=== PATIENT | female | born 1935 | race Caucasian/White ===

== ENCOUNTER 2016-11-16 14:06 | Inpatient (IN) | payer MEDICARE, OTHER ==
[~2016-11-16] VITALS: Ht 165.1 cm; Wt 113.6 kg
[~2016-11-16 14:06] MED LIST: ASPI-727 PO; CARV6.2579 PO; DIGO250T72 PO; ENAL5TAB89 PO; FURO40TA4 PO; HYDR1CAP18 PO; POTA8CAP PO; SMV40T PO; ZOLP10TA PO
[2016-11-16] MEDS ORDERED: ALBUTEROL 0.5% (NEB) 2.5 MG/0.5 ML AMP NEB STA (14:45)
[2016-11-16] MEDS ORDERED: ASPIRIN 81 MG TAB PO STA (14:45)
[2016-11-16] MEDS ORDERED: SOD CHLORIDE 0.9% 500 ML IV STA (14:45)
[2016-11-16] MEDS ORDERED: IPRATROPIUM (NEB) 0.5 MG/2.5 ML AMP NEB STA (14:45)
[2016-11-16] MEDS ORDERED: LORA10TA3 PO (14:53)
[2016-11-16] MEDS ORDERED: MAGN400T28 PO (14:53)
[2016-11-16] MEDS ORDERED: CARV12.579 PO (14:54)
[2016-11-16] MEDS ORDERED: IBUP-1542 PO (14:54)
[2016-11-16 15:03] LABS: ADD SCAN DIFF NO
[2016-11-16 15:04] LABS: ABNORMAL IP MESSAGE 1; BASOPHILS % 0.4 % (0.0-2.0); EOSINOPHILS # 0.1 10^3/ul (0.0-0.5); EOSINOPHILS % 0.9 % (0.0-7.0); HEMATOCRIT 48.9 % (37.0-47.0); HEMOGLOBIN 14.1 g/dl (12.0-16.0); LYMPHOCYTES # 1.5 10^3/ul (0.8-2.9); LYMPHOCYTES % 20.1 % (15.0-51.0); MEAN CORPUSCULAR HEMOGLOBIN 29.1 pg (29.0-33.0); MEAN CORPUSCULAR HGB CONC 28.8 g/dl (32.0-37.0); MEAN CORPUSCULAR VOLUME 100.8 fl (82.0-101.0); MEAN PLATELET VOLUME 10.6 fl (7.4-10.4); MONOCYTE # 0.5 10^3/ul (0.3-0.9); MONOCYTES % 6.2 % (0.0-11.0); NEUTROPHIL # 5.3 10^3/ul (1.6-7.5); NEUTROPHILS % 72.1 % (39.0-77.0); PLATELET COUNT 186 10^3/UL (140-415); RED BLOOD COUNT 4.85 10^6/ul (4.20-5.40); RED CELL DISTRIBUTION WIDTH 14.6 % (11.5-14.5); WHITE BLOOD COUNT 7.4 10^3/ul (4.8-10.8)
--- NOTE | 2016-11-16 15:16 | RADRPT ---
PROCEDURE: XR Chest. CLINICAL INDICATION: Stroke TECHNIQUE: Chest AP portable. COMPARISON: 11/30/2008 FINDINGS: Left-sided dual lead pacemaker. The mediastinal structures are unremarkable. There is calcification of the thoracic aorta (consiste nt with atherosclerosis). There is moderate cardiac enlargement. There is mild congestive heart fa ilure. There are right perihilar, RLL and LLL patchy consolidations (edema/pneumonia). There is a possible left pleural effusion. There are senescent changes of the axial skeleton. IMPRESSION: Moderate cardiac enlargement. Mild congestive heart failure. Right perihilar, RLL and LLL patchy consolidations (edema/pneumonia). Possible small left pleural effusion. RPTAT: HGDB .Obie Joshi MD, MD Date Time Electronically viewed and signed by .Obie Joshi MD, on 11/16/2016 15:15 .B/
[2016-11-16 15:20] LABS: INR 0.97; PROTIME 12.9 Sec (12.2-14.2)
[2016-11-16 15:21] LABS: PARTIAL THROMBOPLASTIN TIME 24.8 Sec (25.0-35.0)
[2016-11-16 15:46] LABS: ALBUMIN 3.7 g/dl (3.3-4.9)
[2016-11-16 15:47] LABS: POTASSIUM 4.4 mmol/L (3.5-5.1)
[2016-11-16 15:49] LABS: ALBUMIN/GLOBULIN RATIO 1.23; CREATININE 0.63 mg/dl (0.44-1.00); TOTAL PROTEIN 6.7 g/dl (6.1-8.1)
[2016-11-16 15:50] LABS: CALCIUM 8.7 mg/dl (8.4-10.2)
[2016-11-16] MEDS ORDERED: CEFTRIAXONE 1 GM/50 ML (PMX) 50 ML IVPB STA (15:57)
[2016-11-16] MEDS ORDERED: AZITHROMYCIN 500MG/NS (PMX) 250 ML IV STA (15:57)
[2016-11-16] MEDS ORDERED: FUROSEMIDE 40 MG INJ IV ONE (16:00)
[2016-11-16 16:01] LABS: TROPONIN-I 0.016 ng/ml (0.00-0.12)
[2016-11-16] MEDS ORDERED: morphine 4 MG/ML VIAL IV STA (16:26)
[2016-11-16] MEDS ORDERED: ONDANSETRON 4 MG INJ IV STA (16:26)
--- NOTE | 2016-11-16 17:07 | RADRPT ---
PROCEDURE: CT Brain without. CLINICAL INDICATION: Weakness, possible stroke, lethargic. TECHNIQUE: A CT of the brain was performed on multidetector high-resolution CT scanner utilizing a xial sections from the skull base through the vertex without contrast. The scan was reviewed in sof t tissue brain and high frequency resolution bone algorithm windows. Images were reviewed on a high -resolution PACS workstation. One or more the following does reduction techniques were utilized: Aut omated exposure control, adjustment of the mA/ or kV according to patient's size, or use of iterativ e reconstruction technique. The exam CTDI = 45.0 x3 mGy and the DLP = 810.25 mGy-cm. COMPARISON: None available. FINDINGS: Multiple images are degraded by motion. The ventricles and sulci are mildly prominent indicative of volume loss. There is no intracranial he morrhage, mass effect or midline shift. No abnormal intra-axial or extra-axial fluid collections ar e seen. The marquis/white matter differentiation is preserved. There are mild scattered foci of hypoattenuation in the white matter, which are nonspecific in etiol ogy but likely reflect chronic small vessel ischemic changes. Small lacunar infarcts are noted in ri ght caudate head and left coronal radiata and lentiform nucleus, likely chronic. There are mild intr acranial vascular calcifications consistent with atherosclerosis. The visualized paranasal sinuses a re essentially clear. There is thinning of right lens indicative of prior lens replacement. IMPRESSION: 1. Suboptimal motion degraded study. No acute intracranial hemorrhage, transcortical infarction or mass effect. 2. Mild intracranial atherosclerosis and chronic small vessel ischemic changes. 4. Small lacunar infarcts in right caudate head and left coronal radiata and lentiform nucleus, lik thomas chronic. Please note MRI is more sensitive for detection of acute ischemia and can be obtained a s clinically warranted. 5. Mild generalized cerebral volume loss. RPTAT: HH .Benotn Amaral MD, Date Time Electronically viewed and signed by .Benton Amaral MD, MD on 11/16/2016 17:06 .N/
[2016-11-16] MEDS ORDERED: ATROPINE 1 MG INJ IV ONE (17:30)
[2016-11-16 19:12] LABS: AADO2 Arterial 461.9 mmHg (7.0-24.0); Allen Test ACCEPTAB; Arterial Base Excess 8.7 mmol/L (-3.0-3); Arterial COHb 0.8 % (0.0-3.0); Arterial Fraction of Oxyhgb 95.8 % (93.0-99.0); Arterial HCO3 44.4 mmol/L (22.0-26.0); Arterial MetHb 0.6 % (0.0-1.5); Arterial Total Hemglobin 15.3 g/dl (12.0-18.0); MODE MASK - NRB
[2016-11-16] MEDS ORDERED: PROPOFOL 100 ML ONE (19:29)
--- NOTE | 2016-11-16 19:35 | ERA ---
ER Documentation Chief Complaint Date/Time DATE: 11/16/16 TIME: 19:30 Chief Complaint BROUGHT IN VIA EMS FROM HOME DUE TO GENERALIZED WEAKNESS STARTING TODAY HPI This 81-year-old female who is brought in due to generalized weakness and decreased mental status today. The family states that yesterday she was less active than usual and this morning she was very sleepy and is falling asleep easily while sitting in a chair. Said when she walks she is acting like her legs are going to give out she has not had a fall. The patient on arrival is sleepy but easily arousable. She is denying any complaints such as chest pain or shortness of breath however she is having some slight increased work of breathing no minimal. She denies abdominal pain nausea vomiting diarrhea. No fever ROS All systems reviewed and are negative except as per history of present illness. Medications Home Meds Reported Medications Carvedilol* (Carvedilol*) 12.5 Mg Tablet, 12.5 MG PO BID, #60 TAB 11/16/16 Ibuprofen* (Ibuprofen*) 600 Mg Tablet, 600 MG PO Q6H Y for PAIN, TAB 11/16/16 Loratadine* (Loratadine*) 10 Mg Tablet, 10 MG PO DAILY, #30 TAB 11/16/16 Magnesium Oxide* (Magnesium Oxide*) 400 Mg Tablet, 400 MG PO DAILY, TAB 11/16/16 Aspirin (Adult Aspirin) 81 Mg Tab.chew, 81 MG PO DAILY 10/01/11 Furosemide* (Furosemide*) 40 Mg Tablet, 40 MG PO DAILY 10/01/11 Simvastatin (Simvastatin) 40 Mg Tablet, 40 MG PO QHS 10/01/11 Enalapril (Enalapril) 5 Mg Tablet, 5 MG PO BID 10/01/11 Discontinued Reported Medications Hydrocodone Bit/Acetaminophen (Dolacet 5/500 Capsule) 1 Cap Capsule, 1 TAB PO Q8 10/01/11 Potassium Chloride (Micro-K) 8 Meq Capsr, 8 MEQ PO DAILY 10/01/11 Digoxin (Digoxin) 250 Mcg Tablet, 250 MCG PO DAILY 10/01/11 Zolpidem Tartrate (Ambien Saleem) 10 Mg Tablet, 10 MG PO HS 10/01/11 Carvedilol* (Carvedilol*) 6.25 Mg Tablet, 6.25 MG PO BID 10/01/11 Allergies Allergies: Coded Allergies: No Known Allergies (Verified Allergy, Unknown, 11/16/16) PMhx/Soc History of Surgery: Yes (AICD in the past) Anesthesia Reaction: No Hx Neurological Disorder: No Hx Respiratory Disorders: No Hx Cardiac Disorders: Yes (has permanent pacemaker and cardiomyopathy) Hx Psychiatric Problems: No Hx Miscellaneous Medical Probl: No Hx Alcohol Use: No Hx Substance Use: No Hx Tobacco Use: No Smoking Status: Never smoker FmHx Family History: No coronary disease Physical Exam Vitals Vital Signs Date Time Temp Pulse Resp B/P Pulse Ox O2 Delivery O2 Flow Rate FiO2 11/16/16 18:30 98.0 88 18 122/70 99 Non Rebreather 15.0 88 11/16/16 16:30 98.0 94 18 138/85 99 Non Rebreather 15.0 94 11/16/16 15:58 15.0 100 11/16/16 15:58 95 21 99 Non Rebreather Mask 15.0 100 11/16/16 15:38 Nasal Cannula 2 11/16/16 14:30 95 18 173/124 100 Non Rebreather 12.0 11/16/16 14:10 98.0 95 16 130/8 60 Nasal Cannula 11/16/16 14:08 98.5 84 18 122/86 68 Physical Exam Const: Well-developed, well-nourished Head: Atraumatic, normocephalic Eyes: Normal Conjunctiva, PERRLA, EOMI, normal sclera, no nystagmus ENT: Normal External Ears, Nose and Mouth, moist mucus membranes. Neck: Full range of motion. No meningismus, no lymphadenopathy. Resp: Slight coarse rhonchi in the bases with very slight increased work of breathing with accessory muscle use no respiratory strength distress. Cardio: Regular rate and rhythm, no murmurs, S1 S2 present Abd: Soft, non tender x 4, non distended. Normal bowel sounds, no guarding or rebound, no pulsitile abdominal masses or bruits Skin: No petechiae or rashes, no ecchymosis , no maculopapular rash Back: No midline or flank tenderness Ext: No cyanosis, or edema, FROM x 4, normal inspection, neurovascularly intact x 4 Neur: Sleepy but easily arousable and answers questions, STR 5/5 x 4, sensation intact x 4, no focal findings, cerebellum intact Psych: Normal Mood and Affect Result Diagram: 11/16/16 1450 11/16/16 1450 Results 24 hrs Laboratory Tests Test 11/16/16 14:50 11/16/16 18:13 Activated Partial Thromboplast Time 24.8Sec Alanine Aminotransferase (ALT/SGPT) 24IU/L Albumin 3.7g/dl Albumin/Globulin Ratio 1.23 Alkaline Phosphatase 61IU/L Anion Gap 12 Aspartate Amino Transf (AST/SGOT) 20IU/L Basophils # 0.010^3/ul Basophils % 0.4% Blood Urea Nitrogen 15mg/dl Calcium Level 8.7mg/dl Carbon Dioxide Level 41mmol/L Chloride Level 96mmol/L Creatinine 0.63mg/dl Direct Bilirubin 0.00mg/dl Eosinophils # 0.110^3/ul Eosinophils % 0.9% Globulin 3.00g/dl Glucose Level 104mg/dl Hematocrit 48.9% Hemoglobin 14.1g/dl INR International Normalized Ratio 0.97 Indirect Bilirubin 0.0mg/dl Lymphocytes # 1.510^3/ul Lymphocytes % 20.1% Mean Corpuscular Hemoglobin 29.1pg Mean Corpuscular Hemoglobin Concent 28.8g/dl Mean Corpuscular Volume 100.8fl Mean Platelet Volume 10.6fl Monocytes # 0.510^3/ul Monocytes % 6.2% Neutrophils # 5.310^3/ul Neutrophils % 72.1% Nucleated Red Blood Cells # 0.010^3/ul Nucleated Red Blood Cells % 0.0/100WBC Platelet Count 06306^3/UL Potassium Level 4.4mmol/L Prothrombin Time 12.9Sec Prothrombin Time Ratio 1.0 Red Blood Count 4.8510^6/ul Red Cell Distribution Width 14.6% Sodium Level 144mmol/L Total Bilirubin 0.0mg/dl Total Protein 6.7g/dl Troponin I 0.016ng/ml White Blood Count 7.410^3/ul Arterial Blood HCO3 44.4mmol/L Arterial Blood Base Excess 8.7mmol/L Arterial Blood Oxygen Saturation 97.2mmHG Dario Test ACCEPTAB Arterial Blood Gas Puncture Site Right Radial Arterial Blood Carboxyhemoglobin 0.8% Arterial Blood Date Drawn 11/16/2016 7:05:30 PM Arterial Blood Methemoglobin 0.6% Arterial Blood pCO2 (Temp correct) 142.2mmhg Arterial Blood pH (Temp corrected) 7.112 Arterial Blood pO2 (Temp corrected) 108.9mmHG Blood Gas A-a O2 Differential 461.9mmHg Blood Gas Critical Value Read Back Kylie ALVAREZ MD Blood Gas Modality MASK - NRB Blood Gas Notified Time 11/16/2016 7:12:04 PM Blood Gas Notified Whom MG Blood Gas Specimen Source Blood arterial Blood Gas Temperature 37.0C FiO2 100.0% Oxyhemoglobin Percent 95.8% Total Hemoglobin 15.3g/dl Current Medications Medications (Trade) Dose Ordered Sig/Arely Route PRN Reason Start Time Stop Time Status Last Admin Dose Admin Sodium Chloride (NS) 500 ml @ 500 mls/hr Q1H STAT IV 11/16/16 14:45 11/16/16 15:44 DC 11/16/16 14:45 Aspirin (Aspirin) 162 mg ONCE STAT PO 11/16/16 14:45 11/16/16 14:47 DC 11/16/16 14:45 Albuterol (Proventil 0.5% (Neb)) 10 mg ONCE STAT NEB 11/16/16 14:45 11/16/16 14:47 DC 11/16/16 15:57 Ipratropium [place] 0.5 mg 0.5 mg ONCE STAT NEB 11/16/16 14:45 11/16/16 14:47 DC 11/16/16 15:57 Azithromycin 250 ml @ 250 mls/hr ONCE STAT IV 11/16/16 15:57 11/16/16 16:56 DC 11/16/16 15:57 Ceftriaxone Sodium (Rocephin) 50 ml @ 100 mls/hr ONCE STAT IVPB 11/16/16 15:57 11/16/16 16:26 DC 11/16/16 15:57 Furosemide (Lasix) 40 mg ONCE ONCE IV 11/16/16 16:00 11/16/16 16:01 DC 11/16/16 16:00 Morphine Sulfate (morphine) 4 mg ONCE STAT IV 11/16/16 16:26 11/16/16 16:27 Cancel Ondansetron HCl (Zofran Inj) 4 mg ONCE STAT IV 11/16/16 16:26 11/16/16 16:27 Cancel Atropine Sulfate 1 mg 1 mg ONCE ONCE IV 11/16/16 17:30 11/16/16 17:31 Cancel Propofol (Diprivan) 100 ml @ STK-MED ONCE .ROUTE 11/16/16 19:29 11/16/16 19:30 DC Procedures/MDM PROCEDURE: CT Brain without. CLINICAL INDICATION: Weakness, possible stroke, lethargic. TECHNIQUE: A CT of the brain was performed on multidetector high-resolution CT scanner utilizing axial sections from the skull base through the vertex without contrast. The scan was reviewed in soft tissue brain and high frequency resolution bone algorithm windows. Images were reviewed on a high- resolution PACS workstation. One or more the following does reduction techniques were utilized: Automated exposure control, adjustment of the mA/ or kV according to patient's size, or use of iterative reconstruction technique. The exam CTDI = 45.0 x3 mGy and the DLP = 810.25 mGy-cm. COMPARISON: None available. FINDINGS: Multiple images are degraded by motion. The ventricles and sulci are mildly prominent indicative of volume loss. There is no intracranial hemorrhage, mass effect or midline shift. No abnormal intra- axial or extra-axial fluid collections are seen. The marquis/white matter differentiation is preserved. There are mild scattered foci of hypoattenuation in the white matter, which are nonspecific in etiology but likely reflect chronic small vessel ischemic changes. Small lacunar infarcts are noted in right caudate head and left coronal radiata and lentiform nucleus, likely chronic. There are mild intracranial vascular calcifications consistent with atherosclerosis. The visualized paranasal sinuses are essentially clear. There is thinning of right lens indicative of prior lens replacement. IMPRESSION: 1. Suboptimal motion degraded study. No acute intracranial hemorrhage, transcortical infarction or mass effect. 2. Mild intracranial atherosclerosis and chronic small vessel ischemic changes. 4. Small lacunar infarcts in right caudate head and left coronal radiata and lentiform nucleus, likely chronic. Please note MRI is more sensitive for detection of acute ischemia and can be obtained as clinically warranted. 5. Mild generalized cerebral volume loss. RPTAT: HH .Benton Amaral MD, MD Date Time Electronically viewed and signed by .Benton Amaral MD, MD on 11/16/2016 17: 06 .N/ CC: DORA ALVAREZ DO EKG: Rate/Rhythm: Electronic ventricular pacemaker QRS, ST, QT: Y, QRS, QT] Impression: [employer] pacemaker EKG PROCEDURE: XR Chest. CLINICAL INDICATION: Stroke TECHNIQUE: Chest AP portable. COMPARISON: 11/30/2008 FINDINGS: Left-sided dual lead pacemaker. The mediastinal structures are unremarkable. There is calcification of the thoracic aorta (consistent with atherosclerosis). There is moderate cardiac enlargement. There is mild congestive heart failure. There are right perihilar , RLL and LLL patchy consolidations (edema/pneumonia). There is a possible left pleural effusion. There are senescent changes of the axial skeleton. IMPRESSION: Moderate cardiac enlargement. Mild congestive heart failure. Right perihilar, RLL and LLL patchy consolidations (edema/pneumonia). Possible small left pleural effusion. RPTAT: HGDB .Obie Joshi MD, MD Date Time Electronically viewed and signed by .Obie Joshi MD, MD on 11/16/2016 15:15 .B/ CC: DORA ALVAREZ DO Patient received intravenous antibiotics and Lasix. Over the course of a few hours the patient became more somnolent and sleepy with became increasingly difficult to arouse. An ABG was then obtained with a PCO2 of 140s. At that point putting her on BiPAP was abandoned and intubation is necessary. Endotracheal Intubation by me: Pre assessment performed. See preceding note for details. Pre-oxygenation performed with 100% oxygen RSI: Performed w/o complication or hypoxic events. Medications as ordered. Blade: Mac 4 ET Tube: 7.0 cm Depth: 22 cm at the lip Intubation confirmed by colorimetric CO2, equal breath sounds, quiet over the stomach. Patient be admitted for vascular congestion/patchy infiltrate/edema and 4 CO2 narcosis Critical Care Time: 30 minutes Treatments/Evaluations: Close monitoring and treatment of unstable vital signs, cardiorespiratory, and neurologic status, while maintaining tight balance of fluid, respiratory, and cardiac interventions. This time includes discussing the case with the patient and the patient's family. This time does not include all procedures stated elsewhere in this record. This time also includes reviewing old records, labs and radiological studies. This time includes examining and re-examining the patient. Additionally, this time also includes arranging care with admitting and consulting physicians. Departure Diagnosis: Primary Impression: Carbon dioxide narcosis Additional Impressions: Pulmonary vascular congestion Pulmonary infiltrates Condition: DORA Peoples DO Nov 16, 2016 19:35
[2016-11-16] MEDS: SOD CHLORIDE 0.9% 1,000 ML IV SCH (19:50)
--- NOTE | 2016-11-16 19:50 | HP ---
Date/Time of Note Date/Time of Note DATE: 11/16/16 TIME: 19:50 Assessment/Plan VTE Prophylaxis VTE Prophylaxis Intervention: other (Enoxeparin) Assessment/Plan Assessment/Plan 1) Carbon dioxide narcosis - Admit to ICU - CONSULT: Dr. Orozco - AM Labs: ABG 2) Pulmonary vascular congestion, suspect mild CHF - Cardio Consult and Echo tomorrow, if indicated - Diuresis. Already given 40 mg Lasix IV in ER - Add BNP onto labs already done. 3) Pulmonary infiltrates - Cover with Antibiotics for possible CAP - AM Labs: CBC - Blood Cultures were drawn in ER, pending. 4) Morbid Obesity, consider Obesity Hypoventilation Syndrome - Add TSH, Prealbumin, HgbA1c to labs already drawn. - AM Labs: Lipid Panel HPI/ROS Admit Date/Time Admit Date/Time Hx of Present Illness Chief Complaint BROUGHT IN VIA EMS FROM HOME DUE TO GENERALIZED WEAKNESS STARTING TODAY HPI History as per ER physician as patient is intubated and sedated and there are no family members present.: This 81-year-old female who is brought in due to generalized weakness and decreased mental status today. The family states that yesterday she was less active than usual and this morning she was very sleepy and is falling asleep easily while sitting in a chair. Said when she walks she is acting like her legs are going to give out she has not had a fall. The patient on arrival is sleepy but easily arousable. She is denying any complaints such as chest pain or shortness of breath however she is having some slight increased work of breathing no minimal. She denies abdominal pain nausea vomiting diarrhea. No fever. ROS ROS as per HPI. Subjective hx not possible: other (Patient is Intubated and Sedated. No family members at bedside.) PMH/Family/Social Past Medical History Anesthesia Reaction: No Hx Neurological Disorder: No Hx Respiratory Disorders: No Hx Psychiatric Problems: No Hx Miscellaneous Medical Probl: No Medical History: other (Cardiomyopathy) Past Surgical History Past Surgical Hx: other (AICD Placement; Permanent Pacemaker) Family History Significant Family History: other (No cardiac history.) Social History Alcohol Use: none Smoking Status: Never smoker Drug Use: none Exam/Review of Systems Vital Signs Vitals Vital Signs Date Time Temp Pulse Resp B/P Pulse Ox O2 Delivery O2 Flow Rate FiO2 11/16/16 18:30 98.0 88 18 122/70 99 Non Rebreather 15.0 88 11/16/16 15:58 100 Exam Exam Const: Morbidly obese female, intubated and sedated. Head: Normocephalic/Atraumatic Eyes: No scleral icterus ENT: Normal External Ears, Nose (NGT in place.) and Mouth, oral mucus membranes appear to be moist, but exam is difficult due to intubation status. Neck: Supple, no lymphadenopathy. Unable to test ROM due to intubation status Resp: Slight coarse rhonchi in the bases, ventilated via endotrachial intubation Cardio: Normal rate and regular rhythm, but difficult to hear over ventilator. Heart sounds seem distant as well. Radial and DP Pulses bilaterally 1-2/4, regular. Abd: Obese, soft. Exam does not seem to cause discomfort. No guarding or rebound. No pulsitile masses or obvious HSM, but exam is difficult due to body habitus. Skin: Normal moisture and temperature. Good turgor. No petechiae. No rashes appreciated. Back: Not able to examine easily due to intubated status. Ext: No cyanosis, or edema Neur: Intubated and sedated on Propofol, but patient is chewing on the tube and spontaneously moves her legs, and when I moved her left breast to auscultate her left lower lung field, it seemed to bother patient as she moved her arms. I took is as a sign of modesty rather than a sign of pain. Psych: Unable to asses due to current sedation and intubation. Labs Result Diagram: 11/16/16 1450 11/16/16 1450 Medications Medications Home Meds Reported Medications Carvedilol* (Carvedilol*) 12.5 Mg Tablet, 12.5 MG PO BID, #60 TAB 11/16/16 Ibuprofen* (Ibuprofen*) 600 Mg Tablet, 600 MG PO Q6H Y for PAIN, TAB 11/16/16 Loratadine* (Loratadine*) 10 Mg Tablet, 10 MG PO DAILY, #30 TAB 11/16/16 Magnesium Oxide* (Magnesium Oxide*) 400 Mg Tablet, 400 MG PO DAILY, TAB 11/16/16 Aspirin (Adult Aspirin) 81 Mg Tab.chew, 81 MG PO DAILY 10/01/11 Furosemide* (Furosemide*) 40 Mg Tablet, 40 MG PO DAILY 10/01/11 Simvastatin (Simvastatin) 40 Mg Tablet, 40 MG PO QHS 10/01/11 Enalapril (Enalapril) 5 Mg Tablet, 5 MG PO BID 10/01/11 Discontinued Reported Medications Hydrocodone Bit/Acetaminophen (Dolacet 5/500 Capsule) 1 Cap Capsule, 1 TAB PO Q8 10/01/11 Potassium Chloride (Micro-K) 8 Meq Capsr, 8 MEQ PO DAILY 10/01/11 Digoxin (Digoxin) 250 Mcg Tablet, 250 MCG PO DAILY 10/01/11 Zolpidem Tartrate (Ambien Saleem) 10 Mg Tablet, 10 MG PO HS 10/01/11 Carvedilol* (Carvedilol*) 6.25 Mg Tablet, 6.25 MG PO BID 10/01/11 Procedures Procedures Laboratory Tests Test 11/16/16 14:50 11/16/16 18:13 Activated Partial Thromboplast Time 24.8Sec Alanine Aminotransferase (ALT/SGPT) 24IU/L Albumin 3.7g/dl Albumin/Globulin Ratio 1.23 Alkaline Phosphatase 61IU/L Anion Gap 12 Aspartate Amino Transf (AST/SGOT) 20IU/L Basophils # 0.010^3/ul Basophils % 0.4% Blood Urea Nitrogen 15mg/dl Calcium Level 8.7mg/dl Carbon Dioxide Level 41mmol/L Chloride Level 96mmol/L Creatinine 0.63mg/dl Direct Bilirubin 0.00mg/dl Eosinophils # 0.110^3/ul Eosinophils % 0.9% Globulin 3.00g/dl Glucose Level 104mg/dl Hematocrit 48.9% Hemoglobin 14.1g/dl INR International Normalized Ratio 0.97 Indirect Bilirubin 0.0mg/dl Lymphocytes # 1.510^3/ul Lymphocytes % 20.1% Mean Corpuscular Hemoglobin 29.1pg Mean Corpuscular Hemoglobin Concent 28.8g/dl Mean Corpuscular Volume 100.8fl Mean Platelet Volume 10.6fl Monocytes # 0.510^3/ul Monocytes % 6.2% Neutrophils # 5.310^3/ul Neutrophils % 72.1% Nucleated Red Blood Cells # 0.010^3/ul Nucleated Red Blood Cells % 0.0/100WBC Platelet Count 94514^3/UL Potassium Level 4.4mmol/L Prothrombin Time 12.9Sec Prothrombin Time Ratio 1.0 Red Blood Count 4.8510^6/ul Red Cell Distribution Width 14.6% Sodium Level 144mmol/L Total Bilirubin 0.0mg/dl Total Protein 6.7g/dl Troponin I 0.016ng/ml White Blood Count 7.410^3/ul Arterial Blood HCO3 44.4mmol/L Arterial Blood Base Excess 8.7mmol/L Arterial Blood Oxygen Saturation 97.2mmHG Dario Test ACCEPTAB Arterial Blood Gas Puncture Site Right Radial Arterial Blood Carboxyhemoglobin 0.8% Arterial Blood Date Drawn 11/16/2016 7:05:30 PM Arterial Blood Methemoglobin 0.6% Arterial Blood pCO2 (Temp correct) 142.2mmhg Arterial Blood pH (Temp corrected) 7.112 Arterial Blood pO2 (Temp corrected) 108.9mmHG Blood Gas A-a O2 Differential 461.9mmHg Blood Gas Critical Value Read Back Kylie ALVAREZ MD Blood Gas Modality MASK - NRB Blood Gas Notified Time 11/16/2016 7:12:04 PM Blood Gas Notified Whom MG Blood Gas Specimen Source Blood arterial Blood Gas Temperature 37.0C FiO2 100.0% Oxyhemoglobin Percent 95.8% Total Hemoglobin 15.3g/dl RADIOLOGY: PROCEDURE: CT Brain without. IMPRESSION: 1. Suboptimal motion degraded study. No acute intracranial hemorrhage, transcortical infarction or mass effect. 2. Mild intracranial atherosclerosis and chronic small vessel ischemic changes. 4. Small lacunar infarcts in right caudate head and left coronal radiata and lentiform nucleus, likely chronic. Please note MRI is more sensitive for detection of acute ischemia and can be obtained as clinically warranted. 5. Mild generalized cerebral volume loss. PROCEDURE: XR Chest. IMPRESSION: Moderate cardiac enlargement. Mild congestive heart failure. Right perihilar, RLL and LLL patchy consolidations (edema/pneumonia). Possible small left pleural effusion. KRISHNA MELGAR DO Nov 16, 2016 19:50
[2016-11-16] MEDS ORDERED: ACETAMINOPHEN 650 MG SUPP PR PRN (20:00)
[2016-11-16] MEDS ORDERED: PROPOFOL 100 ML IV STA (20:27)
[2016-11-16 20:37] LABS: ADD UMIC YES; URINE BILIRUBIN (Dip) NEGATIVE (NEGATIVE); URINE BLOOD (Dip) TRACE (NEGATIVE); URINE COLOR LT. YELLOW (YELLOW); URINE GLUCOSE (Dip) NEGATIVE (NEGATIVE); URINE KETONES (Dip) NEGATIVE (NEGATIVE); URINE LEUKOCYTE ESTERASE (Dip) TRACE (NEGATIVE); URINE NITRITE (Dip) NEGATIVE (NEGATIVE); URINE TOTAL PROTEIN (Dip) NEGATIVE (NEGATIVE); URINE UROBILINOGEN (Dip) 0.2 E.U./dL (0.1-1.0)
[2016-11-16 20:49] LABS: SQUAMOUS EPITHELIAL CELL,UR RARE; URINE RBCS 0-2 /HPF (0)
[2016-11-16 20:50] LABS: BACTERIA,URINE RARE
[2016-11-16] MEDS: FAMOTIDINE 20 MG TAB PO SCH (21:00)
[2016-11-16] MEDS: ARTIFICIAL TEARS 15 ML OPH BOTH EYES SCH (21:55)
[2016-11-16 21:59] LABS: AADO2 Arterial 529.6 mmHg (7.0-24.0); Allen Test ACCEPTAB; Arterial Base Excess 11.3 mmol/L (-3.0-3); Arterial COHb 0.5 % (0.0-3.0); Arterial Fraction of Oxyhgb 98.3 % (93.0-99.0); Arterial HCO3 34.9 mmol/L (22.0-26.0); Arterial MetHb 0.3 % (0.0-1.5); Arterial Total Hemglobin 13.8 g/dl (12.0-18.0); MODE VENT - AC
[2016-11-16] MEDS ORDERED: MIDAZOLAM 1 MG/ML 2 ML INJ IV ONE (22:30)
--- NOTE | 2016-11-16 23:36 | RADRPT ---
PROCEDURE: Portable chest x-ray. CLINICAL INDICATION: Intubation. TECHNIQUE: Portable AP view of the chest. COMPARISON: 11/16/2016 at 02:59 p.m.. FINDINGS: An endotracheal tube terminates approximately 3.4 cm above the natalie. A nasogastric tube courses in to the stomach, but its tip is not imaged. There is vascular congestion and mild pulmonary edema, no t significantly changed. Decreased opacification of the right mid lung is noted. The cardiac silhoue tte is enlarged. There is a left chest cardiac pacemaker. There may be a small left pleural effusio n.. There is no pneumothorax. IMPRESSION: 1. Endotracheal tube tip approximately 3.4 cm above the natalie. 2. A nasogastric tube courses into the stomach, but its tip is not imaged. 3. Vascular congestion and mild pulmonary edema, not significantly changed. 4. Decreased opacification of the right mid lung. 5. Possible small left pleural effusion. 6. Enlarged cardiac silhouette. 7. Cardiac pacemaker. RPTAT: HTAR .Garcia Keller MD, MD Date Time Electronically viewed and signed by .Garcia Keller MD, on 11/16/2016 23:36 .R/
[2016-11-16] MEDS: MIDAZOLAM (DRIP) 50 mg/50 mL 50 ML IV SCH (23:40)
[2016-11-17] MEDS ORDERED: SUCCINYLCHOLINE CHLORIDE 100 MG/5 ML SYG IV ONE
[2016-11-17 01:12] LABS: THYROID STIMULATING HORMONE 2.52 MIU/L (0.465-4.680)
[2016-11-17] MEDS: SOD CHLORIDE 0.9% 1,000 ML IV SCH ×2 (06:38→12:10)
[2016-11-17] MEDS: FAMOTIDINE 20 MG TAB PO SCH (09:00)
[2016-11-17] MEDS: ENOXAPARIN 30 MG/0.3 ML SYG SC SCH (09:32)
[2016-11-17] MEDS: ARTIFICIAL TEARS 15 ML OPH BOTH EYES SCH ×3 (09:32→21:02)
[2016-11-17] MEDS ORDERED: VALSARTAN 80 MG TAB PO ONE (14:30)
--- NOTE | 2016-11-17 14:30 | CONS ---
Date/Time of Note Date/Time of Note DATE: 11/17/16 TIME: 14:25 Assessment/Plan Assessment/Plan Additional Assessment/Plan Chest x-ray was reviewed from yesterday which is showing endotracheal tube at an adequate level. Mild congestive heart failure pattern is present. Cardio megaly is present. Next ABG was reviewed from admission which is showing severe hypercapnic respiratory failure with severe respiratory acidosis. Follow-up ABG is showing significant improvement. Next Current ventilator settings are AC of 30, tidal volume 500, PEEP of 0, 60% FiO2. Assessment recommendations; 1. Patient admitted for hypercapnic respiratory failure likely from underlying obesity/hypoventilation syndrome possibly underlying sleep apnea. 2. Severe hypertension. 3. Morbid obesity. 4. Difficult to rule out superimposed pneumonia. 5. Patient currently is being hyperventilated. Continue current treatment. Ventilator settings have been adjusted at this time I would recommend dropping assist-control rate to around 20. Normalization of PCO2 is not recommended as the patient likely is a chronic CO2 retainer. Patient to be started on Diovan as well as resumption of Coreg for control of blood pressure. Obtain a follow-up chest x-ray in 24 hours. Continue current antibiotics. Consultation Date/Type/Reason Admit Date/Time Date of Consultation: Nov 17, 2016 Type of Consultation: Pulmonary/critical care Reason for Consultation Pulmonary consultations requested for evaluation of respiratory failure. Next History presenting; patient is a 80-year-old white lady who was brought into the emergency room yesterday after the patient was found to be unresponsive and difficult to arouse at home. Upon evaluation here the patient was found to be respiratory failure with severe CO2 narcosis. Patient was intubated by the ER physician and started on invasive mechanical ventilation. The time I saw the patient the patient is still in ER, orally intubated and sedated. History was obtained from medical records. Past medical history; 1. History of hypertension. 2. Possibly underlying sleep apnea. 3. Morbid obesity. 4. History of laparotomy. 5. History of right cataract surgery. Indication; were reviewed. Allergies; are none. Social history; patient currently is a non-smoker. No show any alcohol or drug abuse. Family history; not available. Next Occupational history; not available. Review of systems; currently not obtainable. General exam; elderly lady, morbidly obese orally intubated , sedated. Past Medical History Medical History: other (Cardiomyopathy) Past Surgical History Past Surgical Hx: other (AICD Placement; Permanent Pacemaker) Social History Alcohol Use: none Smoking Status: Never smoker Drug Use: none Exam/Review of Systems Vital Signs Vitals Vital Signs Date Time Temp Pulse Resp B/P Pulse Ox O2 Delivery O2 Flow Rate FiO2 11/17/16 13:58 98.8 83 30 153/106 99 Mechanical Ventilator 15.0 11/17/16 13:02 70 Exam HEENT exam; supple neck, JVD difficult to see because of short neck. Patient has a right intraocular lens implant. Patient had multiple dental caps. No thyromegaly no neck bruits. Chest examination a micro diminished breath sounds throughout. S1-S2 audible, no murmurs. Regular rhythm. Abdomen examination; grossly protuberant. It is a well-healed infraumbilical laparotomy scar. Bowel sounds audible. Extremity exam is; trace peripheral edema. Pulses 1+ bilaterally. PATHOLOGY SECRETARY/TRANSCRIPTIONIST examination a micro patient is currently sedated. Results Result Diagram: 11/16/16 1450 11/16/16 1450 Results 24 hrs Laboratory Tests Test 11/16/16 14:50 11/16/16 18:13 11/16/16 20:26 11/16/16 21:50 Activated Partial Thromboplast Time 24.8 L Alanine Aminotransferase (ALT/SGPT) 24 Albumin 3.7 Albumin/Globulin Ratio 1.23 Alkaline Phosphatase 61 Anion Gap 12 Aspartate Amino Transf (AST/SGOT) 20 Basophils # 0.0 Basophils % 0.4 Blood Urea Nitrogen 15 Calcium Level 8.7 Carbon Dioxide Level 41 *H Chloride Level 96 L Creatinine 0.63 Direct Bilirubin 0.00 Eosinophils # 0.1 Eosinophils % 0.9 Globulin 3.00 Glucose Level 104 Hematocrit 48.9 H Hemoglobin 14.1 INR International Normalized Ratio 0.97 Indirect Bilirubin 0.0 Lymphocytes # 1.5 Lymphocytes % 20.1 Mean Corpuscular Hemoglobin 29.1 Mean Corpuscular Hemoglobin Concent 28.8 L Mean Corpuscular Volume 100.8 Mean Platelet Volume 10.6 H Monocytes # 0.5 Monocytes % 6.2 Neutrophils # 5.3 Neutrophils % 72.1 Nucleated Red Blood Cells # 0.0 Nucleated Red Blood Cells % 0.0 Platelet Count 186 Potassium Level 4.4 Prothrombin Time 12.9 Prothrombin Time Ratio 1.0 Red Blood Count 4.85 Red Cell Distribution Width 14.6 H Sodium Level 144 Total Bilirubin 0.0 L Total Protein 6.7 Troponin I 0.016 White Blood Count 7.4 Arterial Blood HCO3 44.4 *H 34.9 H Arterial Blood Base Excess 8.7 H 11.3 H Arterial Blood Oxygen Saturation 97.2 99.1 Dario Test ACCEPTAB ACCEPTAB Arterial Blood Gas Puncture Site Right Radial Right Brachial Arterial Blood Carboxyhemoglobin 0.8 0.5 Arterial Blood Date Drawn 11/16/2016 7:05:30 PM 11/16/2016 9:50:48 PM Arterial Blood Methemoglobin 0.6 0.3 Arterial Blood pCO2 (Temp correct) 142.2 *H 41.7 Arterial Blood pH (Temp corrected) 7.112 *L 7.541 H Arterial Blood pO2 (Temp corrected) 108.9 H 141.7 H Blood Gas A-a O2 Differential 461.9 H 529.6 H Blood Gas Critical Value Read Back Kylie ALVAREZ MD Blood Gas Modality MASK - NRB VENT - AC Blood Gas Notified Time 11/16/2016 7:12:04 PM 11/16/2016 9:59:23 PM Blood Gas Notified Whom MG MG Blood Gas Specimen Source Blood arterial Blood arterial Blood Gas Temperature 37.0 37.0 FiO2 100.0 100.0 Oxyhemoglobin Percent 95.8 98.3 Total Hemoglobin 15.3 13.8 Urine Bacteria RARE Urine Bilirubin NEGATIVE Urine Clarity CLEAR Urine Color LT. YELLOW Urine Glucose NEGATIVE Urine Hemoglobin TRACE Urine Ketones NEGATIVE Urine Leukocyte Esterase TRACE H Urine Microscopic RBC 0-2 Urine Microscopic WBC 0-2 Urine Nitrite NEGATIVE Urine Specific [place] 1.015 Urine Squamous Epithelial Cells RARE Urine Total Protein NEGATIVE Urine Urobilinogen 0.2 E.U./dL Urine pH 6.0 Blood Gas Actual Respiration Rate 30 Blood Gas Respiration Rate 30.0 Blood Gas Tidal Volume 500.0 Test 11/16/16 23:45 B-Type Natriuretic Peptide 1170 H Hemoglobin A1c 5.8 Prealbumin 15.5 L Thyroid Stimulating Hormone (TSH) 2.520 Medications Medications Current Medications Sodium Chloride (NS) 1,000 ml @ 125 mls/hr Q8H IV Last administered on t 12:10; Admin Dose 125 MLS/HR; Start 11/16/16 at 19:50 Acetaminophen (Tylenol Supp) 650 mg Q4H PRN [place] PAIN LEVEL 1-3 OR FEVER Last administered on 11/16/16 23:57; Admin Dose 650 MG; Start 11/16/16 at 20:00 Famotidine (Pepcid) 20 mg DAILY PO ; Start 11/16/16 at 21:00 Eye Lubricant (Artificial Tears Oph) 1 drop TID BOTH EYES Last administered on 11/17/16 13:00; Admin Dose 1 DROP; Start 11/16/16 at 21:00 Enoxaparin Sodium 30 mg 30 mg DAILY SC Last administered on 11/17/16 09:32; Admin Dose 30 MG; Start 11/17/16 at 09:00 Midazolam HCl 50 ml @ 1 mls/hr TITRATE IV Last administered on 11/16/16 23:40 ; Admin Dose 1 MLS/HR; Start 11/16/16 at 22:00 Ceftriaxone Sodium (Rocephin) 50 ml @ 100 mls/hr Q24H IVPB ; Start 11/17/16 at 16:00 SEVERINO MCMILLAN Nov 17, 2016 14:29
[2016-11-17] MEDS: CEFTRIAXONE 1 GM/50 ML (PMX) 50 ML IVPB SCH (16:27)
[2016-11-17] MEDS: MIDAZOLAM (DRIP) 50 mg/50 mL 50 ML IV SCH (16:28)
--- NOTE | 2016-11-17 17:22 | PN ---
DATE: 11/17/2016 SUBJECTIVE DATA: The patient remains intubated. FIO2 is 30%. OBJECTIVE DATA: VITAL SIGNS: Temperature 98.8, pulse rate 92, respiratory rate 30, blood pressure 133/72, oxygen saturation 99% on 30% FIO2 via mechanical ventilator. GENERAL: This is an obese female patient lying in bed, orally intubated. HEENT: Head normocephalic and atraumatic. Eyes: Anicteric sclerae. Conjunctivae clear. ENT: Nasal septum is midline. Oral mucosa is moist. ET tube connected to mechanical ventilator. NECK: Short and obese, but unable to visualize any neck veins. RESPIRATORY: ET tube connected to mechanical ventilator. On AC mode ventilation. Bilaterally diminished breath sounds with coarse rales. CARDIAC: Regular rate and rhythm. Unable to appreciate any murmurs. ABDOMEN: Soft, nontender, nondistended. Bowel sounds hypoactive in all 4 quadrants. GENITOURINARY: The patient has a John catheter in place. EXTREMITIES: No cyanosis, no clubbing. Bilateral lower extremity trace pedal edema. Peripheral pulses palpable. NEUROLOGIC: The patient is sedated. LABORATORY AND DIAGNOSTIC DATA: WBC 7.4, hemoglobin 14.1, hematocrit 48.9, platelet count 196. Sodium 144, potassium 4.4, chloride 96, carbon dioxide 41, anion gap 12, BUN 15, creatinine 0.66, glucose 104, calcium 8.7. ASSESSMENT AND PLAN: 1. Acute hypoxic and hypercapnic respiratory failure. The patient is currently intubated. Continue mechanical ventilation. Continue inhaled bronchodilators. 2. Acute encephalopathy. Most probably metabolic in origin secondary to CO2 retention and CO2 narcosis. Brain CT scan negative for any acute intracranial findings. Monitor. 3. Possible underlying congestive heart failure exacerbation. Systolic versus diastolic dysfunction. The patient will be started on Lasix. A 2D echocardiogram will be obtained to evaluate the left ventricular ejection fraction. 4. Possible underlying pneumonia. The patient will be empirically treated for any underlying pneumonia. The patient remains afebrile. 5. Status post pacemaker placement. Details are unclear. We will obtain a cardiology consult on this patient. 6. History of essential hypertension. Blood pressure fairly well controlled at this time. We will monitor. 7. Morbid obesity and possible underlying obesity hypoventilation syndrome. Monitor at this time. 8. Fluid, electrolytes and nutrition. N.p.o. 9. Deep venous thrombosis prophylaxis, subcutaneous Lovenox. 10. Gastrointestinal prophylaxis. Proton pump inhibitors. PLAN: Continue mechanical ventilation. Ventilator weaning as per pulmonary. Obtain 2D echocardiogram. Trend troponins. Case discussed with Dr. Mcgill. Critical care time: 40 minutes. SUMEET MCGILL MD, AM/NTS Conf#: [id number] DID#: [id number] MTDD
[2016-11-17] MEDS: FUROSEMIDE 20 MG INJ IV SCH (17:35)
[2016-11-17 18:31] LABS: ADD SCAN DIFF NO
[2016-11-17 18:35] LABS: BASOPHILS % 0.3 % (0.0-2.0); EOSINOPHILS % 0.1 % (0.0-7.0); HEMATOCRIT 50.3 % (37.0-47.0); LYMPHOCYTES # 1.4 10^3/ul (0.8-2.9); MEAN CORPUSCULAR HEMOGLOBIN 28.7 pg (29.0-33.0); MEAN CORPUSCULAR HGB CONC 29.8 g/dl (32.0-37.0); MEAN CORPUSCULAR VOLUME 96.4 fl (82.0-101.0); MEAN PLATELET VOLUME 10.1 fl (7.4-10.4); MONOCYTE # 0.4 10^3/ul (0.3-0.9); MONOCYTES % 4.7 % (0.0-11.0); NEUTROPHIL # 7.2 10^3/ul (1.6-7.5); NEUTROPHILS % 79.3 % (39.0-77.0); NUCLEATED RED BLOOD CELLS% 0.3 /100WBC (0.0-0.0); PLATELET COUNT 126 10^3/UL (140-415); RED BLOOD COUNT 5.22 10^6/ul (4.20-5.40); RED CELL DISTRIBUTION WIDTH 14.9 % (11.5-14.5); WHITE BLOOD COUNT 9.1 10^3/ul (4.8-10.8)
[2016-11-17 20:00] VITALS: TEMP 98.8
[2016-11-17 20:19] LABS: POTASSIUM 3.7 mmol/L (3.5-5.1)
[2016-11-17 20:20] LABS: CALCIUM 8.8 mg/dl (8.4-10.2); CREATININE 0.8 mg/dl (0.44-1.00)
[2016-11-17] MEDS ORDERED: PROPOFOL 100 ML ONE (20:39)
[2016-11-17 20:57] LABS: CREATINE KINASE 285 IU/L (23-200)
[2016-11-17 21:10] LABS: TROPONIN-I 0.029 ng/ml (0.00-0.12)
[2016-11-17 21:20] VITALS: PULSE 96
[2016-11-17 21:22] LABS: CK-MB < 0.22 ng/ml (0.0-2.4)
[2016-11-17 21:26] VITALS: RESP 20
[2016-11-17 22:00] VITALS: BP 94/59; PULSE 96; RESP 20
[2016-11-17 23:00] VITALS: BP 100/62; PULSE 90; RESP 20
[2016-11-17 23:05] VITALS: RESP 20
[2016-11-18] VITALS (50 sets, daily range): BP systolic 91–150; BP diastolic 52–110; PULSE 79–93; RESP 12–20
[2016-11-18] MEDS: PROPOFOL 100 ML IV SCH ×4 (00:56→23:34)
[2016-11-18 05:11] LABS: ADD SCAN DIFF NO
[2016-11-18 05:17] LABS: BASOPHILS % 0.3 % (0.0-2.0); EOSINOPHILS % 0.3 % (0.0-7.0); HEMATOCRIT 47.3 % (37.0-47.0); HEMOGLOBIN 14.6 g/dl (12.0-16.0); LYMPHOCYTES # 1.4 10^3/ul (0.8-2.9); LYMPHOCYTES % 14.4 % (15.0-51.0); MEAN CORPUSCULAR HEMOGLOBIN 28.7 pg (29.0-33.0); MEAN CORPUSCULAR HGB CONC 30.9 g/dl (32.0-37.0); MEAN CORPUSCULAR VOLUME 93.1 fl (82.0-101.0); MEAN PLATELET VOLUME 10.6 fl (7.4-10.4); MONOCYTE # 0.5 10^3/ul (0.3-0.9); NEUTROPHIL # 7.8 10^3/ul (1.6-7.5); NEUTROPHILS % 79.7 % (39.0-77.0); PLATELET COUNT 143 10^3/UL (140-415); RED BLOOD COUNT 5.08 10^6/ul (4.20-5.40); RED CELL DISTRIBUTION WIDTH 15.6 % (11.5-14.5); WHITE BLOOD COUNT 9.7 10^3/ul (4.8-10.8)
[2016-11-18 05:34] LABS: AADO2 Arterial 192.6 mmHg (7.0-24.0); Allen Test ACCEPTAB; Arterial Base Excess 6.3 mmol/L (-3.0-3); Arterial COHb 0.7 % (0.0-3.0); Arterial Fraction of Oxyhgb 93.9 % (93.0-99.0); Arterial HCO3 27.2 mmol/L (22.0-26.0); Arterial MetHb 0.4 % (0.0-1.5); Arterial Total Hemglobin 15.5 g/dl (12.0-18.0); MODE VENT - AC
[2016-11-18 05:47] LABS: MAGNESIUM 1.5 mg/dl (1.7-2.5); PHOSPHORUS 1.7 mg/dl (2.5-4.9)
[2016-11-18 05:50] LABS: ALBUMIN 3.3 g/dl (3.3-4.9)
[2016-11-18 05:52] LABS: CHOLESTEROL 189 mg/dl (100-200); CREATINE KINASE 188 IU/L (23-200); HDL CHOLESTEROL 91 mg/dl (33-92); TRIGLYCERIDES 117 mg/dl (0-149)
[2016-11-18 05:53] LABS: ALBUMIN/GLOBULIN RATIO 1.22; BILIRUBIN,INDIRECT 0.7 mg/dl (0-1.1); BILIRUBIN,TOTAL 0.7 mg/dl (0.2-1.3); CALCIUM 8.5 mg/dl (8.4-10.2); CREATININE 0.85 mg/dl (0.44-1.00)
[2016-11-18 05:59] LABS: TROPONIN-I 0.027 ng/ml (0.00-0.12)
[2016-11-18] MEDS ORDERED: SOD CHLORIDE 0.9% 500 ML IV ONE (06:00)
[2016-11-18] MEDS: PANTOPRAZOLE 40 MG INJ IV SCH (06:08)
[2016-11-18] MEDS: FUROSEMIDE 20 MG INJ IV SCH ×2 (06:08→17:42)
[2016-11-18 06:16] LABS: CK-MB < 0.22 ng/ml (0.0-2.4)
[2016-11-18] MEDS: SOD CHLORIDE 0.9% 1,000 ML IV SCH (08:29)
[2016-11-18] MEDS: ARTIFICIAL TEARS 15 ML OPH BOTH EYES SCH ×3 (08:29→20:22)
[2016-11-18] MEDS: ENOXAPARIN 30 MG/0.3 ML SYG SC SCH (08:30)
--- NOTE | 2016-11-18 09:18 | PN ---
Date/Time of Note Date/Time of Note DATE: 11/18/16 TIME: 09:12 Assessment/Plan VTE Prophylaxis VTE Prophylaxis Intervention: LMWH Lines/Catheters IV [facility] ([facility] Peripheral IV Urinary Cath still in place: Yes Reason Cath still needed: terminal illness/intractable pain Assessment/Plan Chief Complaint/Hosp Course 1. Acute hypoxic and hypercapnic respiratory failure. The patient is currently intubated. Continue mechanical ventilation. Continue inhaled bronchodilators. 2. Acute encephalopathy. Most probably metabolic in origin secondary to CO2 retention and CO2 narcosis. Brain CT scan negative for any acute intracranial findings. Monitor. 3. Possible underlying congestive heart failure exacerbation. Systolic versus diastolic dysfunction. The patient on Lasix. Pending 2D echocardiogram. 4. Possible underlying pneumonia. The patient will be empirically treated for any underlying pneumonia. The patient remains afebrile. 5. Status post pacemaker placement. Details are unclear. We will obtain a cardiology consult on this patient. 6. History of essential hypertension. Blood pressure fairly well controlled at this time. We will monitor. 7. Morbid obesity and possible underlying obesity hypoventilation syndrome. Monitor at this time. 8. Fluid, electrolytes and nutrition. N.p.o. Continue IVFs. 9. Deep venous thrombosis prophylaxis, subcutaneous Lovenox. 10. Gastrointestinal prophylaxis. Proton pump inhibitors. PLAN: Continue mechanical ventilation. Ventilator weaning as per pulmonary. Replete potassium, phosphorus, and magnesium. Case discussed with Dr. Mcgill. Critical care time: 35 minutes. Problems: Subjective 24 Hr Interval Summary Free Text/Dictation The patient remains intubated and sedated. Exam/Review of Systems Vital Signs Vitals Vital Signs Date Time Temp Pulse Resp B/P Pulse Ox O2 Delivery O2 Flow Rate FiO2 11/18/16 08:00 91 11/18/16 06:06 60 11/18/16 06:00 20 120/78 100 Mechanical Ventilator 11/18/16 05:00 99.2 11/17/16 19:00 15.0 Intake and Output 11/17/16 11/17/16 11/18/16 15:00 23:00 07:00 Intake Total 335.23 ml 111.75 ml Output Total 1860 ml 210 ml Balance -1524.77 ml -98.25 ml Exam GENERAL: This is an obese female patient lying in bed, orally intubated. HEENT: Head normocephalic and atraumatic. Eyes: Anicteric sclerae. Conjunctivae clear. ENT: Nasal septum is midline. Oral mucosa is moist. ET tube connected to mechanical ventilator. NECK: Short and obese, but unable to visualize any neck veins. RESPIRATORY: ET tube connected to mechanical ventilator. On AC mode ventilation. Bilaterally diminished breath sounds with coarse rales. CARDIAC: Regular rate and rhythm. Unable to appreciate any murmurs. ABDOMEN: Soft, nontender, nondistended. Bowel sounds hypoactive in all 4 quadrants. GENITOURINARY: The patient has a John catheter in place. EXTREMITIES: No cyanosis, no clubbing. Bilateral lower extremity trace pedal edema. Peripheral pulses palpable. NEUROLOGIC: The patient is sedated. Results Result Diagram: 11/18/16 0505 11/18/16 0505 Results 24 hrs Laboratory Tests Test 11/17/16 18:30 11/18/16 05:00 11/18/16 05:05 11/18/16 06:00 Anion Gap 17 H 15 Basophils # 0.0 0.0 Basophils % 0.3 0.3 Blood Urea Nitrogen 13 16 Calcium Level 8.8 8.5 Carbon Dioxide Level 27 # 28 Chloride Level 101 102 Creatine Kinase 285 H 188 Creatine Kinase Index 0.1 0.1 Creatinine 0.80 0.85 Creatinine Kinase MB (Mass) < 0.22 < 0.22 Eosinophils # 0.0 0.0 Eosinophils % 0.1 0.3 Glucose Level 120 130 Hematocrit 50.3 H 47.3 H Hemoglobin 15.0 14.6 Lymphocytes # 1.4 1.4 Lymphocytes % 15.0 14.4 L Magnesium Level 1.6 L 1.5 L Mean Corpuscular Hemoglobin 28.7 L 28.7 L Mean Corpuscular Hemoglobin Concent 29.8 L 30.9 L Mean Corpuscular Volume 96.4 93.1 Mean Platelet Volume 10.1 10.6 H Monocytes # 0.4 0.5 Monocytes % 4.7 5.0 Neutrophils # 7.2 7.8 H Neutrophils % 79.3 H 79.7 H Nucleated Red Blood Cells # 0.0 0.0 Nucleated Red Blood Cells % 0.3 H 0.0 Platelet Count 126 #L 143 Potassium Level 3.7 3.0 L Red Blood Count 5.22 5.08 Red Cell Distribution Width 14.9 H 15.6 H Sodium Level 139 142 Troponin I 0.029 0.027 White Blood Count 9.1 # 9.7 Phosphorus Level 1.7 L Alanine Aminotransferase (ALT/SGPT) 15 Albumin 3.3 Albumin/Globulin Ratio 1.22 Alkaline Phosphatase 55 Aspartate Amino Transf (AST/SGOT) 24 Cholesterol Level 189 Cholesterol/HDL Ratio 2.0 Direct Bilirubin 0.00 Free Thyroxine 1.11 Globulin 2.70 HDL Cholesterol 91 Hemoglobin A1c 5.7 Indirect Bilirubin 0.7 LDL Cholesterol, Calculated 75 Thyroid Stimulating Hormone (TSH) 1.960 Total Bilirubin 0.7 Total Protein 6.0 L Triglycerides Level 117 Arterial Blood HCO3 27.2 H Arterial Blood Base Excess 6.3 H Arterial Blood Oxygen Saturation 94.9 L Dario Test ACCEPTAB Arterial Blood Gas Puncture Site Right Radial Arterial Blood Carboxyhemoglobin 0.7 Arterial Blood Date Drawn 11/18/2016 5:29:35 AM Arterial Blood Methemoglobin 0.4 Arterial Blood pCO2 (Temp correct) 29.3 L Arterial Blood pH (Temp corrected) 7.586 *H Arterial Blood pO2 (Temp corrected) 58.9 L Blood Gas A-a O2 Differential 192.6 H Blood Gas Actual Respiration Rate 20 Blood Gas Critical Value Read Back DEV KIMBER SANTOS Blood Gas Low PEEP Setting 5.0 Blood Gas Modality VENT - AC Blood Gas Notified Time 11/18/2016 5:34:18 AM Blood Gas Notified Whom BR Blood Gas Respiration Rate 20.0 Blood Gas Specimen Source Blood arterial Blood Gas Temperature 37.0 Blood Gas Tidal Volume 500.0 FiO2 40.0 Oxyhemoglobin Percent 93.9 Total Hemoglobin 15.5 Medications Medications Current Medications Acetaminophen (Tylenol Supp) 650 mg Q4H PRN [place] PAIN LEVEL 1-3 OR FEVER Last administered on 11/16/16 23:57; Admin Dose 650 MG; Start 11/16/16 at 20:00 Eye Lubricant (Artificial Tears Oph) 1 drop TID BOTH EYES Last administered on 11/18/16 08:29; Admin Dose 1 DROP; Start 11/16/16 at 21:00 Enoxaparin Sodium 30 mg 30 mg DAILY SC Last administered on 11/18/16 08:30; Admin Dose 30 MG; Start 11/17/16 at 09:00 Midazolam HCl 50 ml @ 1 mls/hr TITRATE IV Last administered on 11/17/16 16:28 ; Admin Dose 2 MLS/HR; Start 11/16/16 at 22:00 Ceftriaxone Sodium (Rocephin) 50 ml @ 100 mls/hr Q24H IVPB Last administered on 11/17/16 16:27; Admin Dose 100 MLS/HR; Start 11/17/16 at 16:00 Pantoprazole 40 mg 40 mg DAILY@06 IV Last administered on 11/18/16 06:08; Admin Dose 40 MG; Start 11/18/16 at 06:00 Propofol 100 ml @ 3.409 mls/ hr Q12H IV Last administered on 11/18/16 00:56; Admin Dose 13.637 MLS/HR; Start 11/17/16 at 23:00 Sodium Chloride 1,000 ml @ 50 mls/hr Q20H IV Last administered on 11/18/16 08 :29; Admin Dose 50 MLS/HR; Start 11/18/16 at 07:00 Potassium Chloride 250 ml @ 62.5 mls/hr ONCE ONCE IVPB ; Start 11/18/16 at 09: 30; Stop 11/18/16 at 13:29; Status UNV Potassium Phosphate/Sodium Chloride (K Phos (Mm)/NS) 260 ml @ 65 mls/hr ONCE ONCE IVPB ; Start 11/18/16 at 09:30; Stop 11/18/16 at 13:29; Status UNV SUMEET MONTENEGRO NP Nov 18, 2016 09:18
[2016-11-18] MEDS ORDERED: hydrALAzine 20 MG INJ IV PRN (09:30)
[2016-11-18] MEDS ORDERED: MAGNESIUM SULFATE 2 GM/50 ML 50 ML IVPB ONE (09:30)
[2016-11-18] MEDS ORDERED: LIDOCAINE 1% (MDV) 20 ML INJ SC ONE (09:30)
[2016-11-18] MEDS ORDERED: POTASSIUM PHOSPHATE 30 MM in SOD CHLORIDE 0.9% 250 ML IVPB ONE (10:30)
--- NOTE | 2016-11-18 10:51 | CONS ---
Date/Time of Note Date/Time of Note DATE: 11/18/16 TIME: 10:47 Assessment/Plan Assessment/Plan Additional Assessment/Plan Ventilator settings AC of 12, tidal volume 500, PEEP of 5, 60% FiO2. Assessment recommendations; 1. Patient admitted with respiratory failure due to severe hypercapnia likely from underlying untreated sleep apnea, morbid obesity and likely obesity/ hypoventilation syndrome. 2. History of severe hypertension. Continue current treatment. Obtain a chest x-ray. Ventilator settings have been adjusted after review of ABG from this morning. Aim is to maintain a PCO2 level in the mid 50s. Repeat an ABG. Patient blood pressure is markedly improved now. Was remains guarded. Consultation Date/Type/Reason Admit Date/Time Nov 17, 2016 at 20:32 Initial Consult Date 11/17/16 Type of Consultation: Pulmonary/critical care 24 HR Interval Summary Free Text/Dictation Patient condition remains critical. Still requiring full ventilator support. General exam; elderly lady, morbidly obese. Orally intubated, sedated. Exam/Review of Systems Vital Signs Vitals Vital Signs Date Time Temp Pulse Resp B/P Pulse Ox O2 Delivery O2 Flow Rate FiO2 11/18/16 10:30 92 12 125/77 100 11/18/16 10:00 Mechanical Ventilator 11/18/16 08:00 98.1 11/18/16 06:06 60 11/17/16 19:00 15.0 Intake and Output 11/17/16 11/17/16 11/18/16 15:00 23:00 07:00 Intake Total 335.23 ml 111.75 ml Output Total 1860 ml 210 ml Balance -1524.77 ml -98.25 ml Exam HEENT exam; supple neck, JVD difficult to see because of short neck. Patient had multiple dental caps. Right intraocular lens implant. Left eye has a cataract. No neck masses. Orally intubated. No thyromegaly. Chest examination AR: Diminished breath sounds throughout. S1-S2 audible, no murmurs. Regular rhythm. Abdomen examination; protuberant. Bowel sounds audible. No organomegaly. Extremity exam is; no peripheral edema. Pulses 1+ bilaterally. ROUTE SALES PERSON examination a micro patient is sedated. Results Result Diagram: 11/18/16 0505 11/18/16 0505 Results 24 hrs Laboratory Tests Test 11/17/16 18:30 11/18/16 05:00 11/18/16 05:05 11/18/16 06:00 Anion Gap 17 H 15 Basophils # 0.0 0.0 Basophils % 0.3 0.3 Blood Urea Nitrogen 13 16 Calcium Level 8.8 8.5 Carbon Dioxide Level 27 # 28 Chloride Level 101 102 Creatine Kinase 285 H 188 Creatine Kinase Index 0.1 0.1 Creatinine 0.80 0.85 Creatinine Kinase MB (Mass) < 0.22 < 0.22 Eosinophils # 0.0 0.0 Eosinophils % 0.1 0.3 Glucose Level 120 130 Hematocrit 50.3 H 47.3 H Hemoglobin 15.0 14.6 Lymphocytes # 1.4 1.4 Lymphocytes % 15.0 14.4 L Magnesium Level 1.6 L 1.5 L Mean Corpuscular Hemoglobin 28.7 L 28.7 L Mean Corpuscular Hemoglobin Concent 29.8 L 30.9 L Mean Corpuscular Volume 96.4 93.1 Mean Platelet Volume 10.1 10.6 H Monocytes # 0.4 0.5 Monocytes % 4.7 5.0 Neutrophils # 7.2 7.8 H Neutrophils % 79.3 H 79.7 H Nucleated Red Blood Cells # 0.0 0.0 Nucleated Red Blood Cells % 0.3 H 0.0 Platelet Count 126 #L 143 Potassium Level 3.7 3.0 L Red Blood Count 5.22 5.08 Red Cell Distribution Width 14.9 H 15.6 H Sodium Level 139 142 Troponin I 0.029 0.027 White Blood Count 9.1 # 9.7 Phosphorus Level 1.7 L Alanine Aminotransferase (ALT/SGPT) 15 Albumin 3.3 Albumin/Globulin Ratio 1.22 Alkaline Phosphatase 55 Aspartate Amino Transf (AST/SGOT) 24 Cholesterol Level 189 Cholesterol/HDL Ratio 2.0 Direct Bilirubin 0.00 Free Thyroxine 1.11 Globulin 2.70 HDL Cholesterol 91 Hemoglobin A1c 5.7 Indirect Bilirubin 0.7 LDL Cholesterol, Calculated 75 Thyroid Stimulating Hormone (TSH) 1.960 Total Bilirubin 0.7 Total Protein 6.0 L Triglycerides Level 117 Arterial Blood HCO3 27.2 H Arterial Blood Base Excess 6.3 H Arterial Blood Oxygen Saturation 94.9 L Dario Test ACCEPTAB Arterial Blood Gas Puncture Site Right Radial Arterial Blood Carboxyhemoglobin 0.7 Arterial Blood Date Drawn 11/18/2016 5:29:35 AM Arterial Blood Methemoglobin 0.4 Arterial Blood pCO2 (Temp correct) 29.3 L Arterial Blood pH (Temp corrected) 7.586 *H Arterial Blood pO2 (Temp corrected) 58.9 L Blood Gas A-a O2 Differential 192.6 H Blood Gas Actual Respiration Rate 20 Blood Gas Critical Value Read Back DEV KIMBER SANTOS Blood Gas Low PEEP Setting 5.0 Blood Gas Modality VENT - AC Blood Gas Notified Time 11/18/2016 5:34:18 AM Blood Gas Notified Whom BR Blood Gas Respiration Rate 20.0 Blood Gas Specimen Source Blood arterial Blood Gas Temperature 37.0 Blood Gas Tidal Volume 500.0 FiO2 40.0 Oxyhemoglobin Percent 93.9 Total Hemoglobin 15.5 Medications Medications Current Medications Acetaminophen (Tylenol Supp) 650 mg Q4H PRN [place] PAIN LEVEL 1-3 OR FEVER Last administered on 11/16/16 23:57; Admin Dose 650 MG; Start 11/16/16 at 20:00 Eye Lubricant (Artificial Tears Oph) 1 drop TID BOTH EYES Last administered on 11/18/16 08:29; Admin Dose 1 DROP; Start 11/16/16 at 21:00 Enoxaparin Sodium 30 mg 30 mg DAILY SC Last administered on 11/18/16 08:30; Admin Dose 30 MG; Start 11/17/16 at 09:00 Midazolam HCl 50 ml @ 1 mls/hr TITRATE IV Last administered on 11/17/16 16:28 ; Admin Dose 2 MLS/HR; Start 11/16/16 at 22:00 Ceftriaxone Sodium (Rocephin) 50 ml @ 100 mls/hr Q24H IVPB Last administered on 11/17/16 16:27; Admin Dose 100 MLS/HR; Start 11/17/16 at 16:00 Pantoprazole 40 mg 40 mg DAILY@06 IV Last administered on 11/18/16 06:08; Admin Dose 40 MG; Start 11/18/16 at 06:00 Propofol 100 ml @ 3.409 mls/ hr Q12H IV Last administered on 11/18/16 00:56; Admin Dose 13.637 MLS/HR; Start 11/17/16 at 23:00 Sodium Chloride 1,000 ml @ 50 mls/hr Q20H IV Last administered on 11/18/16 08 :29; Admin Dose 50 MLS/HR; Start 11/18/16 at 07:00 Potassium Phosphate 30 mm/ Sodium Chloride 260 ml @ 65 mls/hr ONCE ONCE IVPB ; Start 11/18/16 at 10:30; Stop 11/18/16 at 14:29 Magnesium Sulfate 50 ml @ 25 mls/hr ONCE ONCE IVPB Last administered on t 09:48; Admin Dose 25 MLS/HR; Start 11/18/16 at 09:30; Stop 11/18/16 at 11: 29 Potassium Chloride/Sodium Chloride (KCl/NS) 110 ml @ 55 mls/hr ONCE ONCE IV ; Start 11/18/16 at 15:00; Stop 11/18/16 at 16:59 Hydralazine HCl (Apresoline) 10 mg Q6H PRN IV SBP>160; Start 11/18/16 at 09:30 SEVERINO MCMILLAN Nov 18, 2016 10:51
--- NOTE | 2016-11-18 11:07 | CONS ---
Date/Time of Note Date/Time of Note DATE: 11/18/16 TIME: 10:56 Assessment/Plan Assessment/Plan Chief Complaint/Hosp Course Acute hypercapnic respiratory failure: Likely from underlying COPD, obesity hypoventilation. PCO2 and acidosis now corrected Acute ?systolic heart failure: Unknown EF but likely LV dysfunction with ICD ( unless for VT with normal EF). Currently does not appear to be in much failure but CXR on admission was suggestive and she was diuresed. She was also hypotensive overnight and responded to fluids. Her JVP is flat even on the vent suggesting she is not overloaded H/o ICD: unclear if for primary or secondary prevention. 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 No e/o to think her admission was arrhythmia related but if at some point the backpackers manager is determines, may be appropriate to interrogate Severe acidosis: from hypercapnia, now resolved -hold lasix for now -restart coreg at 3.125mg BID, uptitrate -if BP tolerates, restart ARB -probably no need for ASA/statin unless LV dysfunction or suggestion of CAD by wall motion abnormalities -echo Problems: Consultation Date/Type/Reason Admit Date/Time Nov 17, 2016 at 20:32 Date of Consultation: Nov 18, 2016 Type of Consultation: Cardiology Reason for Consultation Respiratory failure Referring Provider: SUMEET MONTENEGRO NP Hx of Present Illness 81 yo F with a h/o ICD (unknown details), ?cardiomyopathy (presumed based on presence of ICD), MARIA DEL ROSARIO, COPD, who presented from home with altered mental status and was found to have severe acidosis with PCo2 of 115 and was intubated. She was also treated for heart failure with lasix. Cardiology is being consulted for evaluation of possible CHF. The pt is intubated and sedated. There is no family at bedside. unable to obtain Past Medical History Medical History: other (Cardiomyopathy) Past Surgical History Past Surgical Hx: other (AICD Placement; Permanent Pacemaker) Social History Alcohol Use: none Smoking Status: Never smoker Drug Use: none Exam/Review of Systems Vital Signs Vitals Vital Signs Date Time Temp Pulse Resp B/P Pulse Ox O2 Delivery O2 Flow Rate FiO2 11/18/16 10:30 92 12 125/77 100 11/18/16 10:00 Mechanical Ventilator 11/18/16 08:00 98.1 11/18/16 06:06 60 11/17/16 19:00 15.0 Intake and Output 11/17/16 11/17/16 11/18/16 15:00 23:00 07:00 Intake Total 335.23 ml 111.75 ml Output Total 1860 ml 210 ml Balance -1524.77 ml -98.25 ml Exam Constitutional: No alert (sedated) Head: atraumatic, normocephalic ENMT: intubated Neck: No jvd Respiratory: clear to auscultation, diminished breath sounds, No crackles/rales Cardiovascular: edema, regular rate and rhythm, systolic murmur (2/6 ANGELIQUE) Gastrointestinal: soft, No distended Musculoskeletal: nl extremities to inspection Neurological: No nl mental status, No nl speech Skin: No rash or lesions Results EKG: sinus, V paced Result Diagram: 11/18/16 0505 11/18/16 0505 Results 24 hrs Laboratory Tests Test 11/17/16 18:30 11/18/16 05:00 11/18/16 05:05 11/18/16 06:00 Anion Gap 17 H 15 Basophils # 0.0 0.0 Basophils % 0.3 0.3 Blood Urea Nitrogen 13 16 Calcium Level 8.8 8.5 Carbon Dioxide Level 27 # 28 Chloride Level 101 102 Creatine Kinase 285 H 188 Creatine Kinase Index 0.1 0.1 Creatinine 0.80 0.85 Creatinine Kinase MB (Mass) < 0.22 < 0.22 Eosinophils # 0.0 0.0 Eosinophils % 0.1 0.3 Glucose Level 120 130 Hematocrit 50.3 H 47.3 H Hemoglobin 15.0 14.6 Lymphocytes # 1.4 1.4 Lymphocytes % 15.0 14.4 L Magnesium Level 1.6 L 1.5 L Mean Corpuscular Hemoglobin 28.7 L 28.7 L Mean Corpuscular Hemoglobin Concent 29.8 L 30.9 L Mean Corpuscular Volume 96.4 93.1 Mean Platelet Volume 10.1 10.6 H Monocytes # 0.4 0.5 Monocytes % 4.7 5.0 Neutrophils # 7.2 7.8 H Neutrophils % 79.3 H 79.7 H Nucleated Red Blood Cells # 0.0 0.0 Nucleated Red Blood Cells % 0.3 H 0.0 Platelet Count 126 #L 143 Potassium Level 3.7 3.0 L Red Blood Count 5.22 5.08 Red Cell Distribution Width 14.9 H 15.6 H Sodium Level 139 142 Troponin I 0.029 0.027 White Blood Count 9.1 # 9.7 Phosphorus Level 1.7 L Alanine Aminotransferase (ALT/SGPT) 15 Albumin 3.3 Albumin/Globulin Ratio 1.22 Alkaline Phosphatase 55 Aspartate Amino Transf (AST/SGOT) 24 Cholesterol Level 189 Cholesterol/HDL Ratio 2.0 Direct Bilirubin 0.00 Free Thyroxine 1.11 Globulin 2.70 HDL Cholesterol 91 Hemoglobin A1c 5.7 Indirect Bilirubin 0.7 LDL Cholesterol, Calculated 75 Thyroid Stimulating Hormone (TSH) 1.960 Total Bilirubin 0.7 Total Protein 6.0 L Triglycerides Level 117 Arterial Blood HCO3 27.2 H Arterial Blood Base Excess 6.3 H Arterial Blood Oxygen Saturation 94.9 L Dario Test ACCEPTAB Arterial Blood Gas Puncture Site Right Radial Arterial Blood Carboxyhemoglobin 0.7 Arterial Blood Date Drawn 11/18/2016 5:29:35 AM Arterial Blood Methemoglobin 0.4 Arterial Blood pCO2 (Temp correct) 29.3 L Arterial Blood pH (Temp corrected) 7.586 *H Arterial Blood pO2 (Temp corrected) 58.9 L Blood Gas A-a O2 Differential 192.6 H Blood Gas Actual Respiration Rate 20 Blood Gas Critical Value Read Back DEV KIMBER SANTOS Blood Gas Low PEEP Setting 5.0 Blood Gas Modality VENT - AC Blood Gas Notified Time 11/18/2016 5:34:18 AM Blood Gas Notified Whom BR Blood Gas Respiration Rate 20.0 Blood Gas Specimen Source Blood arterial Blood Gas Temperature 37.0 Blood Gas Tidal Volume 500.0 FiO2 40.0 Oxyhemoglobin Percent 93.9 Total Hemoglobin 15.5 Medications Medications Current Medications Acetaminophen (Tylenol Supp) 650 mg Q4H PRN [place] PAIN LEVEL 1-3 OR FEVER Last administered on 11/16/16 23:57; Admin Dose 650 MG; Start 11/16/16 at 20:00 Eye Lubricant (Artificial Tears Oph) 1 drop TID BOTH EYES Last administered on 11/18/16 08:29; Admin Dose 1 DROP; Start 11/16/16 at 21:00 Enoxaparin Sodium 30 mg 30 mg DAILY SC Last administered on 11/18/16 08:30; Admin Dose 30 MG; Start 11/17/16 at 09:00 Midazolam HCl 50 ml @ 1 mls/hr TITRATE IV Last administered on 11/17/16 16:28 ; Admin Dose 2 MLS/HR; Start 11/16/16 at 22:00 Ceftriaxone Sodium (Rocephin) 50 ml @ 100 mls/hr Q24H IVPB Last administered on 11/17/16 16:27; Admin Dose 100 MLS/HR; Start 11/17/16 at 16:00 Pantoprazole 40 mg 40 mg DAILY@06 IV Last administered on 11/18/16 06:08; Admin Dose 40 MG; Start 11/18/16 at 06:00 Propofol 100 ml @ 3.409 mls/ hr Q12H IV Last administered on 11/18/16 00:56; Admin Dose 13.637 MLS/HR; Start 11/17/16 at 23:00 Sodium Chloride 1,000 ml @ 50 mls/hr Q20H IV Last administered on 11/18/16 08 :29; Admin Dose 50 MLS/HR; Start 11/18/16 at 07:00 Potassium Phosphate 30 mm/ Sodium Chloride 260 ml @ 65 mls/hr ONCE ONCE IVPB ; Start 11/18/16 at 10:30; Stop 11/18/16 at 14:29 Magnesium Sulfate 50 ml @ 25 mls/hr ONCE ONCE IVPB Last administered on 09:48; Admin Dose 25 MLS/HR; Start 11/18/16 at 09:30; Stop 11/18/16 at 11: 29 Potassium Chloride/Sodium Chloride (KCl/NS) 110 ml @ 55 mls/hr ONCE ONCE IV ; Start 11/18/16 at 15:00; Stop 11/18/16 at 16:59 Hydralazine HCl (Apresoline) 10 mg Q6H PRN IV SBP>160; Start 11/18/16 at 09:30 AMIRA GAMBINO Nov 18, 2016 11:06
[2016-11-18] MEDS ORDERED: POTASSIUM CHLORIDE 50 ML IVPB SCH (15:00)
[2016-11-18] MEDS ORDERED: KCL 20 MEQ in NS 100 ML IV ONE (15:00)
[2016-11-18] MEDS: CEFTRIAXONE 1 GM/50 ML (PMX) 50 ML IVPB SCH (16:57)
--- NOTE | 2016-11-18 17:04 | RADRPT ---
PROCEDURE: XR Chest. CLINICAL INDICATION: Check PICC line position. TECHNIQUE: Single frontal view. COMPARISON: February 09, 2017. FINDINGS: There is a new right arm PICC line with the tip in the right axillary vein. The endotracheal tube, nasogastric tube, permanent pacemaker/internal cardiac defibrillator, cardiomegaly, pulmonary edema, and bibasilar atelectasis are all noted. The heart is enlarged. There are small bilateral pleural effusions, left larger than right. There is no pneumothorax. IMPRESSION: 1. Right arm PICC line tip in the right axillary vein. 2. No other change from 11/16/2016. RPTAT: QQ .Dylan Monson MD, MD Date Time Electronically viewed and signed by .Dylan Monson MD, MD on 11/18/2016 17:03 .R/
[2016-11-19] VITALS (47 sets, daily range): BP systolic 93–148; BP diastolic 52–91; PULSE 78–103; RESP 12–28
[2016-11-19] MEDS: SOD CHLORIDE 0.9% 1,000 ML IV SCH ×2 (03:03→21:01)
[2016-11-19] MEDS: PROPOFOL 100 ML IV SCH ×2 (03:05→13:00)
[2016-11-19 04:41] LABS: ADD SCAN DIFF NO
[2016-11-19 04:53] LABS: BASOPHILS % 0.3 % (0.0-2.0); EOSINOPHILS # 0.2 10^3/ul (0.0-0.5); EOSINOPHILS % 2.2 % (0.0-7.0); HEMATOCRIT 42.5 % (37.0-47.0); LYMPHOCYTES # 1.1 10^3/ul (0.8-2.9); LYMPHOCYTES % 16.3 % (15.0-51.0); MEAN CORPUSCULAR HEMOGLOBIN 28.6 pg (29.0-33.0); MEAN CORPUSCULAR HGB CONC 30.6 g/dl (32.0-37.0); MEAN CORPUSCULAR VOLUME 93.6 fl (82.0-101.0); MEAN PLATELET VOLUME 11.4 fl (7.4-10.4); MONOCYTE # 0.3 10^3/ul (0.3-0.9); MONOCYTES % 4.3 % (0.0-11.0); NEUTROPHIL # 5.2 10^3/ul (1.6-7.5); NEUTROPHILS % 76.6 % (39.0-77.0); PLATELET COUNT 141 10^3/UL (140-415); RED BLOOD COUNT 4.54 10^6/ul (4.20-5.40); RED CELL DISTRIBUTION WIDTH 15.7 % (11.5-14.5); WHITE BLOOD COUNT 6.8 10^3/ul (4.8-10.8)
[2016-11-19 04:56] LABS: POTASSIUM 3.2 mmol/L (3.5-5.1)
[2016-11-19 04:58] LABS: CREATININE 0.79 mg/dl (0.44-1.00)
[2016-11-19 04:59] LABS: CALCIUM 7.5 mg/dl (8.4-10.2)
[2016-11-19 05:11] LABS: PHOSPHORUS 3.8 mg/dl (2.5-4.9)
[2016-11-19] MEDS: FUROSEMIDE 20 MG INJ IV SCH (06:13)
[2016-11-19] MEDS: PANTOPRAZOLE 40 MG INJ IV SCH (06:13)
[2016-11-19] MEDS ORDERED: POTASSIUM CHLORIDE 250 ML IVPB ONE (07:30)
--- NOTE | 2016-11-19 07:56 | RADRPT ---
PROCEDURE: XR Chest. CLINICAL INDICATION: 81-year oldfemale being evaluated for extubation. TECHNIQUE: AP Portable chest. COMPARISON: Chest x-ray 11/18/2016. FINDINGS: The endotracheal tube is positioned at T4 3 cm superior to the natalie. NG tube is positioned distal to the GE junction. There is a cardiac pacemaker over the left chest wall with electrode leads pro jecting at the level of the right atrium and right ventricle. There are bilateral pleural effusions . The patient is rotated. The bones are rarefied. The heart is enlarged the pulmonary vasculature is increased. IMPRESSION: 1. The endotracheal tube is positioned about 3 cm superior to the natalie. 2. Suspect position of an NG tube. 3. Cardiomegaly with mild CHF. This finding is unchanged compared to 11/18/2016. 4. Cardiac pacemaker implanted over the upper left chest wall. RPTAT: PP Physician Han Date Time Electronically viewed and signed by José Luis Baeza Physician on 11/19/2016 07:55 KATLIN/
[2016-11-19] MEDS: ENOXAPARIN 30 MG/0.3 ML SYG SC SCH (08:22)
--- NOTE | 2016-11-19 08:48 | RADRPT ---
PROCEDURE: Ultrasound proximal upper extremity for PICC placement CLINICAL INDICATION: PICC placement TECHNIQUE: Sonographic evaluation of the proximal right upper extremity vessels was performed utiliz ing a high-frequency linear transducer. COMPARISON: None available FINDINGS: Limited evaluation of the proximal upper extremity for vascular access for PICC placement. Grossly, no abnormality is seen. IMPRESSION: 1. Unremarkable limited proximal right upper extremity ultrasound for PICC placement. RPTAT: EE .Armand Marquez MD, MD Date Time Electronically viewed and signed by .Armand Marquez MD, on 11/19/2016 08:48 .R/
[2016-11-19 08:50] LABS: AADO2 Arterial 234.3 mmHg (7.0-24.0); Allen Test ACCEPTAB; Arterial Base Excess 2.8 mmol/L (-3.0-3); Arterial COHb 0.2 % (0.0-3.0); Arterial Fraction of Oxyhgb 98.1 % (93.0-99.0); Arterial HCO3 28.4 mmol/L (22.0-26.0); Arterial MetHb 0.4 % (0.0-1.5); Arterial Total Hemglobin 14.9 g/dl (12.0-18.0); MODE VENT - AC
[2016-11-19] MEDS: ARTIFICIAL TEARS 15 ML OPH BOTH EYES SCH ×3 (09:00→20:49)
--- NOTE | 2016-11-19 10:17 | CONS ---
Date/Time of Note Date/Time of Note DATE: 11/19/16 TIME: 10:13 Assessment/Plan Assessment/Plan Additional Assessment/Plan Ventilator settings; C of 12, tidal volume 500, PEEP of 5, currently on 50% FiO2. Chest x-ray was reviewed from today which is showing changes of severe congestive heart failure. Next Assessment recommendations; 1. Patient admitted for respiratory failure due to acute on chronic CO2 narcosis. 2. Patient also was extremely hypertensive. With marked improvement in blood pressure readings now. 3. Likely underlying sleep apnea, obesity hypoventilation syndrome. Continue current treatment. Patient currently is not in a position to be weaned from ventilator at this point. Lasix dosing to be increased to 40 mg IV every 12 hours. Prognosis is guarded. Obtain follow-up chest x-ray in 24 hours. Consultation Date/Type/Reason Admit Date/Time Nov 17, 2016 at 20:32 Initial Consult Date 11/17/16 Type of Consultation: Pulmonary/critical care Referring Provider: SUMEET MONTENEGRO NP 24 HR Interval Summary Free Text/Dictation Patient condition remains tenuous at best. Still requiring full ventilator support. Patient is awake and alert and does not appear to be in any distress. Has remained hemodynamically stable. Exam/Review of Systems Vital Signs Vitals Vital Signs Date Time Temp Pulse Resp B/P Pulse Ox O2 Delivery O2 Flow Rate FiO2 11/19/16 09:49 98 28 94 50 11/19/16 06:00 106/54 Mechanical Ventilator 11/19/16 04:00 98.8 11/17/16 19:00 15.0 Intake and Output 11/18/16 11/18/16 11/19/16 15:00 23:00 07:00 Intake Total 374.911 ml 1086.589 ml Output Total 855 ml 800 ml 260 ml Balance -855 ml -425.089 ml 826.589 ml Exam HEENT exam; supple neck, positive JVD. No lymphadenopathy. No thyromegaly. Pupils are small bilaterally. Orally intubated. Patient has few remaining teeth. Chest exam; diminished breath sound bilaterally. No added sounds. S1-S2 audible, no murmurs. Regular rhythm. Abdomen exam; soft, protuberant. Nontender. Bowel sounds audible. Extremity exam is; no peripheral edema. Patient does have multiple ecchymosis involving upper extremities. RECYCLING ATTENDANT exam is; patient is awake and follows simple commands. Results Result Diagram: 11/19/16 0400 11/19/16 0400 Results 24 hrs Laboratory Tests Test 11/19/16 04:00 11/19/16 07:17 Anion Gap 13 Basophils # 0.0 Basophils % 0.3 Blood Urea Nitrogen 16 Calcium Level 7.5 L Carbon Dioxide Level 30 Chloride Level 102 Creatinine 0.79 Eosinophils # 0.2 Eosinophils % 2.2 Glucose Level 106 Hematocrit 42.5 Hemoglobin 13.0 Lymphocytes # 1.1 Lymphocytes % 16.3 Magnesium Level 2.0 Mean Corpuscular Hemoglobin 28.6 L Mean Corpuscular Hemoglobin Concent 30.6 L Mean Corpuscular Volume 93.6 Mean Platelet Volume 11.4 H Monocytes # 0.3 Monocytes % 4.3 Neutrophils # 5.2 Neutrophils % 76.6 Nucleated Red Blood Cells # 0.0 Nucleated Red Blood Cells % 0.0 Phosphorus Level 3.8 # Platelet Count 141 Potassium Level 3.2 L Red Blood Count 4.54 Red Cell Distribution Width 15.7 H Sodium Level 142 White Blood Count 6.8 # Arterial Blood HCO3 28.4 H Arterial Blood Base Excess 2.8 Arterial Blood Oxygen Saturation 98.7 Dario Test ACCEPTAB Arterial Blood Gas Puncture Site Right Radial Arterial Blood Carboxyhemoglobin 0.2 Arterial Blood Date Drawn 11/19/2016 7:43:59 AM Arterial Blood Methemoglobin 0.4 Arterial Blood pCO2 (Temp correct) 47.2 H Arterial Blood pH (Temp corrected) 7.397 Arterial Blood pO2 (Temp corrected) 141.6 H Blood Gas A-a O2 Differential 234.3 H Blood Gas Actual Respiration Rate 12 Blood Gas Low PEEP Setting 5.0 Blood Gas Modality VENT - AC Blood Gas Notified Time 11/19/2016 8:08:43 AM Blood Gas Notified Whom JLD Blood Gas Respiration Rate 12.0 Blood Gas Specimen Source Blood arterial Blood Gas Temperature 37.0 Blood Gas Tidal Volume 500.0 FiO2 60.0 Oxyhemoglobin Percent 98.1 Total Hemoglobin 14.9 Medications Medications Current Medications Acetaminophen (Tylenol Supp) 650 mg Q4H PRN [place] PAIN LEVEL 1-3 OR FEVER Last administered on 11/16/16 23:57; Admin Dose 650 MG; Start 11/16/16 at 20:00 Eye Lubricant (Artificial Tears Oph) 1 drop TID BOTH EYES Last administered on 11/18/16 20:22; Admin Dose 1 DROP; Start 11/16/16 at 21:00 Enoxaparin Sodium 30 mg 30 mg DAILY SC Last administered on 11/19/16 08:22; Admin Dose 30 MG; Start 11/17/16 at 09:00 Midazolam HCl 50 ml @ 1 mls/hr TITRATE IV Last administered on 11/17/16 16:28 ; Admin Dose 2 MLS/HR; Start 11/16/16 at 22:00 Ceftriaxone Sodium (Rocephin) 50 ml @ 100 mls/hr Q24H IVPB Last administered on 11/18/16 16:57; Admin Dose 100 MLS/HR; Start 11/17/16 at 16:00 Pantoprazole 40 mg 40 mg DAILY@06 IV Last administered on 11/19/16 06:13; Admin Dose 40 MG; Start 11/18/16 at 06:00 Propofol 100 ml @ 3.409 mls/ hr Q12H IV Last administered on 11/19/16 03:05; Admin Dose 20.455 MLS/HR; Start 11/17/16 at 23:00 Sodium Chloride (NS) 1,000 ml @ 50 mls/hr Q20H IV Last administered on 03:03; Admin Dose 50 MLS/HR; Start 11/18/16 at 07:00 Hydralazine HCl (Apresoline) 10 mg Q6H PRN IV SBP>160; Start 11/18/16 at 09:30 Carvedilol 3.125 mg 3.125 mg BID PO Last administered on 11/19/16 08:20; Admin Dose 3.125 MG; Start 11/18/16 at 11:00 Potassium Chloride (KCl 40 MEQ/250 ML NS) 250 ml @ 62.5 mls/hr ONCE ONCE IVPB Last administered on 11/19/16 06:59; Admin Dose 62.5 MLS/HR; Start 11/19/16 at 07:30; Stop 11/19/16 at 11:29 SEVERINO MCMILLAN 13, 2017 10:17
[2016-11-19] MEDS: FUROSEMIDE 40 MG INJ IV SCH ×2 (11:27→17:05)
--- NOTE | 2016-11-19 14:27 | PN ---
Date/Time of Note Date/Time of Note DATE: 11/19/16 TIME: 14:23 Assessment/Plan VTE Prophylaxis VTE Prophylaxis Intervention: LMWH Lines/Catheters IV Catheter Type (from Nrs): Mid Line Urinary Cath still in place: Yes Reason Cath still needed: other (indicate) (monitor I&O) Assessment/Plan Chief Complaint/Hosp Course Assessment and plan 1. Acute hypoxic hypercapnic respiratory failure. Patient intubated at present. On mechanical ventilation. Continue pulmonary hygiene. With improvement. 2. Acute encephalopathy likely secondary to CO2 retention. CT scan of the head was negative for any intracranial pathology. Continue with sedation wake up. Monitor neuro status. 3. Underlying CHF. Echocardiogram pending still. Continue on Lasix. Follow up on chest x-ray. 4. History of recent pacemaker placement. Continue telemetry monitoring. Pot Reliner following. We'll follow-up with recommendations 5. Essential hypertension. Continue antihypertensives as needed 6. Morbid obesity. Patient advised about weight reduction once extubated DVT prophylaxis: Lovenox GERD prophylaxis: PPI Disposition and plan: Still with noted shortness of breath did not pass extubation trial. Continue with pulmonary recommendations. Monitor for ability for vent liberation. Follow-up chest radiograph Discussed plan of care with Dr. Flores Critical care time: 30 minutes Problems: Subjective 24 Hr Interval Summary Free Text/Dictation Remains intubated. No apparent distress. RN at bedside Exam/Review of Systems Vital Signs Vitals Vital Signs Date Time Temp Pulse Resp B/P Pulse Ox O2 Delivery O2 Flow Rate FiO2 11/19/16 13:18 88 14 97 50 11/19/16 06:00 106/54 Mechanical Ventilator 11/19/16 04:00 98.8 11/17/16 19:00 15.0 Intake and Output 11/18/16 11/18/16 11/19/16 14:59 22:59 06:59 Intake Total 307.911 ml 1153.589 ml Output Total 825 ml 780 ml 310 ml Balance -825 ml -472.089 ml 843.589 ml Exam General: Intubated and sedated. No apparent distress Eyes: [pupils equal round, Anicteric sclera] Neck: Supple nontender, no JVD Cardiac: Noted with regular rate. S1-S2 auscultated Pulmonary: Minimally coarse at lung bases and also diminished. Intubated GI: Obese. Soft nontender Extremities:Edema bilateral lower extremities +1 Skin: [Clean dry and intact] Neurologic: Intubated and sedated Results Result Diagram: 11/19/16 0400 11/19/16 1148 Results 24 hrs Laboratory Tests Test 11/19/16 04:00 11/19/16 07:17 11/19/16 11:48 Anion Gap 13 Basophils # 0.0 Basophils % 0.3 Blood Urea Nitrogen 16 Calcium Level 7.5 L Carbon Dioxide Level 30 Chloride Level 102 Creatinine 0.79 Eosinophils # 0.2 Eosinophils % 2.2 Glucose Level 106 Hematocrit 42.5 Hemoglobin 13.0 Lymphocytes # 1.1 Lymphocytes % 16.3 Magnesium Level 2.0 Mean Corpuscular Hemoglobin 28.6 L Mean Corpuscular Hemoglobin Concent 30.6 L Mean Corpuscular Volume 93.6 Mean Platelet Volume 11.4 H Monocytes # 0.3 Monocytes % 4.3 Neutrophils # 5.2 Neutrophils % 76.6 Nucleated Red Blood Cells # 0.0 Nucleated Red Blood Cells % 0.0 Phosphorus Level 3.8 # Platelet Count 141 Potassium Level 3.2 L 3.8 Red Blood Count 4.54 Red Cell Distribution Width 15.7 H Sodium Level 142 White Blood Count 6.8 # Arterial Blood HCO3 28.4 H Arterial Blood Base Excess 2.8 Arterial Blood Oxygen Saturation 98.7 Dario Test ACCEPTAB Arterial Blood Gas Puncture Site Right Radial Arterial Blood Carboxyhemoglobin 0.2 Arterial Blood Date Drawn 11/19/2016 7:43:59 AM Arterial Blood Methemoglobin 0.4 Arterial Blood pCO2 (Temp correct) 47.2 H Arterial Blood pH (Temp corrected) 7.397 Arterial Blood pO2 (Temp corrected) 141.6 H Blood Gas A-a O2 Differential 234.3 H Blood Gas Actual Respiration Rate 12 Blood Gas Low PEEP Setting 5.0 Blood Gas Modality VENT - AC Blood Gas Notified Time 11/19/2016 8:08:43 AM Blood Gas Notified Whom JLD Blood Gas Respiration Rate 12.0 Blood Gas Specimen Source Blood arterial Blood Gas Temperature 37.0 Blood Gas Tidal Volume 500.0 FiO2 60.0 Oxyhemoglobin Percent 98.1 Total Hemoglobin 14.9 Medications Medications Current Medications Acetaminophen (Tylenol Supp) 650 mg Q4H PRN [place] PAIN LEVEL 1-3 OR FEVER Last administered on 11/16/16t 23:57; Admin Dose 650 MG; Start 11/16/16 at 20:00 Eye Lubricant (Artificial Tears Oph) 1 drop TID BOTH EYES Last administered on 11/19/16 13:05; Admin Dose 1 DROP; Start 11/16/16 at 21:00 Enoxaparin Sodium 30 mg 30 mg DAILY SC Last administered on 11/19/16 08:22; Admin Dose 30 MG; Start 11/17/16 at 09:00 Midazolam HCl 50 ml @ 1 mls/hr TITRATE IV Last administered on 11/17/16 16:28 ; Admin Dose 2 MLS/HR; Start 11/16/16 at 22:00 Ceftriaxone Sodium (Rocephin) 50 ml @ 100 mls/hr Q24H IVPB Last administered on 11/18/16 16:57; Admin Dose 100 MLS/HR; Start 11/17/16 at 16:00 Pantoprazole 40 mg 40 mg DAILY@06 IV Last administered on 11/19/16 06:13; Admin Dose 40 MG; Start 11/18/16 at 06:00 Propofol 100 ml @ 3.409 mls/ hr Q12H IV Last administered on 11/19/16 13:00; Admin Dose 4.773 MLS/HR; Start 11/17/16 at 23:00 Sodium Chloride (NS) 1,000 ml @ 50 mls/hr Q20H IV Last administered on 03:03; Admin Dose 50 MLS/HR; Start 11/18/16 at 07:00 Hydralazine HCl (Apresoline) 10 mg Q6H PRN IV SBP>160; Start 11/18/16 at 09:30 Carvedilol (Coreg) 3.125 mg BID PO Last administered on 11/19/16 08:20; Admin Dose 3.125 MG; Start 11/18/16 at 11:00 MINOO BRADY Nov 19, 2016 14:27
[2016-11-19] MEDS: CEFTRIAXONE 1 GM/50 ML (PMX) 50 ML IVPB SCH (16:03)
--- NOTE | 2016-11-19 19:59 | CONS ---
Date/Time of Note Date/Time of Note DATE: 11/19/16 TIME: 19:54 Assessment/Plan Assessment/Plan Chief Complaint/Hosp Course Acute hypercapnic respiratory failure: Likely from underlying COPD, obesity hypoventilation. Intubated and on mechanical ventilation. Acute on chronic heart failure: Suspect systolic dysfunction given presence of ICD. ICD implantation: details unknown -continue diuresis - decrease Lasix to 40mg IV daily -continue carvedilol 3.125mg BID, up titrate as tolerated -will eventually restart ACEI as blood pressure tolerates -restart aspirin and statin -follow up echocardiogram Problems: Consultation Date/Type/Reason Admit Date/Time Nov 17, 2016 at 20:32 Initial Consult Date 11/18/16 Type of Consultation: Cardiology 24 HR Interval Summary Free Text/Dictation Remains intubated in ICU. Hemodynamically stable. No acute events on telemetry. Detailed Summary Additional Comments Unable to obtain review of systems, patient is intubated. Exam/Review of Systems Vital Signs Vitals Vital Signs Date Time Temp Pulse Resp B/P Pulse Ox O2 Delivery O2 Flow Rate FiO2 11/19/16 19:00 94 16 115/75 98 Mechanical Ventilator 11/19/16 17:32 50 11/19/16 16:00 98.4 11/17/16 19:00 15.0 Intake and Output 11/18/16 11/18/16 11/19/16 15:00 23:00 07:00 Intake Total 374.911 ml 1086.589 ml Output Total 855 ml 800 ml 260 ml Balance -855 ml -425.089 ml 826.589 ml Exam Constitutional: No distress Head: atraumatic, normocephalic ENMT: intubated Neck: No jvd Respiratory: clear to auscultation, diminished breath sounds, No crackles/rales Cardiovascular: edema, regular rate and rhythm, systolic murmur (2/6 ANGELIQUE) Gastrointestinal: soft, No distended Musculoskeletal: nl extremities to inspection Neurological: No nl mental status, No nl speech Skin: No rash or lesions Results Result Diagram: 11/19/16 0400 11/19/16 1148 Results 24 hrs Laboratory Tests Test 11/19/16 04:00 11/19/16 07:17 11/19/16 11:48 Anion Gap 13 Basophils # 0.0 Basophils % 0.3 Blood Urea Nitrogen 16 Calcium Level 7.5 L Carbon Dioxide Level 30 Chloride Level 102 Creatinine 0.79 Eosinophils # 0.2 Eosinophils % 2.2 Glucose Level 106 Hematocrit 42.5 Hemoglobin 13.0 Lymphocytes # 1.1 Lymphocytes % 16.3 Magnesium Level 2.0 Mean Corpuscular Hemoglobin 28.6 L Mean Corpuscular Hemoglobin Concent 30.6 L Mean Corpuscular Volume 93.6 Mean Platelet Volume 11.4 H Monocytes # 0.3 Monocytes % 4.3 Neutrophils # 5.2 Neutrophils % 76.6 Nucleated Red Blood Cells # 0.0 Nucleated Red Blood Cells % 0.0 Phosphorus Level 3.8 # Platelet Count 141 Potassium Level 3.2 L 3.8 Red Blood Count 4.54 Red Cell Distribution Width 15.7 H Sodium Level 142 White Blood Count 6.8 # Arterial Blood HCO3 28.4 H Arterial Blood Base Excess 2.8 Arterial Blood Oxygen Saturation 98.7 Dario Test ACCEPTAB Arterial Blood Gas Puncture Site Right Radial Arterial Blood Carboxyhemoglobin 0.2 Arterial Blood Date Drawn 11/19/2016 7:43:59 AM Arterial Blood Methemoglobin 0.4 Arterial Blood pCO2 (Temp correct) 47.2 H Arterial Blood pH (Temp corrected) 7.397 Arterial Blood pO2 (Temp corrected) 141.6 H Blood Gas A-a O2 Differential 234.3 H Blood Gas Actual Respiration Rate 12 Blood Gas Low PEEP Setting 5.0 Blood Gas Modality VENT - AC Blood Gas Notified Time 11/19/2016 8:08:43 AM Blood Gas Notified Whom JLD Blood Gas Respiration Rate 12.0 Blood Gas Specimen Source Blood arterial Blood Gas Temperature 37.0 Blood Gas Tidal Volume 500.0 FiO2 60.0 Oxyhemoglobin Percent 98.1 Total Hemoglobin 14.9 Medications Medications Current Medications Acetaminophen (Tylenol Supp) 650 mg Q4H PRN [place] PAIN LEVEL 1-3 OR FEVER Last administered on 11/16/16 23:57; Admin Dose 650 MG; Start 11/16/16 at 20:00 Eye Lubricant (Artificial Tears Oph) 1 drop TID BOTH EYES Last administered on 11/19/16 13:05; Admin Dose 1 DROP; Start 11/16/16 at 21:00 Enoxaparin Sodium 30 mg 30 mg DAILY SC Last administered on 11/19/16 08:22; Admin Dose 30 MG; Start 11/17/16 at 09:00 Midazolam HCl 50 ml @ 1 mls/hr TITRATE IV Last administered on 11/17/16 16:28 ; Admin Dose 2 MLS/HR; Start 11/16/16 at 22:00 Ceftriaxone Sodium (Rocephin) 50 ml @ 100 mls/hr Q24H IVPB Last administered on 11/19/16 16:03; Admin Dose 100 MLS/HR; Start 11/17/16 at 16:00 Pantoprazole 40 mg 40 mg DAILY@06 IV Last administered on 11/19/16 06:13; Admin Dose 40 MG; Start 11/18/16 at 06:00 Propofol 100 ml @ 3.409 mls/ hr Q12H IV Last administered on 11/19/16 13:00; Admin Dose 4.773 MLS/HR; Start 11/17/16 at 23:00 Sodium Chloride (NS) 1,000 ml @ 50 mls/hr Q20H IV Last administered on 03:03; Admin Dose 50 MLS/HR; Start 11/18/16 at 07:00 Hydralazine HCl (Apresoline) 10 mg Q6H PRN IV SBP>160; Start 11/18/16 at 09:30 Carvedilol (Coreg) 3.125 mg BID PO Last administered on 11/19/16 08:20; Admin Dose 3.125 MG; Start 11/18/16 at 11:00 ALYSSA TOLENTINO MD Nov 19, 2016 19:59
[2016-11-19] MEDS: ATORVASTATIN 20 MG TAB PO SCH (20:49)
[2016-11-19] MEDS: POTASSIUM CHLORIDE 50 ML IVPB PRN ×3 (21:15→23:14)
[2016-11-20] VITALS (43 sets, daily range): BP systolic 88–134; BP diastolic 57–107; PULSE 70–150; RESP 10–24
[2016-11-20] MEDS ORDERED: FUROSEMIDE 20 MG INJ IV ONE (03:30)
[2016-11-20] MEDS: PROPOFOL 100 ML IV SCH ×2 (04:36→20:07)
[2016-11-20] MEDS: PANTOPRAZOLE 40 MG INJ IV SCH (05:20)
[2016-11-20 05:50] LABS: ADD SCAN DIFF NO
[2016-11-20 06:04] LABS: POTASSIUM 3.5 mmol/L (3.5-5.1)
[2016-11-20 06:07] LABS: CREATININE 0.84 mg/dl (0.44-1.00)
[2016-11-20 06:08] LABS: CALCIUM 8.4 mg/dl (8.4-10.2)
[2016-11-20 06:11] LABS: BASOPHILS % 0.3 % (0.0-2.0); EOSINOPHILS # 0.1 10^3/ul (0.0-0.5); EOSINOPHILS % 1.9 % (0.0-7.0); HEMATOCRIT 43.7 % (37.0-47.0); HEMOGLOBIN 13.2 g/dl (12.0-16.0); LYMPHOCYTES # 1.5 10^3/ul (0.8-2.9); LYMPHOCYTES % 20.3 % (15.0-51.0); MEAN CORPUSCULAR HEMOGLOBIN 28.6 pg (29.0-33.0); MEAN CORPUSCULAR HGB CONC 30.2 g/dl (32.0-37.0); MEAN CORPUSCULAR VOLUME 94.6 fl (82.0-101.0); MEAN PLATELET VOLUME 11.8 fl (7.4-10.4); MONOCYTE # 0.5 10^3/ul (0.3-0.9); MONOCYTES % 6.9 % (0.0-11.0); NEUTROPHIL # 5.2 10^3/ul (1.6-7.5); NEUTROPHILS % 70.3 % (39.0-77.0); PLATELET COUNT 129 10^3/UL (140-415); RED BLOOD COUNT 4.62 10^6/ul (4.20-5.40); RED CELL DISTRIBUTION WIDTH 15.9 % (11.5-14.5); WHITE BLOOD COUNT 7.4 10^3/ul (4.8-10.8)
[2016-11-20] MEDS: POTASSIUM CHLORIDE 50 ML IVPB PRN ×4 (06:41→18:45)
--- NOTE | 2016-11-20 08:06 | CONS ---
Date/Time of Note Date/Time of Note DATE: 11/20/16 TIME: 08:03 Assessment/Plan Assessment/Plan Additional Assessment/Plan Ventilator settings; AC of 14, tidal volume 500, PEEP of 5, 50% FiO2. Assessment recommendations; 1. Patient admitted for severe hypoxemic and hypercapnic respiratory failure surgery for underlying undiagnosed sleep apnea/obesity hypoventilation syndrome. 2. Severe CHF. 3. Morbid obesity. Continue current treatment. A chest x-ray from today is pending. Further weaning from ventilator with depend upon chest x-ray findings. Consultation Date/Type/Reason Admit Date/Time Nov 17, 2016 at 20:32 Initial Consult Date 11/17/16 Type of Consultation: Pulmonary/critical care 24 HR Interval Summary Free Text/Dictation Patient condition remains critical. Still requiring full ventilator support. Patient has been off sedation and is completely awake and alert. Has remained hemodynamically stable. General exam; elderly woman, orally intubated, awake and alert. Currently in no distress. Exam/Review of Systems Vital Signs Vitals Vital Signs Date Time Temp Pulse Resp B/P Pulse Ox O2 Delivery O2 Flow Rate FiO2 11/20/16 07:00 70 14 123/57 99 Mechanical Ventilator 11/20/16 05:51 50 11/20/16 04:00 98.9 11/17/16 19:00 15.0 Intake and Output 11/19/16 11/19/16 11/20/16 15:00 23:00 07:00 Intake Total 5 ml 1107.864 ml 514.092 ml Output Total 470 ml 529 ml Balance 5 ml 637.864 ml -14.908 ml Exam H EENT exam; supple neck, positive JVD. No lymphadenopathy. Midline trachea. Patient has a right surgical pupil. No thyromegaly. No neck bruits. Chest examination; diminished breath sound bilaterally. No added sounds. S1- S2 audible. No murmurs. There is a pacemaker in the left chest wall. Abdomen examination; protuberant, bowel sounds audible. Nontender. No organomegaly felt. Extremity exam is; trace peripheral edema. Pulses 1+ bilaterally. SUSTAINABLE DESIGN CONSULTANT exam is; patient is awake alert and follows simple commands. Results Result Diagram: 11/20/16 0540 11/20/16 0533 Results 24 hrs Laboratory Tests Test 11/19/16 11:48 11/19/16 20:00 11/20/16 05:33 11/20/16 05:40 Potassium Level 3.8 3.3 L 3.5 Anion Gap 15 Blood Urea Nitrogen 20 Calcium Level 8.4 Carbon Dioxide Level 32 H Chloride Level 100 Creatinine 0.84 Glucose Level 95 Sodium Level 143 Basophils # 0.0 Basophils % 0.3 Eosinophils # 0.1 Eosinophils % 1.9 Hematocrit 43.7 Hemoglobin 13.2 Lymphocytes # 1.5 Lymphocytes % 20.3 Mean Corpuscular Hemoglobin 28.6 L Mean Corpuscular Hemoglobin Concent 30.2 L Mean Corpuscular Volume 94.6 Mean Platelet Volume 11.8 H Monocytes # 0.5 Monocytes % 6.9 Neutrophils # 5.2 Neutrophils % 70.3 Nucleated Red Blood Cells # 0.0 Nucleated Red Blood Cells % 0.0 Platelet Count 129 L Red Blood Count 4.62 Red Cell Distribution Width 15.9 H White Blood Count 7.4 Medications Medications Current Medications Acetaminophen (Tylenol Supp) 650 mg Q4H PRN [place] PAIN LEVEL 1-3 OR FEVER Last administered on 11/16/16 23:57; Admin Dose 650 MG; Start 11/16/16 at 20:00 Eye Lubricant (Artificial Tears Oph) 1 drop TID BOTH EYES Last administered on 11/19/16 20:49; Admin Dose 1 DROP; Start 11/16/16 at 21:00 Enoxaparin Sodium 30 mg 30 mg DAILY SC Last administered on 11/19/16 08:22; Admin Dose 30 MG; Start 11/17/16 at 09:00 Midazolam HCl 50 ml @ 1 mls/hr TITRATE IV Last administered on 11/17/16 16:28 ; Admin Dose 2 MLS/HR; Start 11/16/16 at 22:00 Ceftriaxone Sodium (Rocephin) 50 ml @ 100 mls/hr Q24H IVPB Last administered on 11/19/16 16:03; Admin Dose 100 MLS/HR; Start 11/17/16 at 16:00 Pantoprazole 40 mg 40 mg DAILY@06 IV Last administered on 11/20/16 05:20; Admin Dose 40 MG; Start 11/18/16 at 06:00 Propofol 100 ml @ 3.409 mls/ hr Q12H IV Last administered on 11/20/16 04:36; Admin Dose 6.818 MLS/HR; Start 11/17/16 at 23:00 Sodium Chloride (NS) 1,000 ml @ 50 mls/hr Q20H IV Last administered on 21:01; Admin Dose 50 MLS/HR; Start 11/18/16 at 07:00 Hydralazine HCl (Apresoline) 10 mg Q6H PRN IV SBP>160; Start 11/18/16 at 09:30 Carvedilol (Coreg) 3.125 mg BID PO Last administered on 11/19/16 20:50; Admin Dose 3.125 MG; Start 11/18/16 at 11:00 Furosemide (Lasix) 40 mg DAILY IV ; Start 11/20/16 at 09:00 Aspirin (Aspirin) 81 mg DAILY PO ; Start 11/20/16 at 09:00 Atorvastatin Calcium (Lipitor) 20 mg HS PO Last administered on 11/19/16 20:49 ; Admin Dose 20 MG; Start 11/19/16 at 21:00 SEVERINO MCMILLAN 14, 2017 08:06
--- NOTE | 2016-11-20 08:51 | RADRPT ---
PROCEDURE: XR Chest. CLINICAL INDICATION: CHF. TECHNIQUE: Single frontal view of the chest was obtained COMPARISON: Chest x-ray 11/19/2016. FINDINGS: The soft tissues are normal. There are degenerative osteophytes in the thoracic spine. The the hea rt is enlarged. The cardiomediastinal silhouette, pulmonary vasculature and hilar structures are no rmal. There is a left-sided aorta. there are faint interstitial infiltrates in the perihilar areas and consolidative infiltrates in the bases of the lungs. There are bilateral pleural effusions. Th theo findings are slightly improved compared to the prior study. A dual chamber cardiac pacemaker is projects across the upper left chest wall. IMPRESSION: 1. Cardiomegaly with mild congestive heart failure. The interstitial bone edema shows slight improv ement compared to the earlier study. 2. Consolidative infiltrate/compressive atelectasis in the bases of the lungs. 3. Satisfactory positioning of the endotracheal tube about 3 cm superior to the natalie and nasogast eusebio tube with its tip distal to the GE junction of the field of view. 4. Dual chamber cardiac pacemaker implanted over the upper left chest wall. RPTAT:AAJJ Physician Han Date Time Electronically viewed and signed by Physician Han on 11/20/2016 08:51 KATLIN/
[2016-11-20] MEDS: ARTIFICIAL TEARS 15 ML OPH BOTH EYES SCH ×3 (09:37→21:25)
[2016-11-20] MEDS: FUROSEMIDE 40 MG INJ IV SCH (09:38)
[2016-11-20] MEDS: ASPIRIN 81 MG TAB PO SCH (09:38)
[2016-11-20] MEDS: ENOXAPARIN 30 MG/0.3 ML SYG SC SCH (09:39)
[2016-11-20 10:36] LABS: AADO2 Arterial 173.3 mmHg (7.0-24.0); Allen Test ACCEPTAB; Arterial Base Excess -0.2 mmol/L (-3.0-3); Arterial COHb 0.4 % (0.0-3.0); Arterial Fraction of Oxyhgb 97.6 % (93.0-99.0); Arterial HCO3 25.3 mmol/L (22.0-26.0); Arterial MetHb 0.5 % (0.0-1.5); Blood Gas PS 10; MODE VENT - SIMV
--- NOTE | 2016-11-20 12:27 | PN ---
Date/Time of Note Date/Time of Note DATE: 11/20/16 TIME: 12:23 Assessment/Plan VTE Prophylaxis VTE Prophylaxis Intervention: LMWH Lines/Catheters IV Catheter Type (from Nrs): Mid Line Urinary Cath still in place: Yes Reason Cath still needed: other (indicate) (monitor I&O) Assessment/Plan Chief Complaint/Hosp Course Assessment and plan 1. Acute hypoxic hypercapnic respiratory failure. Continues on mechanical ventilation. Continue vent liberation trial per pulmonology.Chest x-ray still with card him medically and mild CHF. Still noted with consolidative infiltrate/ compressive atelectasis at lung bases. Continue with pulmonary recommendations 2. Acute encephalopathy likely secondary to CO2 retention. CT scan of the head was negative for any intracranial pathology. More alert on sedation wake up. 3. Underlying CHF. Continue on Lasix. Monitor for clinical improvement 4. History of recent pacemaker placement. Continue telemetry monitoring. 5. Essential hypertension. Continue antihypertensives as needed 6. Morbid obesity. Patient advised about weight reduction once extubated DVT prophylaxis: Lovenox GERD prophylaxis: PPI Disposition and plan: Still remains intubated. Elevation Gomer cleat layer. Await for clinical improvement of respiratory status. Discussed plan of care with Dr. Flores Critical care time: 30 minutes Problems: Subjective 24 Hr Interval Summary Free Text/Dictation On light sedation. Awakens to verbal response. Family at bedside Exam/Review of Systems Vital Signs Vitals Vital Signs Date Time Temp Pulse Resp B/P Pulse Ox O2 Delivery O2 Flow Rate FiO2 11/20/16 11:26 80 12 99 40 11/20/16 11:00 116/65 Mechanical Ventilator 11/20/16 08:00 98.5 11/17/16 19:00 15.0 Intake and Output 11/19/16 11/19/16 11/20/16 15:00 23:00 07:00 Intake Total 5 ml 1107.864 ml 514.092 ml Output Total 470 ml 529 ml Balance 5 ml 637.864 ml -14.908 ml Exam General: Remains intubated. On light sedation.awakens to verbal response Eyes: Remains equal round. Neck: No obvious JVD. Cardiac: Continues to be on regular rate. S1-S2 auscultated again Pulmonary: Still with diminished lung bases and minimally coarse more on left side of the lung GI: Obese. Soft nontender Extremities:Edema bilateral lower extremities +1 Skin: Clean dry and intact Neurologic: Awakens a verbal response. On light sedation Results Result Diagram: 11/20/16 0540 11/20/16 1141 Results 24 hrs Laboratory Tests Test 11/19/16 20:00 11/20/16 05:33 11/20/16 05:40 11/20/16 10:30 Potassium Level 3.3 L 3.5 Anion Gap 15 Blood Urea Nitrogen 20 Calcium Level 8.4 Carbon Dioxide Level 32 H Chloride Level 100 Creatinine 0.84 Glucose Level 95 Sodium Level 143 Basophils # 0.0 Basophils % 0.3 Eosinophils # 0.1 Eosinophils % 1.9 Hematocrit 43.7 Hemoglobin 13.2 Lymphocytes # 1.5 Lymphocytes % 20.3 Mean Corpuscular Hemoglobin 28.6 L Mean Corpuscular Hemoglobin Concent 30.2 L Mean Corpuscular Volume 94.6 Mean Platelet Volume 11.8 H Monocytes # 0.5 Monocytes % 6.9 Neutrophils # 5.2 Neutrophils % 70.3 Nucleated Red Blood Cells # 0.0 Nucleated Red Blood Cells % 0.0 Platelet Count 129 L Red Blood Count 4.62 Red Cell Distribution Width 15.9 H White Blood Count 7.4 Arterial Blood HCO3 25.3 Arterial Blood Base Excess -0.2 Arterial Blood Oxygen Saturation 98.5 Dario Test ACCEPTAB Arterial Blood Gas Puncture Site Right Radial Arterial Blood Carboxyhemoglobin 0.4 Arterial Blood Date Drawn 11/20/2016 10:26:52 AM Arterial Blood Methemoglobin 0.5 Arterial Blood pCO2 (Temp correct) 44.4 Arterial Blood pH (Temp corrected) 7.373 Arterial Blood pO2 (Temp corrected) 133.3 H Blood Gas A-a O2 Differential 173.3 H Blood Gas Actual Respiration Rate 14 Blood Gas Low PEEP Setting 5.0 Blood Gas Modality VENT - SIMV Blood Gas Notified Time 11/20/2016 10:36:32 AM Blood Gas Notified Whom JLD Blood Gas Pressure Support 10 Blood Gas Respiration Rate 10.0 Blood Gas Specimen Source Blood arterial Blood Gas Temperature 37.0 Blood Gas Tidal Volume 500.0 FiO2 50.0 Oxyhemoglobin Percent 97.6 Total Hemoglobin 14.0 Test 11/20/16 11:41 Potassium Level 3.7 Medications Medications Current Medications Acetaminophen (Tylenol Supp) 650 mg Q4H PRN [place] PAIN LEVEL 1-3 OR FEVER Last administered on 11/16/16 23:57; Admin Dose 650 MG; Start 11/16/16 at 20:00 Eye Lubricant (Artificial Tears Oph) 1 drop TID BOTH EYES Last administered on 11/20/16 12:03; Admin Dose 1 DROP; Start 11/16/16 at 21:00 Enoxaparin Sodium 30 mg 30 mg DAILY SC Last administered on 11/20/16 09:39; Admin Dose 30 MG; Start 11/17/16 at 09:00 Midazolam HCl 50 ml @ 1 mls/hr TITRATE IV Last administered on 11/17/16 16:28 ; Admin Dose 2 MLS/HR; Start 11/16/16 at 22:00 Ceftriaxone Sodium (Rocephin) 50 ml @ 100 mls/hr Q24H IVPB Last administered on 11/19/16 16:03; Admin Dose 100 MLS/HR; Start 11/17/16 at 16:00 Pantoprazole 40 mg 40 mg DAILY@06 IV Last administered on 11/20/16 05:20; Admin Dose 40 MG; Start 11/18/16 at 06:00 Propofol 100 ml @ 3.409 mls/ hr Q12H IV Last administered on 11/20/16 04:36; Admin Dose 6.818 MLS/HR; Start 11/17/16 at 23:00 Sodium Chloride (NS) 1,000 ml @ 50 mls/hr Q20H IV Last administered on 21:01; Admin Dose 50 MLS/HR; Start 11/18/16 at 07:00 Hydralazine HCl (Apresoline) 10 mg Q6H PRN IV SBP>160; Start 11/18/16 at 09:30 Carvedilol (Coreg) 3.125 mg BID PO Last administered on 11/20/16 09:38; Admin Dose 3.125 MG; Start 11/18/16 at 11:00 Furosemide (Lasix) 40 mg DAILY IV Last administered on 11/20/16 09:38; Admin Dose 40 MG; Start 11/20/16 at 09:00 Aspirin (Aspirin) 81 mg DAILY PO Last administered on 11/20/16 09:38; Admin Dose 81 MG; Start 11/20/16 at 09:00 Atorvastatin Calcium (Lipitor) 20 mg HS PO Last administered on 3/13/17at 20:49 ; Admin Dose 20 MG; Start 11/19/16 at 21:00 MINOO BRADY Nov 20, 2016 12:27
--- NOTE | 2016-11-20 13:55 | RADRPT ---
Echocardiogram Report Patient Name: RANDAL TRIANA Gender: Female Date: 1935 Study Date: 18-Nov-2016 Airline Radio Operator: [facility] Location: 108 Ref. Physician: SUMEET MONTENEGRO Quality: Technically Difficult Study Procedures: Transthoracic echocardiogram with complete 2D, M-Mode, and doppler examination. Indications: Evaluate Left Ventricular function. 2D/M Mode Doppler Measurement Value Normal Ranges Measurement Value Normal Ranges LVIDd 2D 2.8 3.5 - 5.6 cm AV Peak Eric 1.4 m/sec LVIDs 2D 2.0 2.1 - 4.1 cm AV Peak PG 8.0 mmHg FS 2D 27.0 % LVOT Peak Eric 1.0 m/sec LVPWd 2D 1.0 0.6 - 1.1 cm LVOT Peak PG 4.0 mmHg IVSd 2D 1.0 0.6 - 1.1 cm MV E Peak Eric 0.6 m/sec IVS/LVPW 2D 1.0 EDV 2D 22.2 cm3 ESV 2D 8.6 cm3 LA Dimen 2D 2.9 2.3 - 4.0 cm Findings Left Ventricle: Normal left ventricular systolic function. Mild left ventricular systolic dysfunction. Ejection fraction is visually estimated at 4550 %. Right Ventricle: Normal right ventricular size. Pacemaker right heart. Left Atrium: The left atrium is normal in size. Right Atrium: The right atrium is normal in size. Mitral Valve: Trace mitral regurgitation. Aortic Valve: Aortic valve not well visualized. Trace aortic valve regurgitation. Tricuspid Valve: Tricuspid valve not well visualized. There is trace tricuspid regurgitation. Pulmonic Valve: Pulmonic valve not well visualized. Pericardium: There is an anterior echo free space consistent with epicardial fat pad. Aorta: Normal aortic root. IVC: Inferior vena cava with poor respiratory collapse, however, patient on ventilator. Conclusions 1.Technically challenging study. 2.The left ventricle is normal in size with mildly reduced systolic function. Electronically Signed By: Milo Kearney 20-Nov-2016 13:54:15 -0700 Patient Name: RANDAL TRIANA Study Date: 18-Nov-[id number]
[2016-11-20] MEDS: SOD CHLORIDE 0.9% 1,000 ML IV SCH (14:00)
[2016-11-20] MEDS: CEFTRIAXONE 1 GM/50 ML (PMX) 50 ML IVPB SCH (15:57)
--- NOTE | 2016-11-20 17:56 | CONS ---
Date/Time of Note Date/Time of Note DATE: 11/20/16 TIME: 17:51 Assessment/Plan Assessment/Plan Chief Complaint/Hosp Course Assessment: Acute hypercapnic respiratory failure - likely from underlying COPD and obesity hypoventilation, intubated and on mechanical ventilation Acute on chronic combined systolic and diastolic heart failure - mild ICD implantation - details unknown Recommendations: -echocardiogram showed LVEF 45-50% -continue Lasix 40mg IV daily -continue carvedilol 3.125mg BID, up titrate as tolerated -restart enalapril as blood pressure can tolerate -continue aspirin and statin Problems: Consultation Date/Type/Reason Admit Date/Time Nov 17, 2016 at 20:32 Initial Consult Date 11/18/16 Type of Consultation: Cardiology 24 HR Interval Summary Free Text/Dictation Remains intubated in ICU. Hemodynamically stable. Chest x-ray shows mild pulmonary edema. Detailed Summary Additional Comments Unable to obtain review of systems, patient is intubated. Exam/Review of Systems Vital Signs Vitals Vital Signs Date Time Temp Pulse Resp B/P Pulse Ox O2 Delivery O2 Flow Rate FiO2 11/20/16 17:17 76 12 98 40 11/20/16 17:00 115/76 Mechanical Ventilator 11/20/16 16:00 98.9 11/17/16 19:00 15.0 Intake and Output 11/19/16 11/19/16 11/20/16 15:00 23:00 07:00 Intake Total 5 ml 1107.864 ml 571.592 ml Output Total 470 ml 579 ml Balance 5 ml 637.864 ml -7.408 ml Exam Constitutional: No distress Head: atraumatic, normocephalic ENMT: intubated Neck: No jvd Respiratory: clear to auscultation, diminished breath sounds, No crackles/rales Cardiovascular: edema, regular rate and rhythm, systolic murmur (2/6 ANGELIQUE) Gastrointestinal: soft, No distended Musculoskeletal: nl extremities to inspection Neurological: No nl mental status, No nl speech Skin: No rash or lesions Results Result Diagram: 11/20/16 0540 11/20/16 1700 Results 24 hrs Laboratory Tests Test 11/19/16 20:00 11/20/16 05:33 11/20/16 05:40 11/20/16 10:30 Potassium Level 3.3 L 3.5 Anion Gap 15 Blood Urea Nitrogen 20 Calcium Level 8.4 Carbon Dioxide Level 32 H Chloride Level 100 Creatinine 0.84 Glucose Level 95 Sodium Level 143 Basophils # 0.0 Basophils % 0.3 Eosinophils # 0.1 Eosinophils % 1.9 Hematocrit 43.7 Hemoglobin 13.2 Lymphocytes # 1.5 Lymphocytes % 20.3 Mean Corpuscular Hemoglobin 28.6 L Mean Corpuscular Hemoglobin Concent 30.2 L Mean Corpuscular Volume 94.6 Mean Platelet Volume 11.8 H Monocytes # 0.5 Monocytes % 6.9 Neutrophils # 5.2 Neutrophils % 70.3 Nucleated Red Blood Cells # 0.0 Nucleated Red Blood Cells % 0.0 Platelet Count 129 L Red Blood Count 4.62 Red Cell Distribution Width 15.9 H White Blood Count 7.4 Arterial Blood HCO3 25.3 Arterial Blood Base Excess -0.2 Arterial Blood Oxygen Saturation 98.5 Dario Test ACCEPTAB Arterial Blood Gas Puncture Site Right Radial Arterial Blood Carboxyhemoglobin 0.4 Arterial Blood Date Drawn 11/20/2016 10:26:52 AM Arterial Blood Methemoglobin 0.5 Arterial Blood pCO2 (Temp correct) 44.4 Arterial Blood pH (Temp corrected) 7.373 Arterial Blood pO2 (Temp corrected) 133.3 H Blood Gas A-a O2 Differential 173.3 H Blood Gas Actual Respiration Rate 14 Blood Gas Low PEEP Setting 5.0 Blood Gas Modality VENT - SIMV Blood Gas Notified Time 11/20/2016 10:36:32 AM Blood Gas Notified Whom JLD Blood Gas Pressure Support 10 Blood Gas Respiration Rate 10.0 Blood Gas Specimen Source Blood arterial Blood Gas Temperature 37.0 Blood Gas Tidal Volume 500.0 FiO2 50.0 Oxyhemoglobin Percent 97.6 Total Hemoglobin 14.0 Test 11/20/16 11:41 11/20/16 17:00 Potassium Level 3.7 3.9 Medications Medications Current Medications Acetaminophen (Tylenol Supp) 650 mg Q4H PRN [place] PAIN LEVEL 1-3 OR FEVER Last administered on 11/16/16 23:57; Admin Dose 650 MG; Start 11/16/16 at 20:00 Eye Lubricant (Artificial Tears Oph) 1 drop TID BOTH EYES Last administered on 11/20/16 12:03; Admin Dose 1 DROP; Start 11/16/16 at 21:00 Enoxaparin Sodium 30 mg 30 mg DAILY SC Last administered on 11/20/16 09:39; Admin Dose 30 MG; Start 11/17/16 at 09:00 Midazolam HCl 50 ml @ 1 mls/hr TITRATE IV Last administered on 11/17/16 16:28 ; Admin Dose 2 MLS/HR; Start 11/16/16 at 22:00 Ceftriaxone Sodium (Rocephin) 50 ml @ 100 mls/hr Q24H IVPB Last administered on 11/20/16 15:57; Admin Dose 100 MLS/HR; Start 11/17/16 at 16:00 Pantoprazole 40 mg 40 mg DAILY@06 IV Last administered on 11/20/16 05:20; Admin Dose 40 MG; Start 11/18/16 at 06:00 Propofol 100 ml @ 3.409 mls/ hr Q12H IV Last administered on 11/20/16 04:36; Admin Dose 6.818 MLS/HR; Start 11/17/16 at 23:00 Sodium Chloride (NS) 1,000 ml @ 50 mls/hr Q20H IV Last administered on 14:00; Admin Dose 50 MLS/HR; Start 11/18/16 at 07:00 Hydralazine HCl (Apresoline) 10 mg Q6H PRN IV SBP>160; Start 11/18/16 at 09:30 Carvedilol (Coreg) 3.125 mg BID PO Last administered on 11/20/16 09:38; Admin Dose 3.125 MG; Start 11/18/16 at 11:00 Furosemide (Lasix) 40 mg DAILY IV Last administered on 11/20/16 09:38; Admin Dose 40 MG; Start 11/20/16 at 09:00 Aspirin (Aspirin) 81 mg DAILY PO Last administered on 11/20/16 09:38; Admin Dose 81 MG; Start 11/20/16 at 09:00 Atorvastatin Calcium (Lipitor) 20 mg HS PO Last administered on 11/19/16 20:49 ; Admin Dose 20 MG; Start 11/19/16 at 21:00 ALYSSA TOLENTINO MD Nov 20, 2016 17:56
[2016-11-20] MEDS: ATORVASTATIN 20 MG TAB PO SCH (21:24)
[2016-11-21] VITALS (35 sets, daily range): BP systolic 100–148; BP diastolic 54–100; PULSE 77–111; RESP 11–23
[2016-11-21] MEDS: PROPOFOL 100 ML IV SCH (05:03)
[2016-11-21] MEDS: PANTOPRAZOLE 40 MG INJ IV SCH (05:10)
[2016-11-21 05:50] LABS: ADD SCAN DIFF NO
[2016-11-21 05:56] LABS: BASOPHILS % 0.3 % (0.0-2.0); EOSINOPHILS # 0.2 10^3/ul (0.0-0.5); EOSINOPHILS % 2.4 % (0.0-7.0); HEMATOCRIT 43.8 % (37.0-47.0); HEMOGLOBIN 13.4 g/dl (12.0-16.0); LYMPHOCYTES # 1.1 10^3/ul (0.8-2.9); LYMPHOCYTES % 18.5 % (15.0-51.0); MEAN CORPUSCULAR HEMOGLOBIN 29.2 pg (29.0-33.0); MEAN CORPUSCULAR HGB CONC 30.6 g/dl (32.0-37.0); MEAN CORPUSCULAR VOLUME 95.4 fl (82.0-101.0); MEAN PLATELET VOLUME 11.6 fl (7.4-10.4); MONOCYTE # 0.5 10^3/ul (0.3-0.9); MONOCYTES % 7.6 % (0.0-11.0); NEUTROPHIL # 4.4 10^3/ul (1.6-7.5); NEUTROPHILS % 70.9 % (39.0-77.0); PLATELET COUNT 131 10^3/UL (140-415); RED BLOOD COUNT 4.59 10^6/ul (4.20-5.40); RED CELL DISTRIBUTION WIDTH 15.1 % (11.5-14.5); WHITE BLOOD COUNT 6.2 10^3/ul (4.8-10.8)
[2016-11-21 06:11] LABS: POTASSIUM 3.4 mmol/L (3.5-5.1)
[2016-11-21 06:14] LABS: CREATININE 0.71 mg/dl (0.44-1.00)
[2016-11-21] MEDS: POTASSIUM CHLORIDE 50 ML IVPB PRN ×5 (08:13→19:09)
[2016-11-21] MEDS: ARTIFICIAL TEARS 15 ML OPH BOTH EYES SCH ×3 (09:33→21:01)
[2016-11-21] MEDS: ASPIRIN 81 MG TAB PO SCH (09:33)
[2016-11-21] MEDS: FUROSEMIDE 40 MG INJ IV SCH (09:34)
[2016-11-21] MEDS: ENOXAPARIN 30 MG/0.3 ML SYG SC SCH (09:43)
[2016-11-21] MEDS: SOD CHLORIDE 0.9% 1,000 ML IV SCH (11:00)
[2016-11-21 12:48] LABS: AADO2 Arterial 76.5 mmHg (7.0-24.0); Arterial Base Excess -1.2 mmol/L (-3.0-3); Arterial COHb 1.3 % (0.0-3.0); Arterial Fraction of Oxyhgb 92.5 % (93.0-99.0); Arterial HCO3 25.7 mmol/L (22.0-26.0); Arterial MetHb 0.6 % (0.0-1.5); Arterial Total Hemglobin 14.8 g/dl (12.0-18.0); Blood Gas PS 10; MODE VENT - CPAP
--- NOTE | 2016-11-21 14:53 | CONS ---
Date/Time of Note Date/Time of Note DATE: 11/21/16 TIME: 14:50 Assessment/Plan Assessment/Plan Additional Assessment/Plan Ventilator setting; patient currently on CPAP mode. ABG was reviewed. Next Assessment recommendations; 1. Patient admitted for respiratory failure due to acute hypercapnia likely from underlying obesity severe underlying sleep apnea and obesity/ hypoventilation syndrome. 2. CHF. Next 3. Currently no evidence of any infective process. Extubate the patient. Discontinue Rocephin. Patient may require BiPAP overnight. She will definitely need to have a sleep study done as an outpatient. Consultation Date/Type/Reason Admit Date/Time Nov 17, 2016 at 20:32 Initial Consult Date 11/17/16 Type of Consultation: Pulmonary/critical care Reason for Consultation Patient condition is markedly improved. She is completely awake alert. Has been taken off sedation short while ago. Was on higher dose of propofol earlier this morning which was weaned down to 5 mics per kilogram per minute for the last several hours. Patient also will switch over to CPAP mode since 10 :30 AM this morning next General exam; elderly lady, appears morbidly obese, currently in no distress. Orally intubated. Awake and alert. Exam/Review of Systems Vital Signs Vitals Vital Signs Date Time Temp Pulse Resp B/P Pulse Ox O2 Delivery O2 Flow Rate FiO2 11/21/16 11:40 93 17 99 30 11/21/16 11:00 129/65 CPAP 11/21/16 08:00 98.9 11/17/16 19:00 15.0 Intake and Output 11/20/16 11/20/16 11/21/16 15:00 23:00 07:00 Intake Total 637.272 ml 529.544 ml 458.636 ml Output Total 800 ml 385 ml 223 ml Balance -162.728 ml 144.544 ml 235.636 ml Exam H EENT examination; supple neck, patient is edentulous. Orally intubated. There is a right intraocular lens implant. Left cataract . No neck masses, no thyromegaly. JVD difficult to see because of short neck. Chest examination; diminished but clear breath sounds bilaterally. S1-S2 audible, no murmurs. Regular rhythm. Abdomen examination; soft, benign. Nontender. Bowel sounds audible. No organomegaly. Next Extremity examination; trace peripheral edema. Pulses 1+ bilaterally. FIRE OBSERVER examination; no focal deficit. Results Result Diagram: 11/21/16 0525 11/21/16 1134 Results 24 hrs Laboratory Tests Test 11/20/16 17:00 11/20/16 20:50 11/21/16 05:25 11/21/16 11:34 Potassium Level 3.9 4.2 3.4 L 3.5 Anion Gap 14 Basophils # 0.0 Basophils % 0.3 Blood Urea Nitrogen 23 H Calcium Level 9.0 Carbon Dioxide Level 28 Chloride Level 104 Creatinine 0.71 Eosinophils # 0.2 Eosinophils % 2.4 Glucose Level 90 Hematocrit 43.8 Hemoglobin 13.4 Lymphocytes # 1.1 Lymphocytes % 18.5 Mean Corpuscular Hemoglobin 29.2 Mean Corpuscular Hemoglobin Concent 30.6 L Mean Corpuscular Volume 95.4 Mean Platelet Volume 11.6 H Monocytes # 0.5 Monocytes % 7.6 Neutrophils # 4.4 Neutrophils % 70.9 Nucleated Red Blood Cells # 0.0 Nucleated Red Blood Cells % 0.0 Platelet Count 131 L Red Blood Count 4.59 Red Cell Distribution Width 15.1 H Sodium Level 143 White Blood Count 6.2 Test 11/21/16 12:38 Arterial Blood HCO3 25.7 Arterial Blood Base Excess -1.2 Arterial Blood Oxygen Saturation 94.3 L Dario Test N/A Arterial Blood Gas Puncture Site LB Arterial Blood Carboxyhemoglobin 1.3 Arterial Blood Date Drawn 11/21/2016 12:30:18 PM Arterial Blood Methemoglobin 0.6 Arterial Blood pCO2 (Temp correct) 51.6 H Arterial Blood pH (Temp corrected) 7.315 L Arterial Blood pO2 (Temp corrected) 76.8 L Blood Gas A-a O2 Differential 76.5 H Blood Gas Actual Respiration Rate 21 Blood Gas Low PEEP Setting 5.0 Blood Gas Modality VENT - CPAP Blood Gas Notified Time 11/21/2016 12:48:39 PM Blood Gas Notified Whom JLD Blood Gas Pressure Support 10 Blood Gas Specimen Source Blood arterial Blood Gas Temperature 37.0 FiO2 30.0 Oxyhemoglobin Percent 92.5 L Total Hemoglobin 14.8 Medications Medications Current Medications Acetaminophen (Tylenol Supp) 650 mg Q4H PRN [place] PAIN LEVEL 1-3 OR FEVER Last administered on 11/16/16t 23:57; Admin Dose 650 MG; Start 11/16/16 at 20:00 Eye Lubricant (Artificial Tears Oph) 1 drop TID BOTH EYES Last administered on 11/21/16 13:34; Admin Dose 1 DROP; Start 11/16/16 at 21:00 Enoxaparin Sodium 30 mg 30 mg DAILY SC Last administered on 11/21/16 09:43; Admin Dose 30 MG; Start 11/17/16 at 09:00 Midazolam HCl 50 ml @ 1 mls/hr TITRATE IV Last administered on 11/17/16 16:28 ; Admin Dose 2 MLS/HR; Start 11/16/16 at 22:00 Ceftriaxone Sodium (Rocephin) 50 ml @ 100 mls/hr Q24H IVPB Last administered on 11/20/16 15:57; Admin Dose 100 MLS/HR; Start 11/17/16 at 16:00 Pantoprazole 40 mg 40 mg DAILY@06 IV Last administered on 11/21/16 05:10; Admin Dose 40 MG; Start 11/18/16 at 06:00 Propofol 100 ml @ 3.409 mls/ hr Q12H IV Last administered on 11/21/16 05:03; Admin Dose 6.818 MLS/HR; Start 11/17/16 at 23:00 Sodium Chloride (NS) 1,000 ml @ 50 mls/hr Q20H IV Last administered on 11:00; Admin Dose 50 MLS/HR; Start 11/18/16 at 07:00 Hydralazine HCl (Apresoline) 10 mg Q6H PRN IV SBP>160; Start 11/18/16 at 09:30 Carvedilol (Coreg) 3.125 mg BID PO Last administered on 11/21/16 09:34; Admin Dose 3.125 MG; Start 11/18/16 at 11:00 Furosemide (Lasix) 40 mg DAILY IV Last administered on 11/21/16 09:34; Admin Dose 40 MG; Start 11/20/16 at 09:00 Aspirin (Aspirin) 81 mg DAILY PO Last administered on 11/21/16 09:33; Admin Dose 81 MG; Start 11/20/16 at 09:00 Atorvastatin Calcium (Lipitor) 20 mg HS PO Last administered on 11/20/16 21:24 ; Admin Dose 20 MG; Start 11/19/16 at 21:00 SEVERINO MCMILLAN 15, 2017 14:53
--- NOTE | 2016-11-21 15:02 | PN ---
Date/Time of Note Date/Time of Note DATE: 11/21/16 TIME: 14:53 Assessment/Plan VTE Prophylaxis VTE Prophylaxis Intervention: LMWH Lines/Catheters IV [facility]from [facility] Mid Line Urinary Cath still in place: Yes Assessment/Plan Chief Complaint/Hosp Course Assessment and plan 1. Acute hypoxic hypercapnic respiratory failure. Patient intubated at present. On mechanical ventilation. Continue pulmonary hygiene. With improvement. Continue vent liberation trial 2. Acute encephalopathy likely secondary to CO2 retention. CT scan of the head was negative for any intracranial pathology. Monitor neuro status 3. Underlying CHF. Noted with EF of 45-50% per echocardiogram. Continue on Lasix. 4. History of recent pacemaker placement. Continue telemetry monitoring. Soda Drier Feeder following. 5. Essential hypertension. Continue antihypertensives as needed 6. Morbid obesity. Patient advised about weight reduction once extubated DVT prophylaxis: Lovenox GERD prophylaxis: PPI Disposition and plan: Continue vent liberation trial. 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 Continue ICU monitoring for now Discussed plan of care with Dr. Flores Problems: Subjective 24 Hr Interval Summary Free Text/Dictation Still remains mechanically ventilated on light sedation. RN at bedside Exam/Review of Systems Vital Signs Vitals Vital Signs Date Time Temp Pulse Resp B/P Pulse Ox O2 Delivery O2 Flow Rate FiO2 11/21/16 11:40 93 17 99 30 11/21/16 11:00 129/65 CPAP 11/21/16 08:00 98.9 11/17/16 19:00 15.0 Intake and Output 11/20/16 11/20/16 11/21/16 14:59 22:59 06:59 Intake Total 587.954 ml 579.544 ml 457.272 ml Output Total 800 ml 405 ml 228 ml Balance -212.046 ml 174.544 ml 229.272 ml Exam General: Still intubated. No apparent distress. Eyes: Remains equal round. Does track Neck: No JVD seen today Cardiac: S1-S2 auscultated Pulmonary: Diminished at lung bases GI: Obese. Soft nontender Extremities:Edema bilateral lower extremities +1 today Skin: Clean dry and intact Neurologic: Awakens to verbal response. On light sedation Results Result Diagram: 11/21/16 0525 11/21/16 1134 Results 24 hrs Laboratory Tests Test 11/20/16 17:00 11/20/16 20:50 11/21/16 05:25 11/21/16 11:34 Potassium Level 3.9 4.2 3.4 L 3.5 Anion Gap 14 Basophils # 0.0 Basophils % 0.3 Blood Urea Nitrogen 23 H Calcium Level 9.0 Carbon Dioxide Level 28 Chloride Level 104 Creatinine 0.71 Eosinophils # 0.2 Eosinophils % 2.4 Glucose Level 90 Hematocrit 43.8 Hemoglobin 13.4 Lymphocytes # 1.1 Lymphocytes % 18.5 Mean Corpuscular Hemoglobin 29.2 Mean Corpuscular Hemoglobin Concent 30.6 L Mean Corpuscular Volume 95.4 Mean Platelet Volume 11.6 H Monocytes # 0.5 Monocytes % 7.6 Neutrophils # 4.4 Neutrophils % 70.9 Nucleated Red Blood Cells # 0.0 Nucleated Red Blood Cells % 0.0 Platelet Count 131 L Red Blood Count 4.59 Red Cell Distribution Width 15.1 H Sodium Level 143 White Blood Count 6.2 Test 11/21/16 12:38 Arterial Blood HCO3 25.7 Arterial Blood Base Excess -1.2 Arterial Blood Oxygen Saturation 94.3 L Dario Test N/A Arterial Blood Gas Puncture Site LB Arterial Blood Carboxyhemoglobin 1.3 Arterial Blood Date Drawn 11/21/2016 12:30:18 PM Arterial Blood Methemoglobin 0.6 Arterial Blood pCO2 (Temp correct) 51.6 H Arterial Blood pH (Temp corrected) 7.315 L Arterial Blood pO2 (Temp corrected) 76.8 L Blood Gas A-a O2 Differential 76.5 H Blood Gas Actual Respiration Rate 21 Blood Gas Low PEEP Setting 5.0 Blood Gas Modality VENT - CPAP Blood Gas Notified Time 11/21/2016 12:48:39 PM Blood Gas Notified Whom JLD Blood Gas Pressure Support 10 Blood Gas Specimen Source Blood arterial Blood Gas Temperature 37.0 FiO2 30.0 Oxyhemoglobin Percent 92.5 L Total Hemoglobin 14.8 Medications Medications Current Medications Acetaminophen (Tylenol Supp) 650 mg Q4H PRN [place] PAIN LEVEL 1-3 OR FEVER Last administered on 11/16/16 23:57; Admin Dose 650 MG; Start 11/16/16 at 20:00 Eye Lubricant (Artificial Tears Oph) 1 drop TID BOTH EYES Last administered on 11/21/16 13:34; Admin Dose 1 DROP; Start 11/16/16 at 21:00 Enoxaparin Sodium 30 mg 30 mg DAILY SC Last administered on 11/21/16 09:43; Admin Dose 30 MG; Start 11/17/16 at 09:00 Midazolam HCl (Versed) 50 ml @ 1 mls/hr TITRATE IV Last administered on 16:28; Admin Dose 2 MLS/HR; Start 11/16/16 at 22:00 Pantoprazole 40 mg 40 mg DAILY@06 IV Last administered on 11/21/16 05:10; Admin Dose 40 MG; Start 11/18/16 at 06:00 Propofol 100 ml @ 3.409 mls/ hr Q12H IV Last administered on 11/21/16 05:03; Admin Dose 6.818 MLS/HR; Start 11/17/16 at 23:00 Sodium Chloride (NS) 1,000 ml @ 50 mls/hr Q20H IV Last administered on 11:00; Admin Dose 50 MLS/HR; Start 11/18/16 at 07:00 Hydralazine HCl (Apresoline) 10 mg Q6H PRN IV SBP>160; Start 11/18/16 at 09:30 Carvedilol (Coreg) 3.125 mg BID PO Last administered on 11/21/16 09:34; Admin Dose 3.125 MG; Start 11/18/16 at 11:00 Furosemide (Lasix) 40 mg DAILY IV Last administered on 11/21/16 09:34; Admin Dose 40 MG; Start 11/20/16 at 09:00 Aspirin (Aspirin) 81 mg DAILY PO Last administered on 11/21/16 09:33; Admin Dose 81 MG; Start 11/20/16 at 09:00 Atorvastatin Calcium (Lipitor) 20 mg HS PO Last administered on 11/20/16 21:24 ; Admin Dose 20 MG; Start 11/19/16 at 21:00 MINOO BRADY 15, 2017 15:02
--- NOTE | 2016-11-21 19:33 | CONS ---
Date/Time of Note Date/Time of Note DATE: 11/21/16 TIME: 19:31 Assessment/Plan Assessment/Plan Chief Complaint/Hosp Course Assessment: Acute hypercapnic respiratory failure - likely from underlying COPD and obesity hypoventilation, now improved and extubated Acute on chronic combined systolic and diastolic heart failure - improving with diuresis ICD implantation - details unknown Recommendations: -echocardiogram showed LVEF 45-50% -continue Lasix 40mg IV daily -continue carvedilol 3.125mg BID, up titrate as tolerated -restart enalapril 2.5mg BID, up titrate as tolerated -continue aspirin and statin Problems: Consultation Date/Type/Reason Admit Date/Time Nov 17, 2016 at 20:32 Initial Consult Date 11/18/16 Type of Consultation: Cardiology 24 HR Interval Summary Free Text/Dictation Extubated today. On nasal canula. Exam/Review of Systems Vital Signs Vitals Vital Signs Date Time Temp Pulse Resp B/P Pulse Ox O2 Delivery O2 Flow Rate FiO2 11/21/16 18:00 99 20 145/70 98 Nasal Cannula 3.0 11/21/16 13:15 30 11/21/16 12:00 98.7 Intake and Output 11/20/16 11/20/16 11/21/16 15:00 23:00 07:00 Intake Total 637.272 ml 529.544 ml 458.636 ml Output Total 800 ml 385 ml 223 ml Balance -162.728 ml 144.544 ml 235.636 ml Exam Constitutional: No distress Head: atraumatic, normocephalic Neck: No jvd Respiratory: clear to auscultation, diminished breath sounds, No crackles/rales Cardiovascular: edema, regular rate and rhythm, systolic murmur (2/6 ANGELIQUE) Gastrointestinal: soft, No distended Musculoskeletal: nl extremities to inspection Neurological: No nl mental status, No nl speech Skin: No rash or lesions Results Result Diagram: 11/21/16 0525 11/21/16 1725 Results 24 hrs Laboratory Tests Test 11/20/16 20:50 11/21/16 05:25 11/21/16 11:34 11/21/16 12:38 Potassium Level 4.2 3.4 L 3.5 Anion Gap 14 Basophils # 0.0 Basophils % 0.3 Blood Urea Nitrogen 23 H Calcium Level 9.0 Carbon Dioxide Level 28 Chloride Level 104 Creatinine 0.71 Eosinophils # 0.2 Eosinophils % 2.4 Glucose Level 90 Hematocrit 43.8 Hemoglobin 13.4 Lymphocytes # 1.1 Lymphocytes % 18.5 Mean Corpuscular Hemoglobin 29.2 Mean Corpuscular Hemoglobin Concent 30.6 L Mean Corpuscular Volume 95.4 Mean Platelet Volume 11.6 H Monocytes # 0.5 Monocytes % 7.6 Neutrophils # 4.4 Neutrophils % 70.9 Nucleated Red Blood Cells # 0.0 Nucleated Red Blood Cells % 0.0 Platelet Count 131 L Red Blood Count 4.59 Red Cell Distribution Width 15.1 H Sodium Level 143 White Blood Count 6.2 Arterial Blood HCO3 25.7 Arterial Blood Base Excess -1.2 Arterial Blood Oxygen Saturation 94.3 L Dario Test N/A Arterial Blood Gas Puncture Site LB Arterial Blood Carboxyhemoglobin 1.3 Arterial Blood Date Drawn 11/21/2016 12:30:18 PM Arterial Blood Methemoglobin 0.6 Arterial Blood pCO2 (Temp correct) 51.6 H Arterial Blood pH (Temp corrected) 7.315 L Arterial Blood pO2 (Temp corrected) 76.8 L Blood Gas A-a O2 Differential 76.5 H Blood Gas Actual Respiration Rate 21 Blood Gas Low PEEP Setting 5.0 Blood Gas Modality VENT - CPAP Blood Gas Notified Time 11/21/2016 12:48:39 PM Blood Gas Notified Whom JLD Blood Gas Pressure Support 10 Blood Gas Specimen Source Blood arterial Blood Gas Temperature 37.0 FiO2 30.0 Oxyhemoglobin Percent 92.5 L Total Hemoglobin 14.8 Test 11/21/16 17:25 Potassium Level 3.8 Medications Medications Current Medications Acetaminophen (Tylenol Supp) 650 mg Q4H PRN [place] PAIN LEVEL 1-3 OR FEVER Last administered on 11/16/16 23:57; Admin Dose 650 MG; Start 11/16/16 at 20:00 Eye Lubricant (Artificial Tears Oph) 1 drop TID BOTH EYES Last administered on 11/21/16 13:34; Admin Dose 1 DROP; Start 11/16/16 at 21:00 Enoxaparin Sodium 30 mg 30 mg DAILY SC Last administered on 11/21/16 09:43; Admin Dose 30 MG; Start 11/17/16 at 09:00 Midazolam HCl (Versed) 50 ml @ 1 mls/hr TITRATE IV Last administered on 16:28; Admin Dose 2 MLS/HR; Start 11/16/16 at 22:00 Pantoprazole 40 mg 40 mg DAILY@06 IV Last administered on 11/21/16 05:10; Admin Dose 40 MG; Start 11/18/16 at 06:00 Propofol 100 ml @ 3.409 mls/ hr Q12H IV Last administered on 11/21/16 05:03; Admin Dose 6.818 MLS/HR; Start 11/17/16 at 23:00 Sodium Chloride (NS) 1,000 ml @ 50 mls/hr Q20H IV Last administered on 11:00; Admin Dose 50 MLS/HR; Start 11/18/16 at 07:00 Hydralazine HCl (Apresoline) 10 mg Q6H PRN IV SBP>160; Start 11/18/16 at 09:30 Carvedilol (Coreg) 3.125 mg BID PO Last administered on 11/21/16 09:34; Admin Dose 3.125 MG; Start 11/18/16 at 11:00 Furosemide (Lasix) 40 mg DAILY IV Last administered on 11/21/16 09:34; Admin Dose 40 MG; Start 11/20/16 at 09:00 Aspirin (Aspirin) 81 mg DAILY PO Last administered on 11/21/16 09:33; Admin Dose 81 MG; Start 11/20/16 at 09:00 Atorvastatin Calcium (Lipitor) 20 mg HS PO Last administered on 11/20/16 21:24 ; Admin Dose 20 MG; Start 11/19/16 at 21:00 ALYSSA TOLENTINO MD Nov 21, 2016 19:33
[2016-11-21] MEDS: ENALAPRIL 2.5 MG TAB PO SCH (21:00)
[2016-11-21] MEDS: ATORVASTATIN 20 MG TAB PO SCH (21:00)
[2016-11-22] VITALS (63 sets, daily range): BP systolic 81–160; BP diastolic 40–122; PULSE 82–141; RESP 14–27
[2016-11-22] MEDS: POTASSIUM CHLORIDE 50 ML IVPB PRN ×3 (00:59→09:05)
[2016-11-22 05:43] LABS: ADD SCAN DIFF NO
[2016-11-22] MEDS: PANTOPRAZOLE 40 MG INJ IV SCH (05:50)
[2016-11-22 05:51] LABS: BASOPHILS % 0.3 % (0.0-2.0); EOSINOPHILS # 0.1 10^3/ul (0.0-0.5); EOSINOPHILS % 1.6 % (0.0-7.0); HEMOGLOBIN 13.1 g/dl (12.0-16.0); LYMPHOCYTES % 15.7 % (15.0-51.0); MEAN CORPUSCULAR HEMOGLOBIN 29.2 pg (29.0-33.0); MEAN CORPUSCULAR HGB CONC 30.5 g/dl (32.0-37.0); MEAN PLATELET VOLUME 11.6 fl (7.4-10.4); MONOCYTE # 0.5 10^3/ul (0.3-0.9); MONOCYTES % 7.8 % (0.0-11.0); NEUTROPHIL # 4.6 10^3/ul (1.6-7.5); NEUTROPHILS % 74.3 % (39.0-77.0); PLATELET COUNT 151 10^3/UL (140-415); RED BLOOD COUNT 4.48 10^6/ul (4.20-5.40); RED CELL DISTRIBUTION WIDTH 14.6 % (11.5-14.5); WHITE BLOOD COUNT 6.2 10^3/ul (4.8-10.8)
[2016-11-22 05:57] LABS: POTASSIUM 3.8 mmol/L (3.5-5.1)
[2016-11-22 06:00] LABS: CREATININE 0.61 mg/dl (0.44-1.00)
[2016-11-22 06:01] LABS: CALCIUM 9.2 mg/dl (8.4-10.2)
[2016-11-22 07:47] LABS: AADO2 Arterial 69.6 mmHg (7.0-24.0); Allen Test ACCEPTAB; Arterial Base Excess -1.1 mmol/L (-3.0-3); Arterial COHb 0.8 % (0.0-3.0); Arterial Fraction of Oxyhgb 94.8 % (93.0-99.0); Arterial HCO3 25.7 mmol/L (22.0-26.0); Arterial MetHb 0.5 % (0.0-1.5); Arterial Total Hemglobin 14.1 g/dl (12.0-18.0); MODE NASAL CANNULA
--- NOTE | 2016-11-22 08:55 | CONS ---
Date/Time of Note Date/Time of Note DATE: 11/22/16 TIME: 08:51 Assessment/Plan Assessment/Plan Additional Assessment/Plan Assessment recommendations; 1. Patient admitted for respiratory failure due to acute hypercapnia. Contributed by congestive heart failure exacerbation as well. Patient overall has markedly improved. Successfully extubated yesterday afternoon. 2. ABG reviewed from today on 30% FiO2 showing significant improvement in hypercapnia. Patient however still has very mildly decompensated respiratory acidosis. 3. Underlying hypoventilation/sleep apnea. 4. No evidence of any infective process. 5. Episodes of agitation, likely some element of ICU psychosis. Continue current treatment. Patient to be transferred to telemetry unit. Continue BiPAP overnight at least. Administer minimal anxiolytics, I would recommend giving her Ativan 0.5 mg IV every 4 hours on a as needed basis. Consultation Date/Type/Reason Admit Date/Time Nov 17, 2016 at 20:32 Initial Consult Date 11/17/16 Type of Consultation: Pulmonary/critical care 24 HR Interval Summary Free Text/Dictation Patient condition is stable. She was successfully extubated yesterday afternoon. Patient remains awake and alert however has episodes of agitation requiring restraints as well as a sitter in the room. By the time I saw the patient, she is much more coherent, she is awake, sitting up in the bed at the edge. And able to communicate well. General exam; elderly lady, currently in no distress. Awake and alert. Exam/Review of Systems Vital Signs Vitals Vital Signs Date Time Temp Pulse Resp B/P Pulse Ox O2 Delivery O2 Flow Rate FiO2 11/22/16 08:15 99 17 131/91 97 11/22/16 08:00 98.9 Nasal Cannula 11/22/16 05:36 30 11/21/16 22:00 3.0 Intake and Output 11/21/16 11/21/16 11/22/16 15:00 23:00 07:00 Intake Total 652.068 ml 450 ml 400 ml Output Total 960 ml 295 ml 200 ml Balance -307.932 ml 155 ml 200 ml Exam H EENT exam is; supple neck, positive JVD. No lymphadenopathy. Midline trachea. No thyromegaly. Pharynx is clear. Pupils are small bilaterally. Patient is edentulous. Chest examination; diminished breath sound bilaterally without any added sounds. S1-S2 audible, no murmurs. Regular rhythm. Abdomen examination; protuberant, nontender. Bowel sounds audible. Extremity examination; trace peripheral edema. Pulses 1+ bilaterally. 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 Results Result Diagram: 11/22/16 0520 11/22/16 0520 Results 24 hrs Laboratory Tests Test 11/21/16 11:34 11/21/16 12:38 11/21/16 17:25 11/21/16 22:19 Potassium Level 3.5 3.8 3.6 Arterial Blood HCO3 25.7 Arterial Blood Base Excess -1.2 Arterial Blood Oxygen Saturation 94.3 L Dario Test N/A Arterial Blood Gas Puncture Site LB Arterial Blood Carboxyhemoglobin 1.3 Arterial Blood Date Drawn 11/21/2016 12:30:18 PM Arterial Blood Methemoglobin 0.6 Arterial Blood pCO2 (Temp correct) 51.6 H Arterial Blood pH (Temp corrected) 7.315 L Arterial Blood pO2 (Temp corrected) 76.8 L Blood Gas A-a O2 Differential 76.5 H Blood Gas Actual Respiration Rate 21 Blood Gas Low PEEP Setting 5.0 Blood Gas Modality VENT - CPAP Blood Gas Notified Time 11/21/2016 12:48:39 PM Blood Gas Notified Whom JLD Blood Gas Pressure Support 10 Blood Gas Specimen Source Blood arterial Blood Gas Temperature 37.0 FiO2 30.0 Oxyhemoglobin Percent 92.5 L Total Hemoglobin 14.8 Test 11/22/16 05:20 11/22/16 07:00 Anion Gap 17 H Basophils # 0.0 Basophils % 0.3 Blood Urea Nitrogen 22 H Calcium Level 9.2 Carbon Dioxide Level 26 Chloride Level 107 Creatinine 0.61 Eosinophils # 0.1 Eosinophils % 1.6 Glucose Level 87 Hematocrit 43.0 Hemoglobin 13.1 Lymphocytes # 1.0 Lymphocytes % 15.7 Mean Corpuscular Hemoglobin 29.2 Mean Corpuscular Hemoglobin Concent 30.5 L Mean Corpuscular Volume 96.0 Mean Platelet Volume 11.6 H Monocytes # 0.5 Monocytes % 7.8 Neutrophils # 4.6 Neutrophils % 74.3 Nucleated Red Blood Cells # 0.0 Nucleated Red Blood Cells % 0.0 Platelet Count 151 Potassium Level 3.8 Red Blood Count 4.48 Red Cell Distribution Width 14.6 H Sodium Level 146 H White Blood Count 6.2 Arterial Blood HCO3 25.7 Arterial Blood Base Excess -1.1 Arterial Blood Oxygen Saturation 96.0 Dario Test ACCEPTAB Arterial Blood Gas Puncture Site Left Radial Arterial Blood Carboxyhemoglobin 0.8 Arterial Blood Date Drawn 11/22/2016 7:30:15 AM Arterial Blood Methemoglobin 0.5 Arterial Blood pCO2 (Temp correct) 51.0 H Arterial Blood pH (Temp corrected) 7.320 L Arterial Blood pO2 (Temp corrected) 84.4 Blood Gas A-a O2 Differential 69.6 H Blood Gas Modality NASAL CANNULA Blood Gas Notified Time 11/22/2016 7:46:49 AM Blood Gas Notified Whom JLD Blood Gas Specimen Source Blood arterial Blood Gas Temperature 37.0 FiO2 30.0 Oxyhemoglobin Percent 94.8 Total Hemoglobin 14.1 Medications Medications Current Medications Acetaminophen (Tylenol Supp) 650 mg Q4H PRN [place] PAIN LEVEL 1-3 OR FEVER Last administered on 11/16/16 23:57; Admin Dose 650 MG; Start 11/16/16 at 20:00 Eye Lubricant (Artificial Tears Oph) 1 drop TID BOTH EYES Last administered on 11/21/16 21:01; Admin Dose 1 DROP; Start 11/16/16 at 21:00 Enoxaparin Sodium 30 mg 30 mg DAILY SC Last administered on 11/21/16 09:43; Admin Dose 30 MG; Start 11/17/16 at 09:00 Midazolam HCl (Versed) 50 ml @ 1 mls/hr TITRATE IV Last administered on 16:28; Admin Dose 2 MLS/HR; Start 11/16/16 at 22:00 Pantoprazole 40 mg 40 mg DAILY@06 IV Last administered on 11/22/16 05:50; Admin Dose 40 MG; Start 11/18/16 at 06:00 Propofol 100 ml @ 3.409 mls/ hr Q12H IV Last administered on 11/21/16 05:03; Admin Dose 6.818 MLS/HR; Start 11/17/16 at 23:00 Sodium Chloride (NS) 1,000 ml @ 50 mls/hr Q20H IV Last administered on 11:00; Admin Dose 50 MLS/HR; Start 11/18/16 at 07:00 Hydralazine HCl (Apresoline) 10 mg Q6H PRN IV SBP>160; Start 11/18/16 at 09:30 Carvedilol (Coreg) 3.125 mg BID PO Last administered on 11/21/16 21:01; Admin Dose 3.125 MG; Start 11/18/16 at 11:00 Furosemide (Lasix) 40 mg DAILY IV Last administered on 11/21/16 09:34; Admin Dose 40 MG; Start 11/20/16 at 09:00 Aspirin (Aspirin) 81 mg DAILY PO Last administered on 11/21/16 09:33; Admin Dose 81 MG; Start 11/20/16 at 09:00 Atorvastatin Calcium (Lipitor) 20 mg HS PO Last administered on 11/21/16 21:00 ; Admin Dose 20 MG; Start 11/19/16 at 21:00 Enalapril Maleate (Vasotec) 2.5 mg BID PO Last administered on 11/21/16 21:00 ; Admin Dose 2.5 MG; Start 11/21/16 at 21:00 Lorazepam (Ativan) 0.5 mg Q4H PRN IV AGITATION/ANXIETY; Start 11/22/16 at 09:00 SEVERINO MCMILLAN 16, 2017 08:54
[2016-11-22] MEDS: FUROSEMIDE 40 MG INJ IV SCH (08:59)
[2016-11-22] MEDS: ENOXAPARIN 30 MG/0.3 ML SYG SC SCH (08:59)
[2016-11-22] MEDS: ASPIRIN 81 MG TAB PO SCH (09:00)
[2016-11-22] MEDS: ENALAPRIL 2.5 MG TAB PO SCH ×2 (09:00→21:30)
[2016-11-22] MEDS: ARTIFICIAL TEARS 15 ML OPH BOTH EYES SCH ×3 (09:00→21:25)
--- NOTE | 2016-11-22 09:33 | RADRPT ---
PROCEDURE: XR Chest. CLINICAL INDICATION: Shortness of breath. TECHNIQUE: Single frontal view. COMPARISON: 11/20/2016. FINDINGS: The endotracheal tube and nasogastric tube have been removed. The left-sided dual lead permanent pa cemaker/internal cardiac defibrillator remains in position. The heart is enlarged. There is pulmonary edema and bibasilar atelectasis, unchanged. There is no pleural effusion. There is no pneumothorax. IMPRESSION: 1. Endotracheal tube and nasogastric tube removed. 2. No other change from 11/20/2016. RPTAT: QQ .Dylan Monson MD, MD Date Time Electronically viewed and signed by .Dylan Monson MD, MD on 11/22/2016 09:33 .R/
[2016-11-22] MEDS: SOD CHLORIDE 0.9% 1,000 ML IV SCH (10:03)
[2016-11-22] MEDS: LORAZEPAM 2 MG INJ IV PRN (12:18)
--- NOTE | 2016-11-22 14:30 | PN ---
Date/Time of Note Date/Time of Note DATE: 11/22/16 TIME: 14:23 Assessment/Plan VTE Prophylaxis VTE Prophylaxis Intervention: LMWH Lines/Catheters IV Catheter Type (from Nrs): Mid Line Urinary Cath still in place: Yes Assessment/Plan Chief Complaint/Hosp Course Assessment and plan 1. Acute hypoxic hypercapnic respiratory failure. Extubated at this time. Continue pulmonary hygiene. Continue pulmonology recommended 2. Acute encephalopathy likely secondary to CO2 retention. CT scan of the head was negative for any intracranial pathology. Monitor neuro status. Appears improved 3. Underlying CHF. Noted with EF of 45-50% per echocardiogram. Continue on Lasix. Continue optimization of cardiovascular medication 4. History of recent pacemaker placement. Continue telemetry monitoring. Medical Billing Representative following. 5. Essential hypertension. Continue antihypertensives as needed. Citalopram 6. Morbid obesity. Weight reduction advised DVT prophylaxis: Lovenox GERD prophylaxis: PPI Disposition and plan: Extubated at this time. Transfer to telemetry. Will follow up Discussed plan of care with Dr. Flores Problems: Subjective 24 Hr Interval Summary Free Text/Dictation Extubated at this time. Appears comfortable. No apparent respiratory distress Exam/Review of Systems Vital Signs Vitals Vital Signs Date Time Temp Pulse Resp B/P Pulse Ox O2 Delivery O2 Flow Rate FiO2 11/22/16 13:30 98 23 89/48 94 11/22/16 13:00 2.0 11/22/16 12:00 98.8 11/22/16 10:00 Nasal Cannula 11/22/16 05:36 30 Intake and Output 11/21/16 11/21/16 11/22/16 15:00 23:00 07:00 Intake Total 652.068 ml 450 ml 450 ml Output Total 960 ml 295 ml 200 ml Balance -307.932 ml 155 ml 250 ml Exam General: Extubated. No apparent distress. Seen on nasal cannula and tolerating Eyes: Equal round reactive light Neck: Supple nontender no JVD Cardiac: Regular rate. S1-S2 auscultated Pulmonary: Still diminished at lung bases GI: Obese. Bowel sounds active Extremities: Still noted with bilateral lower extremity edema Skin: Clean dry and intact Neurologic: Awakens to verbal response. Alert to person place Results Result Diagram: 11/22/16 0520 11/22/16 0520 Results 24 hrs Laboratory Tests Test 11/21/16 17:25 11/21/16 22:19 11/22/16 05:20 11/22/16 07:00 Potassium Level 3.8 3.6 3.8 Anion Gap 17 H Basophils # 0.0 Basophils % 0.3 Blood Urea Nitrogen 22 H Calcium Level 9.2 Carbon Dioxide Level 26 Chloride Level 107 Creatinine 0.61 Eosinophils # 0.1 Eosinophils % 1.6 Glucose Level 87 Hematocrit 43.0 Hemoglobin 13.1 Lymphocytes # 1.0 Lymphocytes % 15.7 Mean Corpuscular Hemoglobin 29.2 Mean Corpuscular Hemoglobin Concent 30.5 L Mean Corpuscular Volume 96.0 Mean Platelet Volume 11.6 H Monocytes # 0.5 Monocytes % 7.8 Neutrophils # 4.6 Neutrophils % 74.3 Nucleated Red Blood Cells # 0.0 Nucleated Red Blood Cells % 0.0 Platelet Count 151 Red Blood Count 4.48 Red Cell Distribution Width 14.6 H Sodium Level 146 H White Blood Count 6.2 Arterial Blood HCO3 25.7 Arterial Blood Base Excess -1.1 Arterial Blood Oxygen Saturation 96.0 Dario Test ACCEPTAB Arterial Blood Gas Puncture Site Left Radial Arterial Blood Carboxyhemoglobin 0.8 Arterial Blood Date Drawn 11/22/2016 7:30:15 AM Arterial Blood Methemoglobin 0.5 Arterial Blood pCO2 (Temp correct) 51.0 H Arterial Blood pH (Temp corrected) 7.320 L Arterial Blood pO2 (Temp corrected) 84.4 Blood Gas A-a O2 Differential 69.6 H Blood Gas Modality NASAL CANNULA Blood Gas Notified Time 11/22/2016 7:46:49 AM Blood Gas Notified Whom JLD Blood Gas Specimen Source Blood arterial Blood Gas Temperature 37.0 FiO2 30.0 Oxyhemoglobin Percent 94.8 Total Hemoglobin 14.1 Medications Medications Current Medications Acetaminophen (Tylenol Supp) 650 mg Q4H PRN [place] PAIN LEVEL 1-3 OR FEVER Last administered on 11/16/16 23:57; Admin Dose 650 MG; Start 11/16/16 at 20:00 Eye Lubricant (Artificial Tears Oph) 1 drop TID BOTH EYES Last administered on 11/22/16 12:05; Admin Dose 1 DROP; Start 11/16/16 at 21:00 Enoxaparin Sodium (Lovenox) 30 mg DAILY SC Last administered on 11/22/16 08:59 ; Admin Dose 30 MG; Start 11/17/16 at 09:00 Pantoprazole 40 mg 40 mg DAILY@06 IV Last administered on 11/22/16 05:50; Admin Dose 40 MG; Start 11/18/16 at 06:00 Sodium Chloride (NS) 1,000 ml @ 50 mls/hr Q20H IV Last administered on 10:03; Admin Dose 50 MLS/HR; Start 11/18/16 at 07:00 Hydralazine HCl (Apresoline) 10 mg Q6H PRN IV SBP>160; Start 11/18/16 at 09:30 Carvedilol (Coreg) 3.125 mg BID PO Last administered on 11/22/16 09:10; Admin Dose 3.125 MG; Start 11/18/16 at 11:00 Furosemide (Lasix) 40 mg DAILY IV Last administered on 11/22/16 08:59; Admin Dose 40 MG; Start 11/20/16 at 09:00 Aspirin (Aspirin) 81 mg DAILY PO Last administered on 11/22/16 09:00; Admin Dose 81 MG; Start 11/20/16 at 09:00 Atorvastatin Calcium (Lipitor) 20 mg HS PO Last administered on 11/21/16 21:00 ; Admin Dose 20 MG; Start 11/19/16 at 21:00 Enalapril Maleate (Vasotec) 2.5 mg BID PO Last administered on 11/22/16 09:00 ; Admin Dose 2.5 MG; Start 11/21/16 at 21:00 Lorazepam (Ativan) 0.5 mg Q4H PRN IV AGITATION/ANXIETY Last administered on 12:18; Admin Dose 0.5 MG; Start 11/22/16 at 09:00 MINOO BRADY Nov 22, 2016 14:29
[2016-11-22] MEDS: ATORVASTATIN 20 MG TAB PO SCH (21:25)
[2016-11-23] VITALS (18 sets, daily range): BP systolic 96–136; BP diastolic 52–77; PULSE 74–152; RESP 18–19; Ht 165.1 cm; Wt 113.6 kg
[2016-11-23] MEDS: LORAZEPAM 2 MG INJ IV PRN ×2 (01:22→20:05)
[2016-11-23] MEDS: SOD CHLORIDE 0.9% 1,000 ML IV SCH ×2 (05:18→23:27)
[2016-11-23] MEDS: PANTOPRAZOLE 40 MG INJ IV SCH (05:18)
[2016-11-23 07:17] LABS: ADD SCAN DIFF NO
[2016-11-23 07:21] LABS: BASOPHILS % 0.4 % (0.0-2.0); EOSINOPHILS # 0.1 10^3/ul (0.0-0.5); EOSINOPHILS % 1.7 % (0.0-7.0); HEMATOCRIT 39.7 % (37.0-47.0); LYMPHOCYTES % 21.5 % (15.0-51.0); MEAN CORPUSCULAR HEMOGLOBIN 29.6 pg (29.0-33.0); MEAN CORPUSCULAR HGB CONC 30.2 g/dl (32.0-37.0); MEAN PLATELET VOLUME 11.9 fl (7.4-10.4); MONOCYTE # 0.3 10^3/ul (0.3-0.9); MONOCYTES % 6.9 % (0.0-11.0); NEUTROPHIL # 3.3 10^3/ul (1.6-7.5); NEUTROPHILS % 69.1 % (39.0-77.0); PLATELET COUNT 157 10^3/UL (140-415); RED BLOOD COUNT 4.05 10^6/ul (4.20-5.40); RED CELL DISTRIBUTION WIDTH 14.8 % (11.5-14.5); WHITE BLOOD COUNT 4.8 10^3/ul (4.8-10.8)
[2016-11-23 07:59] LABS: POTASSIUM 4.2 mmol/L (3.5-5.1)
[2016-11-23 08:02] LABS: CREATININE 0.81 mg/dl (0.44-1.00)
[2016-11-23 08:03] LABS: CALCIUM 8.9 mg/dl (8.4-10.2)
[2016-11-23] MEDS: ASPIRIN 81 MG TAB PO SCH (08:55)
--- NOTE | 2016-11-23 08:55 | CONS ---
Date/Time of Note Date/Time of Note DATE: 11/23/16 TIME: 08:53 Assessment/Plan Assessment/Plan Additional Assessment/Plan Assessment recommendations; 1. Patient admitted for acute hypercapnic respiratory failure likely acute on chronic due to underlying severe obesity, likely underlying sleep apnea and obesity hypoventilation syndrome. 2. CHF. 3. Morbid obesity. Continue current treatment. Patient responding well to current treatment regimen. She will need to have BiPAP to be prescribed for home use. Consultation Date/Type/Reason Admit Date/Time Nov 17, 2016 at 20:32 Initial Consult Date 11/17/16 Type of Consultation: Pulmonary/critical care 24 HR Interval Summary Free Text/Dictation Patient condition is markedly improved. Patient has been transferred out of ICU to telemetry unit. She is completely awake alert. Denies any shortness of breath. Abdomen exam; elderly lady, appears quite overweight. Currently in no distress , awake and alert. Exam/Review of Systems Vital Signs Vitals Vital Signs Date Time Temp Pulse Resp B/P Pulse Ox O2 Delivery O2 Flow Rate FiO2 11/23/16 08:42 98.8 71 19 96/55 98 11/23/16 05:50 6.0 11/23/16 03:25 30 11/22/16 23:55 Nasal Cannula Intake and Output 11/22/16 11/22/16 11/23/16 14:59 22:59 06:59 Intake Total 430 ml 250 ml 1050 ml Output Total 1210 ml 390 ml 50 ml Balance -780 ml -140 ml 1000 ml Exam HEENT exam is; supple neck, JVD difficult to see because of short neck. Pharynx is clear. Patient is mostly edentulous. Pupils are small bilaterally. No neck masses. No thyromegaly. No lymphadenopathy. Chest examination; diminished but clear breath sounds bilaterally. S1-S2 audible, no murmurs. Regular rhythm. Abdomen examination of Alexis soft, protuberant. Nontender. Bowel sounds audible. No organomegaly. Extremity examination; trace peripheral edema. Pulses 1+ bilaterally. OPERATIONS AGENT examination; no focal deficit. Results Result Diagram: 11/23/16 0650 11/23/16 0650 Results 24 hrs Laboratory Tests Test 11/23/16 06:50 Anion Gap 11 Basophils # 0.0 Basophils % 0.4 Blood Urea Nitrogen 32 H Calcium Level 8.9 Carbon Dioxide Level 30 Chloride Level 109 Creatinine 0.81 Eosinophils # 0.1 Eosinophils % 1.7 Glucose Level 93 Hematocrit 39.7 Hemoglobin 12.0 Lymphocytes # 1.0 Lymphocytes % 21.5 Mean Corpuscular Hemoglobin 29.6 Mean Corpuscular Hemoglobin Concent 30.2 L Mean Corpuscular Volume 98.0 Mean Platelet Volume 11.9 H Monocytes # 0.3 Monocytes % 6.9 Neutrophils # 3.3 Neutrophils % 69.1 Nucleated Red Blood Cells # 0.0 Nucleated Red Blood Cells % 0.0 Platelet Count 157 Potassium Level 4.2 Red Blood Count 4.05 L Red Cell Distribution Width 14.8 H Sodium Level 146 H White Blood Count 4.8 # Medications Medications Current Medications Acetaminophen (Tylenol Supp) 650 mg Q4H PRN [place] PAIN LEVEL 1-3 OR FEVER Last administered on 11/16/16 23:57; Admin Dose 650 MG; Start 11/16/16 at 20:00 Eye Lubricant (Artificial Tears Oph) 1 drop TID BOTH EYES Last administered on 11/22/16 21:25; Admin Dose 1 DROP; Start 11/16/16 at 21:00 Enoxaparin Sodium (Lovenox) 30 mg DAILY SC Last administered on 11/22/16 08:59 ; Admin Dose 30 MG; Start 11/17/16 at 09:00 Pantoprazole 40 mg 40 mg DAILY@06 IV Last administered on 11/23/16 05:18; Admin Dose 40 MG; Start 11/18/16 at 06:00 Sodium Chloride (NS) 1,000 ml @ 50 mls/hr Q20H IV Last administered on 05:18; Admin Dose 50 MLS/HR; Start 11/18/16 at 07:00 Hydralazine HCl (Apresoline) 10 mg Q6H PRN IV SBP>160; Start 11/18/16 at 09:30 Carvedilol (Coreg) 3.125 mg BID PO Last administered on 11/22/16 21:27; Admin Dose 3.125 MG; Start 11/18/16 at 11:00 Furosemide (Lasix) 40 mg DAILY IV Last administered on 11/22/16 08:59; Admin Dose 40 MG; Start 11/20/16 at 09:00 Aspirin (Aspirin) 81 mg DAILY PO Last administered on 11/22/16 09:00; Admin Dose 81 MG; Start 11/20/16 at 09:00 Atorvastatin Calcium (Lipitor) 20 mg HS PO Last administered on 11/22/16 21:25 ; Admin Dose 20 MG; Start 11/19/16 at 21:00 Enalapril Maleate (Vasotec) 2.5 mg BID PO Last administered on 11/22/16 21:30 ; Admin Dose 2.5 MG; Start 11/21/16 at 21:00 Lorazepam (Ativan) 0.5 mg Q4H PRN IV AGITATION/ANXIETY Last administered on 01:22; Admin Dose 0.5 MG; Start 11/22/16 at 09:00 SEVERINO MCMILLAN 17, 2017 08:55
[2016-11-23] MEDS: ENALAPRIL 2.5 MG TAB PO SCH ×2 (08:57→20:05)
[2016-11-23] MEDS: FUROSEMIDE 40 MG INJ IV SCH (08:57)
[2016-11-23] MEDS: ENOXAPARIN 30 MG/0.3 ML SYG SC SCH (08:59)
[2016-11-23] MEDS: ARTIFICIAL TEARS 15 ML OPH BOTH EYES SCH ×3 (10:34→20:04)
--- NOTE | 2016-11-23 16:17 | PN ---
Date/Time of Note Date/Time of Note DATE: 11/23/16 TIME: 16:15 Assessment/Plan VTE Prophylaxis VTE Prophylaxis Intervention: SCD's Lines/Catheters IV Catheter Type (from Nrs): PICC Line Urinary Cath still in place: Yes Assessment/Plan Chief Complaint/Hosp Course Assessment and plan 1. Acute hypoxic hypercapnic respiratory failure. Extubated at this time. Continue pulmonary hygiene. Continue pulmonology recommendations 2. Acute encephalopathy likely secondary to CO2 retention. CT scan of the head was negative for any intracranial pathology. Monitor neuro status. Appears improved 3. Underlying CHF. Noted with EF of 45-50% per echocardiogram. Continue on Lasix. Continue optimization of cardiovascular medication 4. History of recent pacemaker placement. Continue telemetry monitoring. Assistant Baseball Coach following. 5. Essential hypertension. Continue antihypertensives as needed. 6. Morbid obesity. Weight reduction advised DVT prophylaxis: Lovenox GERD prophylaxis: PPI Disposition and plan: still noted to be confused at times, requiring sitter. Will try for [facility] transfer Discussed plan of care with Dr. Flores Problems: Subjective 24 Hr Interval Summary Free Text/Dictation no s/s of distress. Sitter at bedside Exam/Review of Systems Vital Signs Vitals Vital Signs Date Time Temp Pulse Resp B/P Pulse Ox O2 Delivery O2 Flow Rate FiO2 11/23/16 16:05 98.6 80 19 107/61 97 11/23/16 15:03 5.0 11/23/16 03:25 30 11/22/16 23:55 Nasal Cannula Intake and Output 11/22/16 11/22/16 11/23/16 15:00 23:00 07:00 Intake Total 380 ml 300 ml 1000 ml Output Total 1180 ml 440 ml Balance -800 ml -140 ml 1000 ml Exam General: seen on simple mask. no s/s of distress Eyes: Equal round, able to track Neck: Supple nontender no JVD Cardiac:still regular rate Pulmonary: some wheezing auscultated right lung field GI: Obese. Bowel sounds active still Extremities: less edema BLE Skin: Clean dry and intact Neurologic: Awakens to verbal response. Alert to person place Results Result Diagram: 11/23/16 0650 11/23/16 0650 Results 24 hrs Laboratory Tests Test 11/23/16 06:50 Anion Gap 11 Basophils # 0.0 Basophils % 0.4 Blood Urea Nitrogen 32 H Calcium Level 8.9 Carbon Dioxide Level 30 Chloride Level 109 Creatinine 0.81 Eosinophils # 0.1 Eosinophils % 1.7 Glucose Level 93 Hematocrit 39.7 Hemoglobin 12.0 Lymphocytes # 1.0 Lymphocytes % 21.5 Mean Corpuscular Hemoglobin 29.6 Mean Corpuscular Hemoglobin Concent 30.2 L Mean Corpuscular Volume 98.0 Mean Platelet Volume 11.9 H Monocytes # 0.3 Monocytes % 6.9 Neutrophils # 3.3 Neutrophils % 69.1 Nucleated Red Blood Cells # 0.0 Nucleated Red Blood Cells % 0.0 Platelet Count 157 Potassium Level 4.2 Red Blood Count 4.05 L Red Cell Distribution Width 14.8 H Sodium Level 146 H White Blood Count 4.8 # Medications Medications Current Medications Acetaminophen (Tylenol Supp) 650 mg Q4H PRN [place] PAIN LEVEL 1-3 OR FEVER Last administered on 11/16/16 23:57; Admin Dose 650 MG; Start 11/16/16 at 20:00 Eye Lubricant (Artificial Tears Oph) 1 drop TID BOTH EYES Last administered on 11/23/16 14:38; Admin Dose 1 DROP; Start 11/16/16 at 21:00 Enoxaparin Sodium (Lovenox) 30 mg DAILY SC Last administered on 11/23/16 08:59 ; Admin Dose 30 MG; Start 11/17/16 at 09:00 Pantoprazole 40 mg 40 mg DAILY@06 IV Last administered on 11/23/16 05:18; Admin Dose 40 MG; Start 11/18/16 at 06:00 Sodium Chloride (NS) 1,000 ml @ 50 mls/hr Q20H IV Last administered on 05:18; Admin Dose 50 MLS/HR; Start 11/18/16 at 07:00 Hydralazine HCl (Apresoline) 10 mg Q6H PRN IV SBP>160; Start 11/18/16 at 09:30 Carvedilol (Coreg) 3.125 mg BID PO Last administered on 11/23/16 08:56; Admin Dose 3.125 MG; Start 11/18/16 at 11:00 Furosemide (Lasix) 40 mg DAILY IV Last administered on 11/23/16 08:57; Admin Dose 40 MG; Start 11/20/16 at 09:00 Aspirin (Aspirin) 81 mg DAILY PO Last administered on 11/23/16 08:55; Admin Dose 81 MG; Start 11/20/16 at 09:00 Atorvastatin Calcium (Lipitor) 20 mg HS PO Last administered on 11/22/16 21:25 ; Admin Dose 20 MG; Start 11/19/16 at 21:00 Enalapril Maleate (Vasotec) 2.5 mg BID PO Last administered on 11/23/16 08:57 ; Admin Dose 2.5 MG; Start 11/21/16 at 21:00 Lorazepam (Ativan) 0.5 mg Q4H PRN IV AGITATION/ANXIETY Last administered on 01:22; Admin Dose 0.5 MG; Start 11/22/16 at 09:00 MINOO BRADY Nov 23, 2016 16:17
--- NOTE | 2016-11-23 17:52 | CONS ---
Date/Time of Note Date/Time of Note DATE: 11/23/16 TIME: 17:50 Assessment/Plan Assessment/Plan Chief Complaint/Hosp Course Assessment: Acute hypercapnic respiratory failure - likely from underlying COPD and obesity hypoventilation, now improved and extubated Acute on chronic combined systolic and diastolic heart failure - improving with diuresis ICD implantation - details unknown Recommendations: -echocardiogram showed LVEF 45-50% -change Lasix to 40mg PO daily -continue carvedilol 3.125mg BID and enalapril 2.5mg BID, up titrate as tolerated -continue aspirin and statin Problems: Consultation Date/Type/Reason Admit Date/Time Nov 17, 2016 at 20:32 Initial Consult Date 11/18/16 Type of Consultation: Cardiology 24 HR Interval Summary Free Text/Dictation Transferred out of ICU. Detailed Summary Additional Comments Unable to obtain review of systems, patient is lethargic and not cooperative. Exam/Review of Systems Vital Signs Vitals Vital Signs Date Time Temp Pulse Resp B/P Pulse Ox O2 Delivery O2 Flow Rate FiO2 11/23/16 16:59 79 11/23/16 16:05 98.6 19 107/61 97 11/23/16 15:03 5.0 11/23/16 03:25 30 11/22/16 23:55 Nasal Cannula Intake and Output 11/22/16 11/22/16 11/23/16 15:00 23:00 07:00 Intake Total 380 ml 300 ml 1000 ml Output Total 1180 ml 440 ml Balance -800 ml -140 ml 1000 ml Exam Constitutional: No distress Head: atraumatic, normocephalic Neck: No jvd Respiratory: clear to auscultation, diminished breath sounds, No crackles/rales Cardiovascular: edema, regular rate and rhythm, systolic murmur (2/6 ANGELIQUE) Gastrointestinal: soft, No distended Musculoskeletal: nl extremities to inspection Neurological: No nl mental status, No nl speech Skin: No rash or lesions Results Result Diagram: 11/23/16 0650 11/23/16 0650 Results 24 hrs Laboratory Tests Test 11/23/16 06:50 Anion Gap 11 Basophils # 0.0 Basophils % 0.4 Blood Urea Nitrogen 32 H Calcium Level 8.9 Carbon Dioxide Level 30 Chloride Level 109 Creatinine 0.81 Eosinophils # 0.1 Eosinophils % 1.7 Glucose Level 93 Hematocrit 39.7 Hemoglobin 12.0 Lymphocytes # 1.0 Lymphocytes % 21.5 Mean Corpuscular Hemoglobin 29.6 Mean Corpuscular Hemoglobin Concent 30.2 L Mean Corpuscular Volume 98.0 Mean Platelet Volume 11.9 H Monocytes # 0.3 Monocytes % 6.9 Neutrophils # 3.3 Neutrophils % 69.1 Nucleated Red Blood Cells # 0.0 Nucleated Red Blood Cells % 0.0 Platelet Count 157 Potassium Level 4.2 Red Blood Count 4.05 L Red Cell Distribution Width 14.8 H Sodium Level 146 H White Blood Count 4.8 # Medications Medications Current Medications Acetaminophen (Tylenol Supp) 650 mg Q4H PRN [place] PAIN LEVEL 1-3 OR FEVER Last administered on 11/16/16 23:57; Admin Dose 650 MG; Start 11/16/16 at 20:00 Eye Lubricant (Artificial Tears Oph) 1 drop TID BOTH EYES Last administered on 11/23/16 14:38; Admin Dose 1 DROP; Start 11/16/16 at 21:00 Enoxaparin Sodium (Lovenox) 30 mg DAILY SC Last administered on 11/23/16 08:59 ; Admin Dose 30 MG; Start 11/17/16 at 09:00 Pantoprazole 40 mg 40 mg DAILY@06 IV Last administered on 11/23/16 05:18; Admin Dose 40 MG; Start 11/18/16 at 06:00 Sodium Chloride (NS) 1,000 ml @ 50 mls/hr Q20H IV Last administered on 05:18; Admin Dose 50 MLS/HR; Start 11/18/16 at 07:00 Hydralazine HCl (Apresoline) 10 mg Q6H PRN IV SBP>160; Start 11/18/16 at 09:30 Carvedilol (Coreg) 3.125 mg BID PO Last administered on 11/23/16 08:56; Admin Dose 3.125 MG; Start 11/18/16 at 11:00 Furosemide (Lasix) 40 mg DAILY IV Last administered on 11/23/16 08:57; Admin Dose 40 MG; Start 11/20/16 at 09:00 Aspirin (Aspirin) 81 mg DAILY PO Last administered on 11/23/16 08:55; Admin Dose 81 MG; Start 11/20/16 at 09:00 Atorvastatin Calcium (Lipitor) 20 mg HS PO Last administered on 11/22/16 21:25 ; Admin Dose 20 MG; Start 11/19/16 at 21:00 Enalapril Maleate (Vasotec) 2.5 mg BID PO Last administered on 11/23/16 08:57 ; Admin Dose 2.5 MG; Start 11/21/16 at 21:00 Lorazepam (Ativan) 0.5 mg Q4H PRN IV AGITATION/ANXIETY Last administered on 01:22; Admin Dose 0.5 MG; Start 11/22/16 at 09:00 ALYSSA TOLENTINO MD Nov 23, 2016 17:51
[2016-11-23] MEDS: ATORVASTATIN 20 MG TAB PO SCH (20:05)
[2016-11-24] VITALS (13 sets, daily range): BP systolic 126–140; BP diastolic 60–95; PULSE 73–122; RESP 16–18
[2016-11-24] MEDS: PANTOPRAZOLE 40 MG INJ IV SCH (05:17)
[2016-11-24 06:27] LABS: ADD SCAN DIFF NO
[2016-11-24 06:46] LABS: BASOPHILS % 0.4 % (0.0-2.0); EOSINOPHILS # 0.1 10^3/ul (0.0-0.5); EOSINOPHILS % 2.4 % (0.0-7.0); HEMOGLOBIN 12.1 g/dl (12.0-16.0); LYMPHOCYTES # 1.1 10^3/ul (0.8-2.9); LYMPHOCYTES % 24.6 % (15.0-51.0); MEAN CORPUSCULAR HEMOGLOBIN 28.9 pg (29.0-33.0); MEAN CORPUSCULAR HGB CONC 29.5 g/dl (32.0-37.0); MEAN CORPUSCULAR VOLUME 97.9 fl (82.0-101.0); MEAN PLATELET VOLUME 11.2 fl (7.4-10.4); MONOCYTE # 0.4 10^3/ul (0.3-0.9); MONOCYTES % 7.6 % (0.0-11.0); NEUTROPHILS % 64.8 % (39.0-77.0); PLATELET COUNT 162 10^3/UL (140-415); RED BLOOD COUNT 4.19 10^6/ul (4.20-5.40); RED CELL DISTRIBUTION WIDTH 14.6 % (11.5-14.5); WHITE BLOOD COUNT 4.6 10^3/ul (4.8-10.8)
[2016-11-24 07:06] LABS: CREATININE 0.66 mg/dl (0.44-1.00)
[2016-11-24 07:07] LABS: CALCIUM 8.6 mg/dl (8.4-10.2)
[2016-11-24] MEDS: ARTIFICIAL TEARS 15 ML OPH BOTH EYES SCH ×3 (08:59→22:10)
[2016-11-24] MEDS: ENOXAPARIN 30 MG/0.3 ML SYG SC SCH (09:04)
[2016-11-24] MEDS: ENALAPRIL 2.5 MG TAB PO SCH ×2 (11:08→22:08)
[2016-11-24] MEDS: ASPIRIN 81 MG TAB PO SCH (11:08)
[2016-11-24] MEDS: FUROSEMIDE 40 MG TAB PO SCH (11:09)
--- NOTE | 2016-11-24 11:09 | PDOCDIS ---
Discharge Instructions DIAGNOSIS Discharge Diagnosis: 1. respiratory failure 2. chf exacerbation 3. essential hypertension CONDITION Patient Condition: Stable HOME CARE INSTRUCTIONS: Diet Instructions: Low Fat /Cholesterol OTHER ORDERS: Other Orders: 1. Further management and care per [facility] MINOO BRADY Nov 24, 2016 11:08
--- NOTE | 2016-11-24 13:39 | PN ---
DATE: 11/24/2016 SUBJECTIVE: Patient Aguilar is stable this morning. She was given Ativan overnight, so she has b een largely somnolent; however, is now more arousable. PHYSICAL EXAMINATION: VITAL SIGNS: Temperature 98, pulse 85, blood pressure 126/60, O2 saturation 96%, FIO2 of 2 liters. NECK: Supple. No JVD or lymphadenopathy. CARDIAC: S1, S2, no added sounds or murmurs. CHEST: Diminished air entry bilaterally. ABDOMEN: Soft, nontender. No guarding or rebound. EXTREMITIES: No cyanosis, clubbing, edema. NEUROLOGIC: Generalized weakness. LABORATORY DATA: White count 4.6, hemoglobin 12.1, platelets 162. BUN 29, creatinine 0.66. ABG pH of 7.32, pCO2 of 51, pO2 of 84. IMPRESSION AND PLAN: 1. Hypoxemic respiratory failure. 2. Likely aspiration component. 3. Congestive cardiac failure. 4. Probable underlying obstructive sleep apnea. 5. Delirium, likely toxic metabolic. The patient will require: 1. Bronchodilators. 2. Supplemental O2. 3. Aspiration precautions. 4. Speech therapy recommendations. 5. DVT and GI prophylaxis. Dictated By: DINA BOWMAN/LICHA Conf#: [id number] DID#: [id number]
[2016-11-24] MEDS: ATORVASTATIN 20 MG TAB PO SCH (22:07)
[2016-11-24] MEDS: SOD CHLORIDE 0.9% 1,000 ML IV SCH (22:07)
[2016-11-25] VITALS (13 sets, daily range): BP systolic 90–193; BP diastolic 53–91; PULSE 84–160; RESP 16–22
[2016-11-25] MEDS: LORAZEPAM 2 MG INJ IV PRN ×2 (01:07→11:19)
[2016-11-25] MEDS: PANTOPRAZOLE 40 MG INJ IV SCH (05:34)
[2016-11-25] MEDS: ARTIFICIAL TEARS 15 ML OPH BOTH EYES SCH ×3 (09:00→23:12)
--- NOTE | 2016-11-25 09:50 | PN ---
Date/Time of Note Date/Time of Note LATE ENTRY DATE: 11/24/16 Assessment/Plan VTE Prophylaxis VTE Prophylaxis Intervention: LMWH Lines/Catheters IV [facility]ter Type (from [facility]): PICC Line Urinary Cath still in place: Yes Assessment/Plan Chief Complaint/Hosp Course Assessment and plan 1. Acute hypoxic hypercapnic respiratory failure. Continue pulmonary hygiene. Continue pulmonology recommendations Improving 2. Acute encephalopathy likely secondary to CO2 retention. CT scan of the head was negative for any intracranial pathology. Monitor neuro status. Appears improved 3. Underlying CHF. Noted with EF of 45-50% per echocardiogram. Continue on Lasix. Continue optimization of cardiovascular medication 4. History of recent pacemaker placement. Continue telemetry monitoring. Die Technician following. 5. Essential hypertension. Continue antihypertensives as needed. 6. Morbid obesity. Weight reduction was advised DVT prophylaxis: Lovenox GERD prophylaxis: PPI Disposition and plan: No sitter at this time. Plan for [facility] transfer. Will follow up with case management Discussed plan of care with Dr. Flores Problems: Subjective 24 Hr Interval Summary Free Text/Dictation no s/s of distress. comfortable at this time Exam/Review of Systems Vital Signs Vitals Vital Signs Date Time Temp Pulse Resp B/P Pulse Ox O2 Delivery O2 Flow Rate FiO2 11/25/16 08:15 97.9 82 20 132/72 88 11/25/16 07:38 4.0 11/24/16 03:16 30 11/22/16 23:55 Nasal Cannula Intake and Output 11/24/16 11/24/16 11/25/16 15:00 23:00 07:00 Intake Total 610 ml Output Total 800 ml Balance -190 ml Exam General: no resp distress seen. comfortable at present Eyes: Equal round, anicteric sclerae Neck: Supple nontender no JVD today Cardiac:still regular rate still Pulmonary: little course bilaterally GI: Obese. Bowel sounds active still Extremities: minimal edema BLE Skin: Clean dry and intact Neurologic: Awakens to verbal response. Alert to person place today Results Result Diagram: 11/24/16 0600 11/24/16 0600 Medications Medications Current Medications Acetaminophen (Tylenol Supp) 650 mg Q4H PRN [place] PAIN LEVEL 1-3 OR FEVER Last administered on 11/16/16t 23:57; Admin Dose 650 MG; Start 11/16/16 at 20:00 Eye Lubricant (Artificial Tears Oph) 1 drop TID BOTH EYES Last administered on 11/24/16 22:10; Admin Dose 1 DROP; Start 11/16/16 at 21:00 Enoxaparin Sodium (Lovenox) 30 mg DAILY SC Last administered on 11/24/16 09:04 ; Admin Dose 30 MG; Start 11/17/16 at 09:00 Pantoprazole 40 mg 40 mg DAILY@06 IV Last administered on 11/25/16 05:34; Admin Dose 40 MG; Start 11/18/16 at 06:00 Sodium Chloride (NS) 1,000 ml @ 50 mls/hr Q20H IV Last administered on 22:07; Admin Dose 50 MLS/HR; Start 11/18/16 at 07:00 Hydralazine HCl (Apresoline) 10 mg Q6H PRN IV SBP>160; Start 11/18/16 at 09:30 Carvedilol (Coreg) 3.125 mg BID PO Last administered on 11/24/16 22:09; Admin Dose 3.125 MG; Start 11/18/16 at 11:00 Aspirin (Aspirin) 81 mg DAILY PO Last administered on 11/24/16 11:08; Admin Dose 81 MG; Start 11/20/16 at 09:00 Atorvastatin Calcium (Lipitor) 20 mg HS PO Last administered on 11/24/16 22:07 ; Admin Dose 20 MG; Start 11/19/16 at 21:00 Enalapril Maleate (Vasotec) 2.5 mg BID PO Last administered on 11/24/16 22:08 ; Admin Dose 2.5 MG; Start 11/21/16 at 21:00 Lorazepam (Ativan) 0.5 mg Q4H PRN IV AGITATION/ANXIETY Last administered on 01:07; Admin Dose 0.5 MG; Start 11/22/16 at 09:00 Furosemide (Lasix) 40 mg DAILY PO Last administered on 11/24/16 11:09; Admin Dose 40 MG; Start 11/24/16 at 09:00 MINOO BRADY Nov 25, 2016 09:50
[2016-11-25] MEDS: ENOXAPARIN 30 MG/0.3 ML SYG SC SCH (10:11)
[2016-11-25] MEDS: ASPIRIN 81 MG TAB PO SCH (11:23)
[2016-11-25] MEDS: ENALAPRIL 2.5 MG TAB PO SCH ×2 (11:24→23:14)
[2016-11-25] MEDS: FUROSEMIDE 40 MG TAB PO SCH (11:24)
--- NOTE | 2016-11-25 15:39 | PN ---
Date/Time of Note Date/Time of Note DATE: 11/25/16 TIME: 15:26 Assessment/Plan VTE Prophylaxis VTE Prophylaxis Intervention: LMWH Lines/Catheters IV [facility] PICC Line Urinary Cath still in place: Yes Assessment/Plan Chief Complaint/Hosp Course Assessment and plan 1. Acute hypoxic hypercapnic respiratory failure. Continue pulmonary hygiene. Continue pulmonology recommendations Improving 2. Acute encephalopathy likely secondary to CO2 retention. CT scan of the head was negative for any intracranial pathology. Monitor neuro status. Appears improved 3. Underlying CHF. Noted with EF of 45-50% per echocardiogram. Continue on Lasix. Continue optimization of cardiovascular medication 4. History of recent pacemaker placement. Continue telemetry monitoring. [employer] following. 5. Essential hypertension. Continue antihypertensives as needed. 6. Morbid obesity. Weight reduction was advised DVT prophylaxis: Lovenox GERD prophylaxis: PPI Disposition and plan: Awaiting possible [facility] transfer. Cont supportive care Discussed plan of care with Dr. Flores Problems: Subjective 24 Hr Interval Summary Free Text/Dictation seen on o2 nasal canula and tolerating well. no s/s of distress Exam/Review of Systems Vital Signs Vitals Vital Signs Date Time Temp Pulse Resp B/P Pulse Ox O2 Delivery O2 Flow Rate FiO2 11/25/16 12:16 85 11/25/16 08:15 97.9 20 132/72 88 11/25/16 07:38 4.0 11/24/16 03:16 30 11/22/16 23:55 Nasal Cannula Intake and Output 11/24/16 11/24/16 11/25/16 15:00 23:00 07:00 Intake Total 610 ml Output Total 800 ml Balance -190 ml Exam General: no resp distress seen. comfortable at present on o2 nasal canula Eyes: Equal round, anicteric sclerae Neck: Supple nontender no JVD today Cardiac:still regular rate still seen on telemetry Pulmonary: little course bilaterally GI: Obese. nontender Extremities: minimal edema BLE Skin: cdi Neurologic: Awakens to verbal response. Alert to person place today Results Result Diagram: 11/24/16 0600 11/24/16 0600 Medications Medications Current Medications Acetaminophen (Tylenol Supp) 650 mg Q4H PRN [place] PAIN LEVEL 1-3 OR FEVER Last administered on 11/16/16t 23:57; Admin Dose 650 MG; Start 11/16/16 at 20:00 Eye Lubricant (Artificial Tears Oph) 1 drop TID BOTH EYES Last administered on 11/25/16 13:00; Admin Dose 1 DROP; Start 11/16/16 at 21:00 Enoxaparin Sodium (Lovenox) 30 mg DAILY SC Last administered on 11/25/16 10:11 ; Admin Dose 30 MG; Start 11/17/16 at 09:00 Pantoprazole 40 mg 40 mg DAILY@06 IV Last administered on 11/25/16 05:34; Admin Dose 40 MG; Start 11/18/16 at 06:00 Sodium Chloride (NS) 1,000 ml @ 50 mls/hr Q20H IV Last administered on 22:07; Admin Dose 50 MLS/HR; Start 11/18/16 at 07:00 Hydralazine HCl (Apresoline) 10 mg Q6H PRN IV SBP>160; Start 11/18/16 at 09:30 Carvedilol (Coreg) 3.125 mg BID PO Last administered on 11/25/16 11:26; Admin Dose 3.125 MG; Start 11/18/16 at 11:00 Aspirin (Aspirin) 81 mg DAILY PO Last administered on 11/25/16 11:23; Admin Dose 81 MG; Start 11/20/16 at 09:00 Atorvastatin Calcium (Lipitor) 20 mg HS PO Last administered on 11/24/16 22:07 ; Admin Dose 20 MG; Start 11/19/16 at 21:00 Enalapril Maleate (Vasotec) 2.5 mg BID PO Last administered on 11/25/16 11:24 ; Admin Dose 2.5 MG; Start 11/21/16 at 21:00 Lorazepam (Ativan) 0.5 mg Q4H PRN IV AGITATION/ANXIETY Last administered on 11:19; Admin Dose 0.5 MG; Start 11/22/16 at 09:00 Furosemide (Lasix) 40 mg DAILY PO Last administered on 11/25/16 11:24; Admin Dose 40 MG; Start 11/24/16 at 09:00 MINOO BRADY Nov 25, 2016 15:36
--- NOTE | 2016-11-25 17:24 | PN ---
DATE: 11/25/2016 SUBJECTIVE: Less agitated this morning; however, she did receive Ativan overnight, no new events. PHYSICAL EXAMINATION: VITAL SIGNS: Temperature 97, pulse 85, blood pressure 132/72, O2 saturation 99% on 4 L nasal cannul a. NECK: Supple. No JVD or lymphadenopathy. CARDIAC: S1, S2, no added sounds or murmurs. CHEST: Diminished air entry both lung bases. ABDOMEN: Obese, soft, nontender, no guarding, no rebound. EXTREMITIES: No cyanosis, clubbing, 2+ edema. NEUROLOGIC: Generalized weakness, but no focal deficits, no new labs today. IMPRESSION AND PLAN: 1. Acute on chronic hypoxemic respiratory failure. 2. Hypocapnia with hypoventilation. 3. Delirium toxic metabolic. 4. History of morbid obesity. PLAN: 1. Continued supplemental O2. 2. Noninvasive positive pressure ventilation as needed. 3. Will require psych eval unit in unit. 4. Continue noninvasive positive pressure ventilation. 5. Pending transfer this afternoon. Dictated By: DINA GIRALDO MD SV/LICHA Conf#: [id number] DID#: [id number] CC: KRISHNA MELGAR MD;*EndCC*
[2016-11-25] MEDS: SOD CHLORIDE 0.9% 1,000 ML IV SCH (18:51)
--- NOTE | 2016-11-25 19:05 | CONS ---
Date/Time of Note Date/Time of Note DATE: 11/25/16 TIME: 19:04 Assessment/Plan Assessment/Plan Chief Complaint/Hosp Course Assessment: Acute hypercapnic respiratory failure - likely from underlying COPD and obesity hypoventilation, now improved and extubated Acute on chronic combined systolic and diastolic heart failure - improving with diuresis ICD implantation - details unknown Recommendations: -echocardiogram showed LVEF 45-50% -continue Lasix 40mg PO daily -continue carvedilol 3.125mg BID and enalapril 2.5mg BID, up titrate as tolerated -continue aspirin and statin Problems: Consultation Date/Type/Reason Admit Date/Time Nov 17, 2016 at 20:32 Initial Consult Date 11/18/16 Type of Consultation: Cardiology 24 HR Interval Summary Free Text/Dictation No acute events. Exam/Review of Systems Vital Signs Vitals Vital Signs Date Time Temp Pulse Resp B/P Pulse Ox O2 Delivery O2 Flow Rate FiO2 11/25/16 16:49 84 11/25/16 08:15 97.9 20 132/72 88 11/25/16 07:38 4.0 11/24/16 03:16 30 11/22/16 23:55 Nasal Cannula Intake and Output 11/24/16 11/24/16 11/25/16 15:00 23:00 07:00 Intake Total 610 ml Output Total 800 ml Balance -190 ml Exam Constitutional: No distress Head: atraumatic, normocephalic Neck: No jvd Respiratory: clear to auscultation, diminished breath sounds, No crackles/rales Cardiovascular: edema, regular rate and rhythm, systolic murmur (2/6 ANGELIQUE) Gastrointestinal: soft, No distended Musculoskeletal: nl extremities to inspection Neurological: No nl mental status, No nl speech Skin: No rash or lesions Results Result Diagram: 11/24/16 0600 11/24/16 0600 Medications Medications Current Medications Acetaminophen (Tylenol Supp) 650 mg Q4H PRN [place] PAIN LEVEL 1-3 OR FEVER Last administered on 11/16/16 23:57; Admin Dose 650 MG; Start 11/16/16 at 20:00 Eye Lubricant (Artificial Tears Oph) 1 drop TID BOTH EYES Last administered on 11/25/16 13:00; Admin Dose 1 DROP; Start 11/16/16 at 21:00 Enoxaparin Sodium (Lovenox) 30 mg DAILY SC Last administered on 11/25/16 10:11 ; Admin Dose 30 MG; Start 11/17/16 at 09:00 Pantoprazole 40 mg 40 mg DAILY@06 IV Last administered on 11/25/16 05:34; Admin Dose 40 MG; Start 11/18/16 at 06:00 Sodium Chloride (NS) 1,000 ml @ 50 mls/hr Q20H IV Last administered on 18:51; Admin Dose 50 MLS/HR; Start 11/18/16 at 07:00 Hydralazine HCl (Apresoline) 10 mg Q6H PRN IV SBP>160; Start 11/18/16 at 09:30 Carvedilol (Coreg) 3.125 mg BID PO Last administered on 11/25/16 11:26; Admin Dose 3.125 MG; Start 11/18/16 at 11:00 Aspirin (Aspirin) 81 mg DAILY PO Last administered on 11/25/16 11:23; Admin Dose 81 MG; Start 11/20/16 at 09:00 Atorvastatin Calcium (Lipitor) 20 mg HS PO Last administered on 11/24/16 22:07 ; Admin Dose 20 MG; Start 11/19/16 at 21:00 Enalapril Maleate (Vasotec) 2.5 mg BID PO Last administered on 11/25/16 11:24 ; Admin Dose 2.5 MG; Start 11/21/16 at 21:00 Furosemide (Lasix) 40 mg DAILY PO Last administered on 11/25/16 11:24; Admin Dose 40 MG; Start 11/24/16 at 09:00 ALYSSA TOLENTINO MD Nov 25, 2016 19:05
[2016-11-25] MEDS: ATORVASTATIN 20 MG TAB PO SCH (23:13)
[2016-11-26] VITALS (10 sets, daily range): BP systolic 96–142; BP diastolic 56–76; PULSE 80–99; RESP 18–23
[2016-11-26] MEDS: PANTOPRAZOLE 40 MG INJ IV SCH (05:53)
[2016-11-26] MEDS: ARTIFICIAL TEARS 15 ML OPH BOTH EYES SCH ×3 (08:54→21:43)
[2016-11-26] MEDS: ASPIRIN 81 MG TAB PO SCH (08:55)
[2016-11-26] MEDS: FUROSEMIDE 40 MG TAB PO SCH (08:58)
--- NOTE | 2016-11-26 08:58 | CONS ---
Date/Time of Note Date/Time of Note DATE: 11/26/16 TIME: 08:55 Assessment/Plan Assessment/Plan Chief Complaint/Hosp Course Acute hypercapnic respiratory failure: Likely from underlying COPD, obesity hypoventilation. Now extubated and stable respiratory status. Acute systolic/diastolic heart failure: EF 45-50% by echo. Appears euvolemic by exam H/o ICD: unknown details Severe acidosis: from hypercapnia, now resolved -coreg 3.125mg BID -enalapril -ASA, statin -lasix 40mg PO daily -check labs Problems: Consultation Date/Type/Reason Admit Date/Time Nov 17, 2016 at 20:32 Initial Consult Date 11/18/16 Type of Consultation: Cardiology 24 HR Interval Summary Free Text/Dictation No o/n events. Awaiting placement. Pt is confused and only oriented to name. Exam/Review of Systems Vital Signs Vitals Vital Signs Date Time Temp Pulse Resp B/P Pulse Ox O2 Delivery O2 Flow Rate FiO2 11/26/16 08:03 98.6 64 23 96/56 98 11/26/16 02:28 4.0 11/24/16 03:16 30 11/22/16 23:55 Nasal Cannula Intake and Output 11/25/16 11/25/16 11/26/16 15:00 23:00 07:00 Intake Total 660 ml Output Total 400 ml Balance 260 ml Exam Constitutional: alert, No oriented Head: atraumatic, normocephalic Neck: No jvd Respiratory: clear to auscultation, diminished breath sounds Cardiovascular: regular rate and rhythm, No edema, No systolic murmur Gastrointestinal: non-tender, soft Results Result Diagram: 11/24/16 0611/24/16 0600 Medications Medications Current Medications Acetaminophen (Tylenol Supp) 650 mg Q4H PRN [place] PAIN LEVEL 1-3 OR FEVER Last administered on 11/16/16 23:57; Admin Dose 650 MG; Start 11/16/16 at 20:00 Eye Lubricant (Artificial Tears Oph) 1 drop TID BOTH EYES Last administered on 11/25/16 23:12; Admin Dose 1 DROP; Start 11/16/16 at 21:00 Enoxaparin Sodium (Lovenox) 30 mg DAILY SC Last administered on 11/25/16 10:11 ; Admin Dose 30 MG; Start 11/17/16 at 09:00 Pantoprazole 40 mg 40 mg DAILY@06 IV Last administered on 11/26/16 05:53; Admin Dose 40 MG; Start 11/18/16 at 06:00 Sodium Chloride (NS) 1,000 ml @ 50 mls/hr Q20H IV Last administered on 18:51; Admin Dose 50 MLS/HR; Start 11/18/16 at 07:00 Hydralazine HCl (Apresoline) 10 mg Q6H PRN IV SBP>160; Start 11/18/16 at 09:30 Carvedilol (Coreg) 3.125 mg BID PO Last administered on 11/25/16 23:14; Admin Dose 3.125 MG; Start 11/18/16 at 11:00 Aspirin (Aspirin) 81 mg DAILY PO Last administered on 11/25/16 11:23; Admin Dose 81 MG; Start 11/20/16 at 09:00 Atorvastatin Calcium (Lipitor) 20 mg HS PO Last administered on 11/25/16 23:13 ; Admin Dose 20 MG; Start 11/19/16 at 21:00 Enalapril Maleate (Vasotec) 2.5 mg BID PO Last administered on 11/25/16 23:14 ; Admin Dose 2.5 MG; Start 11/21/16 at 21:00 Furosemide (Lasix) 40 mg DAILY PO Last administered on 11/25/16 11:24; Admin Dose 40 MG; Start 11/24/16 at 09:00 AMIRA GAMBINO Nov 26, 2016 08:58
[2016-11-26] MEDS: ENALAPRIL 2.5 MG TAB PO SCH ×2 (08:59→21:43)
[2016-11-26] MEDS: ENOXAPARIN 30 MG/0.3 ML SYG SC SCH (09:06)
--- NOTE | 2016-11-26 11:14 | PN ---
Date/Time of Note Date/Time of Note DATE: 11/26/16 TIME: 11:11 Assessment/Plan VTE Prophylaxis VTE Prophylaxis Intervention: LMWH Lines/Catheters [facility] PICC Line Central line still needed: Yes Urinary Cath still in place: Yes Reason Cath still needed: other (indicate) Assessment/Plan Chief Complaint/Hosp Course 1. Acute hypoxic and hypercapnic respiratory failure. Status post intubation and extubation. Continue inhaled bronchodilators. The patient being followed by pulmonology 2. Acute encephalopathy. Most probably metabolic in origin secondary to CO2 retention and CO2 narcosis. Brain CT scan negative for any acute intracranial findings. Monitor. 3. Congestive heart failure exacerbation. Acute on chronic systolic dysfunction. The patient on Lasix. 4. Status post pacemaker placement. Cardiology following. 5. Essential hypertension. Continue antihypertensives. 6. Cardiomyopathy with ejection fraction of 45-50%. Continue GORVER inhibitors and beta-blockers. 7. Fluid, electrolytes and nutrition. Pured diet with nectar thick liquids. 8. Deep venous thrombosis prophylaxis, subcutaneous Lovenox. 9. Gastrointestinal prophylaxis. Proton pump inhibitors. 10. Plan. Continue current management. Await placement. Case discussed with Dr. Erazo. Problems: Subjective 24 Hr Interval Summary Free Text/Dictation Vital signs stable. Exam/Review of Systems Vital Signs Vitals Vital Signs Date Time Temp Pulse Resp B/P Pulse Ox O2 Delivery O2 Flow Rate FiO2 11/26/16 08:03 98.6 64 23 96/56 98 11/26/16 02:28 4.0 11/24/16 03:16 30 11/22/16 23:55 Nasal Cannula Intake and Output 11/25/16 11/25/16 11/26/16 15:00 23:00 07:00 Intake Total 660 ml Output Total 400 ml Balance 260 ml Exam GENERAL: This is an obese female patient lying in bed in no apparent distress. HEENT: Head normocephalic and atraumatic. Eyes: Anicteric sclerae. Conjunctivae clear. ENT: Nasal septum is midline. Oral mucosa is moist. ET tube connected to mechanical ventilator. NECK: Short and obese, but unable to visualize any neck veins. RESPIRATORY: Bilaterally diminished breath sounds with coarse rales. CARDIAC: Regular rate and rhythm. Unable to appreciate any murmurs. ABDOMEN: Soft, nontender, nondistended. Bowel sounds hypoactive in all 4 quadrants. GENITOURINARY: The patient has a John catheter in place. EXTREMITIES: No cyanosis, no clubbing. Bilateral lower extremity trace pedal edema. Peripheral pulses palpable. NEUROLOGIC: The patient is somnolent. Results Result Diagram: 11/24/16 0600 11/24/16 0600 Medications Medications Current Medications Acetaminophen (Tylenol Supp) 650 mg Q4H PRN [place] PAIN LEVEL 1-3 OR FEVER Last administered on 11/16/16 23:57; Admin Dose 650 MG; Start 11/16/16 at 20:00 Eye Lubricant (Artificial Tears Oph) 1 drop TID BOTH EYES Last administered on 11/26/16 08:54; Admin Dose 1 DROP; Start 11/16/16 at 21:00 Enoxaparin Sodium (Lovenox) 30 mg DAILY SC Last administered on 11/26/16 09:06 ; Admin Dose 30 MG; Start 11/17/16 at 09:00 Pantoprazole 40 mg 40 mg DAILY@06 IV Last administered on 11/26/16 05:53; Admin Dose 40 MG; Start 11/18/16 at 06:00 Sodium Chloride (NS) 1,000 ml @ 50 mls/hr Q20H IV Last administered on 18:51; Admin Dose 50 MLS/HR; Start 11/18/16 at 07:00 Hydralazine HCl (Apresoline) 10 mg Q6H PRN IV SBP>160; Start 11/18/16 at 09:30 Carvedilol (Coreg) 3.125 mg BID PO Last administered on 11/26/16 08:57; Admin Dose 3.125 MG; Start 11/18/16 at 11:00 Aspirin (Aspirin) 81 mg DAILY PO Last administered on 11/26/16 08:55; Admin Dose 81 MG; Start 11/20/16 at 09:00 Atorvastatin Calcium (Lipitor) 20 mg HS PO Last administered on 11/25/16 23:13 ; Admin Dose 20 MG; Start 11/19/16 at 21:00 Enalapril Maleate (Vasotec) 2.5 mg BID PO Last administered on 11/26/16 08:59 ; Admin Dose 2.5 MG; Start 11/21/16 at 21:00 Furosemide (Lasix) 40 mg DAILY PO Last administered on 11/26/16t 08:58; Admin Dose 40 MG; Start 11/24/16 at 09:00 SUMEET MONTENEGRO NP Nov 26, 2016 11:14
--- NOTE | 2016-11-26 11:58 | CONS ---
Date/Time of Note Date/Time of Note DATE: 11/26/16 TIME: 11:56 Assessment/Plan Assessment/Plan Additional Assessment/Plan Medications reviewed. Assessment recommendations; 1. Patient admitted for hypoxemic and hypercapnic respiratory failure status post extubation with marked overall clinical improvement. 2. CHF. Clinically improved. 3. Likely underlying sleep apnea. Continue current treatment. Patient will need to have BiPAP to be prescribed to be used at home especially nocturnally. She also would need to have a polysomnogram done as an outpatient. Consultation Date/Type/Reason Admit Date/Time Nov 17, 2016 at 20:32 Initial Consult Date 11/17/16 Type of Consultation: Pulmonary 24 HR Interval Summary Free Text/Dictation Patient condition stable. Remains completely awake alert. Denies any shortness of breath, wheezing, chest pain. General exam; elderly lady, currently in no distress. Appears quite obese. Exam/Review of Systems Vital Signs Vitals Vital Signs Date Time Temp Pulse Resp B/P Pulse Ox O2 Delivery O2 Flow Rate FiO2 11/26/16 08:03 98.6 64 23 96/56 98 11/26/16 02:28 4.0 11/24/16 03:16 30 11/22/16 23:55 Nasal Cannula Intake and Output 11/25/16 11/25/16 11/26/16 15:00 23:00 07:00 Intake Total 660 ml Output Total 400 ml Balance 260 ml Exam H EENT exam is; supple neck, positive JVD. No lymphadenopathy. Midline trachea. No thyromegaly. Patient a few remaining teeth. The right intraocular lens implant in place. Pupils are midsize reactive to light. No neck masses. Chest examination; diminished but clear breath sounds bilaterally. S1-S2 audible, no murmurs. Regular rhythm. Abdomen examination; soft, protuberant. Nontender. Bowel sounds audible. No organomegaly. Extremity exam is; no peripheral edema. Pulses 1+ bilaterally. 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 Results Result Diagram: 11/24/16 0600 11/24/16 0600 Medications Medications Current Medications Acetaminophen (Tylenol Supp) 650 mg Q4H PRN [place] PAIN LEVEL 1-3 OR FEVER Last administered on 11/16/16t 23:57; Admin Dose 650 MG; Start 11/16/16 at 20:00 Eye Lubricant (Artificial Tears Oph) 1 drop TID BOTH EYES Last administered on 11/26/16 08:54; Admin Dose 1 DROP; Start 11/16/16 at 21:00 Enoxaparin Sodium (Lovenox) 30 mg DAILY SC Last administered on 11/26/16 09:06 ; Admin Dose 30 MG; Start 11/17/16 at 09:00 Pantoprazole 40 mg 40 mg DAILY@06 IV Last administered on 11/26/16 05:53; Admin Dose 40 MG; Start 11/18/16 at 06:00 Sodium Chloride (NS) 1,000 ml @ 50 mls/hr Q20H IV Last administered on 18:51; Admin Dose 50 MLS/HR; Start 11/18/16 at 07:00 Hydralazine HCl (Apresoline) 10 mg Q6H PRN IV SBP>160; Start 11/18/16 at 09:30 Carvedilol (Coreg) 3.125 mg BID PO Last administered on 11/26/16 08:57; Admin Dose 3.125 MG; Start 11/18/16 at 11:00 Aspirin (Aspirin) 81 mg DAILY PO Last administered on 11/26/16 08:55; Admin Dose 81 MG; Start 11/20/16 at 09:00 Atorvastatin Calcium (Lipitor) 20 mg HS PO Last administered on 11/25/16 23:13 ; Admin Dose 20 MG; Start 11/19/16 at 21:00 Enalapril Maleate (Vasotec) 2.5 mg BID PO Last administered on 11/26/16 08:59 ; Admin Dose 2.5 MG; Start 11/21/16 at 21:00 Furosemide (Lasix) 40 mg DAILY PO Last administered on 11/26/16 08:58; Admin Dose 40 MG; Start 11/24/16 at 09:00 SEVERINO MCMILLAN Nov 26, 2016 11:58
[2016-11-26] MEDS: SOD CHLORIDE 0.9% 1,000 ML IV SCH (16:37)
[2016-11-26] MEDS: ATORVASTATIN 20 MG TAB PO SCH (21:43)
--- NOTE | 2016-11-27 20:16 | DS ---
DATE OF ADMISSION: 11/17/2016 DATE OF DISCHARGE: 11/26/2016 DISPOSITION: Transfer to [facility]. FINAL DIAGNOSES: 1. Acute hypoxic and hypercapnic respiratory failure. 2. Acute encephalopathy. 3. Dementia. 4. Congestive heart failure exacerbation. Acute on chronic. Systolic dysfunction. 5. Status post pacemaker placement. 6. Essential hypertension. 7. Cardiomyopathy with ejection fraction of 45% to 50%. 8. CO2 narcosis. CONSULTATIONS: 1. Dr. Steffen Roberto, cardiology. 2. Dr. Ariel Akers, cardiology. 3. Dr. Milo Kearney, cardiology. 4. Dr. Adam Orozco, [facility] COURSE: This is an 81-year-old female who was brought in to the emergency room because of generalized weakness and decreased mental status. The patient was noticed to be very sleepy by the family members and, hence, the patient was brought to the emergency room. An ABG done in the emergency room that showed significant CO2 retention and, the patient was intubated in the emergency room for mechanical ventilation and airway protection. The patient was moved to intensive care unit. The patient was being followed by pulmonology. The patient was gradually weaned off the ventilator and the patient was extubated. The patient was noticed to have acute encephalopathy. The patient underwent a brain CT scan that was negative for any acute intracranial findings. 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 The patient most probably also has underlying dementia. The patient was maintained on antibiotics for any underlying aspiration. The patient had no evidence of any sepsis. The patient was noticed to have acute on chronic congestive heart failure. The patient's 2D echocardiogram revealed ejection fraction of 45% to 50%. The patient was maintained on diuretics, as per cardiology recommendations. The patient's serial troponins remained negative. The patient was maintained on GROVER inhibitors and beta blockers for her underlying cardiomyopathy. The patient has history of pacemaker placement with the details unknown. The patient was maintained on cardiac medications as per cardiology recommendations. The patient has underlying essential hypertension. The patient was maintained on antihypertensives for the same. The patient was seen and evaluated by speech therapy recommended puree diet with thin liquids. The patient continued to have respiratory distress, although the patient was extubated. The patient was advised to use a noninvasive positive pressure ventilation for CO2 narcosis. However, the patient continued to refuse BiPAP use. The patient was maintained on inhaled bronchodilators. The patient was not a safe candidate to be discharged home. Hence, pulmonary recommended [facility] admission for further pulmonary rehabilitation before the patient can be discharged home versus extended care facility. Hence, a [facility] evaluation was ordered and the patient was accepted by [facility] on 11/26/2016. DISCHARGE DISPOSITION AND PLAN: The patient will be discharged to [facility] for further pulmonary rehabilitation. The contact person will follow the patient at [facility]. The patient will take a pureed nectar thick liquid diet. Activities will be with assistance. Medications will be as per medication list. CONDITION AT DISCHARGE: Stable. DISCHARGE MEDICATIONS: 1. Atorvastatin 20 mg p.o. at bedtime. 2. Coreg 3.125 mg p.o. b.i.d. 3. Enalapril 2.5 mg p.o. b.i.d. 4. Protonix 40 mg IV daily. 5. Aspirin 81 mg p.o. daily. 6. Lasix 40 mg p.o. daily. PERTINENT LABORATORY AND DIAGNOSTIC DATA: 1. 2D echocardiogram. Ejection fraction of 40% to 45%. 2. Blood cultures x2 negative. 3. Latest ABG on low flow O2: pH 7.320, pCO2 of 51.0, pO2 of 84.4, bicarbonate 23.7. Oxygen saturation 96.0, base excess -1.1. 4. Latest BMP: Sodium 147, potassium 4.0, chloride 107, carbon dioxide 30, anion gap 11, BUN 29, creatinine 0.66, glucose 90, calcium 8.6, phosphorus 1.7. 5. Hemoglobin A1c 5.7. 6. Fasting lipid panel: Triglycerides 117, total cholesterol 189, LDL 75, HDL 91. 7. Brain CT scan. Suboptimal, motion degraded study. No acute intracranial hemorrhage, transcortical infarction, or mass effect. Mild intracranial atherosclerosis and small vessel ischemic changes. Small lacunar infarcts in the right caudate head and left zamora radiata and left lentiform nucleus, likely chronic. At this time, I would like to thank all the consultants for seeing the patient and providing clinical recommendations. The case and management of this patient was fully discussed with Dr. Washburn. Approximately 35 minutes was spent on coordinating the discharge on this patient. SUMEET WASHBURN MD, AM/LICHA Conf#: [id number] DID#: [id number] CC: KRISHNA MELGAR MD;*End* MTDD
== END 2016-11-26 23:00 | DRG 207 ==
LOC: E/R 14:06 → ICU 11-17 20:32 → TEL 11-23 00:55
PROVIDERS: ADMIT Family Medicine; ATTEND Family Medicine
PROC: 0BH17EZ Insertion of Endotracheal Airway into Trachea, Via Natural or Artificial Opening (ICD-10-PCS; principal; 2016-11-16)
PROC: 5A1955Z Respiratory Ventilation, Greater than 96 Consecutive Hours (ICD-10-PCS; 2016-11-16)
PROC: 05H533Z Insertion of Infusion Device into Right Subclavian Vein, Percutaneous Approach (ICD-10-PCS; 2016-11-18)
DX: J96.02 Acute respiratory failure with hypercapnia (principal); G93.41 Metabolic encephalopathy; I50.23 Acute on chronic systolic (congestive) heart failure; J18.9 Pneumonia, unspecified organism; I11.0 Hypertensive heart disease with heart failure; F03.90 Unspecified dementia, unspecified severity, without behavioral disturbance, psychotic disturbance, mood disturbance, and anxiety; E66.2 Morbid (severe) obesity with alveolar hypoventilation; Z68.41 Body mass index [BMI] 40.0-44.9, adult; Z95.0 Presence of cardiac pacemaker; I25.2 Old myocardial infarction
CPT/HCPCS: 31500; 36415; 36569; 36600; 70450; 71010; 76937; 80048; 80053; 80061; 81001; 81003; 82550; 82553; 82803; 83036; 83735; 83880; 84100; 84132; 84134; 84439; 84443; 84484; 85025; 85610; 85730; 87040; 87081; 92610; 93005; 93306; 94002; 94003; 94660; 94664; 94770; 96365; 96372; 96375; 96376; J1940; C9113; J0330; J0456; J0461; J0696; J1650; J2060; J2250; J3475; J3480; J7030; J7040; J7050

== ENCOUNTER 2017-05-18 14:07 | Inpatient (IN) | payer MEDICARE, OTHER ==
[~2017-05-18] VITALS: Ht 170.2 cm; Wt 99.3 kg
[~2017-05-18 14:07] MED LIST changes: +CARV12.579 PO; -CARV6.2579 PO; -DIGO250T72 PO; -HYDR1CAP18 PO; +IBUP-1542 PO; +LORA10TA3 PO; +MAGN400T28 PO; -POTA8CAP PO; +SIMV40TA3 PO; -SMV40T PO; -ZOLP10TA PO
[2017-05-18 14:48] LABS: BASOPHIL # 0.1 10^3/ul (0.0-0.1); BASOPHILS % 0.8 % (0.0-2.0); EOSINOPHILS # 0.1 10^3/ul (0.0-0.5); EOSINOPHILS % 1.1 % (0.0-7.0); HEMATOCRIT 49.5 % (37.0-47.0); HEMOGLOBIN 14.5 g/dl (12.0-16.0); LYMPHOCYTES # 1.7 10^3/ul (0.8-2.9); LYMPHOCYTES % 21.3 % (15.0-51.0); MEAN CORPUSCULAR HEMOGLOBIN 29.1 pg (29.0-33.0); MEAN CORPUSCULAR HGB CONC 29.3 g/dl (32.0-37.0); MEAN CORPUSCULAR VOLUME 99.2 fl (82.0-101.0); MEAN PLATELET VOLUME 10.1 fl (7.4-10.4); MONOCYTE # 0.5 10^3/ul (0.3-0.9); MONOCYTES % 5.7 % (0.0-11.0); NEUTROPHILS % 70.5 % (39.0-77.0); NUCLEATED RED BLOOD CELLS% 0.3 /100WBC (0.0-0.0); PLATELET COUNT 153 10^3/UL (140-415); RED BLOOD COUNT 4.99 10^6/ul (4.20-5.40); RED CELL DISTRIBUTION WIDTH 14.5 % (11.5-14.5); WHITE BLOOD COUNT 7.9 10^3/ul (4.8-10.8)
[2017-05-18] MEDS ORDERED: ASPI81TA50 PO (15:06)
[2017-05-18 15:07] LABS: ANION GAP 9 (8-16); BLOOD UREA NITROGEN 12 mg/dl (7-20); CALCIUM 8.9 mg/dl (8.4-10.2); CARBON DIOXIDE 39 mmol/L (21-31); CHLORIDE 100 mmol/L (97-110); CREATININE 0.69 mg/dl (0.44-1.00); GLUCOSE 119 mg/dl (70-220); POTASSIUM 4.8 mmol/L (3.5-5.1); SODIUM 143 mmol/L (135-144)
[2017-05-18] MEDS ORDERED: LEVO5TAB28 PO (15:07)
[2017-05-18] MEDS ORDERED: ERGO500037 PO (15:08)
[2017-05-18] MEDS ORDERED: POTA8CAP PO (15:08)
[2017-05-18 15:18] LABS: B-TYPE NATRIURETIC PEPTIDE 589 PG/ML (0-450); TROPONIN-I < 0.012 ng/ml (0.00-0.12)
--- NOTE | 2017-05-18 15:18 | RADRPT ---
PROCEDURE: XR Chest. CLINICAL INDICATION: Chest pain and 81-year-old female. TECHNIQUE: Single frontal view of the chest was obtained. COMPARISON: Chest x-ray 11/27/2016 09:34 a.m. FINDINGS: The soft tissues are generous. A dual chamber cardiac pacemaker is noted over the left chest wall wi th electrode leads at the level of the right atrium and right ventricle. There are degenerative ost eophytes in the thoracic and lumbar spine. Bone detail is limited by underpenetration of the film. The heart is obscured by surrounding infiltrates in the right lung and left lower lobe. The cardiome diastinal silhouette and hilar structures are normal. The pulmonary vasculature is difficult to asse ss. Vascular calcifications are suspected in the aortic arch. There are bibasilar infiltrates. Ther e are infiltrates throughout the right lung. The costophrenic angles are obscured. IMPRESSION: 1. Dual chamber cardiac pacemaker over the left chest wall. 2. Cardiomegaly. 3. There are extensive infiltrates in the right lung and in the bases of the lungs. These findings may be the result of asymmetric pulmonary edema from CHF with associated pleural effusions. A pneumo cass must be excluded in this setting. 4. Obesity. 5. 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 RPTAT:AAJJ Physician Han Date Time Electronically viewed and signed by Physician Han on 05/18/2017 15:17 KATLIN/
[2017-05-18 17:47] LABS: ADD UMIC NO; UR ASCORBIC ACID 40 mg/dL (NEGATIVE); UR BILIRUBIN (Dip) NEGATIVE (NEGATIVE); UR BLOOD (Dip) NEGATIVE (NEGATIVE); UR CLARITY CLEAR (CLEAR); UR COLOR YELLOW (YELLOW); UR GLUCOSE (Dip) NEGATIVE (NEGATIVE); UR KETONES (Dip) NEGATIVE (NEGATIVE); UR LEUKOCYTE ESTERASE (Dip) NEGATIVE Leu/ul (NEGATIVE); UR NITRITE (Dip) NEGATIVE (NEGATIVE); UR SPECIFIC GRAVITY (Dip) 1.026 (1.003-1.030); UR TOTAL PROTEIN (Dip) NEGATIVE (NEGATIVE); UR UROBILINOGEN (Dip) NEGATIVE (NEGATIVE)
[2017-05-18] MEDS ORDERED: SOD CHLORIDE 0.9% 100 ML ONE (19:07)
[2017-05-18] MEDS ORDERED: IODIXANOL LOCM 100 ML BTL ONE (19:07)
[2017-05-18 19:17] LABS: AADO2 Arterial 74.6 mmHg (7.0-24.0); Allen Test ACCEPTAB; Arterial Base Excess 1.6 mmol/L (-3.0-3); Arterial Fraction of Oxyhgb 91.7 % (93.0-99.0); Arterial HCO3 31.7 mmol/L (22.0-26.0); Arterial MetHb 0.4 % (0.0-1.5); Arterial Total Hemglobin 15.7 g/dl (12.0-18.0); MODE NASAL CANNULA
[2017-05-18] MEDS ORDERED: ALBUTEROL 0.083% (NEB) 2.5 MG/3 ML AMP HHN STA (19:17)
--- NOTE | 2017-05-18 19:21 | ERA ---
ER Documentation Chief Complaint Date/Time DATE: 05/18/17 TIME: 19:07 Chief Complaint BROUGHT IN VIA EMS DUE TO SHORTNESS OF BREATH HPI This 81-year-old female comes emergency room complaining of shortness of breath. 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 Denies any chest pain. According to his son is also been more tired and less active than usual. Does not have a history of any asthma. Does have a history of cardiac dysfunction with a pacemaker. ROS All systems reviewed and are negative except as per history of present illness. Medications Home Meds Reported Medications Ergocalciferol (Vitamin D2) (VITAMIN D2) 50,000 Unit Capsule, 11247 UNIT PO Q7D , CAP 05/18/17 Potassium Chloride* (Potassium Chloride*) 8 Meq Capsule.er, 16 MEQ PO DAILY, CAP 05/18/17 Levocetirizine Dihydrochloride (Xyzal) 5 Mg Tablet, 5 MG PO BID, TAB 05/18/17 Aspirin (Aspir-Low) 81 Mg Tablet.dr, 81 MG PO DAILY 05/18/17 Carvedilol* (Carvedilol*) 12.5 Mg Tablet, 12.5 MG PO BID, #60 TAB 11/16/16 Furosemide* (Furosemide*) 40 Mg Tablet, 40 MG PO DAILY 10/01/11 Simvastatin (Simvastatin) 40 Mg Tablet, 40 MG PO QHS 10/01/11 Enalapril (Enalapril) 5 Mg Tablet, 5 MG PO BID 10/01/11 Discontinued Reported Medications Ibuprofen* (Ibuprofen*) 600 Mg Tablet, 600 MG PO Q6H Y for PAIN, TAB 11/16/16 Loratadine* (Loratadine*) 10 Mg Tablet, 10 MG PO DAILY, #30 TAB 11/16/16 Magnesium Oxide* (Magnesium Oxide*) 400 Mg Tablet, 400 MG PO DAILY, TAB 11/16/16 Aspirin (Adult Aspirin) 81 Mg Tab.chew, 81 MG PO DAILY 10/01/11 Allergies Allergies: Coded Allergies: No Known Allergies (Verified Allergy, Unknown, 05/18/17) PMhx/Soc History of Surgery: Yes (AICD, pacer) Anesthesia Reaction: No Hx Neurological Disorder: No Hx Respiratory Disorders: No Hx Cardiac Disorders: Yes (SD, CHF) Hx Psychiatric Problems: No Hx Miscellaneous Medical Probl: Yes (PACEMAKER) Hx Alcohol Use: No Hx Substance Use: No Hx Tobacco Use: No Smoking Status: Never smoker Physical Exam Vitals Vital Signs Date Time Temp Pulse Resp B/P Pulse Ox O2 Delivery O2 Flow Rate FiO2 05/18/17 18:09 90 20 132/96 98 Nasal Cannula 05/18/17 16:02 87 18 122/88 98 Nasal Cannula 05/18/17 14:56 Non Rebreather 15 05/18/17 14:15 Non Rebreather 15.0 05/18/17 14:15 98.5 93 30 108/70 95 Physical Exam Const: [] Mild distress, appears uncomfortable, Morbidly obese Head: Atraumatic Eyes: Normal Conjunctiva ENT: Normal External Ears, Nose and Mouth. Neck: Full range of motion..~ No meningismus. Resp: Decreased bibasilar breath sounds Cardio: Regular rate and rhythm, no murmurs Abd: Soft, Obese,non tender, non distended. Normal bowel sounds Skin: No petechiae or rashes Back: No midline or flank tenderness Ext: No cyanosis, or edema Neur: Awake and alertAnd oriented 3, no focal deficits Psych: Normal Mood and Affect Result Diagram: 05/18/17 1445 05/18/17 1445 Results 24 hrs Laboratory Tests Test 05/18/17 14:45 05/18/17 17:00 White Blood Count 7.910^3/ul Red Blood Count 4.9910^6/ul Hemoglobin 14.5g/dl Hematocrit 49.5% Mean Corpuscular Volume 99.2fl Mean Corpuscular Hemoglobin 29.1pg Mean Corpuscular Hemoglobin Concent 29.3g/dl Red Cell Distribution Width 14.5% Platelet Count 67408^3/UL Mean Platelet Volume 10.1fl Neutrophils % 70.5% Lymphocytes % 21.3% Monocytes % 5.7% Eosinophils % 1.1% Basophils % 0.8% Nucleated Red Blood Cells % 0.3/100WBC Neutrophils # (Manual) 5.610^3/ul Lymphocytes # 1.710^3/ul Monocytes # 0.510^3/ul Eosinophils # 0.110^3/ul Basophils # 0.110^3/ul Nucleated Red Blood Cells # 0.010^3/ul Sodium Level 143mmol/L Potassium Level 4.8mmol/L Chloride Level 100mmol/L Carbon Dioxide Level 39mmol/L Anion Gap 9 Blood Urea Nitrogen 12mg/dl Creatinine 0.69mg/dl Glucose Level 119mg/dl Calcium Level 8.9mg/dl Troponin I < 0.012ng/ml B-Type Natriuretic Peptide 589PG/ML Urine Color YELLOW Urine Clarity CLEAR Urine pH 5.0 Urine Specific [place] 1.026 Urine Ketones NEGATIVEmg/dL Urine Nitrite NEGATIVEmg/dL Urine Bilirubin NEGATIVEmg/dL Urine Urobilinogen NEGATIVEmg/dL Urine Leukocyte Esterase NEGATIVELeu/ul Urine Hemoglobin NEGATIVEmg/dL Urine Glucose NEGATIVEmg/dL Urine Total Protein NEGATIVEmg/dl Procedures/MDM Shortness of breath with hypoxia, Reactive airway disease or COPD with significant CO2 retention. no signs of acute infection this patient has no cough or elevated white blood cell count, virtual right lung white out on x- ray. Patient desats without oxygen did go down to 78% while sleeping. No signs of congestive heart failure acute cardiac dysfunction. Patient does need to be admitted however for further lung workup. CTA chest was ordered and is pending. Patient is placed on BiPAP in order to help blow off some of the CO2 EKG interpretation: Paced rhythm rate of 94, no other abnormalities are relevant analysis and is paced rhythm, prolonged QT of 530 secured entrance monitor interpretation: Paced rhythm rate of 90s. Chest x-ray interpretation: See also the right lung is laura out either possible large pleural effusion or Critical care time greater than 35 minutes: This includes treatment of hypoxic respiratory failure with noninvasive positive pressure ventilation, ventilator management, consideration of invasive intubation, careful fluid administration, chart review, discussion with patient, admitting doctor, son. Departure Diagnosis: Primary Impression: Acute respiratory failure with hypoxia Additional Impression: CO2 retention Condition: Serious STEFFANYSOLEDAD DO May 18, 2017 19:20
[2017-05-18] MEDS ORDERED: ONDANSETRON 4 MG INJ IV PRN ×3 (19:30→23:30)
[2017-05-18] MEDS ORDERED: METHYLPREDNISOLONE 125 MG INJ IV ONE (19:30)
[2017-05-18] MEDS ORDERED: IPRATROPIUM (NEB) 0.5 MG/2.5 ML AMP HHN ONE (19:30)
[2017-05-18] MEDS ORDERED: ACETAMINOPHEN 325 MG TAB PO PRN ×2 (19:30→20:30)
[2017-05-18] MEDS ORDERED: LORAZEPAM 2 MG INJ IV ONE (19:30)
[2017-05-18] MEDS ORDERED: BISACODYL (EC) 5 MG TAB PO PRN (20:30)
[2017-05-18] MEDS ORDERED: morphine 2 MG INJ IV PRN (20:30)
[2017-05-18] MEDS ORDERED: NACL 0.9% 3 ML SYG IV SCH (20:30)
[2017-05-18] MEDS ORDERED: DOCUSATE SODIUM 100 MG CAP PO PRN (20:30)
[2017-05-18] MEDS: ENALAPRIL 5 MG TAB PO SCH (21:00)
[2017-05-18] MEDS: ATORVASTATIN 20 MG TAB PO SCH (21:30)
--- NOTE | 2017-05-18 22:08 | RADRPT ---
PROCEDURE: CT angiogram of the chest with contrast. CLINICAL INDICATION: Chest pain. TECHNIQUE: CT angiogram of the chest was obtained using a multi-detector high-resolution CT. Con tiguous axial images were obtained during the dynamic injection of 100 cc of Visipaque 320 intraveno us contrast. Coronal and sagittal reformatted images were obtained. 3-D reformatted images were al so obtained. Images were reviewed on a PACS workstation. One or more of the following dose reduction techniques were used: - Automated exposure control. - Adjustment of the mA and/or kV according to patient size. - Use of iterative reconstruction technique. Exam CTD/vol = 19.98 mGy. Total exam DLP = 755.65 mGy-cm. COMPARISON: 11/28/2008. FINDINGS: The main pulmonary artery followed to the segmental divisions are well opacified. There is no filli ng defect or evidence of pulmonary embolism. The heart is moderately enlarged. There is no pericar dial thickening or effusion. The aorta is of normal course and caliber with scattered atherosclerot ic calcifications. There is no evidence of aortic aneurysm or dissection. There is a left-sided pacemaker. The visualized thyroid is unremarkable. There are no enlarged axi llary lymph nodes. There are no enlarged mediastinal or hilar lymph nodes by CT criteria. There ar e bibasilar atelectasis and lower lobe consolidations. There is a small left-sided pleural effusion . The central tracheobronchial tree is within normal limits. Limited evaluation of the upper abdomen demonstrates a large isodense splenic mass measuring 7.1 x 6 .5 cm. IMPRESSION: No evidence of pulmonary embolism or aortic dissection. Moderate cardiomegaly. Bibasilar atelectasis and lower lobe consolidations. Small left-sided pleural effusion. Vascular calcifications reflective of atherosclerosis. Large isodense splenic mass could represent a hemangioma, unchanged from 11/28/2008. .Mayank Chapman MD, Date Time Electronically viewed and signed by .Mayank Chapman MD, MD on 05/18/2017 22:07 .T/
[2017-05-18] MEDS: FAMOTIDINE 20 MG INJ IV SCH (22:16)
[2017-05-18 22:17] LABS: CREATINE KINASE 32 IU/L (23-200)
[2017-05-18 22:27] LABS: CK-MB 0.62 ng/ml (0.0-2.4)
[2017-05-18 22:31] LABS: TROPONIN-I < 0.012 ng/ml (0.00-0.12)
[2017-05-18 23:10] LABS: Allen Test ACCEPTAB; Arterial Base Excess 8.4 mmol/L (-3.0-3); Arterial COHb 1.1 % (0.0-3.0); Arterial Fraction of Oxyhgb 90.1 % (93.0-99.0); Arterial HCO3 41.4 mmol/L (22.0-26.0); Arterial MetHb 0.4 % (0.0-1.5); Blood Gas IEPAP 20/5; MODE MASK - BIPAP
[2017-05-18] MEDS ORDERED: ACETAMINOPHEN 650 MG SUPP PR PRN (23:30)
[2017-05-19] VITALS (25 sets, daily range): BP systolic 133–146; BP diastolic 62–79; PULSE 71–92; RESP 18–23; Ht 170.2 cm; Wt 99.3 kg
--- NOTE | 2017-05-19 00:26 | HP ---
Date/Time of Note Date/Time of Note DATE: 05/19/17 TIME: 00:24 Assessment/Plan VTE Prophylaxis VTE Prophylaxis Intervention: SCD's Lines/Catheters IV Catheter Type (from Nrs): Saline Lock Assessment/Plan Chief Complaint/Hosp Course This is a 81-year-old female being admitted to the telemetry floor: #1 acute hypercapnic respiratory failure: Likely secondary to patient's underlying heart disease as well as suspected obesity hypoventilation syndrome. Patient's clinical status deteriorated while in the emergency department on BiPAP. Original ABG showed a pH of 7.2 with a CO2 of 75 O2 of 72 and after being placed on BiPAP her subsequent ABG showed pH of of 7.21 with a CO2 of 100 and O2 of 66. As a respiratory and clinical status is not improving her family made the decision to make her DNI and ultimately a DNR. We will continue her on her BiPAP settings. Will recheck ABG. CAT scan of the chest revealed:No evidence of pulmonary embolism or aortic dissection. Moderate cardiomegaly.Bibasilar atelectasis and lower lobe consolidations.Small left-sided pleural effusion. She did receive a loading dose of Solu-Medrol in the ED will continue this. Though patient does not have elevated white blood cell count or any fevers, because there are signs of consolidation on the CT scan I will treat her for a suspected pneumonia with cefepime. Will avoid fluoroquinolones and macrolides as patient has a prolonged QT. Will consult pulmonary. #2 Acute encephalopathy: Secondary to underlying acute hypercapnic respiratory failure and/or underlying infection. Continue current BiPAP treatmen, IV steroids and antibiotics #3. Congestive heart failure exacerbation. Acute on chronic. Systolic dysfunction. Chest x-ray did show signs of small pleural effusion. Last echocardiogram was done approximately 6 months ago. Will repeat an echocardiogram. #4 essential hypertension: We will hold beta-alyse this time secondary to #1. Will hold Lasix at this time as well as her does not appear to be overt vascular congestion. We will continue patient's GROVER inhibitor. #5 DVT GI prophylaxis: SCDs, acid alyse Further treatment strategy will be implemented as per the clinical course Problems: HPI/ROS Admit Date/Time Admit Date/Time Hx of Present Illness Chief complaint: Shortness of breath This 81-year-old female comes emergency room complaining of shortness of breath. History was obtained from the ED physician and nursing staff as patient was on BiPAP and not able to provide history. Denies any chest pain. As per the notes, according to her son is also been more tired and less active than usual. Does not have a history of any asthma. Does have a history of cardiac dysfunction with a pacemaker. Patient did not have any recent fevers. Patient was found to be in hypercapnic respiratory failure she was put on BiPAP. Her original pH was 7.2 with a CO2 of 72. Through her course in the hospital emergency department she began to deteriorate further. A repeat ABG she was found to be further retaining CO2 with her second ABG worsening with a CO2 of 100. This was discussed with the family as per the ED physician documentation. The family made the decision of making the patient DO NOT INTUBATE. And then later upon further discussion with the ED physician and as per the POLST form the patient was ultimately made a DNR. She is currently on the BiPAP and continues to be minimally responsive upon my examination. Originally the decision was made to take the patient to telemetry however as a respiratory status and mental status worsened she was upgraded to the ICU. Once a decision was made by the family to make her DNR she was deemed acceptable to be taken to the telemetry floor. Allergies: NKDA Medications: See BRAXTON BOURGEOIS Subjective hx not possible: pt critical (On BiPAP and minimally responsive) PMH/Family/Social Past Medical History Systolic heart failure, AICD Placement; Permanent Pacemaker, hypertension, dementia, suspected sleep apnea, suspected obesity hypoventilation syndrome, Past Surgical History AICD and pacemaker placement Past Surgical Hx: other Family History Significant Family History: heart disease Social History Alcohol Use: none Smoking Status: Never smoker Drug Use: none Exam/Review of Systems Vital Signs Vitals Vital Signs Date Time Temp Pulse Resp B/P Pulse Ox O2 Delivery O2 Flow Rate FiO2 05/19/17 00:03 87 20 85/49 91 BIPAP Nasal Cannula 05/18/17 23:20 50 05/18/17 22:00 2.0 05/18/17 14:15 98.5 Exam Exam General: Patient is a obese female in respiratory distress currently on BiPAP and minimally responsive HEENT: Atraumatic, normocephalic. The pupils are equal, round and reactive. Extraocular motor are intact Neck: Supple with full range of motion. No rigidity or meningismus Chest: Nontender Lungs: Poor inspiratory effort, decreased breath sounds over the right lung Heart: Normal S1-S2, Regular rhythm and rate. No overt murmurs appreciated Abdomen: Soft , nontender, nondistended , bowel sounds are present. No guarding no rebound tenderness , No masses or organomegaly. No costovertebral temporal angle mass Extremities: Normal to inspection, no edema no cyanosis Neurologic: Minimally responsive, unable to fully assess neurological exam secondary to respiratory failure Additional Comments PROCEDURE: CT angiogram of the chest with contrast. CLINICAL INDICATION: Chest pain. TECHNIQUE: CT angiogram of the chest was obtained using a multi-detector high -resolution CT. Contiguous axial images were obtained during the dynamic injection of 100 cc of Visipaque 320 intravenous contrast. Coronal and sagittal reformatted images were obtained. 3-D reformatted images were also obtained. Images were reviewed on a PACS workstation. One or more of the following dose reduction techniques were used: - Automated exposure control. - Adjustment of the mA and/or kV according to patient size. - Use of iterative reconstruction technique. Exam CTD/vol = 19.98 mGy. Total exam DLP = 755.65 mGy-cm. COMPARISON: 11/28/2008. FINDINGS: The main pulmonary artery followed to the segmental divisions are well opacified. There is no filling defect or evidence of pulmonary embolism. The heart is moderately enlarged. There is no pericardial thickening or effusion. The aorta is of normal course and caliber with scattered atherosclerotic calcifications. There is no evidence of aortic aneurysm or dissection. There is a left-sided pacemaker. The visualized thyroid is unremarkable. There are no enlarged axillary lymph nodes. There are no enlarged mediastinal or hilar lymph nodes by CT criteria. There are bibasilar atelectasis and lower lobe consolidations. There is a small left-sided pleural effusion. The central tracheobronchial tree is within normal limits. Limited evaluation of the upper abdomen demonstrates a large isodense splenic mass measuring 7.1 x 6.5 cm. IMPRESSION: No evidence of pulmonary embolism or aortic dissection. Moderate cardiomegaly. Bibasilar atelectasis and lower lobe consolidations. Small left-sided pleural effusion. Vascular calcifications reflective of atherosclerosis. Large isodense splenic mass could represent a hemangioma, unchanged from 2008. .Mayank Chapman MD, MD Date Time Electronically viewed and signed by .Mayank Chapman MD, MD on 05/18/2017 22:07 .T/ CC: SOLEDAD JETER DO PROCEDURE: XR Chest. CLINICAL INDICATION: Chest pain and 81-year-old female. TECHNIQUE: Single frontal view of the chest was obtained. COMPARISON: Chest x-ray 11/27/2016 09:34 a.m. FINDINGS: The soft tissues are generous. A dual chamber cardiac pacemaker is noted over the left chest wall with electrode leads at the level of the right atrium and right ventricle. There are degenerative osteophytes in the thoracic and lumbar spine. Bone detail is limited by underpenetration of the film. The heart is obscured by surrounding infiltrates in the right lung and left lower lobe. The cardiomediastinal silhouette and hilar structures are normal. The pulmonary vasculature is difficult to assess. Vascular calcifications are suspected in the aortic arch. There are bibasilar infiltrates. There are infiltrates throughout the right lung. The costophrenic angles are obscured. IMPRESSION: 1. Dual chamber cardiac pacemaker over the left chest wall. 2. Cardiomegaly. 3. There are extensive infiltrates in the right lung and in the bases of the lungs. These findings may be the result of asymmetric pulmonary edema from CHF with associated pleural effusions. A pneumonia must be excluded in this setting. 4. Obesity. 5. 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 RPTAT:AAJJ Physician Han Date Time Electronically viewed and signed by José Luis Baeza Physician on 05/18/2017 15:17 JM/ CC: SOLEDAD JETER DO Labs Result Diagram: 05/18/17 1445 05/18/17 1445 Medications Medications Current Medications Ondansetron HCl (Zofran Inj) 4 mg Q6H PRN IV NAUSEA AND/OR VOMITING; Start 05/18 at 20:30 Acetaminophen (Tylenol Tab) 650 mg Q6H PRN PO PAIN LEVEL 1-3 OR FEVER; Start at 20:30 Morphine Sulfate (morphine) 2 mg Q4H PRN IV PAIN LEVEL 7-10; Start 05/18/17 at 20:30 Docusate Sodium (Colace) 100 mg Q12H PRN PO CONSTIPATION; Start 05/18/17 at 20: 30 Bisacodyl (Dulcolax) 5 mg DAILY PRN PO CONSTIPATION; Start 05/18/17 at 20:30 Famotidine (Pepcid Iv) 20 mg Q12 IV Last administered on 05/18/17t 22:16; Admin Dose 20 MG; Start 05/18/17 at 21:00 Aspirin (Halfprin) 81 mg DAILY PO ; Start 05/19/17 at 09:00; Status UNV Enalapril Maleate (Vasotec) 5 mg BID PO ; Start 05/18/17 at 21:00 Potassium Chloride (Micro-K) 16 meq DAILY PO ; Start 05/19/17 at 09:00; Status UNV Atorvastatin Calcium (Lipitor) 20 mg QHS PO ; Start 05/18/17 at 21:30 Ondansetron HCl (Zofran Inj) 4 mg Q6H PRN IV NAUSEA AND/OR VOMITING; Start 05/18 at 23:30 Acetaminophen (Tylenol Supp) 650 mg Q4H PRN ME PAIN LEVEL 1-3 OR FEVER; Start 05/18/17 at 23:30 Pantoprazole 40 mg 40 mg DAILY@06 IV ; Start 05/19/17 at 06:00 Cefepime HCl (Maxipime 2gm/50 ml (Pmx)) 50 ml @ 100 mls/hr Q8 IVPB ; Start 06/25 at 00:30 DELMY HEREDIA May 19, 2017 00:26
[2017-05-19] MEDS: CEFEPIME 2GM/50 ML (PMX) 50 ML IVPB SCH ×4 (00:30→21:14)
[2017-05-19 04:23] LABS: CREATINE KINASE 37 IU/L (23-200)
[2017-05-19 04:25] LABS: ALBUMIN 3.7 g/dl (3.3-4.9); ALBUMIN/GLOBULIN RATIO 1.32; BILIRUBIN,INDIRECT 0.2 mg/dl (0-1.1); BILIRUBIN,TOTAL 0.2 mg/dl (0.2-1.3); CALCIUM 9.2 mg/dl (8.4-10.2); CHOL/HDL RATIO 1.6 RATIO; CREATININE 0.63 mg/dl (0.44-1.00); POTASSIUM 5.1 mmol/L (3.5-5.1); TOTAL PROTEIN 6.5 g/dl (6.1-8.1)
[2017-05-19 04:32] LABS: BASOPHILS % 0.2 % (0.0-2.0); HEMOGLOBIN 14.6 g/dl (12.0-16.0); LYMPHOCYTES # 1.1 10^3/ul (0.8-2.9); LYMPHOCYTES % 13.7 % (15.0-51.0); MEAN CORPUSCULAR HEMOGLOBIN 29.2 pg (29.0-33.0); MEAN CORPUSCULAR HGB CONC 29.2 g/dl (32.0-37.0); MEAN PLATELET VOLUME 10.6 fl (7.4-10.4); MONOCYTE # 0.1 10^3/ul (0.3-0.9); MONOCYTES % 0.6 % (0.0-11.0); NEUTROPHILS % 84.4 % (39.0-77.0); NUCLEATED RED BLOOD CELLS% 0.4 /100WBC (0.0-0.0); PLATELET COUNT 140 10^3/UL (140-415); RED CELL DISTRIBUTION WIDTH 14.1 % (11.5-14.5); WHITE BLOOD COUNT 8.3 10^3/ul (4.8-10.8)
[2017-05-19 04:36] LABS: CK-MB 0.65 ng/ml (0.0-2.4)
[2017-05-19 04:39] LABS: TROPONIN-I < 0.012 ng/ml (0.00-0.12)
[2017-05-19 04:55] LABS: THYROID STIMULATING HORMONE 0.862 MIU/L (0.465-4.680)
[2017-05-19] MEDS: METHYLPREDNISOLONE 40 MG INJ IV SCH ×3 (05:50→21:09)
[2017-05-19] MEDS ORDERED: PANTOPRAZOLE 40 MG INJ IV SCH (06:00)
[2017-05-19] MEDS: POTASSIUM CHLORIDE (SR) 8 MEQ CAP PO SCH (08:34)
[2017-05-19] MEDS: ASPIRIN (EC) 81 MG TAB PO SCH (08:34)
[2017-05-19] MEDS: ENALAPRIL 5 MG TAB PO SCH (08:34)
[2017-05-19] MEDS: FAMOTIDINE 20 MG INJ IV SCH (08:38)
[2017-05-19 08:58] LABS: AADO2 Arterial 229.9 mmHg (7.0-24.0); Allen Test ACCEPTAB; Arterial Base Excess 8.3 mmol/L (-3.0-3); Arterial COHb 0.8 % (0.0-3.0); Arterial Fraction of Oxyhgb 91.7 % (93.0-99.0); Arterial HCO3 42.1 mmol/L (22.0-26.0); Arterial MetHb 0.4 % (0.0-1.5); Arterial Total Hemglobin 15.9 g/dl (12.0-18.0); Blood Gas IEPAP 20/5; MODE MASK - BIPAP
--- NOTE | 2017-05-19 16:37 | CONS ---
DATE OF ADMISSION: 05/18/2017 DATE OF CONSULTATION: 05/19/2017 REASON FOR CONSULTATION: Hypercapnic respiratory failure. HISTORY OF PRESENT ILLNESS: This is an unfortunate 81-year-old lady with advanced dementia, recently discharged from acute care, who comes in again with worsening hypercapnia and respiratory acidosis requiring initiation of noninvasive positive pressure ventilation. The patient was previously DNR/DNI and had been placed on hospice in the past. Currently she continues noninvasive positive pressure ventilation but appears hemodynamically stable. She remains DNR/DNI. PAST MEDICAL HISTORY: Dementia, pacemaker placement, systolic heart failure, probable obstructive sleep apnea, recurrent hypoxemic and hypercapnic respiratory failure. MEDICATION: Per chart. ALLERGIES: NONE. SOCIAL HISTORY: Nonsmoker. No alcohol. No history of drug use. FAMILY HISTORY: Noncontributory. REVIEW OF SYSTEMS: A 12-point review of systems negative other than that mentioned above. PHYSICAL EXAMINATION: GENERAL: Elderly lady, grimaces to sternal rub, but not following commands. VITAL SIGNS: Currently afebrile. Pulse is 80, blood pressure 140/63, O2 sat 96 percent on FiO2 of 100 percent. NECK: Supple. No JVD. CARDIAC: S1, S2. No added sounds or murmurs. CHEST: Diminished air entry bilaterally. ABDOMEN: Soft, nontender. No guarding or rebound. EXTREMITIES: No cyanosis, clubbing, edema. NEUROLOGIC: Unable to assess. LABORATORY: ABG; pH 7.18, pCO2 of 114, PO2 of 76. IMPRESSION: 1. Hypercapnic respiratory failure. 2. No evidence of acute pulmonary embolus. 3. Significant encephalopathy. 4. Code status do not resuscitate/do not intubate. PLAN: 1. Continue noninvasive positive pressure ventilation. I will make changes to current BiPAP settings. 2. I did contact the patient's next of kin and they wish to discuss palliative care and comfort measures, which I will discuss with them tomorrow. 3. Overall prognosis remains guarded. Dictated By: Adam Orozco MD /sanjana/mattie /Document#: [id number]
--- NOTE | 2017-05-19 16:38 | PN ---
Date/Time of Note Date/Time of Note DATE: 05/19/17 TIME: 16:31 Assessment/Plan VTE Prophylaxis VTE Prophylaxis Intervention: SCD's Lines/Catheters IV Catheter Type (from Nrsg): Saline Lock Assessment/Plan Assessment/Plan 81 yo F admitted for severe acute hypercapnic respiratory failure. ABG with severe respiratory acidosis most likely combo of OHS, COPD. No PE on imaging. Chart reviewed. Appears pt hospitalized in November for same scenario. Was intubated at that time, eventually discharged to [place] after extubation though respiratory acidosis much worse this time than at November admit -continue BiPap. Admitting physician and pulm risk and insurance consultant affirmed DNR/DNI status with family. -cont empiric COPD treatment with steroids and abx -trial of lasix given mildly elevated BNP and small amt of pulm edema seen on XR in setting of CHF hx -all bp meds on hold given lowish BPs on arrival and initiation of lasix -NPO given AMS -plan for family meeting tomorrow with possible transition to hospice Subjective 24 Hr Interval Summary Free Text/Dictation Still on very high BiPap settings Exam/Review of Systems Vital Signs Vitals Vital Signs Date Time Temp Pulse Resp B/P Pulse Ox O2 Delivery O2 Flow Rate FiO2 05/19/17 16: 98.0 88 18 135/62 98 05/19/17 13:20 100 05/19/17 01:45 BIPAP 05/18/17 22:00 2.0 Exam wearing bipap does not respond to verbral stimuli poor air movement trace edema no rashes 5am ABG noted Results Result Diagram: 05/19/17 0323 05/19/17 0322 Results 24 hrs Laboratory Tests Test 05/18/17 17:00 05/18/17 18:47 05/18/17 21:32 05/18/17 22:45 Urine Color YELLOW Urine Clarity CLEAR Urine pH 5.0 Urine Specific [place] 1.026 Urine Ketones NEGATIVE Urine Nitrite NEGATIVE Urine Bilirubin NEGATIVE Urine Urobilinogen NEGATIVE Urine Leukocyte Esterase NEGATIVE Urine Hemoglobin NEGATIVE Urine Glucose NEGATIVE Urine Total Protein NEGATIVE Blood Gas Specimen Source Blood arterial Blood arterial Arterial Blood Date Drawn 05/18/2017 7:07:24 PM 05/18/2017 10:53:55 PM Arterial Blood pH (Temp corrected) 7.240 *L 7.210 *L Arterial Blood pCO2 (Temp correct) 75.6 H 105.9 *H Arterial Blood pO2 (Temp corrected) 72.4 L 66.4 L Arterial Blood HCO3 31.7 H 41.4 *H Arterial Blood Base Excess 1.6 8.4 H Arterial Blood Oxygen Saturation 93.0 L 91.5 L Dario Test ACCEPTAB ACCEPTAB Arterial Blood Gas Puncture Site Right Radial Right Radial Arterial Blood Carboxyhemoglobin 1.0 1.1 Arterial Blood Methemoglobin 0.4 0.4 Blood Gas A-a O2 Differential 74.6 H 134.0 H Oxyhemoglobin Percent 91.7 L 90.1 L Total Hemoglobin 15.7 16.0 Blood Gas Temperature 37.0 37.0 Blood Gas Modality NASAL CANNULA MASK - BIPAP FiO2 33.0 45.0 Blood Gas Critical Value Read Back Alexandra CANADA MD Blood Gas Notified Whom Giuseppe DILL Blood Gas Notified Time 05/18/2017 7:17:29 PM 05/18/2017 11:07:36 PM Creatine Kinase 32 Creatine Kinase Index 1.9 Creatinine Kinase MB (Mass) 0.62 Troponin I < 0.012 Blood Gas Respiration Rate 14.0 Blood Gas Actual Respiration Rate 16 Blood Gas Inspiratory Time 0.8 Blood Gas IPAP/EPAP Ratio 20/5 Test 05/19/17 03:22 05/19/17 03:23 05/19/17 05:00 05/19/17 07:19 Sodium Level 142 Potassium Level 5.1 Chloride Level 99 Carbon Dioxide Level 40 H Anion Gap 8 Blood Urea Nitrogen 14 Creatinine 0.63 Glucose Level 153 Calcium Level 9.2 Total Bilirubin 0.2 Direct Bilirubin 0.00 Indirect Bilirubin 0.2 Aspartate Amino Transf (AST/SGOT) 17 Alanine Aminotransferase (ALT/SGPT) 27 Alkaline Phosphatase 56 Creatine Kinase 37 Creatine Kinase Index 1.8 Creatinine Kinase MB (Mass) 0.65 Troponin I < 0.012 Total Protein 6.5 Albumin 3.7 Globulin 2.80 Albumin/Globulin Ratio 1.32 Triglycerides Level 47 Cholesterol Level 147 LDL Cholesterol, Calculated 51 HDL Cholesterol 87 Cholesterol/HDL Ratio 1.6 Thyroid Stimulating Hormone (TSH) 0.862 White Blood Count 8.3 Red Blood Count 5.00 Hemoglobin 14.6 Hematocrit 50.0 H Mean Corpuscular Volume 100.0 Mean Corpuscular Hemoglobin 29.2 Mean Corpuscular Hemoglobin Concent 29.2 L Red Cell Distribution Width 14.1 Platelet Count 140 Mean Platelet Volume 10.6 H Neutrophils % 84.4 H Lymphocytes % 13.7 L Monocytes % 0.6 Eosinophils % 0.0 Basophils % 0.2 Nucleated Red Blood Cells % 0.4 H Neutrophils # (Manual) 7.0 Lymphocytes # 1.1 Monocytes # 0.1 L Eosinophils # 0.0 Basophils # 0.0 Nucleated Red Blood Cells # 0.0 Hemoglobin A1c 5.9 Blood Gas Specimen Source Blood arterial Arterial Blood Date Drawn 05/19/2017 5:00:56 AM Arterial Blood pH (Temp corrected) 7.182 *L Arterial Blood pCO2 (Temp correct) 114.8 *H Arterial Blood pO2 (Temp corrected) 71.6 L Arterial Blood HCO3 42.1 *H Arterial Blood Base Excess 8.3 H Arterial Blood Oxygen Saturation 92.8 L Dario Test ACCEPTAB Arterial Blood Gas Puncture Site Right Radial Arterial Blood Carboxyhemoglobin 0.8 Arterial Blood Methemoglobin 0.4 Blood Gas A-a O2 Differential 229.9 H Oxyhemoglobin Percent 91.7 L Total Hemoglobin 15.9 Blood Gas Temperature 37.0 Blood Gas Respiration Rate 24.0 Blood Gas Actual Respiration Rate 25 Blood Gas Modality MASK - BIPAP FiO2 60.0 Blood Gas IPAP/EPAP Ratio 20/5 Blood Gas Critical Value Read Back More DAVIS R.N Blood Gas Notified Whom MM Blood Gas Notified Time 05/19/2017 5:14:40 AM Lactic Acid Level 0.8 Medications Medications Current Medications Acetaminophen (Tylenol Tab) 650 mg Q6H PRN PO PAIN LEVEL 1-3 OR FEVER; Start at 20:30 Morphine Sulfate (morphine) 2 mg Q4H PRN IV PAIN LEVEL 7-10; Start 05/18/17 at 20:30 Docusate Sodium (Colace) 100 mg Q12H PRN PO CONSTIPATION; Start 05/18/17 at 20: 30 Bisacodyl (Dulcolax) 5 mg DAILY PRN PO CONSTIPATION; Start 05/18/17 at 20:30 Aspirin (Halfprin) 81 mg DAILY PO ; Start 05/19/17 at 09:00 Potassium Chloride (Micro-K) 16 meq DAILY PO ; Start 05/19/17 at 09:00 Atorvastatin Calcium (Lipitor) 20 mg QHS PO ; Start 05/18/17 at 21:30 Ondansetron HCl (Zofran Inj) 4 mg Q6H PRN IV NAUSEA AND/OR VOMITING; Start 05/18 at 23:30 Acetaminophen 650 mg 650 mg Q4H PRN [place] PAIN LEVEL 1-3 OR FEVER; Start 05/18/17 at 23:30 Cefepime HCl (Maxipime 2gm/50 ml (Pmx)) 50 ml @ 100 mls/hr Q8 IVPB Last administered on 05/19/17 14:44; Admin Dose 100 MLS/HR; Start 05/19/17 at 00:30 Methylprednisolone Sodium Succinate (Solu-Medrol) 40 mg Q8 IV Last administered on 05/19/17 13:44; Admin Dose 40 MG; Start 05/19/17 at 06:00 DAWNA DE LA GARZA MD May 19, 2017 16:37
[2017-05-19] MEDS: FUROSEMIDE 40 MG INJ IV SCH (17:29)
[2017-05-19 17:36] LABS: AADO2 Arterial 224.7 mmHg (7.0-24.0); Arterial Base Excess 7.6 mmol/L (-3.0-3); Arterial COHb 0.7 % (0.0-3.0); Arterial Fraction of Oxyhgb 93.7 % (93.0-99.0); Arterial HCO3 41.5 mmol/L (22.0-26.0); Arterial MetHb 0.3 % (0.0-1.5); Arterial Total Hemglobin 15.8 g/dl (12.0-18.0); MODE MASK - BIPAP
[2017-05-19] MEDS: ATORVASTATIN 20 MG TAB PO SCH (20:53)
[2017-05-20] VITALS (19 sets, daily range): BP systolic 128–146; BP diastolic 64–73; PULSE 65–92; RESP 18–19
[2017-05-20] MEDS: CEFEPIME 2GM/50 ML (PMX) 50 ML IVPB SCH ×2 (05:24→14:00)
[2017-05-20] MEDS: METHYLPREDNISOLONE 40 MG INJ IV SCH ×2 (05:24→14:25)
[2017-05-20] MEDS: FUROSEMIDE 40 MG INJ IV SCH ×2 (05:25→18:00)
[2017-05-20] MEDS: ASPIRIN (EC) 81 MG TAB PO SCH (09:00)
[2017-05-20] MEDS: POTASSIUM CHLORIDE (SR) 8 MEQ CAP PO SCH (09:00)
[2017-05-20 09:41] LABS: AADO2 Arterial 142.4 mmHg (7.0-24.0); Allen Test ACCEPTAB; Arterial COHb 0.7 % (0.0-3.0); Arterial Fraction of Oxyhgb 96.4 % (93.0-99.0); Arterial HCO3 41.5 mmol/L (22.0-26.0); Arterial MetHb 0.4 % (0.0-1.5); Blood Gas IEPAP 20/8; MODE MASK - BIPAP
--- NOTE | 2017-05-20 10:18 | CONS ---
Date/Time of Note Date/Time of Note DATE: 05/20/17 TIME: 10:16 Assessment/Plan Assessment/Plan Additional Assessment/Plan Assessment and recommendations; 1. Patient admitted with severe hypercapnic respiratory failure with bilateral pneumonia. 2. Some element of pulmonary edema. 3. Advanced dementia. Continue current supportive care. Prognosis is very poor. Family is considering hospice. Consultation Date/Type/Reason Admit Date/Time May 18, 2017 at 19:26 Initial Consult Date Type of Consultation: Pulmonary 24 HR Interval Summary Free Text/Dictation Patient condition remains poor. Remains unresponsive and on BiPAP at high pressure. General exam; elderly woman, on full face BiPAP. Unresponsive. Currently in no distress. Exam/Review of Systems Vital Signs Vitals Vital Signs Date Time Temp Pulse Resp B/P Pulse Ox O2 Delivery O2 Flow Rate FiO2 05/20/17 08:17 90 05/20/17 07:56 98.0 18 146/69 98 05/20/17 07:50 50 05/19/17 01:45 BIPAP 05/18/17 22:00 2.0 Intake and Output 05/19/17 05/19/17 05/20/17 15:00 23:00 07:00 Intake Total 50 ml Output Total 450 ml Balance -400 ml Exam HEENT exam supple neck JVD difficult to see. Has edentulous upper jaw. Pupils are small bilaterally. Chest exam; diminished breath sounds throughout. S1-S2 audible, no murmurs. Abdomen exam; soft, no organomegaly. Bowel sounds are sluggish. Extremity exam; trace edema. SLOT MANAGER exam; patient remains unresponsive. Results Result Diagram: 05/19/17 0323 05/19/17 0322 Results 24 hrs Laboratory Tests Test 05/19/17 17:00 05/20/17 07:00 Blood Gas Specimen Source Blood arterial Blood arterial Arterial Blood Date Drawn 05/19/2017 5:28:11 PM 05/20/2017 9:20:47 AM Arterial Blood pH (Temp corrected) 7.171 *L 7.236 *L Arterial Blood pCO2 (Temp correct) 116.2 *H 99.9 *H Arterial Blood pO2 (Temp corrected) 75.3 L 101.7 H Arterial Blood HCO3 41.5 *H 41.5 *H Arterial Blood Base Excess 7.6 H 9.0 H Arterial Blood Oxygen Saturation 94.6 L 97.5 Dario Test N/A ACCEPTAB Arterial Blood Gas Puncture Site Right Radial Left Radial Arterial Blood Carboxyhemoglobin 0.7 0.7 Arterial Blood Methemoglobin 0.3 0.4 Blood Gas A-a O2 Differential 224.7 H 142.4 H Oxyhemoglobin Percent 93.7 96.4 Total Hemoglobin 15.8 16.0 Blood Gas Temperature 37.0 37.0 Blood Gas Respiration Rate 20.0 20.0 Blood Gas Actual Respiration Rate 20 20 Blood Gas Modality MASK - BIPAP MASK - BIPAP FiO2 60.0 50.0 Blood Gas Low PEEP Setting 8.0 Blood Gas Inspiratory Pressure 20.0 Blood Gas Critical Value Read Back [place] PLASENCIA RN DR GIRALDO Blood Gas Notified Whom FREYA LEED Blood Gas Notified Time 05/19/2017 5:35:32 PM 05/20/2017 9:33:10 AM Blood Gas IPAP/EPAP Ratio 20/8 Medications Medications Current Medications Acetaminophen (Tylenol Tab) 650 mg Q6H PRN PO PAIN LEVEL 1-3 OR FEVER; Start at 20:30 Morphine Sulfate (morphine) 2 mg Q4H PRN IV PAIN LEVEL 7-10; Start 05/18/17 at 20:30 Docusate Sodium (Colace) 100 mg Q12H PRN PO CONSTIPATION; Start 05/18/17 at 20: 30 Bisacodyl (Dulcolax) 5 mg DAILY PRN PO CONSTIPATION; Start 05/18/17 at 20:30 Aspirin (Halfprin) 81 mg DAILY PO ; Start 05/19/17 at 09:00 Potassium Chloride (Micro-K) 16 meq DAILY PO ; Start 05/19/17 at 09:00 Atorvastatin Calcium (Lipitor) 20 mg QHS PO ; Start 05/18/17 at 21:30 Ondansetron HCl (Zofran Inj) 4 mg Q6H PRN IV NAUSEA AND/OR VOMITING; Start 05/18 at 23:30 Acetaminophen 650 mg [address] PAIN LEVEL 1-3 OR FEVER; Start 05/18/17 at 23:30 Cefepime HCl (Maxipime 2gm/50 ml (Pmx)) 50 ml @ 100 mls/hr Q8 IVPB Last administered on 05/20/17t 05:24; Admin Dose 100 MLS/HR; Start 05/19/17 at 00:30 Methylprednisolone Sodium Succinate (Solu-Medrol) 40 mg Q8 IV Last administered on 05/20/17t 05:24; Admin Dose 40 MG; Start 05/19/17 at 06:00 SEVERINO MCMILLAN May 20, 2017 10:18
--- NOTE | 2017-05-20 10:44 | RADRPT ---
PROCEDURE: XR Chest 1 view. CLINICAL INDICATION: Shortness of breath. TECHNIQUE: AP views of the chest were obtained. COMPARISON: CR CHEST 05/18/[address] May 18, 2017 FINDINGS: The heart is large. Calcified atherosclerosis is noted in the aorta. Left-sided dual chamber pacema ker/defibrillator has its leads over the heart and appears stable. Central pulmonary vascular conges tion and interstitial prominence is seen in both lungs. Retrocardiac opacity is stable. Patchy right lower lung infiltrates, possibly combined small pleural effusion are similar to prior exam, given d ifferences in technique. The osseous structures appear grossly intact. IMPRESSION: Cardiomegaly with calcified atherosclerosis in the aorta. Central pulmonary vascular congestion and interstitial prominence in both lungs. Stable retrocardiac opacity that may reflect left lower lobe atelectasis or infiltrate combined with small pleural effusion. Stable right lower lung infiltrates, possibly combined with small pleural effusion. RPTAT: AA .Freeman Mckeon MD, Date Time Electronically viewed and signed by .Freeman Mckeon MD, on 05/20/2017 10:44 .P/
[2017-05-20] MEDS ORDERED: ACETAMINOPHEN 1000MG/100ML IV 100 ML IVPB PRN (15:00)
[2017-05-20] MEDS ORDERED: ATROPINE 1% 5 ML OPH SL PRN (15:00)
[2017-05-20] MEDS ORDERED: ONDANSETRON 4 MG INJ IV PRN (15:00)
[2017-05-20] MEDS ORDERED: LORAZEPAM 2 MG INJ IV PRN (15:00)
[2017-05-20] MEDS ORDERED: DIMETHICONE STICK TOP PRN (15:00)
[2017-05-20] MEDS ORDERED: GLYCOPYRROLATE 0.2 MG/ML PO SYG PO PRN (15:00)
[2017-05-20] MEDS ORDERED: ARTIFICIAL TEARS 15 ML OPH BOTH EYES PRN (16:30)
--- NOTE | 2017-05-20 17:15 | PN ---
Date/Time of Note Date/Time of Note DATE: 05/20/17 TIME: 17:12 Assessment/Plan VTE Prophylaxis VTE Prophylaxis Intervention: SCD's Lines/Catheters IV Catheter Type (from Nrs): Saline Lock Assessment/Plan Chief Complaint/Hosp Course Assessment/Plan: 81 yo F admitted for severe acute hypercapnic respiratory failure. ABG with severe respiratory acidosis most likely combo of OHS, COPD. No PE on imaging. PLAN: Chart reviewed. Appears pt hospitalized in November for same scenario. Was intubated at that time, eventually discharged to [place] after extubation though respiratory acidosis much worse this time than at November admit -continue BiPap. Admitting physician and pulm data consultant affirmed DNR/DNI status with family. -For now cont empiric COPD treatment with steroids and abx -Per nursing staff, family has agreed for inpatient hospice, later this evening patient will be transferred under their services. -all bp meds on hold given lowish BPs on arrival and initiation of lasix -NPO given AMS Problems: Subjective 24 Hr Interval Summary Free Text/Dictation Family meeting held earlier today, family agrees for inpatient hospice now, patient DNR. Exam/Review of Systems Vital Signs Vitals Vital Signs Date Time Temp Pulse Resp B/P Pulse Ox O2 Delivery O2 Flow Rate FiO2 05/20/17 16:17 65 05/20/17 16:04 98.0 18 135/68 98 05/20/17 07:50 50 05/19/17 01:45 BIPAP 05/18/17 22:00 2.0 Intake and Output 05/19/17 05/19/17 05/20/17 15:00 23:00 07:00 Intake Total 50 ml Output Total 450 ml Balance -400 ml Exam wearing bipap does not respond to verbal stimuli poor air movement trace edema no rashes Results Result Diagram: 05/19/17 0323 05/19/17 0322 Results 24 hrs Laboratory Tests Test 05/20/17 07:00 Blood Gas Specimen Source Blood arterial Arterial Blood Date Drawn 05/20/2017 9:20:47 AM Arterial Blood pH (Temp corrected) 7.236 *L Arterial Blood pCO2 (Temp correct) 99.9 *H Arterial Blood pO2 (Temp corrected) 101.7 H Arterial Blood HCO3 41.5 *H Arterial Blood Base Excess 9.0 H Arterial Blood Oxygen Saturation 97.5 Dario Test ACCEPTAB Arterial Blood Gas Puncture Site Left Radial Arterial Blood Carboxyhemoglobin 0.7 Arterial Blood Methemoglobin 0.4 Blood Gas A-a O2 Differential 142.4 H Oxyhemoglobin Percent 96.4 Total Hemoglobin 16.0 Blood Gas Temperature 37.0 Blood Gas Respiration Rate 20.0 Blood Gas Actual Respiration Rate 20 Blood Gas Modality MASK - BIPAP FiO2 50.0 Blood Gas IPAP/EPAP Ratio 20/8 Blood Gas Critical Value Read Back DR GIRALDO Blood Gas Notified Whom JESUSD Blood Gas Notified Time 05/20/2017 9:33:10 AM Medications Medications Current Medications Acetaminophen (Tylenol Tab) 650 mg Q6H PRN PO PAIN LEVEL 1-3 OR FEVER; Start at 20:30 Morphine Sulfate (morphine) 2 mg Q4H PRN IV PAIN LEVEL 7-10 Last administered on 05/20/17 13:16; Admin Dose 2 MG; Start 05/18/17 at 20:30 Docusate Sodium (Colace) 100 mg Q12H PRN PO CONSTIPATION; Start 05/18/17 at 20: 30 Bisacodyl (Dulcolax) 5 mg DAILY PRN PO CONSTIPATION; Start 05/18/17 at 20:30 Aspirin (Halfprin) 81 mg DAILY PO ; Start 05/19/17 at 09:00 Potassium Chloride (Micro-K) 16 meq DAILY PO ; Start 05/19/17 at 09:00 Atorvastatin Calcium (Lipitor) 20 mg QHS PO ; Start 05/18/17 at 21:30 Ondansetron HCl (Zofran Inj) 4 mg Q6H PRN IV NAUSEA AND/OR VOMITING; Start 05/18 at 23:30 Acetaminophen 650 mg 650 mg Q4H PRN [place] PAIN LEVEL 1-3 OR FEVER; Start 05/18/17 at 23:30 Cefepime HCl (Maxipime 2gm/50 ml (Pmx)) 50 ml @ 100 mls/hr Q8 IVPB Last administered on 05/20/17 05:24; Admin Dose 100 MLS/HR; Start 05/19/17 at 00:30 Methylprednisolone Sodium Succinate (Solu-Medrol) 40 mg Q8 IV Last administered on 05/20/17 14:25; Admin Dose 40 MG; Start 05/19/17 at 06:00 Morphine Sulfate 2 mg 2 mg Q2H PRN IV PAIN/DYSPNEA; Start 05/20/17 at 15:00 Acetaminophen (Ofirmev 1000mg/ 100ml Iv) 100 ml @ 400 mls/hr Q6H PRN IVPB PAIN AND OR ELEVATED TEMP; Start 05/20/17 at 15:00 Lorazepam (Ativan) 1 mg Q4H PRN IV ANXIETY/SEIZURES; Start 05/20/17 at 15:00 Atropine Sulfate (Atropine 1% Oph) 2 drop Q4H PRN SL TERMINAL CONGESTION; Start 05/20/17 at 15:00 Glycopyrrolate (Robinul Liquid (Ped)) 0.4 mg Q4H PRN PO TERMINAL CONGESTION; Start 05/20/17 at 15:00 YAMILETH WAITE May 20, 2017 17:15
--- NOTE | 2017-05-20 20:51 | HP ---
DATE OF ADMISSION: 05/18/2017 CHIEF COMPLAINT: As been obtained from medical records. Patient is lethargic and could not provide any useful history. Patient also is on BiPAP. HISTORY OF PRESENT ILLNESS: Patient is an 81-year-old female with a history of recurrent hypercapnic respiratory failure secondary to COPD, congestive heart failure and obesity- hypoventilation syndrome. Patient was at one time admitted onto [facility] in November 2016. Patient was recently admitted due to recurrence of acute hypercapnic respiratory failure. Patient was started on BiPAP. Initial ABG revealed pH of 7.2, with pCO2 of 75, pO2 of 70. As patient continued to deteriorate, family made her DNI and DNR. This morning, patient's family met with the attending physician and requested hospice eval. Patient therefore has been subsequently admitted under hospice care on the [facility] level of care. Patient's review of systems was rather limited because of patient's mental status. Patient was recently seen by a franchise field consultant, . Patient does have ASCD. Details not available. EF was noted to be 45-50 percent. No reported fever or chills today. No reported vomiting. No reported any seizures. No reported bleeding from any site. PAST SURGICAL HISTORY: Status post AICD. FAMILY HISTORY: Noncontributory to the patient's condition. SOCIAL HISTORY: No smoking. No alcohol. PHYSICAL EXAMINATION: GENERAL APPEARANCE: Patient to be lethargic. VITAL SIGNS: Temperature 98, pulse 81, respirations 18, blood pressure 112/68, O2 sat 98 percent on FiO2 of 50 percent. HEENT: No eye discharge or redness. Nose and ears normal externally. Oropharynx could not be done because of BiPAP. NECK: No mass. CHEST: Diminished air entry at bases. CARDIAC: S1, S2 normal. No murmur. ABDOMEN: Soft, nondistended, nontender. EXTREMITIES: Trace edema. NEUROLOGIC: Patient is lethargic and does not respond to verbal stimuli. SKIN: Without acute rash. RECENT LABORATORY: WBC 8.3, hemoglobin 14.6, platelets 140. Sodium 142, potassium 5.1, BUN 14, creatinine 0.6, glucose 153. ABG done this morning, despite BiPAP, revealed patient to have a pH of 7.2, pCO2 was 99.9, pO2 was 101.1. IMPRESSION: 1. Acute hypercarbic respiratory failure, with encephalopathy. 2. Underlying obesity-hypoventilation syndrome and obstructive sleep apnea syndrome. 3. Systolic heart failure. PLAN: Patient will be admitted under hospice care and will be given 2 mg of morphine prior to removing the BiPAP and will be switched to 2 mg morphine sulfate every 2 hours as needed. Patient will be given Zofran for nausea and vomiting, atropine drops for secretions. Patient will be given breathing treatment for chest congestion, Tylenol for fever. Plan of care discussed with nurse. Patient also recently received steroid and antibiotic, but will hold off on it since patient continues to have declined. Patient will remain n.p.o. due to encephalopathy. Will discuss with the family when available. Will continue to optimize comfort care. Dictated By: Vish Cavazos MD /sanjana/romeo /Document#: [id number]
[2017-05-21] MEDS: morphine 2 MG INJ IV PRN ×5 (03:13→22:10)
[2017-05-21 08:05] VITALS: BP 171/79; RESP 20
--- NOTE | 2017-05-21 11:16 | CONS ---
Date/Time of Note Date/Time of Note DATE: 05/21/17 TIME: 11:14 Assessment/Plan Assessment/Plan Additional Assessment/Plan Assessment and recommendations; 1. Patient admitted with severe hypercapnic respiratory failure with possibly superimposed bilateral pneumonia. 2. History of cardiac arrhythmia. 3. Advanced dementia. 4. Possibly some element of superimposed pulmonary fibrosis. Continue current supportive care. Prognosis is very poor. Consultation Date/Type/Reason Admit Date/Time May 18, 2017 at 19:26 Type of Consultation: Pulmonary 24 HR Interval Summary Free Text/Dictation Patient's condition remains poor. Remains completely unresponsive. General exam; elderly woman, on BiPAP. Unresponsive. Currently in no distress. Exam/Review of Systems Vital Signs Vitals Vital Signs Date Time Temp Pulse Resp B/P Pulse Ox O2 Delivery O2 Flow Rate FiO2 05/21/17 08:05 98.1 77 20 171/79 94 05/21/17 00:06 3.0 05/20/17 20:30 Nasal Cannula 05/20/17 17:00 50 Exam HEENT exam; supple neck, JVD difficult to see because of short neck. Patient is on BiPAP. Patient is edentulous. Has bilateral intraocular lens implants. Chest exam; diminished breath sounds throughout. S1-S2 audible, no murmurs. Regular rhythm. There is a pacemaker in the left chest wall. Abdomen exam; soft, nondistended. No organomegaly. Bowel sounds audible. Extremity exam; trace edema. CHILD WELFARE SOCIAL WORKER exam; patient remains unresponsive. Results Result Diagram: 05/19/17 0323 05/19/17 0322 Medications Medications Current Medications Morphine Sulfate (morphine) 2 mg Q4H PRN IV PAIN LEVEL 7-10 Last administered on 05/20/17 13:16; Admin Dose 2 MG; Start 05/18/17 at 20:30 Ondansetron HCl (Zofran Inj) 4 mg Q6H PRN IV NAUSEA AND/OR VOMITING; Start 05/18 at 23:30 Acetaminophen (Tylenol Supp) 650 mg Q4H PRN [place] PAIN LEVEL 1-3 OR FEVER; Start 05/18/17 at 23:30 Morphine Sulfate 2 mg 2 mg Q2H PRN IV PAIN/DYSPNEA Last administered on 03:13; Admin Dose 2 MG; Start 05/20/17 at 15:00 Acetaminophen (Ofirmev 1000mg/ 100ml Iv) 100 ml @ 400 mls/hr Q6H PRN IVPB PAIN AND OR ELEVATED TEMP; Start 05/20/17 at 15:00 Lorazepam (Ativan) 1 mg Q4H PRN IV ANXIETY/SEIZURES; Start 05/20/17 at 15:00 Atropine Sulfate (Atropine 1% Oph) 2 drop Q4H PRN SL TERMINAL CONGESTION; Start 05/20/17 at 15:00 Glycopyrrolate (Robinul Liquid (Ped)) 0.4 mg Q4H PRN PO TERMINAL CONGESTION; Start 05/20/17 at 15:00 SEVERINO MCMILLAN May 21, 2017 11:16
[2017-05-21] MEDS ORDERED: HYOSCYAMINE 0.125 MG SUBL TAB SL PRN (14:30)
[2017-05-21] MEDS ORDERED: DIMETHICONE STICK TOP PRN (15:00)
--- NOTE | 2017-05-21 22:57 | PN ---
DATE: 05/21/2017 LEVEL OF CARE: [facility] DIAGNOSIS: Acute respiratory failure. SUBJECTIVE: Patient was taken off BiPAP yesterday as per family request. Patient remains lethargic, opens eyes on stimuli, however, appears confused. No reported fever or chills. No reported bleeding from any site. No active wheezing. Patient did receive morphine at 4 o'clock this morning, as well as 12 noon. Patient's shortness of breath seems controlled. No seizures. OBJECTIVE DATA: GENERAL: Patient noted to be lethargic but arousable, however does not follow any commands. VITAL SIGNS: Blood pressure 170/79, pulse 77, respirations 20, temperature 98.1, O2 sat 94% on 3 L. HEENT: No eye discharge or redness. NECK: No mass. CHEST: Diminished air entry bilaterally. CVS: S1, S2 normal. No murmur. ABDOMEN: Soft, nondistended. EXTREMITIES: No leg edema. NEURO: Patient is lethargic but arousable; however, does not follow any commands. IMPRESSION: 1. Acute respiratory failure. 2. Obesity hypoventilation syndrome. 3. Hypertension. 4. Systolic heart failure with ejection fraction back in November 2016 at 45-50 percent. Continue morphine sulfate to every 2 hours p.r.n., atropine drops for secretions, Ativan for anxiety, and routine comfort medications. Will discuss with the family when available. PLAN: Plan of care discussed with nursing staff at [facility], as well as MONICA Morillo. Will continue to optimize comfort care. Meanwhile, Dr. Ariel Akers's office is being contacted for deactivating ICD. Dictated By: Vish Cavazos MD /sanjana/stephani /Document#: [id number] MARY GRACE
[2017-05-22] MEDS: morphine 2 MG INJ IV PRN ×6 (00:18→20:40)
[2017-05-22 02:51] VITALS: BP 145/67; RESP 20
[2017-05-22 08:31] VITALS: BP 129/60; RESP 20
--- NOTE | 2017-05-22 11:10 | CONS ---
Date/Time of Note Date/Time of Note DATE: 05/22/17 TIME: 11:04 Assessment/Plan Assessment/Plan Additional Assessment/Plan Assessment and recommendations; 1. Patient admitted with hypercapnic respiratory failure with bilateral pneumonia and CHF. 2. Very little clinical improvement since admission. 3. Patient has appropriately been made a DNR. Continue current treatment. Prognosis appears poor. Consultation Date/Type/Reason Admit Date/Time May 18, 2017 at 19:26 Type of Consultation: Pulmonary 24 HR Interval Summary Free Text/Dictation Patient's condition remains unchanged. Remains unresponsive. Patient however has been weaned off BiPAP. General exam; elderly woman, unresponsive, currently in no distress. Exam/Review of Systems Vital Signs Vitals Vital Signs Date Time Temp Pulse Resp B/P Pulse Ox O2 Delivery O2 Flow Rate FiO2 05/22/17 08:31 98.3 74 20 129/60 90 05/22/17 01:33 3.0 05/21/17 08:00 Nasal Cannula 05/20/17 17:00 50 Intake and Output 05/21/17 05/21/17 05/22/17 15:00 23:00 07:00 Intake Total 0 ml Output Total 600 ml Balance -600 ml Exam HEENT exam; supple neck, no JVD. No lymphadenopathy. Midline trachea. No thyromegaly. Pupils are small bilaterally. Chest exam; bilateral crackles. S1-S2 audible, no murmurs. Regular rhythm. Abdomen exam; soft, no organomegaly. Bowel sounds audible. Nondistended. Extremity exam; no peripheral edema. 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 Results Result Diagram: 05/19/17 0323 05/19/17 0322 Medications Medications Current Medications Morphine Sulfate (morphine) 2 mg Q2H PRN IV PAIN/DYSPNEA Last administered on t 10:31; Admin Dose 2 MG; Start 05/20/17 at 15:00 Lorazepam (Ativan) 1 mg Q4H PRN IV ANXIETY/SEIZURES; Start 05/20/17 at 15:00 Atropine Sulfate (Atropine 1% Oph) 2 drop Q4H PRN SL TERMINAL CONGESTION; Start 05/20/17 at 15:00 SEVERINO MCMILLAN May 22, 2017 11:10
[2017-05-22 20:45] VITALS: BP 158/74; RESP 18
[2017-05-23] MEDS: morphine 2 MG INJ IV PRN ×2 (03:40→07:59)
--- NOTE | 2017-05-23 04:47 | PN ---
DATE: 05/22/2017 SUBJECTIVE DATA: Follow up on respiratory failure, congestive heart failure, obesity hypopnea syndrome, hypertension. The patient continues to remain lethargic. The patient received multiple doses of morphine since yesterday, especially at night. Patient received 2 doses of morphine since this morning and seems comfortable. Patient is breathing without any distress. The patient did not have any fever or chills. No reported seizure. OBJECTIVE DATA: GENERAL: Patient appears to be lethargic. VITAL SIGNS: Temperature 98.3, pulse 74, respirations 20, blood pressure 129/60, O2 sat 90 percent on nasal cannula. HEENT: No eye discharge. No redness noted and normal. NECK: No mass. CHEST: Diminished air entry at bases. HEART: S1, S2 normal. No murmur. ABDOMEN: Soft, nontender, obese. EXTREMITIES: No edema, clubbing, or cyanosis. NEUROLOGIC: Patient is lethargic. IMPRESSION: 1. Acute respiratory failure. 2. Obesity hypopnea syndrome. 3. Hypertension. 4. Systolic heart failure. PLAN: The patient remains on IV morphine at 2 mg every 2 hours as needed and Ativan 1 mg q.4 h as needed. The patient's terminal symptoms are controlled. The patient remains appropriate for GIP level of care and remains terminally ill. The patient's defibrillator has been deactivated. The patient's pacemaker settings have been changed to provide comfort care. Plan of care discussed with Nurse Ilia. Dictated By: Vish Cavazos MD /sanjana/linda /Document#: [id number]
[2017-05-23 08:17] VITALS: BP 174/83; RESP 20
--- NOTE | 2017-05-23 10:54 | CONS ---
Date/Time of Note Date/Time of Note DATE: 05/23/17 TIME: 10:47 Assessment/Plan Assessment/Plan Additional Assessment/Plan Assessment recommendations; 1. Patient admitted with pneumonia and hypercapnic respiratory failure with significant improvement in mental status over the last 24 hours. 2. History of underlying dementia. Continue current supportive care. Consider discharge. Consultation Date/Type/Reason Admit Date/Time May 18, 2017 at 19:26 Type of Consultation: Pulmonary 24 HR Interval Summary Free Text/Dictation Patient condition is significantly improved in the last 24 hours. Patient is now completely awake and follows simple commands like mouth opening and hand squeezing. Patient though unable to answer any questions. General exam; elderly woman, awake, currently in no distress. Exam/Review of Systems Vital Signs Vitals Vital Signs Date Time Temp Pulse Resp B/P Pulse Ox O2 Delivery O2 Flow Rate FiO2 05/23/17 09:26 Nasal Cannula 4.0 05/23/17 08:17 98.0 79 20 174/83 92 05/20/17 17:00 50 Intake and Output 05/22/17 05/22/17 05/23/17 15:00 23:00 07:00 Intake Total 0 ml Balance 0 ml Exam HEENT exam; supple neck no JVD. No lymphadenopathy. Midline trachea. No thyromegaly. Patient is edentulous. Has bilateral intraocular lens implants. Chest exam; diminished but clear breath sounds. S1-S2 audible, no murmurs. Regular rhythm. Abdomen exam; soft, nondistended. Nontender. No organomegaly. Bowel sounds audible. Extremity exam; no peripheral edema. 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 Results Result Diagram: 05/19/17 0323 05/19/17 0322 Medications Medications Current Medications Morphine Sulfate (morphine) 2 mg Q2H PRN IV PAIN/DYSPNEA Last administered on t 07:59; Admin Dose 2 MG; Start 05/20/17 at 15:00 Lorazepam (Ativan) 1 mg Q4H PRN IV ANXIETY/SEIZURES; Start 05/20/17 at 15:00 Atropine Sulfate (Atropine 1% Oph) 2 drop Q4H PRN SL TERMINAL CONGESTION; Start 05/20/17 at 15:00 SEVERINO MCMILLAN May 23, 2017 10:53
[2017-05-23] MEDS ORDERED: ALBUTEROL/IPRATROPIUM (NEB) 3 ML AMP HHN PRN (13:00)
[2017-05-23 14:45] VITALS: BP 163/93; PULSE 88; RESP 20
[2017-05-23] MEDS ORDERED: hydrALAzine 20 MG INJ IV PRN (15:00)
[2017-05-23] MEDS: AMLODIPINE 10 MG TAB PO SCH (15:16)
[2017-05-23] MEDS: ENOXAPARIN 40 MG/0.4 ML SYG SC SCH (15:24)
[2017-05-23] MEDS: ALBUTEROL/IPRATROPIUM (NEB) 3 ML AMP HHN SCH ×2 (15:38→23:37)
--- NOTE | 2017-05-23 16:39 | PN ---
Date/Time of Note Date/Time of Note DATE: 05/23/17 TIME: 16:33 Assessment/Plan VTE Prophylaxis VTE Prophylaxis Intervention: other Lines/Catheters IV Catheter Type (from Nrs): Saline Lock Urinary Cath still in place: No Assessment/Plan Assessment/Plan 1. Acute respiratory failure. 2. Obesity hypopnea syndrome. 3. Hypertension. 4. Systolic heart failure Defibrillator was never deactivated as patent family requested for . Juan Luis Cavazos/staff 1. Acute respiratory failure. 2. Obesity hypopnea syndrome. 3. Hypertension.- IV Hydralazine PRN 4. Systolic heart failure. large isodense splenic mass measuring 7.1 x 6.5 cm. large isodense splenic mass measuring 7.1 x 6.5 cm. The patient remains on IV morphine at 2 mg every 2 hour as needed and Ativan 1 mg q.4 h as needed. Juan Luis Cavazos Exam/Review of Systems Vital Signs Vitals Vital Signs Date Time Temp Pulse Resp B/P Pulse Ox O2 Delivery O2 Flow Rate FiO2 05/23/17 15:45 69 20 97 Nasal Cannula 4.0 05/23/17 14:45 98.4 163/93 05/20/17 17:00 50 Intake and Output 05/22/17 05/22/17 05/23/17 15:00 23:00 07:00 Intake Total 0 ml Balance 0 ml Results Result Diagram: 05/19/17 0323 05/19/17 0322 Medications Medications Current Medications Morphine Sulfate (morphine) 2 mg Q2H PRN IV PAIN/DYSPNEA Last administered on 07:59; Admin Dose 2 MG; Start 05/20/17 at 15:00 Lorazepam (Ativan) 1 mg Q4H PRN IV ANXIETY/SEIZURES; Start 05/20/17 at 15:00 Atropine Sulfate (Atropine 1% Oph) 2 drop Q4H PRN SL TERMINAL CONGESTION; Start 05/20/17 at 15:00 Enoxaparin Sodium (Lovenox) 40 mg DAILY SC Last administered on 05/23/17 15:24 ; Admin Dose 40 MG; Start 05/23/17 at 15:00 Amlodipine Besylate (Norvasc) 10 mg DAILY PO Last administered on 05/23/17 15: 16; Admin Dose 10 MG; Start 05/23/17 at 15:00 Hydralazine HCl (Apresoline) 10 mg Q6H PRN IV ELEVATED BLOOD PRESSURE Last administered on 05/23/17t 15:16; Admin Dose 10 MG; Start 05/23/17 at 15:00 JOSH FRY May 23, 2017 16:39
[2017-05-23 17:14] VITALS: BP 132/59; PULSE 96; RESP 18
[2017-05-23 20:53] VITALS: BP 116/80; RESP 18
--- NOTE | 2017-05-23 23:59 | PN ---
DATE: 05/23/2017 Level of care: [facility]. SUBJECTIVE DATA: Follow up on respiratory failure, obesity- hyperventilation syndrome, congestive heart failure. Patient is currently breathing comfortably on supplemental oxygen. Patient is more awake, alert, and responsive. No reported fever or chills. No reported abdominal distention. No reported acute skin rash or leg edema. Patient did not have any fever or chills or bleeding of any site. OBJECTIVE DATA: GENERAL: Found patient to be alert, follows simple commands. VITAL SIGNS: Afebrile. Blood pressure in 160s. NECK: No mass. No JVD. CHEST: Revealed a few scattered rhonchi. No use of accessory muscles. CARDIAC: S1, S2 normal. No murmur. ABDOMEN: Soft, nondistended, nontender. EXTREMITIES: Trace edema. No clubbing, cyanosis. NEUROLOGIC: Patient is awake, alert, and follows simple commands. IMPRESSION: 1. [id number] hypercarbic respiratory failure. Continue supplemental oxygen. Patient's family took her off BiPAP. 2. Congestive heart failure and hypertension. Patient has not had any p.o. intake for the last 4 days. We will hold off on diuretics. Meanwhile, we will start her on Norvasc for hypertension. I was called by [facility] nurse that family is requesting labs and also requesting actual treatment and not comfort care only. I called her [id number], who is the main spokesperson for the patient, and she did request that patient be managed more aggressively. She did concur with NO CHEST COMPRESSION OR DEFIBRILLATION. She also told me that she will be discussing with us regarding disenrolling her. For now, patient will be continued on comfort care. Will add breathing treatment every 8 hours [id number] and q.6 p.r.n. Further recommendation will depend on patient's hospital course. Dictated By: Vish Cavazos MD /sanjana/romeo /Document#: [id number]
[2017-05-24 02:21] VITALS: BP 127/75; RESP 18
[2017-05-24 05:57] LABS: BASOPHILS % 0.1 % (0.0-2.0); EOSINOPHILS % 0.4 % (0.0-7.0); HEMATOCRIT 50.2 % (37.0-47.0); HEMOGLOBIN 14.8 g/dl (12.0-16.0); LYMPHOCYTES # 1.4 10^3/ul (0.8-2.9); LYMPHOCYTES % 17.3 % (15.0-51.0); MEAN CORPUSCULAR HEMOGLOBIN 28.4 pg (29.0-33.0); MEAN CORPUSCULAR HGB CONC 29.5 g/dl (32.0-37.0); MEAN CORPUSCULAR VOLUME 96.4 fl (82.0-101.0); MEAN PLATELET VOLUME 10.9 fl (7.4-10.4); MONOCYTE # 0.6 10^3/ul (0.3-0.9); MONOCYTES % 7.5 % (0.0-11.0); NEUTROPHIL # 5.9 10^3/ul (1.6-7.5); NEUTROPHILS % 74.4 % (39.0-77.0); PLATELET COUNT 112 10^3/UL (140-415); RED BLOOD COUNT 5.21 10^6/ul (4.20-5.40); RED CELL DISTRIBUTION WIDTH 14.6 % (11.5-14.5)
[2017-05-24 06:24] LABS: ALBUMIN 3.3 g/dl (3.3-4.9); ALBUMIN/GLOBULIN RATIO 1.26; BILIRUBIN,INDIRECT 0.7 mg/dl (0-1.1); BILIRUBIN,TOTAL 0.7 mg/dl (0.2-1.3); CALCIUM 9.3 mg/dl (8.4-10.2); CREATININE 0.62 mg/dl (0.44-1.00); POTASSIUM 4.2 mmol/L (3.5-5.1); TOTAL PROTEIN 5.9 g/dl (6.1-8.1)
[2017-05-24] MEDS ORDERED: ACETAZOLAMIDE 500 MG INJ IV SCH ×2 (07:00→09:00)
[2017-05-24] MEDS: ALBUTEROL/IPRATROPIUM (NEB) 3 ML AMP HHN SCH ×3 (07:02→16:11)
--- NOTE | 2017-05-24 07:07 | CONS ---
DATE OF ADMISSION: 05/18/2017 DATE OF CONSULTATION: 05/23/2017 REASON FOR CONSULTATION: Congestive heart failure exacerbation, ICD. REFERRING PHYSICIAN: Vish Cavazos MD HISTORY OF PRESENT ILLNESS: Ms. Sheikh is an 81-year-old female with a history of cardiomyopathy, congestive heart failure, hypertension, ICD placement, dementia, who presented to the hospital with worsening shortness of breath. Initially, upon arrival on May 19, patient underwent ABG, revealing a pH of 7.2, with a pCO2 of 75 and a pO2 of 72. Additionally, patient's labs notable for a white blood cell count of 7.9, hemoglobin 14.5, platelet count of 153, a sodium of 143, potassium 4.8, creatinine 0.6, BUN 12. Troponin negative. BNP of 589. TSH 0.862. UA negative. Patient underwent a CTA that revealed no evidence of pulmonary embolism or aortic dissection, moderate cardiomegaly, bibasilar atelectasis and lower lobe consolidation, small left-sided pleural effusion, vascular calcifications, large isodense splenic mass. A chest x-ray revealed dual-chamber cardiac pacemaker on the left chest wall, cardiomegaly, and extensive infiltrates in the right lung and the base of the lungs which may be a result of asymmetric pulmonary edema from CHF or pneumonia cannot be excluded. Patient's electrocardiogram revealed ventricular paced rhythm at a rate of 94, A sensed. Patient in the emergency department received BiPAP, with some improvement, but was made DNI/DNR by family. Patient has now been admitted to the floor, where she remains at this time. PAST MEDICAL HISTORY: As above in HPI. MEDICATION: Currently in the hospital: 1. DuoNeb. 2. Lovenox. 3. Norvasc. 4. Hydralazine. 5. Morphine. 6. Ativan. 7. Atropine. ALLERGIES: NO KNOWN DRUG ALLERGIES. SOCIAL HISTORY: No tobacco, EtOH or illicit drug use. FAMILY HISTORY: Negative for sudden cardiac or early CAD. REVIEW OF SYSTEMS: As above in HPI. CONSTITUTIONAL: No fevers, chills. RESPIRATORY: Shortness of breath. HEART: Congestive heart failure. GASTROINTESTINAL: No vomiting. GENITOURINARY: No hematuria. MUSCULOSKELETAL: Degenerative joint disease. PSYCHIATRIC: Patient denies depression. NEUROLOGIC: No documented CVA. PHYSICAL EXAMINATION: VITAL SIGNS: Temperature of 98.4, blood pressure most recently 132/59, pulse 96, respiratory rate 18, satting 94 percent on 4 L. GENERAL: The patient is alert, awake. NECK: JVP approximately 9 cm water. CHEST: Mildly decreased breath sounds at the bases bilaterally. HEART: Regular rate and rhythm. Normal S1, S2. A 1/6 systolic murmur. Nondisplaced PMI. ABDOMEN: Positive bowel sounds. Soft. EXTREMITIES: No pitting edema, 1 plus pulses, bilateral posterior tibial and dorsalis pedis. LABORATORY: Above in HPI. No further labs reviewed. IMAGING STUDIES: As above in HPI. No further imaging studies are reviewed. ECG as above in HPI. No further electrocardiograms reviewed at this time. IMPRESSION: 1. Congestive heart failure exacerbation, systolic and diastolic by most recent echo, November 2016, revealing ejection fraction of 45-50 percent. 2. Cardiomyopathy, with decreased left ejection fraction, last approximately 45 percent by echo, November 2010. 3. Permanent pacemaker, sinus automatic internal cardioverter defibrillator, biventricular, status post interrogation, with proper function, battery life of greater than 2 years, detection criteria enabled. . 4. Hypertension. 5. Respiratory failure, now improved. 6. Splenic mass. RECOMMENDATIONS: 1. At this time, would consider initiation of GROVER inhibitor to patient's regimen to improve afterload reduction in the setting of systolic and diastolic heart failure. 2. Patient is status post troponins negative x3, ruling out for acute myocardial infarction. 3. Would continue the patient's additional Norvasc at this time for blood pressure control and will initiate patient on gentle Lasix diuresis. 4. Continue patient's current bronchodilators. Following respiratory status closely. 5. Follow up all culture data. 6. Pain control. Thank you for allowing me to participate in the care of this patient. I will continue to follow very closely with you, with recommendations to be made as patient goes through her inpatient hospital course. Dictated By: Kingsley Davis MD /sanjana/romeo /Document#: [id number] CC: Vish Cavazos MD;*EndCC* [facility]
[2017-05-24 08:13] VITALS: BP 126/64; RESP 19
[2017-05-24] MEDS: AMLODIPINE 10 MG TAB PO SCH (08:13)
[2017-05-24] MEDS: ENOXAPARIN 40 MG/0.4 ML SYG SC SCH (08:20)
--- NOTE | 2017-05-24 08:45 | RADRPT ---
PROCEDURE: XR Chest. CLINICAL INDICATION: Cough TECHNIQUE: AP Portable chest. COMPARISON: 05/20/2017 FINDINGS: The patient is rotated to the right. Left subclavian dual lead pacemaker is in place. The cardiomediastinal silhouette is enlarged. The heart and trachea deviated to the right. The aorti c arch is calcified. The lung volumes are low. No pneumothorax is seen. Right middle lobe, right ret rocardiac, left basilar opacities and pleural effusion are again demonstrated. The osseous structur es are intact. IMPRESSION: Right-sided volume loss. Right middle lobe, bibasilar opacities and small pleural effusion are uncha nged. Cardiomegaly and atherosclerotic aorta. Physician Debi Date Time Electronically viewed and signed by Physician Debi on 05/24/2017 08:44 CS/
[2017-05-24] MEDS ORDERED: FUROSEMIDE 20 MG INJ IV SCH (09:00)
[2017-05-24] MEDS ORDERED: BENAZEPRIL 10 MG TAB PO SCH (09:00)
--- NOTE | 2017-05-24 09:19 | CONS ---
Date/Time of Note Date/Time of Note DATE: 05/24/17 TIME: :17 Assessment/Plan Assessment/Plan Additional Assessment/Plan Assessment and recommendations; 1. Patient admitted with pneumonia and hypercapnic respiratory failure with marked interval improvement. 2. History of cardiac arrhythmia. 3. Possibly some element of dementia. Continue current supportive care. Consultation Date/Type/Reason Admit Date/Time May 18, 2017 at 19:26 Type of Consultation: Pulmonary 24 HR Interval Summary Free Text/Dictation Patient's condition is continually improving. She is much more awake and alert. Trying to talk some more. Also follows simple commands. General exam; elderly woman, awake, currently in no distress. Exam/Review of Systems Vital Signs Vitals Vital Signs Date Time Temp Pulse Resp B/P Pulse Ox O2 Delivery O2 Flow Rate FiO2 05/24/17 08:13 98.6 80 19 126/64 86 05/24/17 07:06 4.0 05/23/17 23:37 Nasal Cannula 05/20/17 17:00 50 Intake and Output 05/23/17 05/23/17 05/24/17 15:00 23:00 07:00 Intake Total 220 ml 300 ml Balance 220 ml 300 ml Exam HEENT exam; supple neck, no lymphadenopathy. No thyromegaly. Is edentulous. Has bilateral intraocular lens implants. Chest exam; diminished breath sounds bilaterally. S1-S2 audible, no murmurs. Regular rhythm. Abdomen exam; soft, nontender. No organomegaly. Bowel sounds audible. Extremity exam; no peripheral edema. 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 Follows simple commands and moves all 4 extremities. Results Result Diagram: 05/24/17 0501 05/24/17 0501 Results 24 hrs Laboratory Tests Test 05/24/17 05:01 White Blood Count 8.0 Red Blood Count 5.21 Hemoglobin 14.8 Hematocrit 50.2 H Mean Corpuscular Volume 96.4 Mean Corpuscular Hemoglobin 28.4 L Mean Corpuscular Hemoglobin Concent 29.5 L Red Cell Distribution Width 14.6 H Platelet Count 112 L Mean Platelet Volume 10.9 H Neutrophils % 74.4 Lymphocytes % 17.3 Monocytes % 7.5 Eosinophils % 0.4 Basophils % 0.1 Nucleated Red Blood Cells % 0.0 Neutrophils # 5.9 Lymphocytes # 1.4 Monocytes # 0.6 Eosinophils # 0.0 Basophils # 0.0 Nucleated Red Blood Cells # 0.0 Sodium Level 140 Potassium Level 4.2 Chloride Level 96 L Carbon Dioxide Level 43 *H Anion Gap 5 L Blood Urea Nitrogen 32 H Creatinine 0.62 Glucose Level 124 Calcium Level 9.3 Total Bilirubin 0.7 Direct Bilirubin 0.00 Indirect Bilirubin 0.7 Aspartate Amino Transf (AST/SGOT) 19 Alanine Aminotransferase (ALT/SGPT) 19 Alkaline Phosphatase 40 L Total Protein 5.9 L Albumin 3.3 Globulin 2.60 Albumin/Globulin Ratio 1.26 Medications Medications Current Medications Morphine Sulfate (morphine) 2 mg Q2H PRN IV PAIN/DYSPNEA Last administered on 07:59; Admin Dose 2 MG; Start 05/20/17 at 15:00 Lorazepam (Ativan) 1 mg Q4H PRN IV ANXIETY/SEIZURES; Start 05/20/17 at 15:00 Atropine Sulfate (Atropine 1% Oph) 2 drop Q4H PRN SL TERMINAL CONGESTION; Start 05/20/17 at 15:00 Enoxaparin Sodium (Lovenox) 40 mg DAILY SC Last administered on 05/24/17 08:20 ; Admin Dose 40 MG; Start 05/23/17 at 15:00 Amlodipine Besylate (Norvasc) 10 mg DAILY PO Last administered on 05/24/17 08: 13; Admin Dose 10 MG; Start 05/23/17 at 15:00 Hydralazine HCl (Apresoline) 10 mg Q6H PRN IV ELEVATED BLOOD PRESSURE Last administered on 05/23/17 15:16; Admin Dose 10 MG; Start 05/23/17 at 15:00 Benazepril HCl (Lotensin) 10 mg DAILY PO Last administered on 05/24/17 08:12; Admin Dose 10 MG; Start 05/24/17 at 09:00 Furosemide (Lasix) 20 mg DAILY IV Last administered on 05/24/17 08:12; Admin Dose 20 MG; Start 05/24/17 at 09:00 Acetazolamide (Diamox) 500 mg DAILY IV ; Start 05/24/17 at 09:00 SEVERINO MCMILLAN May 24, 2017 09:19
[2017-05-24 14:00] VITALS: BP 113/70; RESP 19
--- NOTE | 2017-05-24 15:17 | PN ---
Date/Time of Note Date/Time of Note DATE: 05/24/17 TIME: 15:16 Assessment/Plan Lines/Catheters IV Catheter Type (from [facility]): Saline Lock Urinary Cath still in place: No Assessment/Plan Assessment/Plan 1. Acute respiratory failure. 2. Obesity hypopnea syndrome. 3. Hypertension. 4. Systolic heart failure Defibrillator was never deactivated as patent family requested for . Juan Luis Cavazos/staff 1. Acute respiratory failure. 2. Obesity hypopnea syndrome. 3. Hypertension.- IV Hydralazine PRN 4. Systolic heart failure. large isodense splenic mass measuring 7.1 x 6.5 cm. large isodense splenic mass measuring 7.1 x 6.5 cm. The patient remains on IV morphine at 2 mg every 2 hour as needed and Ativan 1 mg q.4 h as needed. Juan Luis Cavazos Subjective 24 Hr Interval Summary Free Text/Dictation Elevated CO2- on Diamox, pulmonary follows. For Russell evaluation-[email or web address].dw staff Exam/Review of Systems Vital Signs Vitals Vital Signs Date Time Temp Pulse Resp B/P Pulse Ox O2 Delivery O2 Flow Rate FiO2 05/24/17 09:00 Nasal Cannula 4.0 05/24/17 08:13 98.6 80 19 126/64 86 05/20/17 17:00 50 Intake and Output 05/23/17 05/23/17 05/24/17 14:59 22:59 06:59 Intake Total 220 ml 300 ml Balance 220 ml 300 ml Exam Respiratory: diminished breath sounds Cardiovascular: regular rate and rhythm Gastrointestinal: non-tender, soft Genitourinary - Female: nl adnexae Musculoskeletal: nl extremities to inspection Extremities: normal pulses Neurological: confused, nl speech Results Result Diagram: 05/24/17 0501 05/24/17 0501 Results 24 hrs Laboratory Tests Test 05/24/17 05:01 White Blood Count 8.0 Red Blood Count 5.21 Hemoglobin 14.8 Hematocrit 50.2 H Mean Corpuscular Volume 96.4 Mean Corpuscular Hemoglobin 28.4 L Mean Corpuscular Hemoglobin Concent 29.5 L Red Cell Distribution Width 14.6 H Platelet Count 112 L Mean Platelet Volume 10.9 H Neutrophils % 74.4 Lymphocytes % 17.3 Monocytes % 7.5 Eosinophils % 0.4 Basophils % 0.1 Nucleated Red Blood Cells % 0.0 Neutrophils # 5.9 Lymphocytes # 1.4 Monocytes # 0.6 Eosinophils # 0.0 Basophils # 0.0 Nucleated Red Blood Cells # 0.0 Sodium Level 140 Potassium Level 4.2 Chloride Level 96 L Carbon Dioxide Level 43 *H Anion Gap 5 L Blood Urea Nitrogen 32 H Creatinine 0.62 Glucose Level 124 Calcium Level 9.3 Total Bilirubin 0.7 Direct Bilirubin 0.00 Indirect Bilirubin 0.7 Aspartate Amino Transf (AST/SGOT) 19 Alanine Aminotransferase (ALT/SGPT) 19 Alkaline Phosphatase 40 L Total Protein 5.9 L Albumin 3.3 Globulin 2.60 Albumin/Globulin Ratio 1.26 Medications Medications Current Medications Morphine Sulfate (morphine) 2 mg Q2H PRN IV PAIN/DYSPNEA Last administered on 07:59; Admin Dose 2 MG; Start 05/20/17 at 15:00 Lorazepam (Ativan) 1 mg Q4H PRN IV ANXIETY/SEIZURES; Start 05/20/17 at 15:00 Atropine Sulfate (Atropine 1% Oph) 2 drop Q4H PRN SL TERMINAL CONGESTION; Start 05/20/17 at 15:00 Enoxaparin Sodium (Lovenox) 40 mg DAILY SC Last administered on 05/24/17 08:20 ; Admin Dose 40 MG; Start 05/23/17 at 15:00 Amlodipine Besylate (Norvasc) 10 mg DAILY PO Last administered on 05/24/17 08: 13; Admin Dose 10 MG; Start 05/23/17 at 15:00 Hydralazine HCl (Apresoline) 10 mg Q6H PRN IV ELEVATED BLOOD PRESSURE Last administered on 05/23/17 15:16; Admin Dose 10 MG; Start 05/23/17 at 15:00 Benazepril HCl (Lotensin) 10 mg DAILY PO Last administered on 05/24/17 08:12; Admin Dose 10 MG; Start 05/24/17 at 09:00 Furosemide (Lasix) 20 mg DAILY IV Last administered on 05/24/17 08:12; Admin Dose 20 MG; Start 05/24/17 at 09:00 Acetazolamide (Diamox) 500 mg DAILY IV Last administered on 05/24/17 09:54; Admin Dose 500 MG; Start 05/24/17 at 09:00 JOSH FRY May 24, 2017 15:17
--- NOTE | 2017-05-24 16:10 | CONS ---
Date/Time of Note Date/Time of Note DATE: 05/24/17 TIME: 16:08 Assessment/Plan Assessment/Plan Additional Assessment/Plan 1. Congestive heart failure exacerbation, systolic and diastolic by most recent echo, November 2016, revealing ejection fraction of 45-50 percent. Con't to keep euvolemic - spot diuresuis as needed=. 2. Cardiomyopathy, with decreased left ejection fraction, last approximately 45 percent by echo, November 2010. 3. Permanent pacemaker, sinus automatic internal cardioverter defibrillator, biventricular, status post interrogation, with proper function, battery life of greater than 2 years - stable. Patient a DNR/DNI. 4. Hypertension - modest rx, con't to follow. 5. Respiratory failure, now improved. Con't gentle diuresis. 6. Splenic mass. Consultation Date/Type/Reason Admit Date/Time May 18, 2017 at 19:26 Initial Consult Date Type of Consultation: Pulmonary 24 HR Interval Summary Free Text/Dictation NO acute change - off tele now. ROS: No fever, no chills, no nausea, no vomiting, no diarrhea/constipation No recent weight changes No chest pain, no PND, no orthopnea No dizziness, blurred vision No thirst, no heat or cold intolerance (per nurse) Exam/Review of Systems Vital Signs Vitals Vital Signs Date Time Temp Pulse Resp B/P Pulse Ox O2 Delivery O2 Flow Rate FiO2 05/24/17 09:00 Nasal Cannula 4.0 05/24/17 08:13 98.6 80 19 126/64 86 05/20/17 17:00 50 Intake and Output 05/23/17 05/23/17 05/24/17 15:00 23:00 07:00 Intake Total 220 ml 300 ml Balance 220 ml 300 ml Exam General: WN/WD/NAD, AOx comfortable HEENT: Unicetric/atraumatic/EOMI (does not follow commands) NECK: JVD elevated, no thyromegaly, NC on Lymph: no lymphadenopathy HEART: regular with no S3, II/ systolic murmur at apex LUNGS: Coarse sounds ABD: soft, NT, ND, +BS : Intact Neuro: non focal SKIN: chronic changes EXT: trace edema Results Result Diagram: 05/24/17 0501 05/24/17 0501 Results 24 hrs Laboratory Tests Test 05/24/17 05:01 White Blood Count 8.0 Red Blood Count 5.21 Hemoglobin 14.8 Hematocrit 50.2 H Mean Corpuscular Volume 96.4 Mean Corpuscular Hemoglobin 28.4 L Mean Corpuscular Hemoglobin Concent 29.5 L Red Cell Distribution Width 14.6 H Platelet Count 112 L Mean Platelet Volume 10.9 H Neutrophils % 74.4 Lymphocytes % 17.3 Monocytes % 7.5 Eosinophils % 0.4 Basophils % 0.1 Nucleated Red Blood Cells % 0.0 Neutrophils # 5.9 Lymphocytes # 1.4 Monocytes # 0.6 Eosinophils # 0.0 Basophils # 0.0 Nucleated Red Blood Cells # 0.0 Sodium Level 140 Potassium Level 4.2 Chloride Level 96 L Carbon Dioxide Level 43 *H Anion Gap 5 L Blood Urea Nitrogen 32 H Creatinine 0.62 Glucose Level 124 Calcium Level 9.3 Total Bilirubin 0.7 Direct Bilirubin 0.00 Indirect Bilirubin 0.7 Aspartate Amino Transf (AST/SGOT) 19 Alanine Aminotransferase (ALT/SGPT) 19 Alkaline Phosphatase 40 L Total Protein 5.9 L Albumin 3.3 Globulin 2.60 Albumin/Globulin Ratio 1.26 Medications Medications Current Medications Morphine Sulfate (morphine) 2 mg Q2H PRN IV PAIN/DYSPNEA Last administered on 07:59; Admin Dose 2 MG; Start 05/20/17 at 15:00 Lorazepam (Ativan) 1 mg Q4H PRN IV ANXIETY/SEIZURES; Start 05/20/17 at 15:00 Atropine Sulfate (Atropine 1% Oph) 2 drop Q4H PRN SL TERMINAL CONGESTION; Start 05/20/17 at 15:00 Enoxaparin Sodium (Lovenox) 40 mg DAILY SC Last administered on 05/24/17 08:20 ; Admin Dose 40 MG; Start 05/23/17 at 15:00 Amlodipine Besylate (Norvasc) 10 mg DAILY PO Last administered on 05/24/17 08: 13; Admin Dose 10 MG; Start 05/23/17 at 15:00 Hydralazine HCl (Apresoline) 10 mg Q6H PRN IV ELEVATED BLOOD PRESSURE Last administered on 05/23/17 15:16; Admin Dose 10 MG; Start 05/23/17 at 15:00 Benazepril HCl (Lotensin) 10 mg DAILY PO Last administered on 05/24/17 08:12; Admin Dose 10 MG; Start 05/24/17 at 09:00 Furosemide (Lasix) 20 mg DAILY IV Last administered on 05/24/17 08:12; Admin Dose 20 MG; Start 05/24/17 at 09:00 Acetazolamide (Diamox) 500 mg DAILY IV Last administered on 05/24/17 09:54; Admin Dose 500 MG; Start 05/24/17 at 09:00 MARGA MACKEY MD May 24, 2017 16:10
[2017-05-24] MEDS ORDERED: ACETAMINOPHEN 325 MG TAB PO PRN (17:00)
[2017-05-25 06:24] LABS: BASOPHILS % 0.4 % (0.0-2.0); EOSINOPHILS # 0.2 10^3/ul (0.0-0.5); HEMATOCRIT 50.1 % (37.0-47.0); HEMOGLOBIN 14.7 g/dl (12.0-16.0); LYMPHOCYTES # 1.7 10^3/ul (0.8-2.9); LYMPHOCYTES % 22.2 % (15.0-51.0); MEAN CORPUSCULAR HEMOGLOBIN 28.3 pg (29.0-33.0); MEAN CORPUSCULAR HGB CONC 29.3 g/dl (32.0-37.0); MEAN CORPUSCULAR VOLUME 96.3 fl (82.0-101.0); MEAN PLATELET VOLUME 11.4 fl (7.4-10.4); MONOCYTE # 0.6 10^3/ul (0.3-0.9); MONOCYTES % 7.2 % (0.0-11.0); NEUTROPHIL # 5.1 10^3/ul (1.6-7.5); NEUTROPHILS % 66.9 % (39.0-77.0); PLATELET COUNT 115 10^3/UL (140-415); RED CELL DISTRIBUTION WIDTH 14.9 % (11.5-14.5); WHITE BLOOD COUNT 7.7 10^3/ul (4.8-10.8)
[2017-05-25 06:37] LABS: CALCIUM 9.2 mg/dl (8.4-10.2); CREATININE 0.79 mg/dl (0.44-1.00); POTASSIUM 3.6 mmol/L (3.5-5.1)
--- NOTE | 2017-05-27 09:57 | RADRPT ---
Echocardiogram Report Patient Name: RANDAL TRIANA Gender: Female Date: 1935 Study Date: 24-May-2017 Forklift Driver: Drea Rabago [facility] Location: 432 Ref. Physician: PAYTON MONTEZ Quality: Technically Difficult Study Procedures: Transthoracic echocardiogram with complete 2D, M-Mode, and doppler examination. Indications: Cardiomyopathy. Congestive Heart Failure. 2D/M Mode Doppler Measurement Value Normal Ranges Measurement Value Normal Ranges LVIDd 2D 3.9 3.5 - 5.6 cm AV Peak Eric 1.4 m/sec LVIDs 2D 1.8 2.1 - 4.1 cm AV Peak PG 7.0 mmHg FS 2D 52.9 % LVOT Peak Eric 0.9 m/sec LVPWd 2D 1.0 0.6 - 1.1 cm LVOT Peak PG 3.0 mmHg IVSd 2D 1.0 0.6 - 1.1 cm TR Peak Eric 1.8 m/sec IVS/LVPW 2D 1.0 TR Peak PG 13.0 mmHg AoR Diam 2D 3.0 2.0 - 3.7 cm RVSP 16.0 mmHg LA/Ao 2D 1 0 - 1 EDV 2D 59.8 cm3 ESV 2D 6.2 cm3 LA Dimen 2D 3.1 2.3 - 4.0 cm Findings Left Ventricle: Normal left ventricular systolic function. Normal left ventricular cavity size. Normal left ventricular wall thickness. Ejection fraction is visually estimated at 65 %. Tissue Doppler/Mitral Doppler indices are consistent with impaired relaxation (Stage I diastolic dysfunction). Right Ventricle: Normal right ventricular size. Normal right ventricular systolic function. Pacemaker right heart. Left Atrium: The left atrium is normal in size. Right Atrium: The right atrium is normal in size. Mitral Valve: Normal appearance and function of the mitral valve with trace physiologic regurgitation. Aortic Valve: Normal appearance of the aortic valve. No significant aortic stenosis or insufficiency. Tricuspid Valve: Normal appearance of the tricuspid valve. Estimated peak PA systolic pressure 16 mmHg. There is trace tricuspid regurgitation. Pulmonic Valve: Normal pulmonic valve appearance. Pericardium: Normal pericardium with no significant pericardial effusion. Aorta: Normal aortic root. IVC: Normal size and normal respiratory collapse consistent with normal right atrial pressure. Conclusions 1.Normal left ventricular systolic function. Normal left ventricular cavity size. Normal left ventricular wall thickness. Ejection fraction is visually estimated at 65 %. Tissue Doppler/Mitral Doppler indices are consistent with impaired relaxation (Stage I diastolic dysfunction). 2.Normal appearance and function of the mitral valve with trace physiologic regurgitation. 3.Normal appearance of the tricuspid valve. Estimated peak PA systolic pressure 16 mmHg. There is trace tricuspid regurgitation. Electronically Signed By: Marcelo Sandhu 27-May-2017 09:56:32 -0700 Patient Name: RANDAL TRIANA Study Date: 24-May-[id number]
== END 2017-05-23 15:55 | DRG 291 ==
LOC: FTE 14:07 → MS4 19:26 → MS1 05-20 19:40 → UNDODISIN 05-23 15:55
PROVIDERS: ADMIT Internal Medicine; ATTEND Internal Medicine
PROC: 5A09458 Assistance with Respiratory Ventilation, 24-96 Consecutive Hours, Intermittent Positive Airway Pressure (ICD-10-PCS; principal; 2017-05-19)
DX: I11.0 Hypertensive heart disease with heart failure (principal); J96.02 Acute respiratory failure with hypercapnia; J18.9 Pneumonia, unspecified organism; G93.40 Encephalopathy, unspecified; R16.1 Splenomegaly, not elsewhere classified; E66.2 Morbid (severe) obesity with alveolar hypoventilation; F03.90 Unspecified dementia, unspecified severity, without behavioral disturbance, psychotic disturbance, mood disturbance, and anxiety; Z95.0 Presence of cardiac pacemaker; Z66 Do not resuscitate; Z68.34 Body mass index [BMI] 34.0-34.9, adult; M47.894 Other spondylosis, thoracic region; M47.897 Other spondylosis, lumbosacral region; I50.43 Acute on chronic combined systolic (congestive) and diastolic (congestive) heart failure
CPT/HCPCS: 36600; 71010; 71275; 80048; 80053; 80061; 81003; 82550; 82553; 82803; 83036; 83605; 83880; 84443; 84484; 85025; 93306; 94640; 94644; 94660; 94664; 96374; 96375; J1120; J1940; C9113; J0360; J0692; J1650; J2060; J2270; J2920; J2930; P9612; Q9967

== ENCOUNTER 2017-05-23 15:55 | Inpatient (IN) | payer MEDICARE, OTHER ==
[~2017-05-23] VITALS: Ht 170.2 cm; Wt 99.3 kg
[~2017-05-23 15:55] MED LIST changes: -ASPI-727 PO; +ASPI81TA50 PO; +ERGO500037 PO; -IBUP-1542 PO; +LEVO5TAB28 PO; -LORA10TA3 PO; -MAGN400T28 PO; +POTA8CAP PO
--- NOTE | 2017-05-24 07:07 | CONS ---
DATE OF ADMISSION: 05/18/2017 DATE OF CONSULTATION: 05/23/2017 REASON FOR CONSULTATION: Congestive heart failure exacerbation, ICD. REFERRING PHYSICIAN: Vish Cavazos MD HISTORY OF PRESENT ILLNESS: Ms. Sheikh is an 81-year-old female with a history of cardiomyopathy, congestive heart failure, hypertension, ICD placement, dementia, who presented to the hospital with worsening shortness of breath. Initially, upon arrival on May 19, patient underwent ABG, revealing a pH of 7.2, with a pCO2 of 75 and a pO2 of 72. Additionally, patient's labs notable for a white blood cell count of 7.9, hemoglobin 14.5, platelet count of 153, a sodium of 143, potassium 4.8, creatinine 0.6, BUN 12. Troponin negative. BNP of 589. TSH 0.862. UA negative. Patient underwent a CTA that revealed no evidence of pulmonary embolism or aortic dissection, moderate cardiomegaly, bibasilar atelectasis and lower lobe consolidation, small left-sided pleural effusion, vascular calcifications, large isodense splenic mass. A chest x-ray revealed dual-chamber cardiac pacemaker on the left chest wall, cardiomegaly, and extensive infiltrates in the right lung and the base of the lungs which may be a result of asymmetric pulmonary edema from CHF or pneumonia cannot be excluded. Patient's electrocardiogram revealed ventricular paced rhythm at a rate of 94, A sensed. Patient in the emergency department received BiPAP, with some improvement, but was made DNI/DNR by family. Patient has now been admitted to the floor, where she remains at this time. PAST MEDICAL HISTORY: As above in HPI. MEDICATION: Currently in the hospital: 1. DuoNeb. 2. Lovenox. 3. Norvasc. 4. Hydralazine. 5. Morphine. 6. Ativan. 7. Atropine. ALLERGIES: NO KNOWN DRUG ALLERGIES. SOCIAL HISTORY: No tobacco, EtOH or illicit drug use. FAMILY HISTORY: Negative for sudden cardiac or early CAD. REVIEW OF SYSTEMS: As above in HPI. CONSTITUTIONAL: No fevers, chills. RESPIRATORY: Shortness of breath. HEART: Congestive heart failure. GASTROINTESTINAL: No vomiting. GENITOURINARY: No hematuria. MUSCULOSKELETAL: Degenerative joint disease. PSYCHIATRIC: Patient denies depression. NEUROLOGIC: No documented CVA. PHYSICAL EXAMINATION: VITAL SIGNS: Temperature of 98.4, blood pressure most recently 132/59, pulse 96, respiratory rate 18, satting 94 percent on 4 L. GENERAL: The patient is alert, awake. NECK: JVP approximately 9 cm water. CHEST: Mildly decreased breath sounds at the bases bilaterally. HEART: Regular rate and rhythm. Normal S1, S2. A 1/6 systolic murmur. Nondisplaced PMI. ABDOMEN: Positive bowel sounds. Soft. EXTREMITIES: No pitting edema, 1 plus pulses, bilateral posterior tibial and dorsalis pedis. LABORATORY: Above in HPI. No further labs reviewed. IMAGING STUDIES: As above in HPI. No further imaging studies are reviewed. ECG as above in HPI. No further electrocardiograms reviewed at this time. IMPRESSION: 1. Congestive heart failure exacerbation, systolic and diastolic by most recent echo, November 2016, revealing ejection fraction of 45-50 percent. 2. Cardiomyopathy, with decreased left ejection fraction, last approximately 45 percent by echo, November 2010. 3. Permanent pacemaker, sinus automatic internal cardioverter defibrillator, biventricular, status post interrogation, with proper function, battery life of greater than 2 years, detection criteria enabled. . 4. Hypertension. 5. Respiratory failure, now improved. 6. Splenic mass. RECOMMENDATIONS: 1. At this time, would consider initiation of GROVER inhibitor to patient's regimen to improve afterload reduction in the setting of systolic and diastolic heart failure. 2. Patient is status post troponins negative x3, ruling out for acute myocardial infarction. 3. Would continue the patient's additional Norvasc at this time for blood pressure control and will initiate patient on gentle Lasix diuresis. 4. Continue patient's current bronchodilators. Following respiratory status closely. 5. Follow up all culture data. 6. Pain control. Thank you for allowing me to participate in the care of this patient. I will continue to follow very closely with you, with recommendations to be made as patient goes through her inpatient hospital course. Dictated By: Kingsley Davis MD /sanjana/romeo /Document#: [id number] CC: Vish Cavazos MD;*EndCC* [facility]
[2017-05-24] MEDS ORDERED: DIMETHICONE STICK TOP PRN (18:30)
[2017-05-24] MEDS ORDERED: morphine 2 MG INJ IV PRN (18:30)
[2017-05-24] MEDS ORDERED: LORAZEPAM 2 MG INJ IV PRN (18:30)
[2017-05-24] MEDS ORDERED: ACETAMINOPHEN 325 MG TAB PO PRN (18:30)
[2017-05-24] MEDS ORDERED: ALBUTEROL/IPRATROPIUM (NEB) 3 ML AMP HHN PRN (18:30)
[2017-05-24] MEDS ORDERED: hydrALAzine 20 MG INJ IV PRN (18:30)
[2017-05-24 18:34] VITALS: BP 113/59; RESP 19
[2017-05-24 21:09] VITALS: BP 114/56; RESP 20
[2017-05-25] MEDS: ALBUTEROL/IPRATROPIUM (NEB) 3 ML AMP HHN SCH ×3 (00:44→16:22)
[2017-05-25 03:57] VITALS: BP 123/78; RESP 20
[2017-05-25 08:19] VITALS: BP 115/60; RESP 19
[2017-05-25] MEDS: ACETAZOLAMIDE 500 MG INJ IV SCH (08:37)
[2017-05-25] MEDS: BENAZEPRIL 10 MG TAB PO SCH (08:39)
[2017-05-25] MEDS: FUROSEMIDE 20 MG INJ IV SCH (08:40)
[2017-05-25] MEDS: AMLODIPINE 10 MG TAB PO SCH (08:40)
[2017-05-25] MEDS: ENOXAPARIN 40 MG/0.4 ML SYG SC SCH (08:47)
--- NOTE | 2017-05-25 12:22 | PN ---
Date/Time of Note Date/Time of Note DATE: 05/25/17 TIME: 12:22 Assessment/Plan VTE Prophylaxis VTE Prophylaxis Intervention: other Lines/Catheters IV [facility] Type (from [facility]): Saline Lock Urinary Cath still in place: No Assessment/Plan Chief Complaint/Hosp Course 1) hypoxia - monitor Problems: Subjective 24 Hr Interval Summary Free Text/Dictation Patient denies any complaints Exam/Review of Systems Vital Signs Vitals Vital Signs Date Time Temp Pulse Resp B/P Pulse Ox O2 Delivery O2 Flow Rate FiO2 05/25/17 08:47 4.0 05/25/17 08:46 80 20 94 Nasal Cannula 05/25/17 08:19 98.4 115/60 Intake and Output 05/24/17 05/24/17 05/25/17 15:00 23:00 07:00 Intake Total 320 ml Balance 320 ml Exam Constitutional: well developed Head: atraumatic, normocephalic Neck: supple Respiratory: diminished breath sounds Cardiovascular: regular rate and rhythm Gastrointestinal: non-tender, soft Medications Medications Current Medications Acetaminophen (Tylenol Tab) 650 mg Q4H PRN PO PAIN AND OR ELEVATED TEMP; Start 05/24/17 at 18:30 Benazepril HCl (Lotensin) 10 mg DAILY PO Last administered on 05/25/17 08:39; Admin Dose 10 MG; Start 05/25/17 at 09:00 Furosemide (Lasix) 20 mg DAILY IV Last administered on 05/25/17 08:40; Admin Dose 20 MG; Start 05/25/17 at 09:00 Acetazolamide (Diamox) 500 mg DAILY IV Last administered on 05/25/17 08:37; Admin Dose 500 MG; Start 05/25/17 at 09:00 Enoxaparin Sodium (Lovenox) 40 mg DAILY SC Last administered on 05/25/17 08:47 ; Admin Dose 40 MG; Start 05/25/17 at 09:00 Amlodipine Besylate (Norvasc) 10 mg DAILY PO Last administered on 05/25/17 08: 40; Admin Dose 10 MG; Start 05/25/17 at 09:00 Hydralazine HCl (Apresoline) 10 mg Q6H PRN IV ELEVATED BLOOD PRESSURE; Start at 18:30 Morphine Sulfate (morphine) 2 mg Q2H PRN IV PAIN; Start 05/24/17 at 18:30 Lorazepam (Ativan) 1 mg Q4 PRN IV ANXIETY; Start 05/24/17 at 18:30 Dimethicone (Blistex Lip [place]) 1 applic Q2H PRN TOP NOTE; Start 05/24/17 at 18: 30 PEÑA VALADEZ May 25, 2017 12:22
[2017-05-25 14:00] VITALS: BP 95/60; RESP 19
--- NOTE | 2017-05-25 14:39 | CONS ---
Date/Time of Note Date/Time of Note DATE: 05/25/17 TIME: 14:37 Assessment/Plan Assessment/Plan Additional Assessment/Plan 1. Congestive heart failure exacerbation, systolic and diastolic by most recent echo, November 2016, revealing ejection fraction of 45-50 percent. Con't to keep euvolemic - spot diuresis as needed- better today. 2. Cardiomyopathy, with decreased left ejection fraction, last approximately 45 percent by echo, November 2010. 3. Permanent pacemaker, sinus automatic internal cardioverter defibrillator, biventricular, status post interrogation, with proper function, battery life of greater than 2 years - stable. Patient a DNR/DNI. 4. Hypertension - modest rx, con't to follow. 5. Respiratory failure, now improved. Con't gentle diuresis. IMPROVED SOB. 6. Splenic mass. Consultation Date/Type/Reason Admit Date/Time May 23, 2017 at 15:55 Initial Consult Date 24 HR Interval Summary Free Text/Dictation NO acute events - better fluid status now. ROS: No fever, no chills, no nausea, no vomiting, no diarrhea/constipation No recent weight changes No chest pain, no PND, no orthopnea + SOB No dizziness, blurred vision No thirst, no heat or cold intolerance Exam/Review of Systems Vital Signs Vitals Vital Signs Date Time Temp Pulse Resp B/P Pulse Ox O2 Delivery O2 Flow Rate FiO2 05/25/17 14:00 98.1 94 19 95/60 95 05/25/17 08:47 4.0 05/25/17 08:46 Nasal Cannula Intake and Output 05/24/17 05/24/17 05/25/17 15:00 23:00 07:00 Intake Total 320 ml Balance 320 ml Exam General: WN/WD/NAD, AOx 1 HEENT: Unicetric/atraumatic/EOMI (follows commands) NECK: JVD elevated, no thyromegaly Lymph: no lymphadenopathy HEART: regular with no S3, II/ systolic murmur at apex LUNGS: Coarse sounds ABD: soft, NT, ND, +BS : Intact Neuro: non focal SKIN: chronic changes EXT: trace edema Medications Medications Current Medications Acetaminophen (Tylenol Tab) 650 mg Q4H PRN PO PAIN AND OR ELEVATED TEMP; Start 05/24/17 at 18:30 Benazepril HCl (Lotensin) 10 mg DAILY PO Last administered on 05/25/17 08:39; Admin Dose 10 MG; Start 05/25/17 at 09:00 Furosemide (Lasix) 20 mg DAILY IV Last administered on 05/25/17 08:40; Admin Dose 20 MG; Start 05/25/17 at 09:00 Acetazolamide (Diamox) 500 mg DAILY IV Last administered on 05/25/17 08:37; Admin Dose 500 MG; Start 05/25/17 at 09:00 Enoxaparin Sodium (Lovenox) 40 mg DAILY SC Last administered on 05/25/17 08:47 ; Admin Dose 40 MG; Start 05/25/17 at 09:00 Amlodipine Besylate (Norvasc) 10 mg DAILY PO Last administered on 05/25/17 08: 40; Admin Dose 10 MG; Start 05/25/17 at 09:00 Hydralazine HCl (Apresoline) 10 mg Q6H PRN IV ELEVATED BLOOD PRESSURE; Start at 18:30 Morphine Sulfate (morphine) 2 mg Q2H PRN IV PAIN; Start 05/24/17 at 18:30 Lorazepam (Ativan) 1 mg Q4 PRN IV ANXIETY; Start 05/24/17 at 18:30 Dimethicone (Blistex Lip [place]) 1 applic Q2H PRN TOP NOTE; Start 05/24/17 at 18: 30 MARGA MACKEY MD May 25, 2017 14:39
--- NOTE | 2017-05-25 19:16 | CONS ---
Date/Time of Note Date/Time of Note DATE: 05/25/17 TIME: 19:15 Consult Date/Type/Reason Admit Date/Time May 23, 2017 at 15:55 Initial Consult Date Type of Consultation: Pulm Subjective No events. Objective Vital Signs Date Time Temp Pulse Resp B/P Pulse Ox O2 Delivery O2 Flow Rate FiO2 05/25/17 16:25 80 20 93 Nasal Cannula 4.0 05/25/17 14:00 98.1 95/60 Intake and Output 05/24/17 05/24/17 05/25/17 15:00 23:00 07:00 Intake Total 320 ml Balance 320 ml Exam HEENT: Neck supple; no JVD; no LAD CVS: RRR, S1 and S2, distant HS CHEST: Clear ABD: Soft, NT, + BS, obese EXT: No c/c/e Results/Medications Medications Current Medications Acetaminophen (Tylenol Tab) 650 mg Q4H PRN PO PAIN AND OR ELEVATED TEMP; Start 05/24/17 at 18:30 Benazepril HCl (Lotensin) 10 mg DAILY PO Last administered on 05/25/17 08:39; Admin Dose 10 MG; Start 05/25/17 at 09:00 Furosemide (Lasix) 20 mg DAILY IV Last administered on 05/25/17 08:40; Admin Dose 20 MG; Start 05/25/17 at 09:00 Acetazolamide (Diamox) 500 mg DAILY IV Last administered on 05/25/17 08:37; Admin Dose 500 MG; Start 05/25/17 at 09:00 Enoxaparin Sodium (Lovenox) 40 mg DAILY SC Last administered on 05/25/17 08:47 ; Admin Dose 40 MG; Start 05/25/17 at 09:00 Amlodipine Besylate (Norvasc) 10 mg DAILY PO Last administered on 05/25/17 08: 40; Admin Dose 10 MG; Start 05/25/17 at 09:00 Hydralazine HCl (Apresoline) 10 mg Q6H PRN IV ELEVATED BLOOD PRESSURE; Start at 18:30 Morphine Sulfate (morphine) 2 mg Q2H PRN IV PAIN; Start 05/24/17 at 18:30 Lorazepam (Ativan) 1 mg Q4 PRN IV ANXIETY; Start 05/24/17 at 18:30 Dimethicone (Blistex Lip [place]) 1 applic Q2H PRN TOP NOTE; Start 05/24/17 at 18: 30 Assessment/Plan Additional Assessment/Plan IMP: 1. 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 MARIA DEL ROSARIO/OHS 3. Restrictive Lung Dz RECS: 1. Nocturnal BiPAP 2. OOB chair 3. Titrate FiO2 FAVIO HIGH MD May 25, 2017 19:16
[2017-05-25 21:42] VITALS: BP 121/73; RESP 18
[2017-05-26] MEDS: ALBUTEROL/IPRATROPIUM (NEB) 3 ML AMP HHN SCH ×3 (01:03→16:36)
[2017-05-26] MEDS: AMLODIPINE 10 MG TAB PO SCH (09:00)
[2017-05-26] MEDS: BENAZEPRIL 10 MG TAB PO SCH (09:00)
[2017-05-26 09:27] VITALS: BP 95/52; RESP 18
[2017-05-26] MEDS: FUROSEMIDE 20 MG INJ IV SCH (09:31)
[2017-05-26] MEDS: ACETAZOLAMIDE 500 MG INJ IV SCH (09:31)
[2017-05-26] MEDS: ENOXAPARIN 40 MG/0.4 ML SYG SC SCH (09:33)
[2017-05-26] MEDS: DOCUSATE SODIUM 100 MG CAP PO SCH ×2 (12:30→20:32)
--- NOTE | 2017-05-26 12:31 | PN ---
Date/Time of Note Date/Time of Note DATE: 05/26/17 TIME: 12:31 Assessment/Plan VTE Prophylaxis VTE Prophylaxis Intervention: other Lines/Catheters [facility] Saline Lock Urinary Cath still in place: No Assessment/Plan Chief Complaint/Hosp Course 1) hypoxia - monitor Problems: Subjective 24 Hr Interval Summary Free Text/Dictation Patient complains of constipation Exam/Review of Systems Vital Signs Vitals Vital Signs Date Time Temp Pulse Resp B/P Pulse Ox O2 Delivery O2 Flow Rate FiO2 05/26/17 09:27 98.8 94 18 95/52 94 05/26/17 09:14 4.0 05/26/17 09:11 Nasal Cannula Intake and Output 05/25/17 05/25/17 05/26/17 15:00 23:00 07:00 Intake Total 720 ml 720 ml Balance 720 ml 720 ml Exam Constitutional: well developed Head: atraumatic, normocephalic Neck: supple Respiratory: clear to auscultation Cardiovascular: regular rate and rhythm Gastrointestinal: non-tender, soft Extremities: normal pulses Medications Medications Current Medications Acetaminophen (Tylenol Tab) 650 mg Q4H PRN PO PAIN AND OR ELEVATED TEMP; Start 05/24/17 at 18:30 Benazepril HCl (Lotensin) 10 mg DAILY PO Last administered on 05/25/17 08:39; Admin Dose 10 MG; Start 05/25/17 at 09:00 Furosemide (Lasix) 20 mg DAILY IV Last administered on 05/26/17 09:31; Admin Dose 20 MG; Start 05/25/17 at 09:00 Acetazolamide (Diamox) 500 mg DAILY IV Last administered on 05/26/17 09:31; Admin Dose 500 MG; Start 05/25/17 at 09:00 Enoxaparin Sodium (Lovenox) 40 mg DAILY SC Last administered on 05/26/17 09:33 ; Admin Dose 40 MG; Start 05/25/17 at 09:00 Amlodipine Besylate (Norvasc) 10 mg DAILY PO Last administered on 05/25/17 08: 40; Admin Dose 10 MG; Start 05/25/17 at 09:00 Hydralazine HCl (Apresoline) 10 mg Q6H PRN IV ELEVATED BLOOD PRESSURE; Start at 18:30 Morphine Sulfate (morphine) 2 mg Q2H PRN IV PAIN; Start 05/24/17 at 18:30 Lorazepam (Ativan) 1 mg Q4 PRN IV ANXIETY; Start 05/24/17 at 18:30 Dimethicone (Blistex Lip [place]) 1 applic Q2H PRN TOP NOTE; Start 05/24/17 at 18: 30 Docusate Sodium (Colace) 100 mg BID PO ; Start 05/26/17 at 12:30; Status UNPEÑA ZAPATA May 26, 2017 12:31
--- NOTE | 2017-05-26 12:57 | CONS ---
Date/Time of Note Date/Time of Note DATE: 05/26/17 TIME: 12:56 Assessment/Plan Assessment/Plan Additional Assessment/Plan 1. Congestive heart failure exacerbation, systolic and diastolic by most recent echo, November 2016, revealing ejection fraction of 45-50 percent. Con't to keep euvolemic - spot diuresis as needed. STABLE FLUID STATUS. 2. Cardiomyopathy, with decreased left ejection fraction, last approximately 45 percent by echo, November 2010. NO CHANGE. 3. Permanent pacemaker, sinus automatic internal cardioverter defibrillator, biventricular, status post interrogation, with proper function, battery life of greater than 2 years - stable. Patient a DNR/DNI. 4. Hypertension - modest rx, con't to follow. 5. Respiratory failure, now improved. Con't gentle diuresis. BETTER overall. 6. Splenic mass. Consultation Date/Type/Reason Admit Date/Time May 23, 2017 at 15:55 Type of Consultation: Pulm 24 HR Interval Summary Free Text/Dictation NO acute events - BP in good range - decreased hypoxia. ROS: No fever, no chills, no nausea, no vomiting, no diarrhea/constipation No recent weight changes No chest pain, no PND, no orthopnea No dizziness, blurred vision No thirst, no heat or cold intolerance Exam/Review of Systems Vital Signs Vitals Vital Signs Date Time Temp Pulse Resp B/P Pulse Ox O2 Delivery O2 Flow Rate FiO2 05/26/17 09:27 98.8 94 18 95/52 94 05/26/17 09:14 4.0 05/26/17 09:11 Nasal Cannula Intake and Output 05/25/17 05/25/17 05/26/17 15:00 23:00 07:00 Intake Total 720 ml 720 ml Balance 720 ml 720 ml Exam General: WN/WD/NAD, AOx 1-2 HEENT: Unicetric/atraumatic/EOMI (follows commands) NECK: JVD elevated, no thyromegaly Lymph: no lymphadenopathy HEART: regular with no S3, II/ systolic murmur at apex LUNGS: Coarse sounds ABD: soft, NT, ND, +BS : Intact Neuro: non focal SKIN: chronic changes EXT: trace edema Medications Medications Current Medications Acetaminophen (Tylenol Tab) 650 mg Q4H PRN PO PAIN AND OR ELEVATED TEMP; Start 05/24/17 at 18:30 Benazepril HCl (Lotensin) 10 mg DAILY PO Last administered on 05/25/17 08:39; Admin Dose 10 MG; Start 05/25/17 at 09:00 Furosemide (Lasix) 20 mg DAILY IV Last administered on 05/26/17 09:31; Admin Dose 20 MG; Start 05/25/17 at 09:00 Acetazolamide (Diamox) 500 mg DAILY IV Last administered on 05/26/17 09:31; Admin Dose 500 MG; Start 05/25/17 at 09:00 Enoxaparin Sodium (Lovenox) 40 mg DAILY SC Last administered on 05/26/17 09:33 ; Admin Dose 40 MG; Start 05/25/17 at 09:00 Amlodipine Besylate (Norvasc) 10 mg DAILY PO Last administered on 05/25/17 08: 40; Admin Dose 10 MG; Start 05/25/17 at 09:00 Hydralazine HCl (Apresoline) 10 mg Q6H PRN IV ELEVATED BLOOD PRESSURE; Start at 18:30 Morphine Sulfate (morphine) 2 mg Q2H PRN IV PAIN; Start 05/24/17 at 18:30 Lorazepam (Ativan) 1 mg Q4 PRN IV ANXIETY; Start 05/24/17 at 18:30 Dimethicone (Blistex Lip [place]) 1 applic Q2H PRN TOP NOTE; Start 05/24/17 at 18: 30 Docusate Sodium (Colace) 100 mg BID PO ; Start 05/26/17 at 12:30 MARGA MACKEY MD May 26, 2017 12:57
[2017-05-26 15:57] VITALS: BP 129/74; PULSE 92; RESP 18
[2017-05-26 16:30] VITALS: BP 110/70; RESP 19
--- NOTE | 2017-05-26 16:42 | CONS ---
Date/Time of Note Date/Time of Note DATE: 05/26/17 TIME: 16:41 Consult Date/Type/Reason Admit Date/Time May 23, 2017 at 15:55 Type of Consultation: Pulm Subjective No events. Objective Vital Signs Date Time Temp Pulse Resp B/P Pulse Ox O2 Delivery O2 Flow Rate FiO2 05/26/17 16:36 80 20 96 Nasal Cannula 4.0 05/26/17 15:57 97.9 129/74 Intake and Output 05/25/17 05/25/17 05/26/17 15:00 23:00 07:00 Intake Total 720 ml 720 ml Balance 720 ml 720 ml Exam HEENT: Neck supple; no JVD; no LAD CVS: RRR, S1 and S2, distant HS CHEST: Clear ABD: Soft, NT, + BS, obese EXT: No c/c/e Results/Medications Medications Current Medications Acetaminophen (Tylenol Tab) 650 mg Q4H PRN PO PAIN AND OR ELEVATED TEMP; Start 05/24/17 at 18:30 Benazepril HCl (Lotensin) 10 mg DAILY PO Last administered on 05/25/17 08:39; Admin Dose 10 MG; Start 05/25/17 at 09:00 Furosemide (Lasix) 20 mg DAILY IV Last administered on 05/26/17 09:31; Admin Dose 20 MG; Start 05/25/17 at 09:00 Acetazolamide (Diamox) 500 mg DAILY IV Last administered on 05/26/17 09:31; Admin Dose 500 MG; Start 05/25/17 at 09:00 Enoxaparin Sodium (Lovenox) 40 mg DAILY SC Last administered on 05/26/17 09:33 ; Admin Dose 40 MG; Start 05/25/17 at 09:00 Amlodipine Besylate (Norvasc) 10 mg DAILY PO Last administered on 05/25/17 08: 40; Admin Dose 10 MG; Start 05/25/17 at 09:00 Hydralazine HCl (Apresoline) 10 mg Q6H PRN IV ELEVATED BLOOD PRESSURE; Start at 18:30 Morphine Sulfate (morphine) 2 mg Q2H PRN IV PAIN; Start 05/24/17 at 18:30 Lorazepam (Ativan) 1 mg Q4 PRN IV ANXIETY; Start 05/24/17 at 18:30 Dimethicone (Blistex Lip [place]) 1 applic Q2H PRN TOP NOTE; Start 05/24/17 at 18: 30 Docusate Sodium (Colace) 100 mg BID PO ; Start 05/26/17 at 12:30 Assessment/Plan Additional Assessment/Plan IMP: 1. 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 MARIA DEL ROSARIO/OHS 3. Restrictive Lung Dz 4. CHF RECS: 1. Nocturnal BiPAP 2. OOB chair 3. Titrate FiO2 4. CHF Rx as per Cards FAVIO HIGH MD May 26, 2017 16:42
[2017-05-26] MEDS: FAMOTIDINE 20 MG INJ IV SCH (17:42)
[2017-05-26 20:50] VITALS: BP 121/62; RESP 19
[2017-05-27] MEDS: ALBUTEROL/IPRATROPIUM (NEB) 3 ML AMP HHN SCH ×4 (00:03→23:43)
[2017-05-27 02:48] VITALS: BP 118/71; RESP 18
[2017-05-27 06:02] LABS: BASOPHILS % 0.4 % (0.0-2.0); EOSINOPHILS # 0.2 10^3/ul (0.0-0.5); EOSINOPHILS % 2.9 % (0.0-7.0); HEMOGLOBIN 14.7 g/dl (12.0-16.0); LYMPHOCYTES # 1.9 10^3/ul (0.8-2.9); LYMPHOCYTES % 25.8 % (15.0-51.0); MEAN CORPUSCULAR HEMOGLOBIN 28.8 pg (29.0-33.0); MEAN CORPUSCULAR HGB CONC 30.6 g/dl (32.0-37.0); MEAN CORPUSCULAR VOLUME 94.1 fl (82.0-101.0); MEAN PLATELET VOLUME 11.1 fl (7.4-10.4); MONOCYTE # 0.5 10^3/ul (0.3-0.9); MONOCYTES % 7.5 % (0.0-11.0); NEUTROPHIL # 4.6 10^3/ul (1.6-7.5); NEUTROPHILS % 63.1 % (39.0-77.0); PLATELET COUNT 116 10^3/UL (140-415); RED CELL DISTRIBUTION WIDTH 14.4 % (11.5-14.5); WHITE BLOOD COUNT 7.2 10^3/ul (4.8-10.8)
[2017-05-27 06:28] LABS: CALCIUM 9.4 mg/dl (8.4-10.2); CREATININE 0.81 mg/dl (0.44-1.00); POTASSIUM 3.7 mmol/L (3.5-5.1)
[2017-05-27 08:29] VITALS: BP 133/58; RESP 18
--- NOTE | 2017-05-27 08:48 | CONS ---
Date/Time of Note Date/Time of Note DATE: 05/27/17 TIME: 08:47 Assessment/Plan Assessment/Plan Additional Assessment/Plan 1. Congestive heart failure exacerbation, systolic and diastolic by most recent echo, November 2016, revealing ejection fraction of 45-50 percent. Con't to keep euvolemic - spot diuresis as needed. STABLE FLUID STATUS. 2. Cardiomyopathy, with decreased left ejection fraction, last approximately 45 percent by echo, November 2010. NO CHANGE. 3. Permanent pacemaker, sinus automatic internal cardioverter defibrillator, biventricular, status post interrogation, with proper function, battery life of greater than 2 years - stable. Patient a DNR/DNI. 4. Hypertension - modest rx, con't to follow. 5. Respiratory failure, now improved. Con't gentle diuresis. BETTER overall. Resp Rxat bedside now - no wheezing. 6. Splenic mass- primary follows. Consultation Date/Type/Reason Admit Date/Time May 23, 2017 at 15:55 Type of Consultation: Pulm 24 HR Interval Summary Free Text/Dictation NO acute events - BP in good range - no CP now - doubt ischemia. ROS: No fever, no chills, no nausea, no vomiting, no diarrhea/constipation No recent weight changes No chest pain, no PND, no orthopnea No dizziness, blurred vision No thirst, no heat or cold intolerance Exam/Review of Systems Vital Signs Vitals Vital Signs Date Time Temp Pulse Resp B/P Pulse Ox O2 Delivery O2 Flow Rate FiO2 05/27/17 08:43 4.0 05/27/17 08:43 77 20 92 Nasal Cannula 05/27/17 08:29 97.8 133/58 05/27/17 00:03 21 Intake and Output 05/26/17 05/26/17 05/27/17 15:00 23:00 07:00 Intake Total 860 ml 600 ml Balance 860 ml 600 ml Exam General: WN/WD/NAD, AOx 1-2 stable HEENT: Unicetric/atraumatic/EOMI (follows some commands) NECK: JVD elevated, no thyromegaly Lymph: no lymphadenopathy HEART: regular with no S3, II/ systolic murmur at apex LUNGS: Coarse sounds ABD: soft, NT, ND, +BS : Intact Neuro: non focal SKIN: chronic changes EXT: trace edema Results Result Diagram: 05/27/17 0455 05/27/17 0455 Results 24 hrs Laboratory Tests Test 05/27/17 04:55 White Blood Count 7.2 Red Blood Count 5.10 Hemoglobin 14.7 Hematocrit 48.0 H Mean Corpuscular Volume 94.1 Mean Corpuscular Hemoglobin 28.8 L Mean Corpuscular Hemoglobin Concent 30.6 L Red Cell Distribution Width 14.4 Platelet Count 116 L Mean Platelet Volume 11.1 H Neutrophils % 63.1 Lymphocytes % 25.8 Monocytes % 7.5 Eosinophils % 2.9 Basophils % 0.4 Nucleated Red Blood Cells % 0.0 Neutrophils # 4.6 Lymphocytes # 1.9 Monocytes # 0.5 Eosinophils # 0.2 Basophils # 0.0 Nucleated Red Blood Cells # 0.0 Sodium Level 138 Potassium Level 3.7 Chloride Level 100 Carbon Dioxide Level 33 H Anion Gap 9 Blood Urea Nitrogen 29 H Creatinine 0.81 Glucose Level 102 Calcium Level 9.4 Medications Medications Current Medications Acetaminophen (Tylenol Tab) 650 mg Q4H PRN PO PAIN AND OR ELEVATED TEMP; Start 05/24/17 at 18:30 Benazepril HCl (Lotensin) 10 mg DAILY PO Last administered on 05/25/17 08:39; Admin Dose 10 MG; Start 05/25/17 at 09:00 Furosemide (Lasix) 20 mg DAILY IV Last administered on 05/26/17 09:31; Admin Dose 20 MG; Start 05/25/17 at 09:00 Acetazolamide (Diamox) 500 mg DAILY IV Last administered on 05/26/17 09:31; Admin Dose 500 MG; Start 05/25/17 at 09:00 Enoxaparin Sodium (Lovenox) 40 mg DAILY SC Last administered on 05/26/17 09:33 ; Admin Dose 40 MG; Start 05/25/17 at 09:00 Amlodipine Besylate (Norvasc) 10 mg DAILY PO Last administered on 05/25/17 08: 40; Admin Dose 10 MG; Start 05/25/17 at 09:00 Hydralazine HCl (Apresoline) 10 mg Q6H PRN IV ELEVATED BLOOD PRESSURE; Start at 18:30 Morphine Sulfate (morphine) 2 mg Q2H PRN IV PAIN; Start 05/24/17 at 18:30 Lorazepam (Ativan) 1 mg Q4 PRN IV ANXIETY Last administered on 05/27/17 04:33 ; Admin Dose 1 MG; Start 05/24/17 at 18:30 Dimethicone (Blistex Lip [place]) 1 applic Q2H PRN TOP NOTE; Start 05/24/17 at 18: 30 Docusate Sodium (Colace) 100 mg BID PO Last administered on 05/26/17 20:32; Admin Dose 100 MG; Start 05/26/17 at 12:30 Famotidine (Pepcid Iv) 20 mg DAILY IV Last administered on 05/26/17 17:42; Admin Dose 20 MG; Start 05/26/17 at 18:00 MARGA MACKEY MD May 27, 2017 08:48
[2017-05-27] MEDS: DOCUSATE SODIUM 100 MG CAP PO SCH ×2 (09:12→21:36)
[2017-05-27] MEDS: FAMOTIDINE 20 MG INJ IV SCH (09:13)
[2017-05-27] MEDS: ENOXAPARIN 40 MG/0.4 ML SYG SC SCH (09:13)
[2017-05-27] MEDS: ACETAZOLAMIDE 500 MG INJ IV SCH (09:14)
[2017-05-27] MEDS: FUROSEMIDE 20 MG INJ IV SCH (09:14)
[2017-05-27] MEDS: AMLODIPINE 10 MG TAB PO SCH (09:14)
[2017-05-27] MEDS: BENAZEPRIL 10 MG TAB PO SCH (09:15)
[2017-05-27 14:36] VITALS: BP 101/55; RESP 17
--- NOTE | 2017-05-27 16:40 | CONS ---
Date/Time of Note Date/Time of Note DATE: 05/27/17 TIME: 16:38 Assessment/Plan Assessment/Plan Additional Assessment/Plan Assessment recommendations; 1. Patient admitted with hypercapnic respiratory failure with marked interval improvement. 2. Likely underlying sleep apnea. 3. Marked improvement in mental status. 4. History of hypertension. Continue current treatment. Patient will need to have a sleep study done on outpatient basis. Consultation Date/Type/Reason Admit Date/Time May 23, 2017 at 15:55 Initial Consult Date Type of Consultation: Pulm 24 HR Interval Summary Free Text/Dictation Patient's condition is stable. Remains awake. Has remained hemodynamically stable. General exam; elderly woman, awake, currently in no distress. Exam/Review of Systems Vital Signs Vitals Vital Signs Date Time Temp Pulse Resp B/P Pulse Ox O2 Delivery O2 Flow Rate FiO2 05/27/17 16:23 82 20 91 Nasal Cannula 4.0 05/27/17 14:36 98.5 101/55 05/27/17 00:03 21 Intake and Output 05/26/17 05/26/17 05/27/17 15:00 23:00 07:00 Intake Total 860 ml 600 ml Balance 860 ml 600 ml Exam HEENT exam; supple neck, no JVD. No lymphadenopathy. Midline trachea. No neck masses. No thyromegaly. Pupils are small bilaterally. Chest exam; diminished but clear breath sound. S1-S2 audible, no murmurs. Regular rhythm. Abdomen exam; soft, nontender. No organomegaly. Bowel sounds audible. Extremity exam; no peripheral edema. SOLE SKIVER exam; patient is awake and follows simple commands. Results Result Diagram: 05/27/17 0455 05/27/17 0455 Results 24 hrs Laboratory Tests Test 05/27/17 04:55 White Blood Count 7.2 Red Blood Count 5.10 Hemoglobin 14.7 Hematocrit 48.0 H Mean Corpuscular Volume 94.1 Mean Corpuscular Hemoglobin 28.8 L Mean Corpuscular Hemoglobin Concent 30.6 L Red Cell Distribution Width 14.4 Platelet Count 116 L Mean Platelet Volume 11.1 H Neutrophils % 63.1 Lymphocytes % 25.8 Monocytes % 7.5 Eosinophils % 2.9 Basophils % 0.4 Nucleated Red Blood Cells % 0.0 Neutrophils # 4.6 Lymphocytes # 1.9 Monocytes # 0.5 Eosinophils # 0.2 Basophils # 0.0 Nucleated Red Blood Cells # 0.0 Sodium Level 138 Potassium Level 3.7 Chloride Level 100 Carbon Dioxide Level 33 H Anion Gap 9 Blood Urea Nitrogen 29 H Creatinine 0.81 Glucose Level 102 Calcium Level 9.4 Medications Medications Current Medications Acetaminophen (Tylenol Tab) 650 mg Q4H PRN PO PAIN AND OR ELEVATED TEMP; Start 05/24/17 at 18:30 Benazepril HCl (Lotensin) 10 mg DAILY PO Last administered on 05/27/17 09:15; Admin Dose 10 MG; Start 05/25/17 at 09:00 Furosemide (Lasix) 20 mg DAILY IV Last administered on 05/27/17 09:14; Admin Dose 20 MG; Start 05/25/17 at 09:00 Acetazolamide (Diamox) 500 mg DAILY IV Last administered on 05/27/17 09:14; Admin Dose 500 MG; Start 05/25/17 at 09:00 Enoxaparin Sodium (Lovenox) 40 mg DAILY SC Last administered on 05/27/17 09:13 ; Admin Dose 40 MG; Start 05/25/17 at 09:00 Amlodipine Besylate (Norvasc) 10 mg DAILY PO Last administered on 05/27/17 09: 14; Admin Dose 10 MG; Start 05/25/17 at 09:00 Hydralazine HCl (Apresoline) 10 mg Q6H PRN IV ELEVATED BLOOD PRESSURE; Start at 18:30 Morphine Sulfate (morphine) 2 mg Q2H PRN IV PAIN; Start 05/24/17 at 18:30 Lorazepam (Ativan) 1 mg Q4 PRN IV ANXIETY Last administered on 05/27/17 04:33 ; Admin Dose 1 MG; Start 05/24/17 at 18:30 Dimethicone (Blistex Lip [place]) 1 applic Q2H PRN TOP NOTE; Start 05/24/17 at 18: 30 Docusate Sodium (Colace) 100 mg BID PO Last administered on 05/27/17 09:12; Admin Dose 100 MG; Start 05/26/17 at 12:30 Famotidine (Pepcid) 20 mg DAILY PO ; Start 05/28/17 at 09:00 SEVERINO MCMILLAN May 27, 2017 16:40
[2017-05-27 19:35] VITALS: BP 105/52; RESP 20
--- NOTE | 2017-05-27 19:52 | PN ---
Date/Time of Note Date/Time of Note DATE: 05/27/17 TIME: 19:47 Assessment/Plan VTE Prophylaxis VTE Prophylaxis Intervention: SCD's Lines/Catheters IV [facility] [place] [facility] Urinary Cath still in place: No Assessment/Plan Chief Complaint/Hosp Course Patient's complains of intermittent shortness of breath, start PT Problems: Assessment/Plan -Acute on chronic hypercarbic respiratory insufficiency -Possible obstructive sleep apnea, continue BiPAP at night. 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 Further recommendations based on clinical course. Plan of care discussed with Dr. Cavazos Exam/Review of Systems Vital Signs Vitals Vital Signs Date Time Temp Pulse Resp B/P Pulse Ox O2 Delivery O2 Flow Rate FiO2 05/27/17 16:23 82 20 91 Nasal Cannula 4.0 05/27/17 14:36 98.5 101/55 05/27/17 00:03 21 Intake and Output 05/26/17 05/26/17 05/27/17 15:00 23:00 07:00 Intake Total 860 ml 600 ml Balance 860 ml 600 ml Exam Constitutional: alert, oriented Neck: supple Respiratory: diminished breath sounds Cardiovascular: nl pulses Gastrointestinal: non-tender, soft Extremities: normal pulses Results Result Diagram: 05/27/17 0455 05/27/17 0455 Results 24 hrs Laboratory Tests Test 05/27/17 04:55 White Blood Count 7.2 Red Blood Count 5.10 Hemoglobin 14.7 Hematocrit 48.0 H Mean Corpuscular Volume 94.1 Mean Corpuscular Hemoglobin 28.8 L Mean Corpuscular Hemoglobin Concent 30.6 L Red Cell Distribution Width 14.4 Platelet Count 116 L Mean Platelet Volume 11.1 H Neutrophils % 63.1 Lymphocytes % 25.8 Monocytes % 7.5 Eosinophils % 2.9 Basophils % 0.4 Nucleated Red Blood Cells % 0.0 Neutrophils # 4.6 Lymphocytes # 1.9 Monocytes # 0.5 Eosinophils # 0.2 Basophils # 0.0 Nucleated Red Blood Cells # 0.0 Sodium Level 138 Potassium Level 3.7 Chloride Level 100 Carbon Dioxide Level 33 H Anion Gap 9 Blood Urea Nitrogen 29 H Creatinine 0.81 Glucose Level 102 Calcium Level 9.4 Medications Medications Current Medications Acetaminophen (Tylenol Tab) 650 mg Q4H PRN PO PAIN AND OR ELEVATED TEMP; Start 05/24/17 at 18:30 Benazepril HCl (Lotensin) 10 mg DAILY PO Last administered on 05/27/17 09:15; Admin Dose 10 MG; Start 05/25/17 at 09:00 Furosemide (Lasix) 20 mg DAILY IV Last administered on 05/27/17 09:14; Admin Dose 20 MG; Start 05/25/17 at 09:00 Acetazolamide (Diamox) 500 mg DAILY IV Last administered on 05/27/17 09:14; Admin Dose 500 MG; Start 05/25/17 at 09:00 Enoxaparin Sodium (Lovenox) 40 mg DAILY SC Last administered on 05/27/17 09:13 ; Admin Dose 40 MG; Start 05/25/17 at 09:00 Amlodipine Besylate (Norvasc) 10 mg DAILY PO Last administered on 05/27/17 09: 14; Admin Dose 10 MG; Start 05/25/17 at 09:00 Hydralazine HCl (Apresoline) 10 mg Q6H PRN IV ELEVATED BLOOD PRESSURE; Start at 18:30 Morphine Sulfate (morphine) 2 mg Q2H PRN IV PAIN; Start 05/24/17 at 18:30 Lorazepam (Ativan) 1 mg Q4 PRN IV ANXIETY Last administered on 05/27/17 04:33 ; Admin Dose 1 MG; Start 05/24/17 at 18:30 Dimethicone (Blistex Lip [place]) 1 applic Q2H PRN TOP NOTE; Start 05/24/17 at 18: 30 Docusate Sodium (Colace) 100 mg BID PO Last administered on 05/27/17 09:12; Admin Dose 100 MG; Start 05/26/17 at 12:30 Famotidine (Pepcid) 20 mg DAILY PO ; Start 05/28/17 at 09:00 SUJEY KRISHNAMURTHY May 27, 2017 19:52
[2017-05-28 02:00] VITALS: BP 99/57; RESP 20
[2017-05-28 05:52] LABS: BASOPHILS % 0.4 % (0.0-2.0); EOSINOPHILS # 0.2 10^3/ul (0.0-0.5); EOSINOPHILS % 2.9 % (0.0-7.0); HEMATOCRIT 47.2 % (37.0-47.0); HEMOGLOBIN 13.9 g/dl (12.0-16.0); LYMPHOCYTES # 1.9 10^3/ul (0.8-2.9); LYMPHOCYTES % 26.9 % (15.0-51.0); MEAN CORPUSCULAR HEMOGLOBIN 28.3 pg (29.0-33.0); MEAN CORPUSCULAR HGB CONC 29.4 g/dl (32.0-37.0); MEAN CORPUSCULAR VOLUME 95.9 fl (82.0-101.0); MEAN PLATELET VOLUME 11.8 fl (7.4-10.4); MONOCYTE # 0.6 10^3/ul (0.3-0.9); MONOCYTES % 8.4 % (0.0-11.0); NEUTROPHIL # 4.3 10^3/ul (1.6-7.5); NEUTROPHILS % 61.3 % (39.0-77.0); PLATELET COUNT 108 10^3/UL (140-415); RED BLOOD COUNT 4.92 10^6/ul (4.20-5.40); RED CELL DISTRIBUTION WIDTH 14.8 % (11.5-14.5)
[2017-05-28 06:52] LABS: CALCIUM 9.1 mg/dl (8.4-10.2); CREATININE 0.84 mg/dl (0.44-1.00); POTASSIUM 3.6 mmol/L (3.5-5.1)
[2017-05-28 08:25] VITALS: BP 102/56; RESP 20
[2017-05-28] MEDS: BENAZEPRIL 10 MG TAB PO SCH (09:00)
[2017-05-28] MEDS: AMLODIPINE 10 MG TAB PO SCH (09:00)
--- NOTE | 2017-05-28 09:18 | CONS ---
Date/Time of Note Date/Time of Note DATE: 05/28/17 TIME: 09:17 Assessment/Plan Assessment/Plan Additional Assessment/Plan 1. Congestive heart failure exacerbation, systolic and diastolic by most recent echo, November 2016, revealing ejection fraction of 45-50 percent. Con't to keep euvolemic - spot diuresis as needed. STABLE FLUID STATUS. BETTER now. 2. Cardiomyopathy, with decreased left ejection fraction, last approximately 45 percent by echo, November 2010. NO CHANGE. 3. Permanent pacemaker, sinus automatic internal cardioverter defibrillator, biventricular, status post interrogation, with proper function, battery life of greater than 2 years - stable. Patient a DNR/DNI. No evidence of malfxn - off tele now. 4. Hypertension - modest rx, con't to follow. 5. Respiratory failure, now improved. Con't gentle diuresis. BETTER overall. Resp Rxat bedside now - no wheezing. 6. Splenic mass- primary follows. Consultation Date/Type/Reason Admit Date/Time May 23, 2017 at 15:55 Type of Consultation: Pulm 24 HR Interval Summary Free Text/Dictation NO acute events - BP in good range - improving. ROS: No fever, no chills, no nausea, no vomiting, no diarrhea/constipation No recent weight changes No chest pain, no PND, no orthopnea No dizziness, blurred vision No thirst, no heat or cold intolerance Exam/Review of Systems Vital Signs Vitals Vital Signs Date Time Temp Pulse Resp B/P Pulse Ox O2 Delivery O2 Flow Rate FiO2 05/28/17 08:25 97.8 76 20 102/56 92 05/27/17 23:45 4.0 05/27/17 16:23 Nasal Cannula 05/27/17 00:03 21 Intake and Output 05/27/17 05/27/17 05/28/17 15:00 23:00 07:00 Intake Total 850 ml 250 ml Balance 850 ml 250 ml Exam General: WN/WD/NAD, AOx 2-3 HEENT: Unicetric/atraumatic/EOMI (follows commands) NECK: JVD elevated, no thyromegaly Lymph: no lymphadenopathy HEART: regular with no S3, II/ systolic murmur at apex LUNGS: Coarse sounds ABD: soft, NT, ND, +BS : Intact Neuro: non focal SKIN: chronic changes EXT: trace edema Results Result Diagram: 05/28/17 0514 05/28/17 0514 Results 24 hrs Laboratory Tests Test 05/28/17 05:14 White Blood Count 7.0 Red Blood Count 4.92 Hemoglobin 13.9 Hematocrit 47.2 H Mean Corpuscular Volume 95.9 Mean Corpuscular Hemoglobin 28.3 L Mean Corpuscular Hemoglobin Concent 29.4 L Red Cell Distribution Width 14.8 H Platelet Count 108 L Mean Platelet Volume 11.8 H Neutrophils % 61.3 Lymphocytes % 26.9 Monocytes % 8.4 Eosinophils % 2.9 Basophils % 0.4 Nucleated Red Blood Cells % 0.0 Neutrophils # 4.3 Lymphocytes # 1.9 Monocytes # 0.6 Eosinophils # 0.2 Basophils # 0.0 Nucleated Red Blood Cells # 0.0 Sodium Level 140 Potassium Level 3.6 Chloride Level 102 Carbon Dioxide Level 32 H Anion Gap 10 Blood Urea Nitrogen 32 H Creatinine 0.84 Glucose Level 111 Calcium Level 9.1 Medications Medications Current Medications Acetaminophen (Tylenol Tab) 650 mg Q4H PRN PO PAIN AND OR ELEVATED TEMP; Start 05/24/17 at 18:30 Benazepril HCl (Lotensin) 10 mg DAILY PO Last administered on 05/27/17 09:15; Admin Dose 10 MG; Start 05/25/17 at 09:00 Furosemide (Lasix) 20 mg DAILY IV Last administered on 05/27/17 09:14; Admin Dose 20 MG; Start 05/25/17 at 09:00 Acetazolamide (Diamox) 500 mg DAILY IV Last administered on 05/27/17 09:14; Admin Dose 500 MG; Start 05/25/17 at 09:00 Enoxaparin Sodium (Lovenox) 40 mg DAILY SC Last administered on 05/27/17 09:13 ; Admin Dose 40 MG; Start 05/25/17 at 09:00 Amlodipine Besylate (Norvasc) 10 mg DAILY PO Last administered on 05/27/17 09: 14; Admin Dose 10 MG; Start 05/25/17 at 09:00 Hydralazine HCl (Apresoline) 10 mg Q6H PRN IV ELEVATED BLOOD PRESSURE; Start at 18:30 Morphine Sulfate (morphine) 2 mg Q2H PRN IV PAIN; Start 05/24/17 at 18:30 Lorazepam (Ativan) 1 mg Q4 PRN IV ANXIETY Last administered on 05/27/17 04:33 ; Admin Dose 1 MG; Start 05/24/17 at 18:30 Dimethicone (Blistex Lip [place]) 1 applic Q2H PRN TOP NOTE; Start 05/24/17 at 18: 30 Docusate Sodium (Colace) 100 mg BID PO Last administered on 05/27/17 21:36; Admin Dose 100 MG; Start 05/26/17 at 12:30 Famotidine (Pepcid) 20 mg DAILY PO ; Start 05/28/17 at 09:00 MARGA MACKEY MD May 28, 2017 09:18
[2017-05-28] MEDS: ALBUTEROL/IPRATROPIUM (NEB) 3 ML AMP HHN SCH ×3 (09:27→23:09)
--- NOTE | 2017-05-28 11:32 | CONS ---
Date/Time of Note Date/Time of Note DATE: 05/28/17 TIME: 11:29 Assessment/Plan Assessment/Plan Additional Assessment/Plan Assessment and recommendations; 1. Patient admitted with severe hypercapnic respiratory failure with marked overall improvement. Currently doing very well on 2 L nasal cannula. 2. History of CHF and hypertension. Continue current treatment. Consider discharge. Consultation Date/Type/Reason Admit Date/Time May 23, 2017 at 15:55 Type of Consultation: Pulm 24 HR Interval Summary Free Text/Dictation Patient condition stable. Doing very well overall. Remains awake and alert. General exam; elderly woman, awake and alert. Currently in no distress. Exam/Review of Systems Vital Signs Vitals Vital Signs Date Time Temp Pulse Resp B/P Pulse Ox O2 Delivery O2 Flow Rate FiO2 05/28/17 09:27 93 4.0 05/28/17 09:27 83 20 Nasal Cannula 05/28/17 08:25 97.8 102/56 05/27/17 00:03 21 Intake and Output 05/27/17 05/27/17 05/28/17 15:00 23:00 07:00 Intake Total 850 ml 250 ml Balance 850 ml 250 ml Exam HEENT exam; supple neck, no JVD. No lymphadenopathy. Midline trachea. No thyromegaly. Patient has a right intraocular lens implant. Only few remaining teeth are present in lower jaw. Chest exam; diminished but clear breath sound. S1-S2 audible, no murmurs. Regular rhythm. Abdomen exam; soft, no organomegaly. Nontender. Bowel sounds audible. Extremity exam; no edema. CH[employer] exam; no focal deficit. Results Result Diagram: 05/28/17 0514 05/28/17 0514 Results 24 hrs Laboratory Tests Test 05/28/17 05:14 White Blood Count 7.0 Red Blood Count 4.92 Hemoglobin 13.9 Hematocrit 47.2 H Mean Corpuscular Volume 95.9 Mean Corpuscular Hemoglobin 28.3 L Mean Corpuscular Hemoglobin Concent 29.4 L Red Cell Distribution Width 14.8 H Platelet Count 108 L Mean Platelet Volume 11.8 H Neutrophils % 61.3 Lymphocytes % 26.9 Monocytes % 8.4 Eosinophils % 2.9 Basophils % 0.4 Nucleated Red Blood Cells % 0.0 Neutrophils # 4.3 Lymphocytes # 1.9 Monocytes # 0.6 Eosinophils # 0.2 Basophils # 0.0 Nucleated Red Blood Cells # 0.0 Sodium Level 140 Potassium Level 3.6 Chloride Level 102 Carbon Dioxide Level 32 H Anion Gap 10 Blood Urea Nitrogen 32 H Creatinine 0.84 Glucose Level 111 Calcium Level 9.1 Medications Medications Current Medications Acetaminophen (Tylenol Tab) 650 mg Q4H PRN PO PAIN AND OR ELEVATED TEMP; Start 05/24/17 at 18:30 Benazepril HCl (Lotensin) 10 mg DAILY PO Last administered on 05/27/17 09:15; Admin Dose 10 MG; Start 05/25/17 at 09:00 Furosemide (Lasix) 20 mg DAILY IV Last administered on 05/27/17 09:14; Admin Dose 20 MG; Start 05/25/17 at 09:00 Acetazolamide (Diamox) 500 mg DAILY IV Last administered on 05/27/17 09:14; Admin Dose 500 MG; Start 05/25/17 at 09:00 Enoxaparin Sodium (Lovenox) 40 mg DAILY SC Last administered on 05/27/17 09:13 ; Admin Dose 40 MG; Start 05/25/17 at 09:00 Amlodipine Besylate (Norvasc) 10 mg DAILY PO Last administered on 05/27/17 09: 14; Admin Dose 10 MG; Start 05/25/17 at 09:00 Hydralazine HCl (Apresoline) 10 mg Q6H PRN IV ELEVATED BLOOD PRESSURE; Start at 18:30 Morphine Sulfate (morphine) 2 mg Q2H PRN IV PAIN; Start 05/24/17 at 18:30 Lorazepam (Ativan) 1 mg Q4 PRN IV ANXIETY Last administered on 05/27/17 04:33 ; Admin Dose 1 MG; Start 05/24/17 at 18:30 Dimethicone (Blistex Lip [place]) 1 applic Q2H PRN TOP NOTE; Start 05/24/17 at 18: 30 Docusate Sodium (Colace) 100 mg BID PO Last administered on 05/27/17 21:36; Admin Dose 100 MG; Start 05/26/17 at 12:30 Famotidine (Pepcid) 20 mg DAILY PO ; Start 05/28/17 at 09:00 SEVERINO MCMILLAN May 28, 2017 11:32
[2017-05-28 11:59] VITALS: BP 99/57
[2017-05-28] MEDS: FAMOTIDINE 20 MG TAB PO SCH (13:26)
[2017-05-28] MEDS: ACETAZOLAMIDE 500 MG INJ IV SCH (13:26)
[2017-05-28] MEDS: DOCUSATE SODIUM 100 MG CAP PO SCH ×2 (13:27→20:58)
[2017-05-28] MEDS: FUROSEMIDE 20 MG INJ IV SCH (13:27)
[2017-05-28] MEDS: ENOXAPARIN 40 MG/0.4 ML SYG SC SCH (13:32)
[2017-05-28 16:48] VITALS: BP 109/62; RESP 20
--- NOTE | 2017-05-28 17:45 | PN ---
Date/Time of Note Date/Time of Note DATE: 05/28/17 TIME: 17:44 Assessment/Plan VTE Prophylaxis VTE Prophylaxis Intervention: SCD's Lines/Catheters IV Catheter Type (from Nrs): Peripheral IV Urinary Cath still in place: No Assessment/Plan Chief Complaint/Hosp Course Patient with improvement in respiratory status, continue physical therapy. Assessment/Plan -Acute on chronic hypercarbic respiratory insufficiency -Possible obstructive sleep apnea, continue BiPAP at night. 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 Further recommendations based on clinical course. Plan of care discussed with Dr. Cavazos Problems: Exam/Review of Systems Vital Signs Vitals Vital Signs Date Time Temp Pulse Resp B/P Pulse Ox O2 Delivery O2 Flow Rate FiO2 05/28/17 16:48 97.8 92 20 109/62 94 05/28/17 16:10 Nasal Cannula 4.0 05/27/17 00:03 21 Intake and Output 05/27/17 05/27/17 05/28/17 15:00 23:00 07:00 Intake Total 850 ml 250 ml Balance 850 ml 250 ml Exam Constitutional: alert, oriented Neck: supple Respiratory: diminished breath sounds Cardiovascular: nl pulses Gastrointestinal: non-tender, soft Extremities: normal pulses Results Result Diagram: 05/28/1714 05/28/17 0514 Results 24 hrs Laboratory Tests Test 05/28/17 05:14 White Blood Count 7.0 Red Blood Count 4.92 Hemoglobin 13.9 Hematocrit 47.2 H Mean Corpuscular Volume 95.9 Mean Corpuscular Hemoglobin 28.3 L Mean Corpuscular Hemoglobin Concent 29.4 L Red Cell Distribution Width 14.8 H Platelet Count 108 L Mean Platelet Volume 11.8 H Neutrophils % 61.3 Lymphocytes % 26.9 Monocytes % 8.4 Eosinophils % 2.9 Basophils % 0.4 Nucleated Red Blood Cells % 0.0 Neutrophils # 4.3 Lymphocytes # 1.9 Monocytes # 0.6 Eosinophils # 0.2 Basophils # 0.0 Nucleated Red Blood Cells # 0.0 Sodium Level 140 Potassium Level 3.6 Chloride Level 102 Carbon Dioxide Level 32 H Anion Gap 10 Blood Urea Nitrogen 32 H Creatinine 0.84 Glucose Level 111 Calcium Level 9.1 Medications Medications Current Medications Acetaminophen (Tylenol Tab) 650 mg Q4H PRN PO PAIN AND OR ELEVATED TEMP; Start 05/24/17 at 18:30 Benazepril HCl (Lotensin) 10 mg DAILY PO Last administered on 05/27/17 09:15; Admin Dose 10 MG; Start 05/25/17 at 09:00 Furosemide (Lasix) 20 mg DAILY IV Last administered on 05/28/17 13:27; Admin Dose 20 MG; Start 05/25/17 at 09:00 Acetazolamide (Diamox) 500 mg DAILY IV Last administered on 05/28/17 13:26; Admin Dose 500 MG; Start 05/25/17 at 09:00 Enoxaparin Sodium (Lovenox) 40 mg DAILY SC Last administered on 05/28/17 13:32 ; Admin Dose 40 MG; Start 05/25/17 at 09:00 Amlodipine Besylate (Norvasc) 10 mg DAILY PO Last administered on 05/27/17 09: 14; Admin Dose 10 MG; Start 05/25/17 at 09:00 Hydralazine HCl (Apresoline) 10 mg Q6H PRN IV ELEVATED BLOOD PRESSURE; Start at 18:30 Morphine Sulfate (morphine) 2 mg Q2H PRN IV PAIN; Start 05/24/17 at 18:30 Lorazepam (Ativan) 1 mg Q4 PRN IV ANXIETY Last administered on 05/27/17 04:33 ; Admin Dose 1 MG; Start 05/24/17 at 18:30 Dimethicone (Blistex Lip [place]) 1 applic Q2H PRN TOP NOTE; Start 05/24/17 at 18: 30 Docusate Sodium (Colace) 100 mg BID PO Last administered on 05/28/17 13:27; Admin Dose 100 MG; Start 05/26/17 at 12:30 Famotidine (Pepcid) 20 mg DAILY PO Last administered on 05/28/17 13:26; Admin Dose 20 MG; Start 05/28/17 at 09:00 SUJEY KRISHNAMURTHY May 28, 2017 17:45
[2017-05-28 19:45] VITALS: BP 99/55; RESP 21
[2017-05-29 02:22] VITALS: BP 110/56; RESP 20
[2017-05-29 07:00] VITALS: BP 106/54; RESP 20
[2017-05-29] MEDS: ALBUTEROL/IPRATROPIUM (NEB) 3 ML AMP HHN SCH ×2 (08:00→16:50)
[2017-05-29 10:50] VITALS: BP 122/65; PULSE 98; RESP 16
[2017-05-29] MEDS: FAMOTIDINE 20 MG TAB PO SCH (11:10)
[2017-05-29] MEDS: DOCUSATE SODIUM 100 MG CAP PO SCH ×2 (11:10→21:38)
[2017-05-29] MEDS: AMLODIPINE 10 MG TAB PO SCH (11:13)
[2017-05-29] MEDS: BENAZEPRIL 10 MG TAB PO SCH (11:13)
[2017-05-29] MEDS: ACETAZOLAMIDE 500 MG INJ IV SCH (11:14)
[2017-05-29] MEDS: FUROSEMIDE 20 MG INJ IV SCH (11:14)
[2017-05-29] MEDS: ENOXAPARIN 40 MG/0.4 ML SYG SC SCH (11:15)
--- NOTE | 2017-05-29 12:24 | CONS ---
Date/Time of Note Date/Time of Note DATE: 05/29/17 TIME: 12:21 Assessment/Plan Assessment/Plan Additional Assessment/Plan Assessment and recommendations; 1. Patient admitted with hypercapnic respiratory failure with marked overall interval improvement. 2. History of CHF and hypertension which are both compensated. Continue current treatment. Consider discharge. Consultation Date/Type/Reason Admit Date/Time May 23, 2017 at 15:55 Type of Consultation: Pulm 24 HR Interval Summary Free Text/Dictation Patient condition stable. Doing very well overall. Denies any shortness of breath. Any coughing or wheezing. General exam; elderly woman, awake and alert. Currently in no distress. Exam/Review of Systems Vital Signs Vitals Vital Signs Date Time Temp Pulse Resp B/P Pulse Ox O2 Delivery O2 Flow Rate FiO2 05/29/17 12:19 4.0 05/29/17 07:00 98.7 79 20 106/54 94 05/28/17 23:11 Nasal Cannula 35 Intake and Output 05/28/17 05/28/17 05/29/17 15:00 23:00 07:00 Intake Total 340 ml 400 ml Balance 340 ml 400 ml Exam HEENT exam; supple neck, no JVD. No lymphadenopathy. Midline trachea. No thyromegaly. Patient has right intraocular lens implant. Few remaining teeth are present. Chest exam; diminished but clear breath sounds. S1-S2 audible, no murmurs. Regular rhythm. Abdomen exam; soft, nontender. No organomegaly. Bowel sounds audible. Extremity exam; no edema. S[employer] exam; no focal deficit. Results Result Diagram: 05/28/17 0514 05/28/17 0514 Medications Medications Current Medications Acetaminophen (Tylenol Tab) 650 mg Q4H PRN PO PAIN AND OR ELEVATED TEMP; Start 05/24/17 at 18:30 Benazepril HCl (Lotensin) 10 mg DAILY PO Last administered on 05/29/17 11:13; Admin Dose 10 MG; Start 05/25/17 at 09:00 Furosemide (Lasix) 20 mg DAILY IV Last administered on 05/29/17 11:14; Admin Dose 20 MG; Start 05/25/17 at 09:00 Acetazolamide (Diamox) 500 mg DAILY IV Last administered on 05/29/17 11:14; Admin Dose 500 MG; Start 05/25/17 at 09:00 Enoxaparin Sodium (Lovenox) 40 mg DAILY SC Last administered on 05/29/17 11:15 ; Admin Dose 40 MG; Start 05/25/17 at 09:00 Amlodipine Besylate (Norvasc) 10 mg DAILY PO Last administered on 05/29/17 11: 13; Admin Dose 10 MG; Start 05/25/17 at 09:00 Hydralazine HCl (Apresoline) 10 mg Q6H PRN IV ELEVATED BLOOD PRESSURE; Start at 18:30 Morphine Sulfate (morphine) 2 mg Q2H PRN IV PAIN; Start 05/24/17 at 18:30 Lorazepam (Ativan) 1 mg Q4 PRN IV ANXIETY Last administered on 05/27/17 04:33 ; Admin Dose 1 MG; Start 05/24/17 at 18:30 Dimethicone (Blistex Lip [place]) 1 applic Q2H PRN TOP NOTE; Start 05/24/17 at 18: 30 Docusate Sodium (Colace) 100 mg BID PO Last administered on 05/29/17 11:10; Admin Dose 100 MG; Start 05/26/17 at 12:30 Famotidine (Pepcid) 20 mg DAILY PO Last administered on 05/29/17 11:10; Admin Dose 20 MG; Start 05/28/17 at 09:00 SEVERINO MCMILLAN May 29, 2017 12:24
--- NOTE | 2017-05-29 16:33 | CONS ---
Date/Time of Note Date/Time of Note DATE: 05/29/17 TIME: 16:25 Assessment/Plan Assessment/Plan Chief Complaint/Hosp Course 1. Congestive heart failure exacerbation, systolic and diastolic by most recent echo, November 2016, revealing ejection fraction of 45-50 percent. 2. Cardiomyopathy, with decreased left ejection fraction, last approximately 45 percent by echo, November 2010. 3. Permanent pacemaker, sinus automatic internal cardioverter defibrillator, biventricular, status post interrogation, with proper function, battery life of greater than 2 years - stable. Patient a DNR/DNI. 4. Hypertension - modest rx, con't to follow. 5. Respiratory failure, now improved. 6. Splenic mass. Recc: -Continue benazepril/norvasc -Contiue gentle lasix diuresis -Continue diamox -Follow volume status closely Problems: Consultation Date/Type/Reason Admit Date/Time May 23, 2017 at 15:55 Initial Consult Date 05/24/2017 Type of Consultation: cardiology Reason for Consultation CHF Referring Provider: FLORENCIA MORALES MD Exam/Review of Systems Vital Signs Vitals Vital Signs Date Time Temp Pulse Resp B/P Pulse Ox O2 Delivery O2 Flow Rate FiO2 05/29/17 12:19 4.0 05/29/17 08:00 Nasal Cannula 05/29/17 07:00 98.7 79 20 106/54 94 05/28/17 23:11 35 Intake and Output 05/28/17 05/28/17 05/29/17 15:00 23:00 07:00 Intake Total 340 ml 400 ml Balance 340 ml 400 ml Exam Review of Systems: CONSTITUTIONAL: No fevers, chills. PULMONARY: No sob CARDIOVASCULAR: No chest pain/palpitations GASTROINTESTINAL: No nausea/vomiting. GENITOURINARY: No hematuria/dysuria. MUSCULOSKELETAL: No myagias/arthalgias. PSYCHIATRIC: The patient denies depression. NEUROLOGIC: somewhat lethargic Constitutional: other (sleeping, easily arousable) Head: normocephalic ENMT: mucosa pink and moist Neck: jvd (9 cm water) Respiratory: clear to auscultation Cardiovascular: regular rate and rhythm Gastrointestinal: non-tender, soft Musculoskeletal: muscle weakness (generalized) Extremities: edema (none) Neurological: other (lethargic) Results Result Diagram: 05/28/1714 05/28/17513 Medications Medications Current Medications Acetaminophen (Tylenol Tab) 650 mg Q4H PRN PO PAIN AND OR ELEVATED TEMP; Start 05/24/17 at 18:30 Benazepril HCl (Lotensin) 10 mg DAILY PO Last administered on 05/29/17 11:13; Admin Dose 10 MG; Start 05/25/17 at 09:00 Furosemide (Lasix) 20 mg DAILY IV Last administered on 05/29/17 11:14; Admin Dose 20 MG; Start 05/25/17 at 09:00 Acetazolamide (Diamox) 500 mg DAILY IV Last administered on 05/29/17 11:14; Admin Dose 500 MG; Start 05/25/17 at 09:00 Enoxaparin Sodium (Lovenox) 40 mg DAILY SC Last administered on 05/29/17 11:15 ; Admin Dose 40 MG; Start 05/25/17 at 09:00 Amlodipine Besylate (Norvasc) 10 mg DAILY PO Last administered on 05/29/17 11: 13; Admin Dose 10 MG; Start 05/25/17 at 09:00 Hydralazine HCl (Apresoline) 10 mg Q6H PRN IV ELEVATED BLOOD PRESSURE; Start at 18:30 Morphine Sulfate (morphine) 2 mg Q2H PRN IV PAIN; Start 05/24/17 at 18:30 Lorazepam (Ativan) 1 mg Q4 PRN IV ANXIETY Last administered on 05/27/17 04:33 ; Admin Dose 1 MG; Start 05/24/17 at 18:30 Dimethicone (Blistex Lip [place]) 1 applic Q2H PRN TOP NOTE; Start 05/24/17 at 18: 30 Docusate Sodium (Colace) 100 mg BID PO Last administered on 05/29/17 11:10; Admin Dose 100 MG; Start 05/26/17 at 12:30 Famotidine (Pepcid) 20 mg DAILY PO Last administered on 05/29/17 11:10; Admin Dose 20 MG; Start 05/28/17 at 09:00 PAYTON MONTEZ May 29, 2017 16:33
--- NOTE | 2017-05-29 18:01 | PN ---
Date/Time of Note Date/Time of Note DATE: 05/29/17 TIME: 17:59 Assessment/Plan VTE Prophylaxis VTE Prophylaxis Intervention: LMWH Lines/Catheters IV Catheter Type (from [facility]): Saline Lock Urinary Cath still in place: No Assessment/Plan Chief Complaint/Hosp Course Patient continues in supplemental oxygen, poor mobility, continue physical therapy. Assessment/Plan -Acute on chronic hypercarbic respiratory insufficiency -Possible obstructive sleep apnea, continue BiPAP at night. 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 Further recommendations based on clinical course. Plan of care discussed with Dr. Cavazos Problems: Exam/Review of Systems Vital Signs Vitals Vital Signs Date Time Temp Pulse Resp B/P Pulse Ox O2 Delivery O2 Flow Rate FiO2 05/29/17 16:50 83 20 94 Nasal Cannula 5.0 05/29/17 07:00 98.7 106/54 05/28/17 23:11 35 Intake and Output 05/28/17 05/28/17 05/29/17 15:00 23:00 07:00 Intake Total 340 ml 400 ml Balance 340 ml 400 ml Exam Constitutional: alert, oriented Neck: supple Respiratory: diminished breath sounds Cardiovascular: nl pulses Gastrointestinal: non-tender, soft Extremities: normal pulses Results Result Diagram: 05/28/1751305/28/17513 Medications Medications Current Medications Acetaminophen (Tylenol Tab) 650 mg Q4H PRN PO PAIN AND OR ELEVATED TEMP; Start 05/24/17 at 18:30 Benazepril HCl (Lotensin) 10 mg DAILY PO Last administered on 05/29/17 11:13; Admin Dose 10 MG; Start 05/25/17 at 09:00 Furosemide (Lasix) 20 mg DAILY IV Last administered on 05/29/17 11:14; Admin Dose 20 MG; Start 05/25/17 at 09:00 Acetazolamide (Diamox) 500 mg DAILY IV Last administered on 05/29/17 11:14; Admin Dose 500 MG; Start 05/25/17 at 09:00 Enoxaparin Sodium (Lovenox) 40 mg DAILY SC Last administered on 05/29/17 11:15 ; Admin Dose 40 MG; Start 05/25/17 at 09:00 Amlodipine Besylate (Norvasc) 10 mg DAILY PO Last administered on 05/29/17 11: 13; Admin Dose 10 MG; Start 05/25/17 at 09:00 Hydralazine HCl (Apresoline) 10 mg Q6H PRN IV ELEVATED BLOOD PRESSURE; Start at 18:30 Morphine Sulfate (morphine) 2 mg Q2H PRN IV PAIN; Start 05/24/17 at 18:30 Lorazepam (Ativan) 1 mg Q4 PRN IV ANXIETY Last administered on 05/27/17 04:33 ; Admin Dose 1 MG; Start 05/24/17 at 18:30 Dimethicone (Blistex Lip [place]) 1 applic Q2H PRN TOP NOTE; Start 05/24/17 at 18: 30 Docusate Sodium (Colace) 100 mg BID PO Last administered on 05/29/17 11:10; Admin Dose 100 MG; Start 05/26/17 at 12:30 Famotidine (Pepcid) 20 mg DAILY PO Last administered on 05/29/17 11:10; Admin Dose 20 MG; Start 05/28/17 at 09:00 SUJEY KRISHNAMURTHY May 29, 2017 18:01
[2017-05-29 21:01] VITALS: BP 110/60; RESP 20
[2017-05-30] MEDS: ALBUTEROL/IPRATROPIUM (NEB) 3 ML AMP HHN SCH ×4 (00:43→23:05)
[2017-05-30 05:11] LABS: BASOPHILS % 0.5 % (0.0-2.0); EOSINOPHILS # 0.1 10^3/ul (0.0-0.5); EOSINOPHILS % 1.6 % (0.0-7.0); HEMATOCRIT 46.4 % (37.0-47.0); LYMPHOCYTES # 1.6 10^3/ul (0.8-2.9); LYMPHOCYTES % 28.9 % (15.0-51.0); MEAN CORPUSCULAR HEMOGLOBIN 28.8 pg (29.0-33.0); MEAN CORPUSCULAR HGB CONC 30.2 g/dl (32.0-37.0); MEAN CORPUSCULAR VOLUME 95.5 fl (82.0-101.0); MEAN PLATELET VOLUME 12.3 fl (7.4-10.4); MONOCYTE # 0.4 10^3/ul (0.3-0.9); MONOCYTES % 7.5 % (0.0-11.0); NEUTROPHIL # 3.4 10^3/ul (1.6-7.5); NEUTROPHILS % 61.1 % (39.0-77.0); PLATELET COUNT 129 10^3/UL (140-415); RED BLOOD COUNT 4.86 10^6/ul (4.20-5.40); RED CELL DISTRIBUTION WIDTH 14.2 % (11.5-14.5); WHITE BLOOD COUNT 5.6 10^3/ul (4.8-10.8)
[2017-05-30 06:13] LABS: CREATININE 0.69 mg/dl (0.44-1.00)
[2017-05-30 08:07] VITALS: BP 91/51; RESP 20
[2017-05-30 09:30] VITALS: BP 125/65; RESP 18
[2017-05-30] MEDS: ACETAZOLAMIDE 500 MG INJ IV SCH (09:44)
[2017-05-30] MEDS: FAMOTIDINE 20 MG TAB PO SCH (09:50)
[2017-05-30] MEDS: DOCUSATE SODIUM 100 MG CAP PO SCH ×2 (09:50→20:44)
[2017-05-30] MEDS: AMLODIPINE 10 MG TAB PO SCH (09:50)
[2017-05-30] MEDS: FUROSEMIDE 20 MG INJ IV SCH (09:51)
[2017-05-30] MEDS: BENAZEPRIL 10 MG TAB PO SCH (09:51)
[2017-05-30] MEDS: ENOXAPARIN 40 MG/0.4 ML SYG SC SCH (09:52)
--- NOTE | 2017-05-30 11:57 | CONS ---
Date/Time of Note Date/Time of Note DATE: 05/30/17 TIME: 11:44 Consult Date/Type/Reason Admit Date/Time May 23, 2017 at 15:55 Initial Consult Date Type of Consultation: Pulmonary Ordering Provider: FLORENCIA MORALES MD Subjective Patient comfortable this morning on nasal cannula O2 sitting up in bed. Objective Vital Signs Date Time Temp Pulse Resp B/P Pulse Ox O2 Delivery O2 Flow Rate FiO2 05/30/17 08:07 97.9 79 20 91/51 97 05/30/17 08:00 Nasal Cannula 4.0 05/28/17 23:11 35 Intake and Output 05/29/17 05/29/17 05/30/17 15:00 23:00 07:00 Intake Total 780 ml 240 ml Balance 780 ml 240 ml Exam GENERAL: Morbidly obese [place] lady comfortable at rest no acute distress VITAL SIGNS: per chart NECK: Supple. No JVD or lymphadenopathy. CARDIAC EXAM: S1, S2. No added sounds or murmurs. CHEST: clear bilaterally, No added sounds, rales or wheezes ABDOMEN: Soft, nontender. No guarding or rebound. EXTREMITIES: No cyanosis, clubbing or edema +2 NEUROLOGIC: Generalized weakness. No focal deficits. Results/Medications Result Diagram: 05/30/17 0434 05/30/17 0434 Results 24 hrs Laboratory Tests Test 05/30/17 04:34 White Blood Count 5.6 Red Blood Count 4.86 Hemoglobin 14.0 Hematocrit 46.4 Mean Corpuscular Volume 95.5 Mean Corpuscular Hemoglobin 28.8 L Mean Corpuscular Hemoglobin Concent 30.2 L Red Cell Distribution Width 14.2 Platelet Count 129 L Mean Platelet Volume 12.3 H Neutrophils % 61.1 Lymphocytes % 28.9 Monocytes % 7.5 Eosinophils % 1.6 Basophils % 0.5 Nucleated Red Blood Cells % 0.0 Neutrophils # 3.4 Lymphocytes # 1.6 Monocytes # 0.4 Eosinophils # 0.1 Basophils # 0.0 Nucleated Red Blood Cells # 0.0 Sodium Level 139 Potassium Level 4.0 Chloride Level 103 Carbon Dioxide Level 31 Anion Gap 9 Blood Urea Nitrogen 24 H Creatinine 0.69 Glucose Level 100 Calcium Level 9.0 Medications Current Medications Acetaminophen (Tylenol Tab) 650 mg Q4H PRN PO PAIN AND OR ELEVATED TEMP; Start 05/24/17 at 18:30 Benazepril HCl (Lotensin) 10 mg DAILY PO Last administered on 05/30/17 09:51; Admin Dose 10 MG; Start 05/25/17 at 09:00 Furosemide (Lasix) 20 mg DAILY IV Last administered on 05/30/17 09:51; Admin Dose 20 MG; Start 05/25/17 at 09:00 Acetazolamide (Diamox) 500 mg DAILY IV Last administered on 05/30/17 09:44; Admin Dose 500 MG; Start 05/25/17 at 09:00 Enoxaparin Sodium (Lovenox) 40 mg DAILY SC Last administered on 05/30/17 09:52 ; Admin Dose 40 MG; Start 05/25/17 at 09:00 Amlodipine Besylate (Norvasc) 10 mg DAILY PO Last administered on 05/30/17 09: 50; Admin Dose 10 MG; Start 05/25/17 at 09:00 Hydralazine HCl (Apresoline) 10 mg Q6H PRN IV ELEVATED BLOOD PRESSURE; Start at 18:30 Morphine Sulfate (morphine) 2 mg Q2H PRN IV PAIN; Start 05/24/17 at 18:30 Lorazepam (Ativan) 1 mg Q4 PRN IV ANXIETY Last administered on 05/27/17 04:33 ; Admin Dose 1 MG; Start 05/24/17 at 18:30 Dimethicone (Blistex Lip [place]) 1 applic Q2H PRN TOP NOTE; Start 05/24/17 at 18: 30 Docusate Sodium (Colace) 100 mg BID PO Last administered on 05/30/17 09:50; Admin Dose 100 MG; Start 05/26/17 at 12:30 Famotidine (Pepcid) 20 mg DAILY PO Last administered on 05/30/17 09:50; Admin Dose 20 MG; Start 05/28/17 at 09:00 Assessment/Plan Chief Complaint/Hosp Course Assessment 1. Status post acute hypoxemic respiratory failure 2. Likely obstructive sleep apnea 3. Systolic diastolic dysfunction with acute exacerbation. Plan 1. Continue cardiac recommendations 2. Continue supplemental O2 as needed 3. Encourage out of bed if tolerated Discharge planning okay from from standpoint Problems: DINA GIRALDO MD, [facility] May 30, 2017 11:56
--- NOTE | 2017-05-30 13:09 | CONS ---
Date/Time of Note Date/Time of Note DATE: 05/30/17 TIME: 13:07 Assessment/Plan Assessment/Plan Chief Complaint/Hosp Course 1. Congestive heart failure exacerbation, systolic and diastolic by most recent echo, November 2016, revealing ejection fraction of 45-50 percent.Now improved by most recent echo read as 65% per Dr pizarro read 2. Cardiomyopathy, with decreased left ejection fraction, last approximately 45 percent by echo, November 2010. 3. Permanent pacemaker, sinus automatic internal cardioverter defibrillator, biventricular, status post interrogation, with proper function, battery life of greater than 2 years - stable. Patient a DNR/DNI. 4. Hypertension - modest rx, con't to follow. 5. Respiratory failure, now improved. 6. Splenic mass. Recc: -Continue benazepril but decrase norvasc given low/marginal BP -Contiue gentle lasix diuresis -Continue diamox -Follow volume status closely Problems: Consultation Date/Type/Reason Admit Date/Time May 23, 2017 at 15:55 Initial Consult Date 05/24/2017 Type of Consultation: cardiology Reason for Consultation CHF Referring Provider: FLORENCIA MORALES MD Exam/Review of Systems Vital Signs Vitals Vital Signs Date Time Temp Pulse Resp B/P Pulse Ox O2 Delivery O2 Flow Rate FiO2 05/30/17 08:07 97.9 79 20 91/51 97 05/30/17 08:00 Nasal Cannula 4.0 05/28/17 23:11 35 Intake and Output 05/29/17 05/29/17 05/30/17 15:00 23:00 07:00 Intake Total 780 ml 240 ml Balance 780 ml 240 ml Exam Review of Systems: CONSTITUTIONAL: No fevers, chills. PULMONARY: mild sob CARDIOVASCULAR: No chest pain/palpitations GASTROINTESTINAL: No nausea/vomiting. GENITOURINARY: No hematuria/dysuria. MUSCULOSKELETAL: No myagias/arthalgias. PSYCHIATRIC: The patient denies depression. NEUROLOGIC: No weakness Constitutional: alert, oriented Psych: no complaints Head: normocephalic ENMT: mucosa pink and moist Neck: jvd (9 cm water), supple Respiratory: diminished breath sounds (at bases/B) Cardiovascular: regular rate and rhythm Gastrointestinal: non-tender, soft Musculoskeletal: muscle weakness (mild generalized) Extremities: edema (none) Results Result Diagram: 05/30/17 0434 05/30/17 0434 Results 24 hrs Laboratory Tests Test 05/30/17 04:34 White Blood Count 5.6 Red Blood Count 4.86 Hemoglobin 14.0 Hematocrit 46.4 Mean Corpuscular Volume 95.5 Mean Corpuscular Hemoglobin 28.8 L Mean Corpuscular Hemoglobin Concent 30.2 L Red Cell Distribution Width 14.2 Platelet Count 129 L Mean Platelet Volume 12.3 H Neutrophils % 61.1 Lymphocytes % 28.9 Monocytes % 7.5 Eosinophils % 1.6 Basophils % 0.5 Nucleated Red Blood Cells % 0.0 Neutrophils # 3.4 Lymphocytes # 1.6 Monocytes # 0.4 Eosinophils # 0.1 Basophils # 0.0 Nucleated Red Blood Cells # 0.0 Sodium Level 139 Potassium Level 4.0 Chloride Level 103 Carbon Dioxide Level 31 Anion Gap 9 Blood Urea Nitrogen 24 H Creatinine 0.69 Glucose Level 100 Calcium Level 9.0 Medications Medications Current Medications Acetaminophen (Tylenol Tab) 650 mg Q4H PRN PO PAIN AND OR ELEVATED TEMP; Start 05/24/17 at 18:30 Benazepril HCl (Lotensin) 10 mg DAILY PO Last administered on 05/30/17 09:51; Admin Dose 10 MG; Start 05/25/17 at 09:00 Furosemide (Lasix) 20 mg DAILY IV Last administered on 05/30/17 09:51; Admin Dose 20 MG; Start 05/25/17 at 09:00 Acetazolamide (Diamox) 500 mg DAILY IV Last administered on 05/30/17 09:44; Admin Dose 500 MG; Start 05/25/17 at 09:00 Enoxaparin Sodium (Lovenox) 40 mg DAILY SC Last administered on 05/30/17 09:52 ; Admin Dose 40 MG; Start 05/25/17 at 09:00 Amlodipine Besylate (Norvasc) 10 mg DAILY PO Last administered on 05/30/17 09: 50; Admin Dose 10 MG; Start 05/25/17 at 09:00 Hydralazine HCl (Apresoline) 10 mg Q6H PRN IV ELEVATED BLOOD PRESSURE; Start at 18:30 Morphine Sulfate (morphine) 2 mg Q2H PRN IV PAIN; Start 05/24/17 at 18:30 Lorazepam (Ativan) 1 mg Q4 PRN IV ANXIETY Last administered on 05/27/17 04:33 ; Admin Dose 1 MG; Start 05/24/17 at 18:30 Dimethicone (Blistex Lip [place]) 1 applic Q2H PRN TOP NOTE; Start 05/24/17 at 18: 30 Docusate Sodium (Colace) 100 mg BID PO Last administered on 05/30/17 09:50; Admin Dose 100 MG; Start 05/26/17 at 12:30 Famotidine (Pepcid) 20 mg DAILY PO Last administered on 05/30/17 09:50; Admin Dose 20 MG; Start 05/28/17 at 09:00 PAYTON MONTEZ May 30, 2017 13:09
--- NOTE | 2017-05-30 19:31 | PN ---
Date/Time of Note Date/Time of Note DATE: 05/30/17 TIME: 19:30 Assessment/Plan VTE Prophylaxis VTE Prophylaxis Intervention: other Lines/Catheters IV Catheter Type (from Nrs): Saline Lock Urinary Cath still in place: No Assessment/Plan Assessment/Plan -Acute on chronic hypercarbic respiratory insufficiency- No dyspnea now -Possible obstructive sleep apnea, continue BiPAP at night. 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 Further recommendations based on clinical course. Plan of care discussed with Dr. Cavazos Exam/Review of Systems Vital Signs Vitals Vital Signs Date Time Temp Pulse Resp B/P Pulse Ox O2 Delivery O2 Flow Rate FiO2 05/30/17 16:08 78 18 97 Nasal Cannula 5.0 05/30/17 08:07 97.9 91/51 05/28/17 23:11 35 Intake and Output 05/29/17 05/29/17 05/30/17 15:00 23:00 07:00 Intake Total 780 ml 240 ml Balance 780 ml 240 ml Exam Constitutional: alert, well developed Neck: supple Respiratory: clear to auscultation Cardiovascular: nl pulses Gastrointestinal: non-tender, soft Results Result Diagram: 05/30/17 0434 05/30/17 0434 Results 24 hrs Laboratory Tests Test 05/30/17 04:34 White Blood Count 5.6 Red Blood Count 4.86 Hemoglobin 14.0 Hematocrit 46.4 Mean Corpuscular Volume 95.5 Mean Corpuscular Hemoglobin 28.8 L Mean Corpuscular Hemoglobin Concent 30.2 L Red Cell Distribution Width 14.2 Platelet Count 129 L Mean Platelet Volume 12.3 H Neutrophils % 61.1 Lymphocytes % 28.9 Monocytes % 7.5 Eosinophils % 1.6 Basophils % 0.5 Nucleated Red Blood Cells % 0.0 Neutrophils # 3.4 Lymphocytes # 1.6 Monocytes # 0.4 Eosinophils # 0.1 Basophils # 0.0 Nucleated Red Blood Cells # 0.0 Sodium Level 139 Potassium Level 4.0 Chloride Level 103 Carbon Dioxide Level 31 Anion Gap 9 Blood Urea Nitrogen 24 H Creatinine 0.69 Glucose Level 100 Calcium Level 9.0 Medications Medications Current Medications Acetaminophen (Tylenol Tab) 650 mg Q4H PRN PO PAIN AND OR ELEVATED TEMP; Start 05/24/17 at 18:30 Benazepril HCl (Lotensin) 10 mg DAILY PO Last administered on 05/30/17 09:51; Admin Dose 10 MG; Start 05/25/17 at 09:00 Furosemide (Lasix) 20 mg DAILY IV Last administered on 05/30/17 09:51; Admin Dose 20 MG; Start 05/25/17 at 09:00 Acetazolamide (Diamox) 500 mg DAILY IV Last administered on 05/30/17 09:44; Admin Dose 500 MG; Start 05/25/17 at 09:00 Enoxaparin Sodium (Lovenox) 40 mg DAILY SC Last administered on 05/30/17 09:52 ; Admin Dose 40 MG; Start 05/25/17 at 09:00 Hydralazine HCl (Apresoline) 10 mg Q6H PRN IV ELEVATED BLOOD PRESSURE; Start at 18:30 Morphine Sulfate (morphine) 2 mg Q2H PRN IV PAIN; Start 05/24/17 at 18:30 Lorazepam (Ativan) 1 mg Q4 PRN IV ANXIETY Last administered on 05/27/17 04:33 ; Admin Dose 1 MG; Start 05/24/17 at 18:30 Dimethicone (Blistex Lip [place]) 1 applic Q2H PRN TOP NOTE; Start 05/24/17 at 18: 30 Docusate Sodium (Colace) 100 mg BID PO Last administered on 05/30/17 09:50; Admin Dose 100 MG; Start 05/26/17 at 12:30 Famotidine (Pepcid) 20 mg DAILY PO Last administered on 05/30/17 09:50; Admin Dose 20 MG; Start 05/28/17 at 09:00 Amlodipine Besylate (Norvasc) 5 mg DAILY PO ; Start 05/31/17 at 09:00 JOSH FRY May 30, 2017 19:31
[2017-05-30 20:05] VITALS: BP 113/58; RESP 22
[2017-05-31 02:00] VITALS: BP 106/54; RESP 20
[2017-05-31 06:04] LABS: BASOPHILS % 0.5 % (0.0-2.0); EOSINOPHILS # 0.1 10^3/ul (0.0-0.5); EOSINOPHILS % 1.7 % (0.0-7.0); HEMATOCRIT 46.3 % (37.0-47.0); HEMOGLOBIN 13.5 g/dl (12.0-16.0); LYMPHOCYTES # 1.6 10^3/ul (0.8-2.9); LYMPHOCYTES % 26.1 % (15.0-51.0); MEAN CORPUSCULAR HGB CONC 29.2 g/dl (32.0-37.0); MEAN CORPUSCULAR VOLUME 95.9 fl (82.0-101.0); MEAN PLATELET VOLUME 11.6 fl (7.4-10.4); MONOCYTE # 0.5 10^3/ul (0.3-0.9); MONOCYTES % 7.9 % (0.0-11.0); NEUTROPHIL # 3.8 10^3/ul (1.6-7.5); NEUTROPHILS % 63.6 % (39.0-77.0); PLATELET COUNT 169 10^3/UL (140-415); RED BLOOD COUNT 4.83 10^6/ul (4.20-5.40); RED CELL DISTRIBUTION WIDTH 14.5 % (11.5-14.5)
[2017-05-31 06:48] LABS: CALCIUM 8.8 mg/dl (8.4-10.2); CREATININE 0.64 mg/dl (0.44-1.00); POTASSIUM 3.5 mmol/L (3.5-5.1)
[2017-05-31 07:43] VITALS: BP 110/60; RESP 18
[2017-05-31] MEDS: ALBUTEROL/IPRATROPIUM (NEB) 3 ML AMP HHN SCH ×2 (08:50→16:52)
[2017-05-31] MEDS ORDERED: AMLODIPINE 10 MG TAB PO SCH (09:00)
[2017-05-31] MEDS: BENAZEPRIL 10 MG TAB PO SCH (09:00)
[2017-05-31] MEDS: DOCUSATE SODIUM 100 MG CAP PO SCH (09:14)
[2017-05-31] MEDS: ACETAZOLAMIDE 500 MG INJ IV SCH (09:15)
[2017-05-31] MEDS: FAMOTIDINE 20 MG TAB PO SCH (09:15)
[2017-05-31] MEDS: FUROSEMIDE 20 MG INJ IV SCH (09:17)
[2017-05-31] MEDS: ENOXAPARIN 40 MG/0.4 ML SYG SC SCH (09:24)
[2017-05-31 14:57] VITALS: BP 116/63; RESP 20
--- NOTE | 2017-05-31 15:11 | CONS ---
Date/Time of Note Date/Time of Note DATE: 05/31/17 TIME: 15:08 Assessment/Plan Assessment/Plan Chief Complaint/Hosp Course 1. Congestive heart failure exacerbation, systolic and diastolic by most recent echo, November 2016, revealing ejection fraction of 45-50 percent.Now improved by most recent echo read as 65% per Dr pizarro read 2. Cardiomyopathy, with decreased left ejection fraction, last approximately 45 percent by echo, November 2010. 3. Permanent pacemaker, sinus automatic internal cardioverter defibrillator, biventricular, status post interrogation, with proper function, battery life of greater than 2 years - stable. Patient a DNR/DNI. 4. Hypertension - modest rx, con't to follow. 5. Respiratory failure, now improved. 6. Splenic mass. Recc: -Continue benazepril but will d/c norvasc given low/marginal BP -Contiue gentle lasix diuresis -Continue diamox -Follow volume status closely Problems: Consultation Date/Type/Reason Admit Date/Time May 23, 2017 at 15:55 Initial Consult Date 05/24/2017 Type of Consultation: cardiology Reason for Consultation cardiomyopathy Referring Provider: FLORENCIA MORALES MD Exam/Review of Systems Vital Signs Vitals Vital Signs Date Time Temp Pulse Resp B/P Pulse Ox O2 Delivery O2 Flow Rate FiO2 05/31/17 14:57 98.0 72 20 116/63 92 05/31/17 08:50 Nasal Cannula 3.0 05/28/17 23:11 35 Intake and Output 05/30/17 05/30/17 05/31/17 15:00 23:00 07:00 Intake Total 740 ml 700 ml Balance 740 ml 700 ml Exam Review of Systems: CONSTITUTIONAL: No fevers, chills. PULMONARY: No sob CARDIOVASCULAR: No chest pain/palpitations GASTROINTESTINAL: No nausea/vomiting. GENITOURINARY: No hematuria/dysuria. MUSCULOSKELETAL: No myagias/arthalgias. PSYCHIATRIC: The patient denies depression. NEUROLOGIC: No weakness Constitutional: alert, oriented Psych: no complaints Eyes: nl conjunctiva ENMT: mucosa pink and moist Neck: jvd (9 cm water), supple Respiratory: clear to auscultation Cardiovascular: regular rate and rhythm Gastrointestinal: non-tender, soft Musculoskeletal: muscle tone (normal) Extremities: edema (none) Neurological: other (No focal deficits) Results Result Diagram: 05/31/17 0444 05/31/17 0444 Results 24 hrs Laboratory Tests Test 05/31/17 04:44 White Blood Count 6.0 Red Blood Count 4.83 Hemoglobin 13.5 Hematocrit 46.3 Mean Corpuscular Volume 95.9 Mean Corpuscular Hemoglobin 28.0 L Mean Corpuscular Hemoglobin Concent 29.2 L Red Cell Distribution Width 14.5 Platelet Count 169 # Mean Platelet Volume 11.6 H Neutrophils % 63.6 Lymphocytes % 26.1 Monocytes % 7.9 Eosinophils % 1.7 Basophils % 0.5 Nucleated Red Blood Cells % 0.0 Neutrophils # 3.8 Lymphocytes # 1.6 Monocytes # 0.5 Eosinophils # 0.1 Basophils # 0.0 Nucleated Red Blood Cells # 0.0 Sodium Level 141 Potassium Level 3.5 Chloride Level 104 Carbon Dioxide Level 31 Anion Gap 10 Blood Urea Nitrogen 18 Creatinine 0.64 Glucose Level 107 Calcium Level 8.8 Medications Medications Current Medications Acetaminophen (Tylenol Tab) 650 mg Q4H PRN PO PAIN AND OR ELEVATED TEMP; Start 05/24/17 at 18:30 Benazepril HCl (Lotensin) 10 mg DAILY PO Last administered on 05/30/17 09:51; Admin Dose 10 MG; Start 05/25/17 at 09:00 Furosemide (Lasix) 20 mg DAILY IV Last administered on 05/31/17 09:17; Admin Dose 20 MG; Start 05/25/17 at 09:00 Acetazolamide (Diamox) 500 mg DAILY IV Last administered on 05/31/17 09:15; Admin Dose 500 MG; Start 05/25/17 at 09:00 Enoxaparin Sodium (Lovenox) 40 mg DAILY SC Last administered on 05/31/17 09:24 ; Admin Dose 40 MG; Start 05/25/17 at 09:00 Hydralazine HCl (Apresoline) 10 mg Q6H PRN IV ELEVATED BLOOD PRESSURE; Start at 18:30 Morphine Sulfate (morphine) 2 mg Q2H PRN IV PAIN; Start 05/24/17 at 18:30 Lorazepam (Ativan) 1 mg Q4 PRN IV ANXIETY Last administered on 05/27/17 04:33 ; Admin Dose 1 MG; Start 05/24/17 at 18:30 Dimethicone (Blistex Lip [place]) 1 applic Q2H PRN TOP NOTE; Start 05/24/17 at 18: 30 Docusate Sodium (Colace) 100 mg BID PO Last administered on 05/31/17 09:14; Admin Dose 100 MG; Start 05/26/17 at 12:30 Famotidine (Pepcid) 20 mg DAILY PO Last administered on 05/31/17 09:15; Admin Dose 20 MG; Start 05/28/17 at 09:00 Amlodipine Besylate (Norvasc) 5 mg DAILY PO ; Start 05/31/17 at 09:00 PAYTON MONTEZ May 31, 2017 15:11
--- NOTE | 2017-05-31 16:18 | PN ---
Date/Time of Note Date/Time of Note DATE: 05/31/17 TIME: 16:17 Assessment/Plan VTE Prophylaxis VTE Prophylaxis Intervention: SCD's Lines/Catheters IV [facility] Urinary Cath still in place: No Assessment/Plan Chief Complaint/Hosp Course Patient's continues on supplemental oxygen. Patient desaturated when tried to wean off oxygen in anticipation to be discharged home. Continue oxygen supplementation follow-up pulmonology recommendations. Continue physical therapy. Assessment/Plan -Acute on chronic hypercarbic respiratory insufficiency -Possible obstructive sleep apnea, continue BiPAP at night. 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 Further recommendations based on clinical course. Plan of care discussed with Dr. Cavazos Problems: Exam/Review of Systems Vital Signs Vitals Vital Signs Date Time Temp Pulse Resp B/P Pulse Ox O2 Delivery O2 Flow Rate FiO2 05/31/17 14:57 98.0 72 20 116/63 92 05/31/17 08:50 Nasal Cannula 3.0 05/28/17 23:11 35 Intake and Output 05/30/17 05/30/17 05/31/17 15:00 23:00 07:00 Intake Total 740 ml 700 ml Balance 740 ml 700 ml Exam Constitutional: alert, oriented Neck: supple Respiratory: diminished breath sounds Cardiovascular: nl pulses Gastrointestinal: non-tender, soft Extremities: normal pulses Results Result Diagram: 05/31/17 0444 05/31/17 0444 Results 24 hrs Laboratory Tests Test 05/31/17 04:44 White Blood Count 6.0 Red Blood Count 4.83 Hemoglobin 13.5 Hematocrit 46.3 Mean Corpuscular Volume 95.9 Mean Corpuscular Hemoglobin 28.0 L Mean Corpuscular Hemoglobin Concent 29.2 L Red Cell Distribution Width 14.5 Platelet Count 169 # Mean Platelet Volume 11.6 H Neutrophils % 63.6 Lymphocytes % 26.1 Monocytes % 7.9 Eosinophils % 1.7 Basophils % 0.5 Nucleated Red Blood Cells % 0.0 Neutrophils # 3.8 Lymphocytes # 1.6 Monocytes # 0.5 Eosinophils # 0.1 Basophils # 0.0 Nucleated Red Blood Cells # 0.0 Sodium Level 141 Potassium Level 3.5 Chloride Level 104 Carbon Dioxide Level 31 Anion Gap 10 Blood Urea Nitrogen 18 Creatinine 0.64 Glucose Level 107 Calcium Level 8.8 Medications Medications Current Medications Acetaminophen (Tylenol Tab) 650 mg Q4H PRN PO PAIN AND OR ELEVATED TEMP; Start 05/24/17 at 18:30 Benazepril HCl (Lotensin) 10 mg DAILY PO Last administered on 05/30/17 09:51; Admin Dose 10 MG; Start 05/25/17 at 09:00 Furosemide (Lasix) 20 mg DAILY IV Last administered on 05/31/17 09:17; Admin Dose 20 MG; Start 05/25/17 at 09:00 Acetazolamide (Diamox) 500 mg DAILY IV Last administered on 05/31/17 09:15; Admin Dose 500 MG; Start 05/25/17 at 09:00 Enoxaparin Sodium (Lovenox) 40 mg DAILY SC Last administered on 05/31/17 09:24 ; Admin Dose 40 MG; Start 05/25/17 at 09:00 Hydralazine HCl (Apresoline) 10 mg Q6H PRN IV ELEVATED BLOOD PRESSURE; Start at 18:30 Morphine Sulfate (morphine) 2 mg Q2H PRN IV PAIN; Start 05/24/17 at 18:30 Lorazepam (Ativan) 1 mg Q4 PRN IV ANXIETY Last administered on 05/27/17 04:33 ; Admin Dose 1 MG; Start 05/24/17 at 18:30 Dimethicone (Blistex Lip [place]) 1 applic Q2H PRN TOP NOTE; Start 05/24/17 at 18: 30 Docusate Sodium (Colace) 100 mg BID PO Last administered on 05/31/17 09:14; Admin Dose 100 MG; Start 05/26/17 at 12:30 Famotidine (Pepcid) 20 mg DAILY PO Last administered on 05/31/17 09:15; Admin Dose 20 MG; Start 05/28/17 at 09:00 SUJEY KRISHNAMURTHY May 31, 2017 16:18
[2017-05-31] MEDS ORDERED: ACET250T22 PO (16:37)
[2017-05-31] MEDS ORDERED: BENA10TA48 PO (16:37)
--- NOTE | 2017-05-31 16:50 | CONS ---
Date/Time of Note Date/Time of Note DATE: 05/31/17 TIME: 16:49 Consult Date/Type/Reason Admit Date/Time May 23, 2017 at 15:55 Type of Consultation: Pulm Ordering Provider: FLORENCIA MORALES MD Subjective Comfortable. Objective Vital Signs Date Time Temp Pulse Resp B/P Pulse Ox O2 Delivery O2 Flow Rate FiO2 05/31/17 14:57 98.0 72 20 116/63 92 05/31/17 08:50 Nasal Cannula 3.0 05/28/17 23:11 35 Intake and Output 05/30/17 05/30/17 05/31/17 15:00 23:00 07:00 Intake Total 740 ml 700 ml Balance 740 ml 700 ml Results/Medications Result Diagram: 05/31/17 0444 05/31/17 0444 Results 24 hrs Laboratory Tests Test 05/31/17 04:44 White Blood Count 6.0 Red Blood Count 4.83 Hemoglobin 13.5 Hematocrit 46.3 Mean Corpuscular Volume 95.9 Mean Corpuscular Hemoglobin 28.0 L Mean Corpuscular Hemoglobin Concent 29.2 L Red Cell Distribution Width 14.5 Platelet Count 169 # Mean Platelet Volume 11.6 H Neutrophils % 63.6 Lymphocytes % 26.1 Monocytes % 7.9 Eosinophils % 1.7 Basophils % 0.5 Nucleated Red Blood Cells % 0.0 Neutrophils # 3.8 Lymphocytes # 1.6 Monocytes # 0.5 Eosinophils # 0.1 Basophils # 0.0 Nucleated Red Blood Cells # 0.0 Sodium Level 141 Potassium Level 3.5 Chloride Level 104 Carbon Dioxide Level 31 Anion Gap 10 Blood Urea Nitrogen 18 Creatinine 0.64 Glucose Level 107 Calcium Level 8.8 Medications Current Medications Acetaminophen (Tylenol Tab) 650 mg Q4H PRN PO PAIN AND OR ELEVATED TEMP; Start 05/24/17 at 18:30 Benazepril HCl (Lotensin) 10 mg DAILY PO Last administered on 05/30/17 09:51; Admin Dose 10 MG; Start 05/25/17 at 09:00 Furosemide (Lasix) 20 mg DAILY IV Last administered on 05/31/17 09:17; Admin Dose 20 MG; Start 05/25/17 at 09:00 Acetazolamide (Diamox) 500 mg DAILY IV Last administered on 05/31/17 09:15; Admin Dose 500 MG; Start 05/25/17 at 09:00 Enoxaparin Sodium (Lovenox) 40 mg DAILY SC Last administered on 05/31/17 09:24 ; Admin Dose 40 MG; Start 05/25/17 at 09:00 Hydralazine HCl (Apresoline) 10 mg Q6H PRN IV ELEVATED BLOOD PRESSURE; Start at 18:30 Morphine Sulfate (morphine) 2 mg Q2H PRN IV PAIN; Start 05/24/17 at 18:30 Lorazepam (Ativan) 1 mg Q4 PRN IV ANXIETY Last administered on 05/27/17 04:33 ; Admin Dose 1 MG; Start 05/24/17 at 18:30 Dimethicone (Blistex Lip [place]) 1 applic Q2H PRN TOP NOTE; Start 05/24/17 at 18: 30 Docusate Sodium (Colace) 100 mg BID PO Last administered on 05/31/17 09:14; Admin Dose 100 MG; Start 05/26/17 at 12:30 Famotidine (Pepcid) 20 mg DAILY PO Last administered on 05/31/17 09:15; Admin Dose 20 MG; Start 05/28/17 at 09:00 Assessment/Plan Chief Complaint/Hosp Course Assessment 1. Status post acute hypoxemic respiratory failure 2. Likely obstructive sleep apnea 3. Systolic diastolic dysfunction with acute exacerbation. Plan 1. Continue cardiac recommendations 2. Continue supplemental O2 as needed 3. Encourage out of bed if tolerated Discharge planning okay from from standpoint Problems: DINA GIRALDO [facility] May 31, 2017 16:50
--- NOTE | 2017-05-31 19:26 | DS ---
Date/Time of Note Date/Time of Note DATE: 05/31/17 TIME: 19:23 Discharge Summary Admission/Discharge Info Admit Date/Time May 23, 2017 at 15:55 Discharge Date/Time Patient Condition: Stable Hx of Present Illness Patient is an 81-year-old female with a history of cardiomyopathy, congestive heart failure, hypertension, ICD placement, dementia, who presented to the hospital with worsening shortness of breath. Initially, upon arrival on May 19, patient underwent ABG, revealing a pH of 7.2, with a pCO2 of 75 and a pO2 of 72. Additionally, patient's labs notable for a white blood cell count of 7.9, hemoglobin 14.5, platelet count of 153, a sodium of 143, potassium 4.8, creatinine 0.6, BUN 12. Troponin negative. BNP of 589. TSH 0.862. UA negative. Patient underwent a CTA that revealed no evidence of pulmonary embolism or aortic dissection, moderate cardiomegaly, bibasilar atelectasis and lower lobe consolidation, small left-sided pleural effusion, vascular calcifications, large isodense splenic mass. A chest x-ray revealed dual-chamber cardiac pacemaker on the left chest wall, cardiomegaly, and extensive infiltrates in the right lung and the base of the lungs which may be a result of asymmetric pulmonary edema from CHF or pneumonia cannot be excluded. Patient's electrocardiogram revealed ventricular paced rhythm at a rate of 94, A sensed. Patient in the emergency department received BiPAP, with some improvement, but was made DNI/DNR by family. Patient has now been admitted to the floor, where she remains at this time. Hospital Course -Acute on chronic hypercarbic respiratory insufficiency, improved. Patient was evaluated and followed by Dr. Orozco in pulmonology consultation Dr. Davis and cardiology consultation. Patient's condition improved and patient will be discharged home on supplemental oxygen. -Possible obstructive sleep apnea, continue BiPAP at night. 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 Home Meds Active Scripts Acetazolamide* (Acetazolamide*) 250 Mg Tablet, 250 MG PO BID, #60 TAB Prov:SUJEY KRISHNAMURTHY 05/31/17 Benazepril Hcl* (Benazepril Hcl*) 10 Mg Tablet, 10 MG PO DAILY for 30 Days, TAB Prov:SUJEY KRISHNAMURTHY 05/31/17 Reported Medications Ergocalciferol (Vitamin D2) (VITAMIN D2) 50,000 Unit Capsule, 51064 UNIT PO Q7D , CAP 05/18/17 Potassium Chloride* (Potassium Chloride*) 8 Meq Capsule.er, 16 MEQ PO DAILY, CAP 05/18/17 Aspirin (Aspir-Low) 81 Mg Tablet.dr, 81 MG PO DAILY 05/18/17 Furosemide* (Furosemide*) 40 Mg Tablet, 40 MG PO DAILY 10/01/11 Simvastatin (Simvastatin) 40 Mg Tablet, 40 MG PO QHS 10/01/11 Discontinued Reported Medications Levocetirizine Dihydrochloride (Xyzal) 5 Mg Tablet, 5 MG PO BID, TAB 05/18/17 Carvedilol* (Carvedilol*) 12.5 Mg Tablet, 12.5 MG PO BID, #60 TAB 11/16/16 Enalapril (Enalapril) 5 Mg Tablet, 5 MG PO BID 10/01/11 Follow-up Plan Follow-up with PMD in 1-2 weeks Primary Care Provider John Sears Time spent on discharge: > 30 minutes Pending Labs Laboratory Tests Test 05/31/17 04:44 White Blood Count 6.010^3/ul (4.8-10.8) Red Blood Count 4.8310^6/ul (4.20-5.40) Hemoglobin 13.5g/dl (12.0-16.0) Hematocrit 46.3% (37.0-47.0) Mean Corpuscular Volume 95.9fl (82.0-101.0) Mean Corpuscular Hemoglobin 28.0pg (29.0-33.0) Mean Corpuscular Hemoglobin Concent 29.2g/dl (32.0-37.0) Red Cell Distribution Width 14.5% (11.5-14.5) Platelet Count 20191^3/UL (140-415) Mean Platelet Volume 11.6fl (7.4-10.4) Neutrophils % 63.6% (39.0-77.0) Lymphocytes % 26.1% (15.0-51.0) Monocytes % 7.9% (0.0-11.0) Eosinophils % 1.7% (0.0-7.0) Basophils % 0.5% (0.0-2.0) Nucleated Red Blood Cells % 0.0/100WBC (0.0-0.0) Neutrophils # 3.810^3/ul (1.6-7.5) Lymphocytes # 1.610^3/ul (0.8-2.9) Monocytes # 0.510^3/ul (0.3-0.9) Eosinophils # 0.110^3/ul (0.0-0.5) Basophils # 0.010^3/ul (0.0-0.1) Nucleated Red Blood Cells # 0.010^3/ul (0.0-0.0) Sodium Level 141mmol/L (135-144) Potassium Level 3.5mmol/L (3.5-5.1) Chloride Level 104mmol/L (97-110) Carbon Dioxide Level 31mmol/L (21-31) Anion Gap 10 (8-16) Blood Urea Nitrogen 18mg/dl (7-20) Creatinine 0.64mg/dl (0.44-1.00) Glucose Level 107mg/dl (70-220) Calcium Level 8.8mg/dl (8.4-10.2) SUJEY KRISHNAMURTHY May 31, 2017 19:26
== END 2017-05-31 18:30 | disposition home health service (06) | DRG 291 ==
LOC: MS1 15:55 → UNDOADMIN 15:55
PROVIDERS: ADMIT Internal Medicine; ATTEND Internal Medicine
DX: I11.0 Hypertensive heart disease with heart failure (principal); J96.22 Acute and chronic respiratory failure with hypercapnia; F03.90 Unspecified dementia, unspecified severity, without behavioral disturbance, psychotic disturbance, mood disturbance, and anxiety; I50.43 Acute on chronic combined systolic (congestive) and diastolic (congestive) heart failure; Z66 Do not resuscitate; Z95.810 Presence of automatic (implantable) cardiac defibrillator; Z95.0 Presence of cardiac pacemaker; R16.1 Splenomegaly, not elsewhere classified; G47.33 Obstructive sleep apnea (adult) (pediatric); E66.9 Obesity, unspecified; Z68.34 Body mass index [BMI] 34.0-34.9, adult
CPT/HCPCS: 80048; 85025; 94640; 97110; 97116; 97162; 97530; J1120; J1940; J1650; J2060

== ENCOUNTER 2017-06-07 19:18 | Emergency (ER) | payer MEDICARE, OTHER ==
[~2017-06-07] VITALS: Ht 160 cm; Wt 114.0 kg
[~2017-06-07 19:18] MED LIST changes: +ACET250T22 PO; +BENA10TA48 PO; -CARV12.579 PO; -ENAL5TAB89 PO; -LEVO5TAB28 PO
[2017-06-07 19:19] VITALS: Ht 160 cm; Wt 114.0 kg
[2017-06-07 19:20] VITALS: BP 119/78; PULSE 102; RESP 21; TEMP 97.8
[2017-06-07] MEDS ORDERED: ASPIRIN 81 MG TAB PO STA (19:30)
[2017-06-07] MEDS ORDERED: NITROGLYCERIN (SL) 0.4 MG TAB SL PRN (19:30)
[2017-06-07] MEDS ORDERED: NITROGLYCERIN 2% 1 GM OINT PKT TD STA (19:30)
[2017-06-07 20:23] LABS: BASOPHILS % 0.2 % (0.0-2.0); EOSINOPHILS # 0.2 10^3/ul (0.0-0.5); EOSINOPHILS % 2.4 % (0.0-7.0); HEMATOCRIT 44.4 % (37.0-47.0); HEMOGLOBIN 13.3 g/dl (12.0-16.0); LYMPHOCYTES # 1.2 10^3/ul (0.8-2.9); LYMPHOCYTES % 19.7 % (15.0-51.0); MEAN CORPUSCULAR HEMOGLOBIN 28.8 pg (29.0-33.0); MEAN CORPUSCULAR VOLUME 96.1 fl (82.0-101.0); MEAN PLATELET VOLUME 10.6 fl (7.4-10.4); MONOCYTE # 0.3 10^3/ul (0.3-0.9); MONOCYTES % 5.5 % (0.0-11.0); NEUTROPHIL # 4.4 10^3/ul (1.6-7.5); PLATELET COUNT 167 10^3/UL (140-415); RED BLOOD COUNT 4.62 10^6/ul (4.20-5.40); RED CELL DISTRIBUTION WIDTH 14.3 % (11.5-14.5); WHITE BLOOD COUNT 6.1 10^3/ul (4.8-10.8)
[2017-06-07 20:51] LABS: ANION GAP 8 (8-16); BLOOD UREA NITROGEN 16 mg/dl (7-20); CALCIUM 8.9 mg/dl (8.4-10.2); CARBON DIOXIDE 31 mmol/L (21-31); CHLORIDE 108 mmol/L (97-110); GLUCOSE 95 mg/dl (70-220); POTASSIUM 4.6 mmol/L (3.5-5.1); SODIUM 142 mmol/L (135-144)
--- NOTE | 2017-06-07 21:03 | RADRPT ---
PROCEDURE: XR Chest. CLINICAL INDICATION: Chest pain TECHNIQUE: Single frontal view of the chest. COMPARISON: 05/18/2017 FINDINGS: Left anterior chest wall dual chamber cardiac pacer. Cardiomegaly. Improved aeration at the right ap ex over interval. Persistent opacification at the right lung base, perhaps secondary to rotated film and cardiomegaly. Atelectasis versus airspace disease is partially visualized of the left lung base . No signs of pleural fluid or pneumothorax are seen. The osseous structures and soft tissues are un remarkable. IMPRESSION: 1. Cardiomegaly and rotated film. 2. Persistent opacification at the right lung base. 3. Improved aeration at the right apex. 4. Left lung base atelectasis versus airspace disease is partially visualized. RPTAT: [facility] Physician Barrie Date Time Electronically viewed and signed by Physician Barrie on 06/07/2017 21:03 RS/
[2017-06-07 21:04] LABS: TROPONIN-I < 0.012 ng/ml (0.00-0.12)
--- NOTE | 2017-06-07 21:31 | ERD ---
ER Documentation Chief Complaint Date/Time DATE: 06/07/17 TIME: 21:30 Chief Complaint PT IN WITH C/O BACK PAIN RADIATING TO CHEST X 2 DAYS ROS All systems reviewed and are negative except as per history of present illness. Medications Home Meds Active Scripts Acetazolamide* (Acetazolamide*) 250 Mg Tablet, 250 MG PO BID, #60 TAB Prov:SUJEY KRISHNAMURTHY 05/31/17 Benazepril Hcl* (Benazepril Hcl*) 10 Mg Tablet, 10 MG PO DAILY for 30 Days, TAB Prov:SUJEY KRISHNAMURTHY 05/31/17 Reported Medications Ergocalciferol (Vitamin D2) (VITAMIN D2) 50,000 Unit Capsule, 22517 UNIT PO Q7D , CAP 05/18/17 Potassium Chloride* (Potassium Chloride*) 8 Meq Capsule.er, 16 MEQ PO DAILY, CAP 05/18/17 Aspirin (Aspir-Low) 81 Mg Tablet.dr, 81 MG PO DAILY 05/18/17 Furosemide* (Furosemide*) 40 Mg Tablet, 40 MG PO DAILY 10/01/11 Simvastatin (Simvastatin) 40 Mg Tablet, 40 MG PO QHS 10/01/11 Discontinued Reported Medications Levocetirizine Dihydrochloride (Xyzal) 5 Mg Tablet, 5 MG PO BID, TAB 05/18/17 Carvedilol* (Carvedilol*) 12.5 Mg Tablet, 12.5 MG PO BID, #60 TAB 11/16/16 Enalapril (Enalapril) 5 Mg Tablet, 5 MG PO BID 10/01/11 Allergies Allergies: Coded Allergies: No Known Allergies (Verified Allergy, Unknown, 05/18/17) PMhx/Soc History of Surgery: Yes (PACEMAKER) Anesthesia Reaction: No (PER GRANDSON) Hx Neurological Disorder: No (PT SOMEWHAT CONFUSED ) Hx Respiratory Disorders: Yes (PT ON OXYGEN AT HOME VIA NC) Hx Cardiac Disorders: Yes (PACEMAKER LEFT CHEST) Hx Psychiatric Problems: Yes (PANIC ATTACK/ANXIETY) Hx Miscellaneous Medical Probl: Yes (recurrent hypercapnic RF due to COPD, CHF , obesity, hypovent synd) Hx Alcohol Use: No Hx Substance Use: No Hx Tobacco Use: No Smoking Status: Never smoker Physical Exam Vitals Vital Signs Date Time Temp Pulse Resp B/P Pulse Ox O2 Delivery O2 Flow Rate FiO2 06/07/17 19:33 Nasal Cannula 3 9/29/17 19:20 97.8 102 21 119/78 98 Nasal Cannula 3.0 06/07/17 19:19 97.8 102 21 119/78 98 Physical Exam Const: [] Head: Atraumatic Eyes: Normal Conjunctiva ENT: Normal External Ears, Nose and Mouth. Neck: Full range of motion..~ No meningismus. Resp: Clear to auscultation bilaterally Cardio: Regular rate and rhythm, no murmurs Abd: Soft, non tender, non distended. Normal bowel sounds Skin: No petechiae or rashes Back: No midline or flank tenderness Ext: No cyanosis, or edema Neur: Awake and alert Psych: Normal Mood and Affect Result Diagram: 06/07/17199906/07/171999 Results 24 hrs Laboratory Tests Test 06/07/17 20:00 White Blood Count 6.110^3/ul Red Blood Count 4.6210^6/ul Hemoglobin 13.3g/dl Hematocrit 44.4% Mean Corpuscular Volume 96.1fl Mean Corpuscular Hemoglobin 28.8pg Mean Corpuscular Hemoglobin Concent 30.0g/dl Red Cell Distribution Width 14.3% Platelet Count 70071^3/UL Mean Platelet Volume 10.6fl Neutrophils % 72.0% Lymphocytes % 19.7% Monocytes % 5.5% Eosinophils % 2.4% Basophils % 0.2% Nucleated Red Blood Cells % 0.0/100WBC Neutrophils # 4.410^3/ul Lymphocytes # 1.210^3/ul Monocytes # 0.310^3/ul Eosinophils # 0.210^3/ul Basophils # 0.010^3/ul Nucleated Red Blood Cells # 0.010^3/ul Sodium Level 142mmol/L Potassium Level 4.6mmol/L Chloride Level 108mmol/L Carbon Dioxide Level 31mmol/L Anion Gap 8 Blood Urea Nitrogen 16mg/dl Creatinine 0.70mg/dl Glucose Level 95mg/dl Calcium Level 8.9mg/dl Troponin I < 0.012ng/ml Current Medications Medications (Trade) Dose Ordered Sig/Arely Route PRN Reason Start Time Stop Time Status Last Admin Dose Admin Aspirin (Aspirin) 162 mg ONCE STAT PO 06/07/17 19:30 06/07/17 19:31 DC 06/07/17 21:09 Nitroglycerin (Nitroglycerin 2% Oint) 1 inch ONCE STAT TD 06/07/17 19:30 06/07/17 19:31 DC Nitroglycerin (Nitroglycerin (Sl Tab) 0.4 Mg) 1 tab Q5M UP TO 3 DOSES PRN SL CHEST PAIN 06/07/17 19:30 Procedures/MDM EKG read by me: Rate/Rhythm: Paced rhythm at a rate of 76 Intervals: Normal Impression: Paced rhythm with negative Sgarbossa criteria Chest x-ray shows chronic changes but no obvious pneumonia per radiology. Departure Diagnosis: Primary Impression: Chest pain Condition: Fair Patient Instructions: Chest Pain, Uncertain Cause Referrals: DWIGHT WARREN (PCP) Additional Instructions: Call your primary care doctor TOMORROW for an appointment during the next 1-2 days.See the doctor sooner or return here if your condition worsens before your appointment time. SIERRA EARLY MD Jun 07, 2017 21:31
== END 2017-06-07 21:45 | disposition home or self-care (01) ==
LOC: E/R 19:18
DX: R07.9 Chest pain, unspecified (principal); I50.9 Heart failure, unspecified; J44.9 Chronic obstructive pulmonary disease, unspecified; E66.9 Obesity, unspecified; R40.2142 Coma scale, eyes open, spontaneous, at arrival to emergency department; R40.2252 Coma scale, best verbal response, oriented, at arrival to emergency department; R40.2362 Coma scale, best motor response, obeys commands, at arrival to emergency department; Z95.0 Presence of cardiac pacemaker; Z79.82 Long term (current) use of aspirin
CPT/HCPCS: 71010; 80048; 84484; 85025; 93005